=== PATIENT | male | born 1960 | race Caucasian/White ===

== ENCOUNTER → 2024-03-07 13:05 | Outpatient (REF) | payer OTHER, SELFPAY | LOC: RAD 13:05 | PROVIDERS: ATTENDING PHYSICIAN Family Medicine | DX: R05.1 Acute cough (principal) | CPT/HCPCS: 71046 ==

== ENCOUNTER 2024-04-28 16:45 | Inpatient (IN) | payer OTHER, SELFPAY ==
[2024-04-28] VITALS (7 sets, daily range): BP systolic 142–165; BP diastolic 80–105; BMI 24.6
--- NOTE | 2024-04-28 10:43 | ED.GENMED ---
History of Present Illness
General
Chief Complaint: Abdominal Pain
Source: patient
Exam Limitations: none
Time Seen by Provider: 04/28/24 10:31
History of Present Illness
History of Present Illness:
Patient started yesterday with progressive abdominal pain. 1 episode of vomiting although no nausea now. Bowel movement yesterday was normal. No radiation of the back no chest pain or shortness of breath. Pain is moderate in nature. Mostly
upper abdomen.
Past History
Past History
ED Past Medical History: Arrthythmia (AF), Cancer (nonhodgkins ), CVA, HTN, Hypercholesterolemia and Other (cataracts)
ED Past Surgical History: Other (Spleenectomy, Stomach repair, hernia repair, PFO closure)
Social History
Tobacco: Former smoker
Alcohol: Daily
Drug: None
Personal:
Living: with family
Review of Systems
Review of Systems
All Other Systems: Not applicable
Constitutional: Denies fever or chills
Respiratory: Reports no symptoms
Cardiac: Reports no symptoms
Phy Exam
Physical Exam
Physical Exam:
GENERAL: Alert and oriented in no apparent distress
EYE: Orbits normal.
NECK: Supple
CARDIAC: Regular rate and rhythm without any obvious murmurs.
LUNGS: Clear breath sounds,normal
ABDOMEN: Soft, bowel sounds present. Geovanni vertical old incision. Moderate tenderness right upper quadrant. Mild epigastric tenderness. No significant lower abdominal tenderness rebound or guarding
NEUROLOGICAL: Alert and oriented , grossly non-focal
SKIN: Warm and dry, no rash or lesion, no discoloration, skin intact.
MUSCULOSKELETAL: No edema,no deformity.Good color
PSYCH: Normal and appropriate interaction.
Course
Orders/Labs/Results
Orders:
Orders
04/28/24 Lunch
NPO
Allow oral meds: Yes
Allow clear liquids: No
04/28/24 10:43
Electrocardiogram (*1) Stat
Reason for Study: Abdominal Pain
CT Abd/pel W Iv And Oral Contr Urgent
Comment:
Reason For Exam: Upper abdominal pain
EKG- Treatment ONCE
IV Insert/Care/Rem.- Treatment PRN
0.9% Sodium Chloride 500 ml [Nss] 500 ml IV BOLUS
Iohexol [Omnipaque] See Protocol PO NOW STA
US Abdomen Complete/Upper Urgent
Reason For Exam: Right upper quadrant pain
04/28/24 11:00
Complete Blood Count/With Diff Urgent
PTT Urgent
Prothrombin Time Urgent
04/28/24 11:30
Lipase Urgent
04/28/24 12:01
Comprehensive Metabolic Panel Urgent
Lipase Urgent
Ketorolac [Toradol] 15 mg IV NOW STA
04/28/24 14:46
Piperacillin/Tazo 3.375 Gram [Zosyn] 3.375 gram in 50 ml IV NOW
04/28/24 15:59
Admit/Transfer Patient As Directed
Co-Sign Provider:
Level of Care: Inpatient admission
Assign to:: Medical/Surgical
Physician / Group: Jane Herrera
Diagnosis: Acute cholecystitis
Reason for Hospitalization: Acute cholecystitis
Expected length of stay greater than two midnights?: Yes
ELOS- Estimated Length of Stay in days: 3
I certify the patient meets the requirements for IP care: Yes
PRN Pain Medication Management As Directed
May give lesser potent ordered pain med per pt: Yes
preference::
Protocol:: Medication orders for pain may be administered in a
manner that supports deferring to patient preference
when the pt is:
- Requesting an ordered lesser potent pain medication.
Least to most potent pain medications are defined
as: acetaminophen < NSAID < tramadol < opioids
(morphine, oxycodone, hydromorphone).
- Requesting a lesser dose of the same medication IF
ORDERED.
- Requesting a less intrusive route of administration
if both routes are prescribed by the provider (PO <
IV).
04/28/24 16:01
Code Status As Directed
Resuscitation Status: Full Code
04/28/24 18:27
Acetaminophen [Tylenol] 650 mg PO Q4HPRN PRN
Bisacodyl [Dulcolax] 10 mg RECTAL Q64CEDF PRN
Docusate W/Senna [Senokot-S] 1 tablet PO BIDPRN PRN
HYDROmorphone [Dilaudid] 0.5 mg IV Q4HPRN PRN
Ondansetron Injectable [Zofran] 4 mg IV Q6HPRN PRN
Polyethylene Glycol Powder [Miralax] 17 grams PO DAILYPRN PRN
Tetrahydrozoline 0.05% [Visine Eye Drops] 1 drop BOTH EYES DAILYPRN PRN
04/28/24 18:27
Consult Surgery [SURGICAL CONSULT] Routine
Consulting Provider: Igor Venegas
Was physician already notified: Yes
Activity As Directed
Activity Level: Ambulate
Pneumatic Compression Sleeves As Directed
Type: Knee high
Vital Signs As Directed
Frequency: Per unit guidelines
DX Deep Vein Thrombosis Video Routine
04/28/24 22:00
Piperacillin/Tazo 3.375 Gram [Zosyn] 3.375 gram in 50 ml IV Q6H
04/29/24 06:00
Basic Metabolic Panel IN AM
Complete Blood Count/No Diff IN AM
04/29/24 08:00
Losartan [Cozaar] 50 mg PO DAILY
ponatinib [Iclusig] 15 mg PO DAILY
Abnormal Lab Results
04/28/24 04/28/24
11:00 12:01
WBC 15.3 H 10^3/uL
(4.8-10.8)
RBC 4.64 L 10^6/uL
(4.70-6.10)
MCV 95.7 H fL
(80.0-94.0)
MCH 33.4 H pg
(27.0-31.0)
RDW 15.1 H %
(11.5-14.5)
Plt Count 438 H 10^3/uL
(130-400)
Abs Immat Gran (auto) 0.1 H 10^3/uL
(0-0.05)
Absolute Neuts (auto) 11.2 H 10^3/uL
(1.4-6.5)
Absolute Monos (auto) 1.9 H 10^3/uL
(0.1-0.6)
Lymphocytes % 11.4 L %
(20.5-51.1)
Monocytes % 12.6 H %
(1.7-9.3)
Creatinine 0.5 L mg/dL
(0.7-1.3)
04/28/24 11:00
04/28/24 12:01
Vital Signs
Initial and Last Documented VS:
Initial Vital Signs
Temp Pulse Resp BP Pulse Ox
97.8 F 87 16 161/105 97
04/28/24 10:11 04/28/24 10:11 04/28/24 10:11 04/28/24 10:11 04/28/24 10:11
Last Documented Vital Signs
Temp Pulse Resp BP Pulse Ox
98.4 F 85 18 150/80 95
04/28/24 23:07 04/28/24 23:07 04/28/24 23:07 04/28/24 23:07 04/28/24 23:07
MDM/Problems Addressed
Differential Diagnosis Includes:
Differential for progressive abdominal pain over the last 24 to 36 hours. Including gallbladder, bowel obstruction. Atypical for appendix or diverticulitis given location. Workup in progress
*Radiology
Radiology exam reviewed: radiology read reviewed (Acute cholecystitis. Mildly increased aneurysms iliac and aorta)
*Pulse Oximetry
Patient hypoxic: no
*Critical Care Note
Total Time (30-74mins, 75-104mins- exclusive of procedures): Not Applicable
Data Reviewed
Review of Other/Old Records Reveals: Labs, Records, Radiology Studies and Testing
ED Attending Note
-
Portions of this chart may have been created with voice recognition software.� Occasional wrong word or��sound alike� substitutions may have occurred due to the inherent limitations of voice recognition software.
Discharge Plan
Departure
Patient Disposition: Admit
Date of Disposition: 04/28/24
Time of Disposition: 14:52
Presentation/result/management discussed w/ accepting MD/DO: General surgery
Discharge Problem:
Acute cholecystitis
Interventions
Interventions:
*Risk Screen - Suicide Last Done: 04/28/24 10:25
*General Assessment Last Done: 04/28/24 10:38
*Neglect/Abuse Screening Last Done: 04/28/24 10:25
ED- Fall Risk Assessment Last Done: 04/28/24 19:46
*ED COVID-19 Vaccine History Last Done: 04/28/24 10:40
*Nursing Disposition Last Done: 04/28/24 19:46
UZ-Vqxets-Filoyeawaz Assessment Last Done: 04/28/24 10:36
[2024-04-28 11:08] LABS: % Basophils 0.7 % (0-2); % Eosinophils 1.9 % (0-6); % Immature Granulocytes 0.5 % (0-0.5); % Lymphocytes 11.4 % (20.5-51.1); % Monocytes 12.6 % (1.7-9.3); % Neutrophils 72.9 % (42.2-75.2); Absolute Basophils 0.1 10^3/uL (0-0.2); Absolute Eosinophils 0.3 10^3/uL (0-0.7); Absolute Immature Granulocytes 0.1 10^3/uL (0-0.05); Absolute Lymphocytes 1.8 10^3/uL (1.2-3.4); Absolute Monocytes 1.9 10^3/uL (0.1-0.6); Absolute Neutrophils 11.2 10^3/uL (1.4-6.5); Hematocrit 44.4 % (39.0-52.0); Hemoglobin 15.5 g/dL (13.0-18.0); Mean Corp Hgb Conc. 34.9 g/dL (33.0-37.0); Mean Corpuscular Hgb 33.4 pg (27.0-31.0); Mean Corpuscular Volume 95.7 fL (80.0-94.0); Mean Platelet Volume 9.4 fL (7.4-10.4); Nucleated Red Blood Cells % 0 % (-); Platelet Count 438 10^3/uL (130-400); Red Blood Cell Count 4.64 10^6/uL (4.70-6.10); Red Cell Dist. Width 15.1 % (11.5-14.5); White Blood Cell Count 15.3 10^3/uL (4.8-10.8)
[2024-04-28] MEDS: NSS 500 IV (11:10)
[2024-04-28] MEDS: OMNIPAQUE 50 ML PO (11:10)
[2024-04-28 11:20] LABS: INR 0.99; PT 13.1 Sec (11.4-14.6)
[2024-04-28] MEDS: TORADOL 15 MG IV (12:06)
[2024-04-28 12:07] LABS: Lipase 45 U/L (23-300)
[2024-04-28 12:21] LABS: ALT (SGPT) 45 U/L (0-50); AST (SGOT) 34 U/L (17-59); Albumin 4.3 g/dl (3.5-5.0); Alkaline Phosphatase 80 U/L (38-126); Blood Urea Nitrogen 9 mg/dl (9-20); Calcium 8.9 mg/dl (8.4-10.2); Carbon Dioxide 23 mmol/L (22-30); Chloride 102 mmol/L (98-107); Glucose 92 mg/dl (70-99); Potassium 4.7 mmol/L (3.5-5.1); Sodium 140 mmol/L (135-145); Total Bilirubin 0.8 mg/dl (0.2-1.3); Total Protein 6.6 g/dl (6.3-8.2); eGFR > 60.00
[2024-04-28 12:22] LABS: Lipase 43 U/L (23-300)
--- NOTE | 2024-04-28 15:06 | HPS.HSE ---
Family Physician
-
Family Physician: Mega Escudero
Chief Complaint
-
Abdminal pain
History of Present Illness
Patient is a 63-year-old male with past medical history significant for HTN, HLD, a-fib, ALL and nonhodkins lymphoma presented to [place] [facility] ED following RUQ abdominal pain for the past day. Patient reports he started with abdominal pinto yesterday
around lunch and did resolve on its own. He was then woken from his sleep in the middle of the night with significant abdominal pain, he took Metamucil thinking he was suffering from constipation, he had an episode of emesis after drinking it. This
morning he made an apt to go see his primary care who referred him to ED for evaluation for possible gallbladder. Patient denies any fevers, chills, chest pain, shortness of breath, cough, nausea, constipation, diarrhea or urinary symptoms.
Medical History
Past Medical History
Past Medical History: Reports Other
Additional Past Medical History:
HTN
HLD
A-fib
Non-Hodgkin lymphoma
ALL
Past Surgical History: Reports Other
Additional Past Surgical History:
splenectomy
right TKA
Bone marrow transplant
Social History
Tobacco: Former Smoker (qit in 1994)
Alcohol: Daily (2-3 glasses a wine a day)
Drug: None
Personal:
Living: With Family
Employment: Employed
Family History
Family History: Not pertinent
Allergies / Home Medications
Allergies reflects when Allergies were last updated in [employer].
Home Medications with original date entered in [employer]
Allergy/Medication List:
Allergies
Allergy/AdvReac Type Severity Reaction Status Date / Time
No Known Allergies Allergy Verified 04/28/24 10:28
Home Medications
losartan 50 mg tablet 50 mg PO DAILY Blood pressure 10/26/20
acyclovir 400 mg tablet 400 mg PO BID 09/21/22
ibuprofen 200 mg tablet 600 mg PO Q6HPRN PRN mild pain 04/28/24
ponatinib 15 mg tablet (Iclusig) 15 mg PO DAILY 04/28/24
rivaroxaban 20 mg tablet (Xarelto) 20 mg PO DAILY 04/28/24
tetrahydrozoline 0.05 % eye drops (Visine) 1 drp BOTH EYES DAILYPRN PRN dry eyes 04/28/24
Review of Systems
-
History Source: Patient
Constitutional: Reports No Symptoms
EENT: Reports No Symptoms
Respiratory: Reports No Symptoms
Cardiac: Reports No Symptoms
Abdomen/GI: Reports Abdominal Pain (RUQ pain) and Vomiting
: Reports No Symptoms
Musculoskeletal: Reports No Symptoms
Skin: Reports No Symptoms
Neurological: Reports No Symptoms
Endocrine: Reports No Symptoms
Hematologic/Lymphatic: Reports No Symptoms
Psych: Reports No Symptoms
Physical Exam
Vital Signs
Vital Signs
Temp Pulse Resp BP Pulse Ox
97.8 F 87 16 159/101 98
04/28/24 10:11 04/28/24 10:11 04/28/24 10:11 04/28/24 12:09 04/28/24 12:15
Physical Exam
General: Well Developed, Well Nourished, No Apparent Distress, Comfortable and Conversant
HEENT: NormoCephalic, Moist mucous membranes and Atraumatic
Respiratory: Clear and Non Labored Respirations; No Wheezes, Rales, Rhonchi or Crackles
Cardiac: S1/S2 and Regular Rhythm; No Murmur, Rub or Gallop
GI: Soft, Non Tender, Non Distended and Normal Bowel Sounds; No Organomegaly
Rectal: Deferred by Provider
Genito-urinary: Deferred by me
Musculoskeletal: No Clubbing, No Cyanosis and No Edema
Skin: Warm, Dry and IV/Catheter Site; No Rash
Neuro: Awake, Alert, AO x 3 and Nonfocal/grossly intact
Hematologic/Lymphatic: No Lymphadenopathy
Psych: Calm and Intact Judgment/Insight
Laboratory Results
-
04/28/24 11:00
04/28/24 12:01
Laboratory Results
PT 13.1 Sec (11.4-14.6) 04/28/24 11:00
INR 0.99 04/28/24 11:00
APTT 35.0 Sec (23.4-35.0) 04/28/24 11:00
Total Bilirubin 0.8 mg/dl (0.2-1.3) 04/28/24 12:01
AST 34 U/L (17-59) 04/28/24 12:01
ALT 45 U/L (0-50) 04/28/24 12:01
Alkaline Phosphatase 80 U/L (38-126) 04/28/24 12:01
Lipase 43 U/L (23-300) 04/28/24 12:01
Data Reviewed
-
CT Scan: Report Reviewed by me (Abd: Cholelithiasis. Positive sonographic Torres's sign. This would be suspicious for acute cholecystitis in the proper clinical setting. No bile duct dilatation. Fatty infiltration of the liver. Pancreas obscured
by bowel gas)
Medical Tests (Nuc Med, Echo, EKG etc): Report Reviewed by me (EKG: NORMAL SINUS RHYTHM)
Lab Data: Labs Reviewed by me (WBC 15.3, Neut 72.9)
Impression/Plan
-
IMPRESSION/PLAN:
#Acute cholecystitis/Cholelithiasis
- Positive sonographic Torres's sign
- CT Abd:Cholelithiasis. Slightly indistinct gallbladder margin and mild pericholecystic soft tissue attenuation, suspicious for acute cholecystitis in the proper clinical setting. No bile duct dilatation.
- Admit to M/S
- Consult surgery
- Hold Xarelto
- Zosyn
#HTN
- continue losartan
#A-fib
- Hold Xarelto
#ALL
- in remission s/p bone marrow transplant 01/2023
- continue ponatinib
Full Code
DVT Px: SCDs
--- NOTE | 2024-04-28 15:25 | CON.GS ---
Addendum entered and electronically signed by Lupillo Sebastian MD 04/29/24 10:49:
I saw and examined the patient.
The Shake Cutter's note was reviewed and I agree with the note.
Comment: Remains ttp to RUQ. Labs and imaging c/w ACC. LFTs WNL. OCTOR for lap candice. IV abx.
Original Note:
Consultation
-
Date/Time Consultation Requested: 04/28/24 1500
Requesting Provider: Beau
Medical History
-
Chief Complaint: abdominal pain
History of Present Illness:
Mr. Corbett is a 63 yo male with a h/o non-hodgkin's lymphoma treated with chemo, xrt to eye & laparoscopic splenectomy in 2004 with intraop injury to stomach and subsequent exploratory laparotomy for repair at [facility]. He subsequently developed a
hernia at the incision site and underwent a VHR with mesh in 2006 as OSH with revision in January of [address] Sebastian. He has additional medical history of PAF s/p ablation on Xarelto (LD 10 in am), CVA without residual deficit s/p PFO closure
in 2008, and ALL treated with bone marrow transplant in 2022 on ponatinib. He presents today with right upper abdominal pain which began yesterday an hour or so after eating a rather large lunch. His pain did resolve on its own but returned
overnight and has persisted ever since. He took a dose of Metamucil as he does struggle with chronic constipation and had not had a BM yesterday which he subsequently vomited. He denies active nausea and vomiting but pain persists with significant
tenderness to the RUQ with guarding on exam. He denies fevers or chills.
Past Medical History
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
Past Surgical History: Cardiac (PFO closure 2008, Ablation), Hernia Repair (VHR with mesh 2006 and 2021), Orthopedic (right TKR, spinal procedure l5-s1) and Other (Lap splenectomy with injury to stomach and subsequent open procedure for repair in
2004)
Social History
Tobacco: Former Smoker
Alcohol: Daily
Personal:
Living: With Family
Employment: Employed ([employer])
Family History
Family History: Other (stroke in brother at age 47)
Allergies / Home Medications
Allergy/AdvReac Type Severity Reaction Status Date / Time
No Known Allergies Allergy Verified 04/28/24 10:28
�Medication �Instructions �Recorded �Confirmed �Type
losartan 50 mg tablet 50 mg PO DAILY Blood pressure 10/26/20 04/28/24 History
acyclovir 400 mg tablet 400 mg PO BID 09/21/22 04/28/24 History
ibuprofen 200 mg tablet 600 mg PO Q6HPRN PRN mild pain 04/28/24 04/28/24 History
ponatinib 15 mg tablet (Iclusig) 15 mg PO DAILY 04/28/24 04/28/24 History
rivaroxaban 20 mg tablet (Xarelto) 20 mg PO DAILY 04/28/24 04/28/24 History
tetrahydrozoline 0.05 % eye drops 1 drp BOTH EYES DAILYPRN PRN dry 04/28/24 04/28/24 History
(Visine) eyes
Review of Systems
-
History Source: Patient and Family
All other systems: Negative unless noted
A 10 point review of systems was completed, and was negative except as per HPI.
Physical Exam
Vital Signs
Temp Pulse Resp BP Pulse Ox
97.8 F 87 16 159/101 98
04/28/24 10:11 04/28/24 10:11 04/28/24 10:11 04/28/24 12:09 04/28/24 12:15
Lab Results
04/28/24 11:00
04/28/24 12:01
WBC 15.3 10^3/uL (4.8-10.8) H 04/28/24 11:00
Hgb 15.5 g/dL (13.0-18.0) 04/28/24 11:00
Hct 44.4 % (39.0-52.0) 04/28/24 11:00
Plt Count 438 10^3/uL (130-400) H 04/28/24 11:00
Abs Immat Gran (auto) 0.1 10^3/uL (0-0.05) H 04/28/24 11:00
Neutrophils % 72.9 % (42.2-75.2) 04/28/24 11:00
Physical Exam
General: Well Developed and No Apparent Distress
HEENT: Moist Mucous Membranes and Other (right eye blind)
Respiratory: Non Labored Respirations
GI: Soft, Non Distended and Tender (to RUQ with light palpation, +guarding present)
Skin: Warm and Dry
Neuro: Awake, Alert and AO x 3
Psych: Calm
Data Reviewed
-
CT Scan: Image Personally Visualized and interpreted, Report Reviewed by me, Discussed with Physician, Discussed with Patient and Discussed with Family
Ultrasound: Image Personally Visualized and interpreted, Report Reviewed by me, Discussed with Physician, Discussed with Patient and Discussed with Family
Labs: Labs Reviewed by me, Discussed with Physician, Discussed with Patient and Discussed with Family
Old Records: Reviewed
Assessment / Plan
-
63 yo male with h/o non-hodgkin's lymphoma with ocular involvement treated with chemo, xrt to eye & laparoscopic splenectomy in 2004 with intraop injury to stomach and subsequent exploratory laparotomy for repair at [facility]. He subsequently developed a
hernia at the incision site and underwent a VHR with mesh in 2006 as OSH with revision in January of [address] Sebastian. He has additional medical history of PAF s/p ablation on Xarelto (LD 10 in am), CVA without residual deficit s/p PFO closure
in 2008, and ALL treated with bone marrow transplant in 2022.
He presents today with RUQ pain which began yesterday afternoon after a large meal, initially intermittently but now constant. RUQ markedly tender with guarding to light palpation. US with cholelithiasis and +chavira's sign with follow up CT
demonstrating findings consistent with acute calculous cholecystitis in addition to some constipation. He has leukocytosis with WBC of 15.3. Afebrile with stable vital signs.
--Continue NPO
--Antiemetics/analgesics prn
--Continue IV Zosyn
--Hold Xarelto (LD 04/27)
--Anticipate OR for cholecystectomy tomorrow after Xarelto has washed out. Will review imaging/findings with attending surgeon and make final determination.
[2024-04-28] MEDS: ZOSYN 50 IV ×2 (15:39→21:49)
--- NOTE | 2024-04-28 15:44 | W.PN.UPDATE ---
Update Note
Progress Note Update
This is an addendum to the H&P written by Lynne Bautista on 04/28/2024. Patient seen and examined independently with ACCESS COORDINATOR.
63-year-old male past medical history of non-Hodgkin's lymphoma status post splenectomy, chemotherapy and radiation, ALL status post bone marrow transplant in remission, paroxysmal atrial fibrillation on Xarelto, CVA, hypertension, hyperlipidemia,
here for abdominal pain and 1 episode of vomiting.
CT abdomen pelvis shows findings suspicious for acute cholecystitis. Hold Xarelto last taken yesterday morning. NPO. IV fluids. Zosyn. Zofran, Dilaudid as needed. General surgery consulted.
--- NOTE | 2024-04-28 20:00 | PTCARENOTE ---
Pt transfered from ED. Pt ambulated into room without assistance. Pt AAOx3, oriented to room, call millan within reach. Will continue with current plan.
[2024-04-28] MEDS: DILAUDID 0.5 MG IV (20:34)
[2024-04-28] MEDS: MELATONIN 5 MG PO (21:49)
[2024-04-29] VITALS (9 sets, daily range): BP systolic 104–132; BP diastolic 79–90
[2024-04-29] MEDS: DILAUDID 0.5 MG IV ×4 (01:28→12:49)
[2024-04-29] MEDS: ZOSYN 50 IV ×3 (04:00→22:05)
[2024-04-29] MEDS: COZAAR 50 MG PO (08:04)
[2024-04-29 08:16] LABS: Hematocrit 45.6 % (39.0-52.0); Hemoglobin 15.9 g/dL (13.0-18.0); Mean Corp Hgb Conc. 34.9 g/dL (33.0-37.0); Mean Corpuscular Hgb 34.6 pg (27.0-31.0); Mean Corpuscular Volume 99.1 fL (80.0-94.0); Mean Platelet Volume 10.3 fL (7.4-10.4); Platelet Count 393 10^3/uL (130-400); Red Cell Dist. Width 15.1 % (11.5-14.5); White Blood Cell Count 18.8 10^3/uL (4.8-10.8)
[2024-04-29 08:37] LABS: Blood Urea Nitrogen 10 mg/dl (9-20); Calcium 9.2 mg/dl (8.4-10.2); Carbon Dioxide 23 mmol/L (22-30); Chloride 97 mmol/L (98-107); Estimated Creatinine Clearance > 125 ml/min; Glucose 76 mg/dl (70-99); Potassium 4.8 mmol/L (3.5-5.1); Sodium 137 mmol/L (135-145); eGFR > 60.00
--- NOTE | 2024-04-29 09:45 | CM ---
Pt seen bedside. Pt lives w/ spouse and adult son in a [facility]- 3 steps to enter
Prev. independent, denies DME use for ambulating and daily functioning
Denies SNF hx
Denies VN/PT hx
Denies financial insecurities
Address, point of contact and insurance verified
PCP: Dr. Mega Escudero
Pharmacy: [facility]
OR today for cholecystectomy
Plan: Will cont. to follow for poss d/c needs
--- NOTE | 2024-04-29 09:57 | W.PN.HOSP.TC ---
Addendum entered and electronically signed by Cameron Valerio MD 04/29/24 11:06:
concern for development of gall stone pancreatitis - increase IVF to 200ml.h, give bolus 1L now
Original Note:
Today's Communication/Plan
-
See PN
Assessment / Plan
Assessment / Plan
63yo M with Non-hodgkins lymphoma, Afib on Xarelto, HTN came with acute RUQ pain for 2 days and found calculous cholecystitis, pending OR
A/P:
#Acute calculous cholecystitis
Gen Sx
Bcx
Zosyn
IVF
NPO
#Essential HTN
#non-hodgkins lymphoma
#Paroxysmal Afib
Hold Xarelto, restart when deemed appropriate by GenSx
Hold Iclusig 2/2 acute infection
cont rest of meds
DVT ppx on Xarelto, when appropriate
Full code
I have spent at least 58min reviewing chart, test results, communication with consultants and direct patient care
Anticipated Discharge: > 48 hours
Subjective/Interval History
-
Date of Service: April 29, 2024
Objective Data
-
Labs:
Laboratory Results
04/29/24
06:10
WBC 18.8 H
Hgb 15.9
Hct 45.6
Plt Count 393
Sodium 137
Potassium 4.8
Chloride 97 L
Carbon Dioxide 23
BUN 10
Creatinine 0.6 L
Glucose 76
Calcium 9.2
Vital Signs:
Vital Signs
Temp Pulse Resp BP Pulse Ox
98.4 F 66 14 104/89 98
04/29/24 07:05 04/29/24 07:05 04/29/24 07:05 04/29/24 07:05 04/29/24 07:05
Review of Systems
-
History Source: Patient
All other systems: Reviewed and negative
Abdomen/GI: Reports Abdominal Pain
Physical Exam
-
General: Appears in Distress and Pain
HEENT: Moist Mucous Membranes
Respiratory: Clear to Auscultation
Cardiac: Regular Rhythm
GI: Tender and Distended
Musculoskeletal: No Clubbing, No Cyanosis and No Edema
Skin: Warm
Neuro: Awake, Alert, Oriented and AO x 3
Psych: Calm
[2024-04-29] MEDS: LR 1000 IV ×3 (10:52→23:28)
[2024-04-29 10:56] LABS: ALT (SGPT) 81 U/L (0-50); AST (SGOT) 81 U/L (17-59); Albumin 4.3 g/dl (3.5-5.0); Alkaline Phosphatase 124 U/L (38-126); Direct Bilirubin 0.6 mg/dl (0.0-0.4); Lipase 488 U/L (23-300); Total Bilirubin 1.7 mg/dl (0.2-1.3); Total Protein 6.5 g/dl (6.3-8.2)
[2024-04-29] MEDS: ZOSYN IV (15:55)
--- NOTE | 2024-04-29 18:03 | W.IMMPOSTOP ---
Surgical Immed Post Op Note
-
Primary Surgeon: Romulo
Assisting: Kevon Sanchez
Pre-op Diagnosis: Acute calculous cholecystitis
Post-op Diagnosis: Acute gangrenous calculous cholecystitis
Procedure Performed: Laparoscopic converted to open cholecystectomy
Anesthesia Type: GETA
Specimen / Cultures: Gallbladder
Estimated Blood Loss: 25cc
Complications: None immediate
Operative Findings: Frozen abdomen; multiple unsuccessful attempts to insufflate with veress unsuccessful; umbilical cut down for initial trocar placement under direct vision, still very limited insufflation; second trocar placed in RLQ in a
relatively adhesion free pocket and survey of the abdomen revealed extensive adhesions and small bowel plastered to mesh and abdominal wall everywhere; conversion to open with midline incision and limited lysis of adhesions; 2 layers of PTFE mesh
and a layer of polypropylene mesh noted; small bowel serosal injury with lysis (expected) repaired with 3-0 silk lembert sutures x3; gallbladder tensely distended with patchy wall necrosis, decompressed with suction, top down approach using bovie
cautery; cystic artery not definitively identified; cystic duct identified and controlled with 2-0 PDS endoloop and 3-0 silk tie; miidline closed with 2-0 prolene suture; 19fr allie drain to subhepatic space brought out through RLQ port site incision
Plan for NPO/IVF with sips and chips, he is at risk for ileus
PHARMACY OPERATIONS MANAGER + ofirmev/toradol for pain control
lovenox ppx dose and SCDs for DVT ppx
hold xarelto 48 hrs minimum
updated
[2024-04-29] MEDS: TORADOL 15 MG IV (20:05)
[2024-04-29] MEDS: MELATONIN 5 MG PO (22:09)
[2024-04-29] MEDS: DILAUDID 1 MG IV (22:09)
[2024-04-29] MEDS: OFIRMEV 100 IV (22:50)
[2024-04-30] VITALS (11 sets, daily range): BP systolic 30–142; BP diastolic 75–90
[2024-04-30] MEDS: TORADOL 15 MG IV ×4 (00:28→20:49)
[2024-04-30] MEDS: LR IV ×2 (01:00→03:06)
[2024-04-30] MEDS: DILAUDID 1 MG IV ×4 (03:11→16:48)
[2024-04-30] MEDS: OFIRMEV 100 IV ×3 (03:11→16:53)
[2024-04-30] MEDS: ZOSYN 50 IV ×4 (03:41→22:19)
[2024-04-30 06:32] LABS: % Basophils 0.3 % (0-2); % Immature Granulocytes 0.7 % (0-0.5); % Lymphocytes 6.5 % (20.5-51.1); % Monocytes 9.7 % (1.7-9.3); % Neutrophils 82.8 % (42.2-75.2); Absolute Basophils 0.1 10^3/uL (0-0.2); Absolute Immature Granulocytes 0.1 10^3/uL (0-0.05); Absolute Lymphocytes 1.2 10^3/uL (1.2-3.4); Absolute Monocytes 1.8 10^3/uL (0.1-0.6); Absolute Neutrophils 14.9 10^3/uL (1.4-6.5); Hematocrit 42.2 % (39.0-52.0); Hemoglobin 14.5 g/dL (13.0-18.0); Mean Corp Hgb Conc. 34.4 g/dL (33.0-37.0); Mean Corpuscular Hgb 33.2 pg (27.0-31.0); Mean Corpuscular Volume 96.6 fL (80.0-94.0); Mean Platelet Volume 9.4 fL (7.4-10.4); Nucleated Red Blood Cells % 0 % (-); Platelet Count 366 10^3/uL (130-400); Red Blood Cell Count 4.37 10^6/uL (4.70-6.10); Red Cell Dist. Width 15.2 % (11.5-14.5)
[2024-04-30 07:59] LABS: ALT (SGPT) 181 U/L (0-50); AST (SGOT) 127 U/L (17-59); Albumin 3.4 g/dl (3.5-5.0); Alkaline Phosphatase 112 U/L (38-126); Blood Urea Nitrogen 16 mg/dl (9-20); Calcium 8.1 mg/dl (8.4-10.2); Carbon Dioxide 27 mmol/L (22-30); Chloride 100 mmol/L (98-107); Estimated Creatinine Clearance 110 ml/min; Glucose 146 mg/dl (70-99); Potassium 4.4 mmol/L (3.5-5.1); Sodium 136 mmol/L (135-145); Total Bilirubin 1.5 mg/dl (0.2-1.3); Total Protein 5.6 g/dl (6.3-8.2); eGFR > 60.00
[2024-04-30] MEDS: COZAAR 50 MG PO (08:59)
[2024-04-30 09:15] LABS: Lipase 61 U/L (23-300)
[2024-04-30] MEDS: OMNIPAQUE 50 ML PO (12:00)
[2024-04-30] MEDS: LR 1000 IV ×2 (12:24→20:49)
--- NOTE | 2024-04-30 13:57 | W.PN.GS2 ---
Today's Communication / Plan
-
stat CT A/P
GI consult
remain NPO
Assessment / Plan
-
POD#1 Laparoscopic converted to open cholecystectomy
-Given bilious output in drain, will order stat CT A/P with po and IV contrast
-GI consult given bilious output
-MARY contents sent for bilirubin (send out)
-Remain NPO
-Holding Xarelto
-Continue Zosyn IV
Subjective Data
-
Date of Service: April 30, 2024
Patient states his pain is controlled. He denies nausea or vomiting. He has remained afebrile. He has no complaints.
Objective Data
-
Intake and Output
04/29/24 04/30/24 05/01/24
06:59 06:59 05:59
Intake Total 480 / 480
Output Total 630 / 630
Balance -150 / -150
Intake:
Oral fluids 480 / 480
Output:
Drain Output (Total) 30
Raymond-Portillo Placed in IR 30 /
Urine, Voided 600 / 600
Other:
Number of approximated MODERATE 2
amounts of urine
Number of approximated LARGE 2
amounts of urine
Vital Signs
Temp Pulse Resp BP Pulse Ox
97.7 F 72 16 121/75 93
04/30/24 11:44 04/30/24 11:44 04/30/24 11:44 04/30/24 11:44 04/30/24 11:44
Lab Results
04/30/24 06:12
04/30/24 07:21
Calcium 8.1 mg/dl (8.4-10.2) L 04/30/24 07:21
Total Bilirubin 1.5 mg/dl (0.2-1.3) H 04/30/24 07:21
Direct Bilirubin 0.6 mg/dl (0.0-0.4) H 04/29/24 06:10
AST 127 U/L (17-59) H 04/30/24 07:21
ALT 181 U/L (0-50) H 04/30/24 07:21
Alkaline Phosphatase 112 U/L (38-126) 04/30/24 07:21
Total Protein 5.6 g/dl (6.3-8.2) L 04/30/24 07:21
Albumin 3.4 g/dl (3.5-5.0) L 04/30/24 07:21
Physical Exam
-
AAOX3
Incisions c/d/i
Abdomen soft, NT, ND
MARY: bilious
--- NOTE | 2024-04-30 14:35 | W.PN.HOSP.TC ---
Today's Communication/Plan
-
cont Abx
Assessment / Plan
Assessment / Plan
63yo M with Non-hodgkins lymphoma, Afib on Xarelto, HTN came with acute RUQ pain for 2 days and found calculous cholecystitis, pending OR
A/P:
#Acute gangrenous calculous cholecystitis
#postOP ileus
Gen Sx: s/p open cholecystectomy on 04/29/24
Bcx
Zosyn
IVF
#Essential HTN
#non-hodgkins lymphoma
#Paroxysmal Afib
Hold Xarelto, restart when deemed appropriate by GenSx
Hold Iclusig 2/2 acute infection
cont rest of meds
DVT ppx on Xarelto, when appropriate
Full code
I have spent at least 38min reviewing chart, test results, communication with consultants and direct patient care
Anticipated Discharge: > 48 hours
Subjective/Interval History
-
Date of Service: April 30, 2024
Objective Data
-
Labs:
Laboratory Results
04/30/24 04/30/24
06:12 07:21
WBC 18.0 H
Hgb 14.5
Hct 42.2
Plt Count 366
Sodium Cancelled 136
Potassium Cancelled 4.4
Chloride Cancelled 100
Carbon Dioxide Cancelled 27
BUN Cancelled 16
Creatinine Cancelled 0.8
Glucose Cancelled 146 H
Calcium Cancelled 8.1 L
Total Bilirubin Cancelled 1.5 H
AST Cancelled 127 H
ALT Cancelled 181 H
Alkaline Phosphatase Cancelled 112
Vital Signs:
Vital Signs
Temp Pulse Resp BP Pulse Ox
97.7 F 72 16 121/75 93
04/30/24 11:44 04/30/24 11:44 04/30/24 11:44 04/30/24 11:44 04/30/24 11:44
I&O
04/29/24 04/30/24 05/01/24
06:59 06:59 05:59
Intake Total 480 / 480
Output Total 630 / 630
Balance -150 / -150
Review of Systems
-
History Source: Patient
All other systems: Reviewed and negative
Physical Exam
-
General: No Apparent Distress
HEENT: Normocephalic
Respiratory: Clear to Auscultation
Cardiac: Regular Rhythm
GI: Soft, Nontender, Nondistended and Other (MARY drain)
Musculoskeletal: No Clubbing, No Cyanosis and No Edema
Neuro: Awake, Alert, Oriented and AO x 3
Psych: Calm
--- NOTE | 2024-04-30 18:36 | OR.RPT ---
Operative Report
Operative Report
Primary Surgeon: Romulo
Assisting: Kevon Sanchez
Pre-op Diagnosis: Acute calculous cholecystitis
Post-op Diagnosis: Acute gangrenous calculous cholecystitis
Procedure Performed: Laparoscopic converted to open cholecystectomy
Anesthesia Type: GETA
Specimen / Cultures: Gallbladder
Estimated Blood Loss: 25cc
Complications: None immediate
Operative Findings: Frozen abdomen; multiple unsuccessful attempts to insufflate with veress unsuccessful; umbilical cut down for initial trocar placement under direct vision, still very limited insufflation; second trocar placed in RLQ in a
relatively adhesion free pocket and survey of the abdomen revealed extensive adhesions and small bowel plastered to mesh and abdominal wall everywhere; conversion to open with midline incision and limited lysis of adhesions; 2 layers of PTFE mesh
and a layer of polypropylene mesh noted; small bowel serosal injury with lysis (expected) repaired with 3-0 silk lembert sutures x3; gallbladder tensely distended with patchy wall necrosis, decompressed with suction, top down approach using bovie
cautery; cystic artery not definitively identified; cystic duct identified and controlled with 2-0 PDS endoloop and 3-0 silk tie; miidline closed with 2-0 prolene suture; 19fr allie drain to subhepatic space brought out through RLQ port site incision
Date of Surgery: 04/29/24
Description of procedure: The patient was placed on the operating table in the supine position. General anesthesia was induced. A time-out was completed verifying correct patient, procedure, site, positioning, and special equipment prior to
beginning this procedure. An orogastric tube was placed. The abdomen was prepped and draped in the usual sterile fashion. A stab incision was made in left upper quadrant and the Veress needle was inserted. Proper position was confirmed by aspiration
and saline meniscus test. The abdomen was insufflated with carbon dioxide however the abdomen did not insufflate well. Several other attempts were made to insufflate with veress but ultimately this was abandoned. A supra-umbilical cut down was
performed. Mesh was encountered and divided and the abdomen entered. The bowel was inspected and no injuries were identified. A trocar was placed gently into the incision under direct vision and the abdomen was again insufflated. Insufflation again
was limited. A laparoscope was inserted and an area at the right lower quadrant was identified that was free of adhesions and bowel and a second trocar was placed here under laparoscopic vision. The camera was moved to the new trocar site and the
abdomen was inspected. Extensive adhesions throughout the abdomen were noted. The laparoscopic approach was abandoned at this time.
A midline incision was made and carried down to the linea alba with cautery. The abdomen was carefully entered and small bowel adhesions at the midline to the abdominal wall were carefully taken down with blunt dissection and cold frank. Once the
bowel was mobilized off the abdominal wall the gallbladder was identified. It was tensely distended with patchy wall necrosis. An incision was made in the gallbladder wall and the contents were decompressed with suction. The gallbladder was gently
grasped and taken down from its liver attachments in a down down fashion using electrocautery. There was wall edema of the gallbladder that aided in the dissection. The cystic duct was not definitively identified. Once the gallbladder was totally
free, the only remaining attachment was the cystic duct. This was controlled with a 2-0 PDS endoloop and a 2-0 silk tie. The cystic duct was divided and the gallbladder removed and passed off the table as specimen. The small bowel was inspected
carefully and a serosal injury was identified and repaired with 3-0 silk lembert sutures. A 19fr allie drain was placed into the subhepatic space and brought out through the right lower quadrant incision and secured with a 2-0 nylon suture.
The abdomen was irrigated with copious sterile saline until effluent ran clear. The fascia was closed with 0 prolene suture and the skin was closed with sherita. Aquacel dressing and drain sponge applied.
The patient tolerated the procedure well and was taken to the postanesthesia care unit in stable condition.
--- NOTE | 2024-04-30 20:25 | W.IMMPOSTOP ---
Surgical Immed Post Op Note
-
Primary Surgeon: Romulo
Pre-op Diagnosis: Perforated viscus
Post-op Diagnosis: Small bowel enterotomy
Procedure Performed: Exploratory laparotomy, repair of small bowel enterotomy
Anesthesia Type: GETA
Specimen / Cultures: None
Estimated Blood Loss: 10cc
Complications: None immediate
Operative Findings: Small bowel enterotomy about 2mm diameter identified anteriorly near the midline. Repaired in 2 layers with 3-0 vicryl suture. Additional limited lysis of adhesions at central abdomen and in right lower quadrant. Subhepatic
space inspected. Transverse colon inspected. No other injuries identified. 19fr allie drain to anterior abdomen near enterotomy repair. Nasogastric tube placed.
--- NOTE | 2024-04-30 21:20 | PTCARENOTE ---
patient arrived to [facility] from PACU in bed. AAOx3 but slightly drowsy. Family at bedside, updated to plan of care along with patient. Midline drsg with small amount of drainage. NGT in place to R nare to wall suction at low intermit. IVF infusing
per order. 2LNC in use, VSS. Oriented to room and call millan use. Assessment on going.
[2024-04-30] MEDS: MELATONIN PO (22:26)
[2024-05-01 00:15] VITALS: BP 128/72
[2024-05-01] MEDS: TORADOL 15 MG IV ×4 (00:48→20:52)
[2024-05-01] MEDS: DILAUDID 1 MG IV ×6 (01:27→22:23)
[2024-05-01 03:02] VITALS: BP 135/90
[2024-05-01] MEDS: ZOSYN 50 IV ×4 (03:57→22:22)
[2024-05-01 06:33] LABS: % Basophils 0.1 % (0-2); % Immature Granulocytes 0.3 % (0-0.5); % Lymphocytes 8.4 % (20.5-51.1); % Neutrophils 82.2 % (42.2-75.2); Absolute Lymphocytes 1.2 10^3/uL (1.2-3.4); Absolute Monocytes 1.3 10^3/uL (0.1-0.6); Absolute Neutrophils 11.6 10^3/uL (1.4-6.5); Hematocrit 39.1 % (39.0-52.0); Hemoglobin 13.9 g/dL (13.0-18.0); Mean Corp Hgb Conc. 35.5 g/dL (33.0-37.0); Mean Corpuscular Hgb 34.8 pg (27.0-31.0); Mean Platelet Volume 9.8 fL (7.4-10.4); Nucleated Red Blood Cells % 0.2 % (-); Platelet Count 367 10^3/uL (130-400); Red Blood Cell Count 3.99 10^6/uL (4.70-6.10); Red Cell Dist. Width 14.8 % (11.5-14.5); White Blood Cell Count 14.1 10^3/uL (4.8-10.8)
[2024-05-01] MEDS: LR 1000 IV ×2 (06:36→17:45)
[2024-05-01 07:03] LABS: ALT (SGPT) 124 U/L (0-50); AST (SGOT) 56 U/L (17-59); Albumin 3.3 g/dl (3.5-5.0); Alkaline Phosphatase 108 U/L (38-126); Blood Urea Nitrogen 19 mg/dl (9-20); Calcium 8.1 mg/dl (8.4-10.2); Carbon Dioxide 30 mmol/L (22-30); Chloride 97 mmol/L (98-107); Estimated Creatinine Clearance > 125 ml/min; Glucose 124 mg/dl (70-99); Potassium 4.5 mmol/L (3.5-5.1); Sodium 136 mmol/L (135-145); Total Bilirubin 1.1 mg/dl (0.2-1.3); Total Protein 5.6 g/dl (6.3-8.2); eGFR > 60.00
[2024-05-01 07:30] VITALS: BP 134/85
[2024-05-01] MEDS: COZAAR PO (09:31)
[2024-05-01] MEDS: NSS (PRESERVATIVE FREE) 10 ML IV ×2 (09:47→20:50)
[2024-05-01] MEDS: FLUSH (NSS) 2 FLUSH IV ×2 (09:47→16:13)
[2024-05-01] MEDS: PROTONIX IV 40 MG IV ×2 (09:47→20:50)
--- NOTE | 2024-05-01 10:32 | W.PN.HOSP.TC ---
Addendum entered and electronically signed by Cameron Valerio MD 05/01/24 10:41:
Correction:
#Coffee-ground NG output
Original Note:
Today's Communication/Plan
-
watch Hgb
PPI
mgmt as per GenSx
Assessment / Plan
Assessment / Plan
63yo M with Non-hodgkins lymphoma, CML, Afib on Xarelto, HTN came with acute RUQ pain for 2 days and found calculous cholecystitis, had open cholecystectomy with subsequently found enterotomy on CT with second laparotomy same day for repair
A/P:
#Acute gangrenous calculous cholecystitis with postOP complication of enterotomy
#postOP ileus
Gen Sx: s/p open cholecystectomy on 04/29/24, later same day Exploratory laparotomy, repair of small bowel enterotomy
Bcx NTD
Zosyn
IVF
#Melanotic output via NG tube
PPI BID
follow Hgb
Most likely postOP
If will continue - might need GI
#Essential HTN
#non-hodgkins lymphoma
#CML
#Paroxysmal Afib
Hold Xarelto, restart when deemed appropriate by GenSx
Hold Iclusig 2/2 acute infection
cont rest of meds
#Transaminitis
2/2 recent Sx
improving
follow LFT
#PostOP ileus
await for return of bowel function
DVT ppx on Xarelto, when appropriate
Full code
I have spent at least 38min reviewing chart, test results, communication with consultants and direct patient care
Anticipated Discharge: > 48 hours
Subjective/Interval History
-
Date of Service: May 01, 2024
Objective Data
-
Labs:
Laboratory Results
05/01/24
06:07
WBC 14.1 H
Hgb 13.9
Hct 39.1
Plt Count 367
Sodium 136
Potassium 4.5
Chloride 97 L
Carbon Dioxide 30
BUN 19
Creatinine 0.7
Glucose 124 H
Calcium 8.1 L
Total Bilirubin 1.1
AST 56
ALT 124 H
Alkaline Phosphatase 108
Vital Signs:
Vital Signs
Temp Pulse Resp BP Pulse Ox
97.8 F 72 15 134/85 94
05/01/24 07:30 05/01/24 07:30 05/01/24 07:30 05/01/24 07:30 05/01/24 07:30
I&O
04/30/24 05/01/24 05/02/24
07:59 06:59 06:59
Intake Total
Output Total
Balance
Review of Systems
-
History Source: Patient
All other systems: Reviewed and negative
Physical Exam
-
General: No Apparent Distress
HEENT: Normocephalic and Other (NG with dark fluid)
Respiratory: Clear to Auscultation
Cardiac: Regular Rhythm
GI: Soft, Nontender and Nondistended
Musculoskeletal: No Clubbing, No Cyanosis and No Edema
Neuro: Awake, Alert, Oriented and AO x 3
Psych: Calm
[2024-05-01 10:47] VITALS: BMI 24.6
[2024-05-01 10:57] VITALS: BP 125/82
--- NOTE | 2024-05-01 11:21 | W.PN.GS2 ---
Today's Communication / Plan
-
continue NGT
NPO
lovenox
OOB
continue antibiotics
Assessment / Plan
-
POD#2 Laparoscopic converted to open cholecystectomy, POD#1 Exploratory laparotomy, repair of small bowel enterotomy
NGT: 905ml (bilious), MARY drain: 285ml (bloody serous)
-Continue NGT
-Protonix IV while NGT in place
-MARY contents sent for bilirubin on 04/30 - pending (send out)
-Remain NPO
-Holding Xarelto
-Continue Zosyn IV
-OOB as tolerated
-Restart lovenox for DVT prophylaxis. TEDS/SCDs in place.
Subjective Data
-
Date of Service: May 01, 2024
Patient states he feels 'okay'. His pain is controlled. The NGT is in place. He denies nausea or vomiting. He has no bowel function yet.
Objective Data
-
Intake and Output
04/30/24 05/01/24 05/02/24
07:59 06:59 06:59
Intake Total
Output Total
Balance
Intake:
Oral fluids
IV fluids (Total)
Normosol
IV piggybacks
Amount instilled into GI Tube (
Total)
[place] Sump
Output:
Drain Output (Total)
Raymond-Portillo Placed in IR
Right Lower Abdomen Raymond-
Portillo
Gastrointestinal tube output (
Total)
[place] Sump
Urine, Voided
Other:
Number of approximated LARGE
amounts of urine
Vital Signs
Temp Pulse Resp BP Pulse Ox
98.3 F 71 15 125/82 94
05/01/24 10:57 05/01/24 10:57 05/01/24 10:57 05/01/24 10:57 05/01/24 10:57
Lab Results
05/01/24 06:07
Calcium 8.1 mg/dl (8.4-10.2) L 05/01/24 06:07
Total Bilirubin 1.1 mg/dl (0.2-1.3) 05/01/24 06:07
Direct Bilirubin 0.6 mg/dl (0.0-0.4) H 04/29/24 06:10
AST 56 U/L (17-59) 05/01/24 06:07
ALT 124 U/L (0-50) H 05/01/24 06:07
Alkaline Phosphatase 108 U/L (38-126) 05/01/24 06:07
Total Protein 5.6 g/dl (6.3-8.2) L 05/01/24 06:07
Albumin 3.3 g/dl (3.5-5.0) L 05/01/24 06:07
Physical Exam
-
AAOX3
Incisions c/d/i
Abdomen soft, NT, ND, midline dressing in place from OR - old blood underneath
MARY: bloody serous
[2024-05-01 14:54] VITALS: BP 138/81
[2024-05-01] MEDS: LOVENOX 40 MG SC (17:47)
[2024-05-01 17:56] LABS: Hematocrit 37.3 % (39.0-52.0); Hemoglobin 13.3 g/dL (13.0-18.0)
[2024-05-01] MEDS: LR IV (22:15)
[2024-05-01] MEDS: MELATONIN PO (22:21)
[2024-05-01] MEDS: BENADRYL 25 MG IV (22:23)
[2024-05-01 22:42] VITALS: BP 145/92
[2024-05-02] MEDS: TORADOL 15 MG IV ×4 (01:25→18:25)
[2024-05-02] MEDS: DILAUDID 1 MG IV ×2 (03:29→08:00)
[2024-05-02] MEDS: ZOSYN 50 IV ×4 (03:30→21:31)
[2024-05-02] MEDS: LR 1000 IV ×2 (05:12→17:23)
[2024-05-02 06:45] VITALS: BP 143/86
--- NOTE | 2024-05-02 07:53 | W.PN.GS2 ---
Today's Communication / Plan
-
NGT clamp trial
IV abx
Assessment / Plan
-
POD#3 Laparoscopic converted to open cholecystectomy, POD#2 Exploratory laparotomy, repair of small bowel enterotomy
AFVSS, passing flatus, pain controlled
Labs today pending (WBC trending down yesterday)
-NGT clamp trial
-Multi-modal pain meds
-Protonix IV while NGT in place
-NPO with sips and chips
-Holding Xarelto - tentatively for restart tomorrow 05/03
-Continue Zosyn IV
-OOB as tolerated
-Cont lovenox for DVT prophylaxis. TEDS/SCDs in place.
Subjective Data
-
Date of Service: May 02, 2024
No complaints, pain controlled, OOBTC, passing flatus, hungry
Objective Data
-
Intake and Output
05/01/24 05/02/24 05/03/24
06:59 06:59 06:59
Intake Total 1200 / 1200
Output Total 1020 / 1020
Balance 180 / 180
Intake:
IV fluids (Total) 1100 / 1100
Normosol
IV piggybacks 100 / 100
Amount instilled into GI Tube ( 0 / 0
Total)
[place] Sump 0 / 0
Output:
Drain Output (Total) 70 / 70
Raymond-Portillo Placed in IR
Right Lower Abdomen Raymond- 70 / 70
Portillo
Gastrointestinal tube output ( 600 / 600
Total)
[place] Sump 600 / 600
Urine, Voided 350 / 350
Other:
Number of approximated MODERATE 2
amounts of urine
Vital Signs
Temp Pulse Resp BP Pulse Ox
97.8 F 59 22 143/86 95
05/02/24 06:45 05/02/24 06:45 05/02/24 06:45 05/02/24 06:45 05/02/24 06:45
Calcium 8.1 mg/dl (8.4-10.2) L 05/01/24 06:07
Total Bilirubin 1.1 mg/dl (0.2-1.3) 05/01/24 06:07
Direct Bilirubin 0.6 mg/dl (0.0-0.4) H 04/29/24 06:10
AST 56 U/L (17-59) 05/01/24 06:07
ALT 124 U/L (0-50) H 05/01/24 06:07
Alkaline Phosphatase 108 U/L (38-126) 05/01/24 06:07
Total Protein 5.6 g/dl (6.3-8.2) L 05/01/24 06:07
Albumin 3.3 g/dl (3.5-5.0) L 05/01/24 06:07
Physical Exam
-
Gen: NAD
bd: soft, mild ttp, mild distention, aquacel OK, drain ss
--- NOTE | 2024-05-02 07:58 | W.PN.HOSP.TC ---
Today's Communication/Plan
-
Continue antibiotics
NG tube clamp trial
NPO with sips and chips
DVT prophylaxis with Lovenox and SCDs
Assessment / Plan
Assessment / Plan
Physical Exam
General: No Apparent Distress
HEENT: Normocephalic and Other (NG clamped)
Respiratory: Clear to Auscultation Bilaterally
Cardiac: S1 and S2. Regular Rhythm
GI: Soft, Nontender and Nondistended
Musculoskeletal: No Cyanosis and No Edema
Neuro: Awake, Alert, Oriented and AO x 3
Psych: Calm
Assessment/Plan
63yo M with Non-hodgkins lymphoma, CML, Afib on Xarelto, HTN came with acute RUQ pain for 2 days and found calculous cholecystitis, had open cholecystectomy with subsequently found enterotomy on CT with second laparotomy same day for repair
#Acute gangrenous calculous cholecystitis with postOP complication of enterotomy needing repair
#Post-operative ileus
Gen Sx: s/p open cholecystectomy on 04/29/24, later same day Exploratory laparotomy, repair of small bowel enterotomy
NGT clamp trial today
NPO with sips and chips
Bcx NTD
Zosyn
IVF
#Melanotic output via NG tube
PPI IV BID -- discussed on May 02, 2024 with on-call aws solution architect who recommended PPI BID inpatient follow by daily PPI outpatient
follow Hgb
Most likely postOP
Spoke with on-call aw[employer] solution architect on 05/02/24: this is from [place] in small bowel which needed surgery, watch ng tube, if domo blood (e.g. maroon stools) or Hgb keeps drifting downwards, then call GI
#Essential HTN
#non-hodgkins lymphoma
#CML
#Paroxysmal Afib
Hold Xarelto, restart when deemed appropriate by GenSx -- tentatively for 05/03/24
Hold Iclusig 2/2 acute infection
cont rest of meds
#Transaminitis
2/2 recent Sx
improving
follow LFT
#PostOP ileus
await for return of bowel function
DVT PPx: Lovenox and SCDs.
Full code
I have spent at least 55 min reviewing chart, test results, communication with consultants and direct patient care
Anticipated Discharge: > 48 hours
Subjective/Interval History
-
Date of Service: May 02, 2024
Patient was seen and examined. He reported overall feeling better.
Objective Data
-
Labs:
Laboratory Results
05/02/24
06:00
WBC Pending
Hgb Pending
Hct Pending
Plt Count Pending
Sodium Pending
Potassium Pending
Chloride Pending
Carbon Dioxide Pending
BUN Pending
Creatinine Pending
Glucose Pending
Calcium Pending
Total Bilirubin Pending
AST Pending
ALT Pending
Alkaline Phosphatase Pending
Vital Signs:
Vital Signs
Temp Pulse Resp BP Pulse Ox
97.8 F 59 22 143/86 95
05/02/24 06:45 05/02/24 06:45 05/02/24 06:45 05/02/24 06:45 05/02/24 06:45
I&O
05/01/24 05/02/24 05/03/24
06:59 06:59 06:59
Intake Total 1200 / 1200
Output Total 1020 / 1020
Balance 180 / 180
[2024-05-02] MEDS: TYLENOL 1000 MG PO ×3 (07:59→20:15)
[2024-05-02] MEDS: COZAAR 50 MG PO (08:00)
[2024-05-02] MEDS: PROTONIX IV 40 MG IV ×2 (08:01→20:14)
[2024-05-02] MEDS: NSS (PRESERVATIVE FREE) 10 ML IV ×2 (08:01→20:14)
[2024-05-02] MEDS: FLUSH (NSS) 3 FLUSH IV (08:02)
--- NOTE | 2024-05-02 08:56 | OR.RPT ---
Operative Report
Operative Report
Primary Surgeon: Romulo
Pre-op Diagnosis: Perforated viscus
Post-op Diagnosis: Small bowel enterotomy
Procedure Performed: Exploratory laparotomy, repair of small bowel enterotomy
Anesthesia Type: GETA
Specimen / Cultures: None
Estimated Blood Loss: 10cc
Complications: None immediate
Operative Findings: Small bowel enterotomy about 2mm diameter identified anteriorly near the midline. Repaired in 2 layers with 3-0 vicryl suture. Additional limited lysis of adhesions at central abdomen and in right lower quadrant. Subhepatic
space inspected. Transverse colon inspected. No other injuries identified. 19fr allie drain to anterior abdomen near enterotomy repair. Nasogastric tube placed.
Date of Surgery: 04/30/24
Indications: This 63M underwent laparoscopic converted to open cholecystectomy for acute gangrenous calculous cholecystitis and on post-op day 1 developed bilious output in his drain. Cross ectional imaging revealed extravasation of enteric
contrast. Urgent exploratory laparotomy was planned.
Description of procedure: The patient was placed on the operating table in the supine position. General anesthesia was induced. A time-out was completed verifying correct patient, procedure, site, positioning, and special equipment prior to
beginning this procedure. A nasogastric tube was placed. The abdomen was prepped and draped in the usual sterile fashion. The previous midline sherita were removed and the previous fascial suture cut allowing entry into the abdomen. Bilious fluid
was irrigated. The small bowel was carefully inspected. Limited lysis of adhesions was performed with blunt dissection and cold frank until a 2mm enterotomy was discovered. This was repaired with 2-0 vicryl suture in 2 layers. The transverse colon
was inspected as well as the right lower quadrant and subhepatic space and no other enterotomies or leaks were identified. The abdomen was irrigated with copious sterile saline and the drain was repositioned into the anterior abdomen. Seprafilm was
placed over the bowel and the fascia was closed with 0 prolene suture. The subcutaneous tissue was irrigated with sterile saline and the skin was closed with sherita.
The patient tolerated the procedure well and was taken to the postanesthesia care unit in stable condition.
[2024-05-02 09:38] LABS: % Basophils 0.2 % (0-2); % Eosinophils 1.3 % (0-6); % Immature Granulocytes 0.4 % (0-0.5); % Lymphocytes 28.4 % (20.5-51.1); % Monocytes 10.2 % (1.7-9.3); % Neutrophils 59.5 % (42.2-75.2); Absolute Eosinophils 0.2 10^3/uL (0-0.7); Absolute Immature Granulocytes 0.1 10^3/uL (0-0.05); Absolute Lymphocytes 3.8 10^3/uL (1.2-3.4); Absolute Monocytes 1.4 10^3/uL (0.1-0.6); Hematocrit 36.8 % (39.0-52.0); Hemoglobin 12.6 g/dL (13.0-18.0); Mean Corp Hgb Conc. 34.2 g/dL (33.0-37.0); Mean Corpuscular Hgb 34.2 pg (27.0-31.0); Nucleated Red Blood Cells % 0.6 % (-); Platelet Count 372 10^3/uL (130-400); Red Blood Cell Count 3.68 10^6/uL (4.70-6.10); Red Cell Dist. Width 15.5 % (11.5-14.5); White Blood Cell Count 13.5 10^3/uL (4.8-10.8)
[2024-05-02 10:08] LABS: ALT (SGPT) 71 U/L (0-50); AST (SGOT) 31 U/L (17-59); Albumin 2.9 g/dl (3.5-5.0); Alkaline Phosphatase 90 U/L (38-126); Blood Urea Nitrogen 22 mg/dl (9-20); Carbon Dioxide 30 mmol/L (22-30); Chloride 100 mmol/L (98-107); Estimated Creatinine Clearance 110 ml/min; Glucose 70 mg/dl (70-99); Potassium 3.9 mmol/L (3.5-5.1); Sodium 139 mmol/L (135-145); eGFR > 60.00
[2024-05-02] MEDS: ROXICODONE 5 MG PO (12:42)
[2024-05-02 15:29] VITALS: BP 124/78
--- NOTE | 2024-05-02 15:34 | CM ---
Chart reviewed. Met with pt
NPO with ice chips. NGT clamped today
Ambulating in [place]
CM available for discharge needs
Plan - anticipate home no needs
[2024-05-02] MEDS: LOVENOX 40 MG SC (17:25)
[2024-05-02] MEDS: ROXICODONE 10 MG PO (17:30)
[2024-05-02] MEDS: MELATONIN PO (21:31)
[2024-05-02] MEDS: BENADRYL 25 MG IV (22:03)
[2024-05-02 23:01] VITALS: BP 133/75
[2024-05-03] MEDS: TORADOL 15 MG IV ×4 (00:29→19:48)
[2024-05-03] MEDS: ROXICODONE 10 MG PO ×4 (00:30→19:57)
[2024-05-03] MEDS: TYLENOL 1000 MG PO ×4 (02:45→19:48)
[2024-05-03 02:49] VITALS: BP 117/75
[2024-05-03] MEDS: ZOSYN 50 IV ×4 (04:30→21:55)
[2024-05-03] MEDS: ROXICODONE 5 MG PO (06:29)
[2024-05-03 07:00] VITALS: BP 150/70
[2024-05-03 08:42] LABS: % Basophils 0.6 % (0-2); % Eosinophils 2.6 % (0-6); % Lymphocytes 19.4 % (20.5-51.1); % Monocytes 11.7 % (1.7-9.3); % Neutrophils 64.7 % (42.2-75.2); Absolute Basophils 0.1 10^3/uL (0-0.2); Absolute Eosinophils 0.3 10^3/uL (0-0.7); Absolute Immature Granulocytes 0.1 10^3/uL (0-0.05); Absolute Lymphocytes 2.4 10^3/uL (1.2-3.4); Absolute Monocytes 1.5 10^3/uL (0.1-0.6); Hemoglobin 12.7 g/dL (13.0-18.0); Mean Corp Hgb Conc. 34.3 g/dL (33.0-37.0); Mean Corpuscular Hgb 34.3 pg (27.0-31.0); Nucleated Red Blood Cells % 0.5 % (-); Platelet Count 420 10^3/uL (130-400); Red Cell Dist. Width 15.5 % (11.5-14.5); White Blood Cell Count 12.4 10^3/uL (4.8-10.8)
[2024-05-03 09:01] LABS: ALT (SGPT) 67 U/L (0-50); AST (SGOT) 42 U/L (17-59); Alkaline Phosphatase 129 U/L (38-126); Blood Urea Nitrogen 17 mg/dl (9-20); Calcium 8.1 mg/dl (8.4-10.2); Carbon Dioxide 25 mmol/L (22-30); Chloride 102 mmol/L (98-107); Estimated Creatinine Clearance > 125 ml/min; Glucose 61 mg/dl (70-99); Magnesium 2.5 mg/dl (1.6-2.3); Potassium 4.3 mmol/L (3.5-5.1); Sodium 141 mmol/L (135-145); Total Bilirubin 1.3 mg/dl (0.2-1.3); Total Protein 5.3 g/dl (6.3-8.2); eGFR > 60.00
[2024-05-03] MEDS: COZAAR 50 MG PO (10:06)
[2024-05-03] MEDS: PROTONIX IV 40 MG IV ×2 (10:06→21:52)
[2024-05-03] MEDS: NSS (PRESERVATIVE FREE) 10 ML IV ×2 (10:06→21:52)
--- NOTE | 2024-05-03 13:10 | W.PN.GS2 ---
Addendum entered and electronically signed by Lupillo Sebastian MD 05/03/24 15:41:
Correction: lovenox DVT ppx DC'ed as he is restarting his home xarelto
Original Note:
Today's Communication / Plan
-
LRD
IV abx
xarelto
Assessment / Plan
-
POD#4 Laparoscopic converted to open cholecystectomy, POD#3 Exploratory laparotomy, repair of small bowel enterotomy
AFVSS, passing flatus, pain controlled, passed NGT clamp trial, jorge CLD
WBC improving
-Adv to LRD
-Multi-modal pain meds
-Restart xarelto
-Continue Zosyn IV
-OOB as tolerated
-Cont lovenox for DVT prophylaxis. TEDS/SCDs in place.
Subjective Data
-
Date of Service: May 03, 2024
AFVSS, ambulating, voiding, passing flatus, jorge cld, pain controlled with PO meds
Objective Data
-
Intake and Output
05/02/24 05/03/24 05/04/24
06:59 06:59 06:59
Intake Total 1200 / 1200 1340 / 1340
Output Total 1020 / 1020
Balance 180 / 180 1314 / 1314
Intake:
Oral fluids 1240 / 1240
IV fluids (Total) 1100 / 1100
IV piggybacks 100 / 100 100 / 100
Amount instilled into GI Tube ( 0 / 0
Total)
[place] Sump 0 / 0
Output:
Drain Output (Total)
Right Lower Abdomen Raymond-
Portillo
Gastrointestinal tube output ( 600 / 600
Total)
[place] Sump 600 / 600
Urine, Voided 350 / 350
Other:
Number of approximated MODERATE 2
amounts of urine
Vital Signs
Temp Pulse Resp BP Pulse Ox
97.8 F 61 18 150/70 97
05/03/24 07:00 05/03/24 07:00 05/03/24 07:00 05/03/24 07:00 05/03/24 07:00
Lab Results
05/03/24 07:41
05/03/24 07:41
Calcium 8.1 mg/dl (8.4-10.2) L 05/03/24 07:41
Magnesium 2.5 mg/dl (1.6-2.3) H 05/03/24 07:41
Total Bilirubin 1.3 mg/dl (0.2-1.3) 05/03/24 07:41
Direct Bilirubin 0.6 mg/dl (0.0-0.4) H 04/29/24 06:10
AST 42 U/L (17-59) 05/03/24 07:41
ALT 67 U/L (0-50) H 05/03/24 07:41
Alkaline Phosphatase 129 U/L (38-126) H 05/03/24 07:41
Total Protein 5.3 g/dl (6.3-8.2) L 05/03/24 07:41
Albumin 3.0 g/dl (3.5-5.0) L 05/03/24 07:41
Physical Exam
-
Gen: NAd
Abd: soft, approp ttp, ttp about incision, scant ss drainage, drain with minimal serous output
--- NOTE | 2024-05-03 14:40 | PN.CDI ---
CDI
- -
CDI:
Physician Documentation Request
Admit Date: 04/28/24 16:45
Dear Doctor Susi,
Clinical Indicators:
Patient admitted with acute gangrenous calculous cholecystitis;s/p open cholecystectomy & repair of small bowel enterotomy.
05/02 PN, 'Melanotic output via NG tube'
IVF: LR @ 100 ml/hr
Hgb/Hct trend:
04/28/24 05/01/24 05/02/24
11:00 06:07 09:01
Hgb 15.5 13.9 12.6 L
Hct 44.4 39.1 36.8 L
Based on the above, could you clarify in the progress notes, the appropriate diagnosis, if significant, that supports the above abnormalities and additional evaluation, monitoring and/or treatment rendered:
Acute blood loss anemia
Anemia, multifactorial due to acute blood loss and hemodilution
Abnormal lab value, clinically insignificant
Other, please specify
Use of terms such as suspected, likely, concern for, or probable (associated with a specific diagnosis that is being evaluated, monitored, or treated as if it exists) are acceptable and can be coded in the inpatient setting, when documented at the
time of discharge.
Thank you,
Leticia Willson RN BSN
CDI Specialist
available via tiger text
Please use your independent medical judgment in providing your response.
[2024-05-03 15:00] VITALS: BP 127/78
--- NOTE | 2024-05-03 15:09 | W.PN.HOSP.TC ---
Today's Communication/Plan
-
Restart Xarelto
Diet Upgraded
Continue antibiotics
Assessment / Plan
Assessment / Plan
Physical Exam
General: No Apparent Distress
HEENT: Normocephalic. NO MORE NG TUBE.
Respiratory: Clear to Auscultation Bilaterally
Cardiac: S1 and S2. Regular Rhythm
GI: Soft, Nontender and Nondistended
Musculoskeletal: No Cyanosis and No Edema
Neuro: Awake, Alert, Oriented and AO x 3
Psych: Calm
Assessment/Plan
63yo M with Non-hodgkins lymphoma, CML, Afib on Xarelto, HTN came with acute RUQ pain for 2 days and found calculous cholecystitis, had open cholecystectomy with subsequently found enterotomy on CT with second laparotomy same day for repair
#Acute gangrenous calculous cholecystitis with postOP complication of enterotomy needing repair
#Post-operative ileus
Gen Sx: s/p open cholecystectomy on 04/29/24, later same day Exploratory laparotomy, repair of small bowel enterotomy
NGT discontinued in the past 24 hours
Diet upgraded to Low Residue Diet
Bcx NTD
Zosyn
IVF
#Melanotic output via NG tube
#Anemia, multifactorial due to acute blood loss and hemodilution
-Hgb stable
PPI IV BID -- discussed on May 02, 2024 with on-call fiber optic assembler who recommended PPI BID inpatient follow by daily PPI outpatient
follow Hgb
Most likely postOP
Spoke with on-call fiber optic assembler on 05/02/24: this is from [place] in small bowel which needed surgery, watch ng tube, if domo blood (e.g. maroon stools) or Hgb keeps drifting downwards, then call GI
#Essential HTN
#non-hodgkins lymphoma
#CML
#Paroxysmal Afib
Okay to restart Xarelto today
Hold Iclusig 2/2 acute infection
cont rest of meds
#Transaminitis
2/2 recent Sx
improving
follow LFT
#PostOP ileus
await for return of bowel function
DVT PPx: SCDs. Romanrelto.
Full code
Anticipated Discharge: 24 - 48 hours
Subjective/Interval History
-
Date of Service: May 03, 2024
Patient was seen and examined. He denied any complaints, tolerating PO intake. He reported passing flatus.
Objective Data
-
Labs:
Laboratory Results
05/03/24
07:41
WBC 12.4 H
Hgb 12.7 L
Hct 37.0 L
Plt Count 420 H
Sodium 141
Potassium 4.3
Chloride 102
Carbon Dioxide 25
BUN 17
Creatinine 0.7
Glucose 61 L
Calcium 8.1 L
Total Bilirubin 1.3
AST 42
ALT 67 H
Alkaline Phosphatase 129 H
Vital Signs:
Vital Signs
Temp Pulse Resp BP Pulse Ox
97.8 F 61 18 150/70 97
05/03/24 07:00 05/03/24 07:00 05/03/24 07:00 05/03/24 07:00 05/03/24 07:00
I&O
05/02/24 05/03/24 05/04/24
06:59 06:59 06:59
Intake Total 1200 / 1200 1340 / 1340
Output Total 1020 / 1020
Balance 180 / 180 1314 / 1314
[2024-05-03 16:44] LABS: Glucose - Point of Care 69 mg/dl (70-99)
[2024-05-03] MEDS: XARELTO 20 MG PO (16:47)
[2024-05-03 17:14] LABS: Glucose - Point of Care 78 mg/dl (70-99)
[2024-05-03] MEDS: MELATONIN PO (21:55)
[2024-05-03] MEDS: BENADRYL 25 MG IV (22:30)
[2024-05-03 22:37] VITALS: BP 139/81
[2024-05-03 23:04] LABS: Glucose - Point of Care 86 mg/dl (70-99)
[2024-05-04] MEDS: TORADOL 15 MG IV ×3 (01:20→13:10)
[2024-05-04] MEDS: ROXICODONE 10 MG PO ×3 (01:24→14:47)
[2024-05-04] MEDS: TYLENOL 1000 MG PO ×2 (02:33→13:10)
[2024-05-04] MEDS: ZOSYN 50 IV ×3 (04:07→15:59)
[2024-05-04 07:02] VITALS: BP 134/89
[2024-05-04 07:16] LABS: Hematocrit 35.3 % (39.0-52.0); Hemoglobin 12.1 g/dL (13.0-18.0); Mean Corp Hgb Conc. 34.3 g/dL (33.0-37.0); Mean Corpuscular Hgb 33.2 pg (27.0-31.0); Mean Platelet Volume 9.9 fL (7.4-10.4); Platelet Count 437 10^3/uL (130-400); Red Blood Cell Count 3.64 10^6/uL (4.70-6.10); Red Cell Dist. Width 15.4 % (11.5-14.5); White Blood Cell Count 12.9 10^3/uL (4.8-10.8)
[2024-05-04 07:34] LABS: ALT (SGPT) 81 U/L (0-50); AST (SGOT) 57 U/L (17-59); Albumin 2.8 g/dl (3.5-5.0); Alkaline Phosphatase 168 U/L (38-126); Blood Urea Nitrogen 10 mg/dl (9-20); Calcium 7.9 mg/dl (8.4-10.2); Carbon Dioxide 25 mmol/L (22-30); Chloride 101 mmol/L (98-107); Direct Bilirubin 0.5 mg/dl (0.0-0.4); Estimated Creatinine Clearance > 125 ml/min; Glucose 67 mg/dl (70-99); Magnesium 2.3 mg/dl (1.6-2.3); Phosphorus 3.3 mg/dl (2.5-4.5); Potassium 4.1 mmol/L (3.5-5.1); Sodium 138 mmol/L (135-145); Total Protein 4.9 g/dl (6.3-8.2); eGFR > 60.00
[2024-05-04] MEDS: NSS (PRESERVATIVE FREE) 10 ML IV (08:17)
[2024-05-04] MEDS: PROTONIX IV 40 MG IV (08:17)
[2024-05-04] MEDS: FLUSH (NSS) 2 FLUSH IV ×4 (08:17→16:00)
[2024-05-04] MEDS: COZAAR 50 MG PO (08:20)
[2024-05-04] MEDS: TYLENOL PO (09:03)
--- NOTE | 2024-05-04 10:03 | CM ---
Patient seen at bedside.
Cont IV abx, diet upgraded
PLAN: home, no needs anticipated.
--- NOTE | 2024-05-04 10:56 | W.PN.GS2 ---
Addendum entered and electronically signed by Lupillo Sebastian MD 05/11/24 12:11:
CDI query: regional peritonitis is a reasonable diagnosis
Original Note:
Today's Communication / Plan
-
DC home per pt request with PO abx, plan for outpt f/u in 2 days for labwork
Assessment / Plan
-
POD#5 Laparoscopic converted to open cholecystectomy, POD#4 Exploratory laparotomy, repair of small bowel enterotomy
AFVSS, passing flatus, pain controlled, jorge LRD
WBC trended up very slightly, lts also trended up
I advised him I would like him to stay an additional night for more IV abx and to see his labs improve, he is adamant he needs to go today.
Wound opened at bedside in small areas above and below umbilicus, releasing small amount of clear ss fluid. The erythema improved. Wounds were packed with gazue and covered with abd pads. Wound care instructions provided.
-Cont LRD
-Multi-modal pain meds
-Cont xarelto
-Continue Zosyn IV until 4PM dose
-OOB as tolerated
Subjective Data
-
Date of Service: May 04, 2024
AFVSS, no complaints, ambulating, pain controlled with PO meds, jorge LRD
Objective Data
-
Intake and Output
05/03/24 05/04/24 05/05/24
06:59 06:59 06:59
Intake Total 1340 / 1340 240 / 240 50 / 50
Output Total
Balance 1314 / 1314 240 / 240 50 / 50
Intake:
Oral fluids 1240 / 1240 240 / 240
IV piggybacks 100 / 100 50 / 50
Output:
Drain Output (Total)
Right Lower Abdomen Raymond-
Portillo
Other:
Number of approximated MODERATE 3
amounts of urine
Vital Signs
Temp Pulse Resp BP Pulse Ox
98.4 F 70 16 134/89 98
05/04/24 07:02 05/04/24 08:20 05/04/24 07:02 05/04/24 08:20 05/04/24 08:20
Lab Results
05/04/24 05:09
05/04/24 05:09
Calcium 7.9 mg/dl (8.4-10.2) L 05/04/24 05:09
Phosphorus 3.3 mg/dl (2.5-4.5) 05/04/24 05:09
Magnesium 2.3 mg/dl (1.6-2.3) 05/04/24 05:09
Total Bilirubin 1.0 mg/dl (0.2-1.3) 05/04/24 05:09
Direct Bilirubin 0.5 mg/dl (0.0-0.4) H 05/04/24 05:09
AST 57 U/L (17-59) 05/04/24 05:09
ALT 81 U/L (0-50) H 05/04/24 05:09
Alkaline Phosphatase 168 U/L (38-126) H 05/04/24 05:09
Total Protein 4.9 g/dl (6.3-8.2) L 05/04/24 05:09
Albumin 2.8 g/dl (3.5-5.0) L 05/04/24 05:09
Physical Exam
-
Gen: NAD
Abd: soft, approp ttp, incision with mild warmth and erythema, clear ss drianage through the sherita
[2024-05-04] MEDS: MIRALAX 17 GRAMS PO (11:12)
--- NOTE | 2024-05-04 14:44 | W.PN.HOSP.TC ---
Today's Communication/Plan
-
Discharge today
Assessment / Plan
Assessment / Plan
Physical Exam
General: No Apparent Distress
HEENT: Normocephalic. NO NG TUBE.
Respiratory: Clear to Auscultation Bilaterally
Cardiac: S1 and S2. Regular Rhythm
GI: Soft, Nontender and Nondistended
Musculoskeletal: No Cyanosis and No Edema
Neuro: Awake, Alert, Oriented and AO x 3
Psych: Calm
Assessment/Plan
63yo M with Non-hodgkins lymphoma, CML, Afib on Xarelto, HTN came with acute RUQ pain for 2 days and found calculous cholecystitis, had open cholecystectomy with subsequently found enterotomy on CT with second laparotomy same day for repair
#Acute gangrenous calculous cholecystitis with postOP complication of enterotomy needing repair
#Post-operative ileus
Gen Sx: s/p open cholecystectomy on 04/29/24, later same day Exploratory laparotomy, repair of small bowel enterotomy
Status post NG tube
Continue Low Residue Diet
He is tolerating diet
Bcx NTD
Zosyn while inpatient
I discussed case with general surgery, and they recommended Augmentin 875 mg BID for another 10 days
Recheck CBC with differential, CMP, Magnesium in 2 days
#Melanotic output via NG tube
#Anemia, multifactorial due to acute blood loss and hemodilution
-Hgb stable
-Daily PPI outpatient as per [place] Text discussion with gastroenterology -- call GI office for follow-up and for more refills if needed
-Recheck CBC outpatient
Most likely postOP
#Essential HTN
#non-hodgkins lymphoma
#CML
#Paroxysmal Afib
Continue Xarelto
Call surgeon and the doctor that prescribes you Iclusig and see when appropriate to restart
cont rest of meds
#Transaminitis
2/2 recent Sx
improving
follow LFT
#PostOP ileus - IMPROVING
DVT PPx: SCDs. Teresita.
Full code
More than 30 minutes spent in discharge including
Final examination of the patient
Summarizing hospital stay
Instructions for continuing care to all relevant caregivers
Preparation of discharge records, prescriptions, and referral forms
Total time spent (in minutes): 35
Anticipated Discharge: Today
Subjective/Interval History
-
Date of Service: May 04, 2024
Patient was seen and examined. He reported feeling good, denied any symptoms or complaints, and he stated he really wants to go home today.
Objective Data
-
Labs:
Laboratory Results
05/04/24
05:09
WBC 12.9 H
Hgb 12.1 L
Hct 35.3 L
Plt Count 437 H
Sodium 138
Potassium 4.1
Chloride 101
Carbon Dioxide 25
BUN 10
Creatinine 0.6 L
Glucose 67 L
Calcium 7.9 L
Total Bilirubin 1.0
AST 57
ALT 81 H
Alkaline Phosphatase 168 H
Vital Signs:
Vital Signs
Temp Pulse Resp BP Pulse Ox
98.4 F 70 16 134/89 98
05/04/24 07:02 05/04/24 08:20 05/04/24 07:02 05/04/24 08:20 05/04/24 08:20
I&O
05/03/24 05/04/24 05/05/24
06:59 06:59 06:59
Intake Total 1340 / 1340 240 / 240 50 / 50
Output Total 26 / 26
Balance 1314 / 1314 240 / 240 50 / 50
[2024-05-04 14:56] VITALS: BP 149/90
--- NOTE | 2024-05-04 16:26 | W.DCSUMMARY ---
Discharge Summary
Discharge Data
Date of Admission: 04/28/24
Date of Discharge: 05/04/24
Total time spent discharging patient (in min): 35
-
Pending Results: No
Hospital Course
63-year-old male with past medical history of non-Hodgkin's lymphoma status post splenectomy, chemotherapy and radiation, ALL status post bone marrow transplant in remission, paroxysmal atrial fibrillation on Xarelto, CVA, hypertension,
hyperlipidemia, presented for abdominal pain and [address] abdomen pelvis showed findings suspicious for acute cholecystitis. Patient's Xarelto was held, he was made N.P.O., and started on intravenous fluids, Zosyn, Zofran and
Dilaudid as needed. General surgery was consulted. On April 29, 2024, patient had a laparoscopic converted to open cholecystectomy and found to have acute gangrenous calculous cholecystitis. Patient's MARY drain was suspicious for bilious-appearing
output: there was a concern for missed enterotomy versus bile duct leak, and a CT with oral and IV contrast was ordered. On April 30, 2024, patient had exploratory laparotomy, repair of small bowel enterotomy for enterotomy/perforated viscus that
was found. Patient was thought to have melanotic output through his nasogastric tube and so was continued on a proton pump inhibitor, this finding in the nasogastric tube was discussed with on-call drop forge hand. Patient was continued on Zosyn
intravenous antibiotics. Patient strongly requested to go home, and therefore after discussion with the surgery team, patient was discharged on oral antibiotics.
Patient would need closed monitoring and evaluation by vascular surgery of his pelvic and abdominal arterial aneurysms -- I [place] Texted vascular surgery regarding the aneurysms found on imaging.
Discharge Plan
-
Patient Disposition: Home (Routine Discharge)
Discharge Diagnosis/Procedures: #Cholecystectomy, exploratory laparotomy, small bowel repair
#Acute gangrenous calculous cholecystitis with post-operative complication of enterotomy needing repair
#Post-operative ileus
#Melanotic output via NG tube
#Anemia, multifactorial due to acute blood loss and hemodilution
#Essential Hypertension
#Non-hodgkins lymphoma
#CML
#Paroxysmal Atrial Fibrillation
#Transaminitis
#Post-operative ileus - IMPROVING
Condition: Fair
Diet: Low Residue
Activity: No strenuous activity
Additional Activity: Do not lift over 15lbs for the next 2-3 weeks
Driving Restrictions: No driving for 24 hours
Bathing Restrictions: OK to Shower
Blood Work: Plan for follow up bloodwork Thursday05/06/24. Recheck CBC with differential, CMP, Magnesium in 2 days.
Wound Care: Change the gauze packing once daily. You can purchase sterile woven gauze at any drugstore. Remove the gauze before showering, shower as normal, then replace gauze packing and cover with another piece of gauze.
Activity Restrictions/Additional Instructions:
By May 05, 2024, call your outpatient physician who prescribes your Ponatinib (Iclusig) and ask them when exactly you should resume taking this medication, given that you are being treated for infection with antibiotics.
Call outpatient gastroenterology office (number included in the discharge paperwork) to provide you with additional refills of Pantoprazole if needed.
Ask pharmacist to provide you with free Narcan to treat opioid overdose.
Call your surgeon if you have nausea with vomiting, worsening abdominal pain or a fever >100.5
Instructions: Low blood sugar in people without diabetes
Referrals:
Mega Escudero DO [Family Provider] -
Lupillo Sebastian MD [Active] - in two days (I will call you Thursday and send you for labwork to ensure you continue to improve. If your labs go the wrong direction you may need to return to the hospital.)
John Barkley MD [Active] - in one to two days (Abdominal and Pelvic Aneurysms on hospital imaging)
Juan Diego Johns DO [Active] - in less than 1 week (Hospital Follow-Up)
Additional Discharge Medication Instructions: Take miralax daily until BM occurs. Try to use 1000mg tylenol for pain (max 4x daily), when this is not enough use oxycodone. Oxycodone can cause constipation.
Augmentin is a new medication.
Prescriptions:
New
oxycodone 5 mg tablet
5 - 10 mg PO Q4HPRN PRN (Reason: moderate to severe pain) Qty: 30 0RF
Continued
losartan 50 MG tablet
50 mg PO DAILY
acyclovir 400 mg Tablet
400 mg PO BID
tetrahydrozoline [Visine] 0.05 % Drops
1 drp BOTH EYES DAILYPRN PRN (Reason: dry eyes)
Xarelto 20 mg Tablet
20 mg PO DAILY
Held
Iclusig 15 mg Tablet
15 mg PO DAILY
Hold Instructions: Resume on 05/09/24. Discuss (by 05/05/24) with your outpatient physicians regarding when you can resume this medication.
Discontinued
ibuprofen 200 mg Tablet
600 mg PO Q6HPRN PRN (Reason: mild pain)
No Action
polyethylene glycol 3350 [HealthyLax] 17 gram powder in packet
17 g PO DAILY
acetaminophen [Tylenol Extra Strength] 500 mg tablet
1,000 mg PO Q8H
pantoprazole 40 mg tablet,delayed release (DR/EC)
40 mg PO DAILY
amoxicillin-pot clavulanate 875-125 mg tablet
1 tab PO BID
Discharge Orders:
Discharge Patient (As Directed); Ordered 05/04/24
Ordered By: Billy Goldman
Discharge Date and Time
Discharge Date/Time: 05/04/24 17:10
Print Language: ALGERIAN
--- NOTE | 2024-05-05 09:52 | PN.CDI ---
CDI
- -
CDI:
Physician Documentation Request
Admit Date: 04/28/24 16:45
Dear Doctor Romulo,
Clinical Indicators:
Patient admitted with acute gangrenous calculous cholecystitis.
04/29 Surgical consult, 'RUQ markedly tender with guarding to light palpation.'
WBC on admission: 18.0
04/28 - 05/04 Zosyn 3.375 gm IV; discharged on Augmentin
05/02: The diagnosis of regional peritonitis was included in the signed pathology report.
Please indicate in your progress notes if you are in agreement that the above diagnosis is valid for this patient:
Regional peritonitis is a valid diagnosis
Regional peritonitis is not a valid diagnosis for this patient
Other, please specify
Use of terms such as suspected, likely, concern for, or probable are acceptable for a diagnosis that is being evaluated, monitored or treated as if it exists and can be coded in the inpatient setting, when documented at the time of discharge.
Thank you,
Leticia Willson RN BSN
CDI Specialist
available via tiger text
Please use your independent medical judgment in providing your response.
== END 2024-05-04 17:10 | disposition home or self-care (01) | DRG 414 ==
LOC: 2 SOUTH 16:45
PROVIDERS: Internal Medicine; Nurse Practitioner Family; Physician Assistant; ADMITTING PHYSICIAN Hospitalist; ATTENDING PHYSICIAN Hospitalist; EMERGENCY PHYSICIAN Emergency Medicine; FAMILY PHYSICIAN Family Medicine; OTHER PHYSICIAN Surgery
PROC: 0D9670Z Drainage of Stomach with Drainage Device, Via Natural or Artificial Opening (ICD-10-PCS; 2024-04-29)
PROC: 0DN80ZZ Release Small Intestine, Open Approach (ICD-10-PCS; 2024-04-29)
PROC: 0FJ44ZZ Inspection of Gallbladder, Percutaneous Endoscopic Approach (ICD-10-PCS; 2024-04-29)
PROC: 0DQ80ZZ Repair Small Intestine, Open Approach (ICD-10-PCS; 2024-04-29)
PROC: 0FT40ZZ Resection of Gallbladder, Open Approach (ICD-10-PCS; 2024-04-29)
PROC: 3E0M05Z Introduction of Adhesion Barrier into Peritoneal Cavity, Open Approach (ICD-10-PCS; 2024-04-30)
DX: K80.00 Calculus of gallbladder with acute cholecystitis without obstruction (principal); K65.9 Peritonitis, unspecified; C85.90 Non-Hodgkin lymphoma, unspecified, unspecified site; K56.7 Ileus, unspecified; Z94.81 Bone marrow transplant status; K91.89 Other postprocedural complications and disorders of digestive system; S36.438A Laceration of other part of small intestine, initial encounter; K91.72 Accidental puncture and laceration of a digestive system organ or structure during other procedure; D62 Acute posthemorrhagic anemia; C92.10 Chronic myeloid leukemia, BCR/ABL-positive, not having achieved remission; K66.0 Peritoneal adhesions (postprocedural) (postinfection); K82.A1 Gangrene of gallbladder in cholecystitis; E78.00 Pure hypercholesterolemia, unspecified; H26.9 Unspecified cataract; F32.A Depression, unspecified; R74.01 Elevation of levels of liver transaminase levels; I10 Essential (primary) hypertension; Y65.8 Other specified misadventures during surgical and medical care; Y92.234 Operating room of hospital as the place of occurrence of the external cause; I48.0 Paroxysmal atrial fibrillation; Z96.651 Presence of right artificial knee joint; Z86.73 Personal history of transient ischemic attack (TIA), and cerebral infarction without residual deficits; Z79.01 Long term (current) use of anticoagulants; Z92.21 Personal history of antineoplastic chemotherapy; Z92.3 Personal history of irradiation; Z87.891 Personal history of nicotine dependence; Z87.74 Personal history of (corrected) congenital malformations of heart and circulatory system; Z90.81 Acquired absence of spleen; Z82.3 Family history of stroke
CPT/HCPCS: 88304; 74177; 76700; 80053; 82248; 82962; 83690; 83735; 84100; 85014; 85018; 85025; 85027; 85610; 85730; 87040; 93005; 96361; 96365; 96375; 99285; Q9967

== ENCOUNTER 2024-05-09 20:42 | Inpatient (IN) | payer OTHER, SELFPAY ==
[2024-05-09 17:38] VITALS: BP 149/100
[2024-05-09 18:01] LABS: Hematocrit 37.9 % (39.0-52.0); Mean Corp Hgb Conc. 34.3 g/dL (33.0-37.0); Mean Corpuscular Hgb 33.7 pg (27.0-31.0); Mean Corpuscular Volume 98.2 fL (80.0-94.0); Red Blood Cell Count 3.86 10^6/uL (4.70-6.10); Red Cell Dist. Width 15.3 % (11.5-14.5); White Blood Cell Count 17.8 10^3/uL (4.8-10.8)
[2024-05-09 18:06] LABS: Lactic Acid 1.2 mmol/L (0.7-2.0)
[2024-05-09 18:13] LABS: ALT (SGPT) 37 U/L (0-50); AST (SGOT) 29 U/L (17-59); Albumin 3.5 g/dl (3.5-5.0); Alkaline Phosphatase 197 U/L (38-126); Blood Urea Nitrogen 6 mg/dl (9-20); Calcium 8.8 mg/dl (8.4-10.2); Carbon Dioxide 29 mmol/L (22-30); Chloride 98 mmol/L (98-107); Glucose 143 mg/dl (70-99); Sodium 136 mmol/L (135-145); Total Bilirubin 0.7 mg/dl (0.2-1.3); Total Protein 6.1 g/dl (6.3-8.2); eGFR > 60.00
[2024-05-09 18:32] LABS: % Basophils 0.7 % (0-2); % Eosinophils 2.1 % (0-6); % Immature Granulocytes 0.8 % (0-0.5); % Lymphocytes 13.6 % (20.5-51.1); % Monocytes 9.3 % (1.7-9.3); % Neutrophils 73.5 % (42.2-75.2); Absolute Basophils 0.1 10^3/uL (0-0.2); Absolute Eosinophils 0.4 10^3/uL (0-0.7); Absolute Immature Granulocytes 0.1 10^3/uL (0-0.05); Absolute Lymphocytes 2.4 10^3/uL (1.2-3.4); Absolute Monocytes 1.7 10^3/uL (0.1-0.6); Absolute Neutrophils 13.1 10^3/uL (1.4-6.5); Nucleated Red Blood Cells % 0.2 % (-)
[2024-05-09 18:37] VITALS: BMI 24.8
[2024-05-09 18:46] LABS: Mean Platelet Volume 9.3 fL (7.4-10.4)
--- NOTE | 2024-05-09 18:46 | ED.GENMED ---
History of Present Illness
General
Chief Complaint: Post Operative Problem(s)
Time Seen by Provider: 05/09/24 18:46
History of Present Illness
History of Present Illness:
TIME OF INITIAL ENCOUNTER: 6:55 PM
HPI: The patient went to the OR for gangrenous calculus cholecystitis with Dr. Sebastian 04/30/2024 and went back to the OR for perforated viscus/small bowel enterotomy repair (2 mm). He had increasing pain and outpatient CT was concerning and was sent
here for further evaluation including admission to the hospital and IR drain placement tomorrow.
EXAM:
GENERAL: Well appearing but appears uncomfortable
HEENT: Moist oral mucosa
CARDIOVASCULAR: No murmurs, normal heart rate, regular rhythm, No chest wall tenderness
PULMONARY: No respiratory distress, breath sounds are clear and equal
ABDOMEN: Moderate diffuse abdominal tenderness, questionable peritoneal signs, there is a large midline surgical wound with moderate amount of purulence at the midpoint
NEUROLOGIC: Good strength all extremities, no coordination deficits
PSYCHIATRIC: Appropriate mental status, normal insight and judgement
EXTREMITIES: Nontender, no edema, moves all extremities equally
SKIN: See above
NUMBER AND COMPLEXITY OF PROBLEMS ADDRESSED AT THE ENCOUNTER
� Chronic conditions affecting care: A-fib, high blood pressure, had PFO closure, non-Hodgkin's lymphoma, anxiety
� Acute Exacerbation and/or Progression of Chronic Illness: This is an acute problem
� Differential Diagnosis includes: Intra-abdominal abscess, postsurgical complication, sepsis, bacteremia, wound infection
AMOUNT AND/OR COMPLEXITY OF DATA TO BE REVIEWED AND ANALYZED
� I performed an independent evaluation of and my interpretation is:
EKG:
CT: I reviewed the CT from earlier today which showed large intraperitoneal abscess
X-rays:
Laboratory Studies: White count 17.8, chemistries unremarkable
Other:
� Review of other/old records: I reviewed the recent records
� Clinical information was obtained by an independent historian: None needed
� Prescriptions/Medications Considered but not given:
� Further testing considered but not performed:
RISK OF COMPLICATIONS AND/OR MORBIDITY OR MORTALITY OF PATIENT MANAGEMENT
� Social determinants of health affecting care: Lives at home
� Discussion with other providers: I discussed case with Dr. Sebastian who accepts to his service and we will give Zosyn and plan IR tomorrow
� Escalation of care including admission/observation vs risk of discharge considered: I gave patient Dilaudid as he has marked abnormality on CT imaging and he appears uncomfortable.
ANY OTHER UPDATES:
I also notified the house nurse practitioner for admission
Past History
Past History
ED Past Medical History: Arrthythmia (AF), Cancer (nonhodgkins ), CVA, HTN, Hypercholesterolemia and Other (cataracts)
ED Past Surgical History: Other (Spleenectomy, Stomach repair, hernia repair, PFO closure)
Social History
Tobacco: Former smoker
Alcohol: Daily
Drug: None
Personal:
Living: with family
Phy Exam
Physical Exam
Physical Exam:
See HPI
Course
Orders/Labs/Results
Orders:
Orders
05/09/24 17:46
Complete Blood Count/With Diff Urgent
Comprehensive Metabolic Panel Urgent
Lactate Level [Lactic Acid] Urgent
05/09/24 19:15
Wound Culture [Wound/Abscess/Other Culture] Urgent
NNEKA Source: Abdomen
Specimen Description:
Date Specimen was Collected: 05/09/24
Time Specimen was Collected: 19:26
Comment: abdominal wall midline
05/09/24 19:19
HYDROmorphone [Dilaudid] 1 mg IV NOW STA
Ondansetron Injectable [Zofran] 4 mg IV NOW STA
05/09/24 19:21
Piperacillin/Tazo 3.375 Gram [Zosyn] 3.375 gram in 50 ml IV NOW
05/09/24 20:04
Admit/Transfer Patient As Directed
Co-Sign Provider:
Level of Care: Inpatient admission
Assign to:: Telemetry
Physician / Group: Lupillo Sebastian
Diagnosis: intraperitoneal abscess
Reason for Telemetry: Other
Other Reason for Telemetry: Hx of Cardiac ablation
Date to Stop Telemetry: 05/11/24
Time to Stop Telemetry: 11:00
Reason for Hospitalization: OR
IV abx
Expected length of stay greater than two midnights?: Yes
ELOS- Estimated Length of Stay in days: 2
I certify the patient meets the requirements for IP care: Yes
PRN Pain Medication Management As Directed
May give lesser potent ordered pain med per pt: Yes
preference::
Protocol:: Medication orders for pain may be administered in a
manner that supports deferring to patient preference
when the pt is:
- Requesting an ordered lesser potent pain medication.
Least to most potent pain medications are defined
as: acetaminophen < NSAID < tramadol < opioids
(morphine, oxycodone, hydromorphone).
- Requesting a lesser dose of the same medication IF
ORDERED.
- Requesting a less intrusive route of administration
if both routes are prescribed by the provider (PO <
IV).
05/09/24 20:06
Code Status As Directed
Resuscitation Status: Full Code
05/09/24 21:05
Ondansetron Injectable [Zofran] 4 mg IV Q6HPRN PRN
05/09/24 21:05
Activity As Directed
Activity Level: Out of Bed-Early Mobility
Anti-embolism (JUAN CARLOS) Hose As Directed
Type: Thigh high
Intake/ Output As Directed
Frequency: Per unit guidelines
Pneumatic Compression Sleeves As Directed
Type: Thigh high
Vital Signs As Directed
Frequency: Per unit guidelines
DX Deep Vein Thrombosis Video Routine
05/09/24 22:29
HYDROmorphone [Dilaudid] 1 mg IV Q3HPRN PRN
05/10/24 01:30
Ondansetron Injectable [Zofran] 4 mg IV Q6HPRN PRN
05/10/24 02:00
Piperacillin/Tazo 3.375 Gram [Zosyn] 3.375 gram in 50 ml IV Q6H
05/10/24 06:00
EKG [Electrocardiogram (*1)] IN AM
Reason for Study: Other
Other Reason for Exam: hx of ablation
Clear Liquid
At Your Request: Limited Participation
Basic Metabolic Panel IN AM
Complete Blood Count/No Diff IN AM
05/11/24 11:00
DC Protocol for Telemetry ONCE
Abnormal Lab Results
05/09/24
17:46
WBC 17.8 H 10^3/uL
(4.8-10.8)
RBC 3.86 L 10^6/uL
(4.70-6.10)
Hct 37.9 L %
(39.0-52.0)
MCV 98.2 H fL
(80.0-94.0)
MCH 33.7 H pg
(27.0-31.0)
RDW 15.3 H %
(11.5-14.5)
Plt Count 681 H D 10^3/uL
(130-400)
Abs Immat Gran (auto) 0.1 H 10^3/uL
(0-0.05)
Absolute Neuts (auto) 13.1 H 10^3/uL
(1.4-6.5)
Absolute Monos (auto) 1.7 H 10^3/uL
(0.1-0.6)
Immature Gran % 0.8 H %
(0-0.5)
Lymphocytes % 13.6 L %
(20.5-51.1)
BUN 6 L mg/dl
(9-20)
Creatinine 0.6 L mg/dL
(0.7-1.3)
Glucose 143 H mg/dl
(70-99)
Alkaline Phosphatase 197 H U/L
(38-126)
Total Protein 6.1 L g/dl
(6.3-8.2)
05/09/24 17:46
05/09/24 17:46
Vital Signs
Initial and Last Documented VS:
Initial Vital Signs
Temp Pulse Resp BP Pulse Ox
99.2 F 81 18 149/100 97
05/09/24 17:38 05/09/24 17:38 05/09/24 17:38 05/09/24 17:38 05/09/24 17:38
Last Documented Vital Signs
Temp Pulse Resp BP Pulse Ox
98.2 F 76 18 141/92 98
05/09/24 21:05 05/09/24 21:05 05/09/24 21:05 05/09/24 21:05 05/09/24 21:05
*Critical Care Note
Total Time (30-74mins, 75-104mins- exclusive of procedures): Not Applicable
ED Attending Note
-
Portions of this chart may have been created with voice recognition software.� Occasional wrong word or��sound alike� substitutions may have occurred due to the inherent limitations of voice recognition software.
Discharge Plan
Departure
Patient Disposition: Admit
Date of Disposition: 05/09/24
Time of Disposition: 19:22
Presentation/result/management discussed w/ accepting MD/DO: dr sebastian
Discharge Problem:
Intra-abdominal abscess
Interventions
Interventions:
*Risk Screen - Suicide Last Done: 05/09/24 17:41
*General Assessment Last Done: 05/09/24 17:41
*Neglect/Abuse Screening Last Done: 05/09/24 17:41
ED- Fall Risk Assessment Last Done: 05/09/24 19:00
*ED COVID-19 Vaccine History Last Done: 05/09/24 17:41
*Nursing Disposition Last Done: 05/09/24 21:04
ED-Skin Assessment Last Done: 05/09/24 18:46
Discharge Date and Time
Discharge Date/Time: 05/09/24 21:04
[2024-05-09 18:47] LABS: Platelet Count 681 10^3/uL (130-400)
[2024-05-09] MEDS: DILAUDID 1 MG IV ×2 (19:29→22:30)
[2024-05-09] MEDS: ZOFRAN 4 MG IV (19:30)
[2024-05-09] MEDS: ZOSYN 50 IV (19:30)
[2024-05-09 19:31] VITALS: BP 147/81
--- NOTE | 2024-05-09 20:20 | HPS.HSE ---
Addendum entered and electronically signed by Lupillo Sebastian MD 05/10/24 07:23:
I saw and examined the patient.
The Account Adjuster's note was reviewed and I agree with the note.
Comment: Pt is POD10 s/p lap to open candice for gangrenous cholecystitis c/b sb enterotomy with RTOR and ex-lap, repair enterotomy. His outpatient WBC was rising and I asked for pictures of his wound, it appeared there was pus and I advised him to
come in. On exam the wound has serous drainage, no odor, no purulence, the open areas are healing well. He has mild-mod ttp mostly at the midline incision. Outpt CT showed anj intra-abd collection. Plan for IV abx, IR drain today. OK for reg diet
post procedure.
Original Note:
Family Physician
-
Family Physician: Mega Escudero
Chief Complaint
-
'abdomen pain'
History of Present Illness
63 y/o patient with PMH of Afib, cardiac ablation, PFO closure, Non-Hodgkin Lymphoma, BMT, on Remission, HTN, Anxiety, send to ER by Surgical team after noting abscess at the surgical site. s/p open cholecystectomy on 04/29/24, later same day
Exploratory laparotomy, repair of small bowel [id number] at [facility]. States he was discharged Thursday and started having abdomen pain near the surgical site, worsened over the weekend. Reports he called the surgical team today and
had outpatient CT scan. He also send the pictures of the surgical site to the and they advised him to proceed to ER for drainage placement. Patient denies any chills, fever, nausea, vomiting. Denies chest pain, Shortness of breath, + Flatus, LBM
05/08, voiding without difficulty.
Medical History
Past Medical History
Past Medical History: Reports Arrhythmia, Cancer and HTN
Additional Past Medical History:
Non-Hodgkin Lymphoma, BMT
Past Surgical History: Reports Cardiac, Cholecystectomy and Tonsilectomy
Additional Past Surgical History:
splenectomy, PFO, Cardiac ablation
Social History
Tobacco: Non-smoker
Alcohol: Daily
Drug: None
Living: With Family
Family History
Family History: Not pertinent
Allergies / Home Medications
Allergies reflects when Allergies were last updated in [facility].
Home Medications with original date entered in [facility]
Allergy/Medication List:
Allergies
Allergy/AdvReac Type Severity Reaction Status Date / Time
No Known Allergies Allergy Verified 05/09/24 17:40
Home Medications
losartan 50 mg tablet 50 mg PO DAILY Blood pressure 10/26/20
acyclovir 400 mg tablet 400 mg PO BID Infection 09/21/22
ponatinib 15 mg tablet (Iclusig) 15 mg PO DAILY Cancer 04/28/24
rivaroxaban 20 mg tablet (Xarelto) 20 mg PO DAILY Blood Clot Prevention/Tx 04/28/24
tetrahydrozoline 0.05 % eye drops (Visine) 1 drp BOTH EYES DAILYPRN PRN dry eyes 04/28/24
acetaminophen 500 mg tablet (Tylenol Extra Strength) 1,000 mg (2 x 500 mg) PO Q8H #10 tabs 05/04/24
amoxicillin 875 mg-potassium clavulanate 125 mg tablet 1 tab PO BID #20 tabs 05/04/24
oxycodone 5 mg tablet 5 - 10 mg (1 - 2 x 5 mg) PO Q4HPRN PRN moderate to severe pain #30 tabs 05/04/24
pantoprazole 40 mg tablet,delayed release 40 mg PO DAILY #7 tabs 05/04/24
polyethylene glycol 3350 17 gram oral powder packet (HealthyLax) 17 g PO DAILY #14 ea 05/04/24
Review of Systems
-
History Source: Patient
A 12 point ROS was completed and negative except as noted: Yes
Constitutional: Reports No Symptoms
EENT: Reports No Symptoms
Respiratory: Reports No Symptoms
Cardiac: Reports No Symptoms
Abdomen/GI: Reports Abdominal Pain
: Reports No Symptoms
Musculoskeletal: Reports No Symptoms
Skin: Reports Other (surgical site )
Neurological: Reports No Symptoms
Endocrine: Reports No Symptoms
Hematologic/Lymphatic: Reports No Symptoms
Psych: Reports No Symptoms
Physical Exam
Vital Signs
Vital Signs
Temp Pulse Resp BP Pulse Ox
97.9 F 76 16 147/81 96
05/09/24 19:31 05/09/24 19:31 05/09/24 19:31 05/09/24 19:31 05/09/24 19:31
Physical Exam
General: Well Developed and Appears in Distress (mild )
HEENT: NormoCephalic, Moist mucous membranes and Atraumatic
Respiratory: Clear and Non Labored Respirations
Cardiac: S1/S2 and Regular Rhythm
Breast: Deferred by me
GI: Soft, Non Distended, Normal Bowel Sounds, Tender (mild to moderate abdomen tenderness) and Other ( vertical surgical site at abdomen); No Organomegaly
Rectal: Deferred by Provider
Genito-urinary: Deferred by me
Musculoskeletal: No Clubbing, No Cyanosis and No Edema
Skin: Warm, Rash and Other (vertical surgical site abdomen with stables, open wound at mid point with purulent drainage, )
Neuro: Awake, AO x 3 and Nonfocal/grossly intact
Hematologic/Lymphatic: No Lymphadenopathy
Psych: Calm and Intact Judgment/Insight
Laboratory Results
-
05/09/24 17:46
05/09/24 17:46
Laboratory Results
Lactic Acid 1.2 mmol/L (0.7-2.0) 05/09/24 17:46
Total Bilirubin 0.7 mg/dl (0.2-1.3) 05/09/24 17:46
AST 29 U/L (17-59) 05/09/24 17:46
ALT 37 U/L (0-50) 05/09/24 17:46
Alkaline Phosphatase 197 U/L (38-126) H 05/09/24 17:46
Data Reviewed
-
CT Scan: Report Reviewed by me
Lab Data: Labs Reviewed by me
Impression/Plan
-
63 y/o patient with Abdomen pain s/p Laparoscopic converted to open cholecystectomy 04/30, Exploratory laparotomy, repair of small bowel enterotomy 04/29
# Abdomen pain likely due to Intra-abdominal abscess, postsurgical complication, wound infection
-CT abd/pelvis: 11.0 x 10.2 x 1.9 cm INTRAPERITONEAL ABSCESS in the anterior midabdomen located posterior to the surgical mesh of a a previous midline anterior abdominal wall hernia repair and anterior to the transverse colon.
-WBC 17.8
-Lactic acid 1.2
-Continue IV Zosyn
-Continue IV Dilaudid
-Continue IV Zofran
-Clear Liquid Diet
-IR in AM
-labs in AM
-Admit to Dr. Sebastian
-Telemetry
# Essential HTN
-Monitor BP
-Losartan 50mg PO Daily-took at home
-can restart post IR
# Hx of Afib
-hx Cardiac Ablation
-Xarelto 20mg PO Daily-will hold
-EKG AM
-Telemetry Monitoring
#Hx of Non Hodgkin Lymphoma
Hx BMT
-Iclusig 15mg -Meds on hold
Full code
DVT Prophylaxis SCD's
[2024-05-09 21:04] VITALS: BMI 24.3
[2024-05-09 21:05] VITALS: BP 141/92
[2024-05-09 21:28] VITALS: BMI 24.3
--- NOTE | 2024-05-09 21:30 | PTCARENOTE ---
Pt arrived via ED stretcher at 2100. Pt able to ambulate to bed. VSS. tele applied per order. AAOX3. pain 01/05. (see aug). midline incision with sherita and small amount of old drainage on dressing. head to toe assessment complete. bed in lowest
position and locked. care ongoing.
[2024-05-09 23:14] VITALS: BP 134/89
[2024-05-10] VITALS (15 sets, daily range): BP systolic 74–142; BP diastolic 74–95
--- NOTE | 2024-05-10 01:33 | PTCARENOTE ---
0035 On tele monitor Pt had sustained HR in 170s for a minute. HR then went back down into 80s. Pt awake and states he could feel his heart racing. Pt states this has happened before. House FURNITURE ASSEMBLY SUPERVISOR notified. vital signs obtained. FURNITURE ASSEMBLY SUPERVISOR ordered magnesium lab
in AM. will continue to monitor.
[2024-05-10] MEDS: ZOSYN 50 IV ×4 (02:05→20:20)
[2024-05-10] MEDS: DILAUDID 1 MG IV ×6 (02:12→20:19)
[2024-05-10 05:38] LABS: Hematocrit 38.1 % (39.0-52.0); Hemoglobin 12.7 g/dL (13.0-18.0); Mean Corp Hgb Conc. 33.3 g/dL (33.0-37.0); Mean Corpuscular Hgb 33.6 pg (27.0-31.0); Mean Corpuscular Volume 100.8 fL (80.0-94.0); Mean Platelet Volume 9.6 fL (7.4-10.4); Platelet Count 684 10^3/uL (130-400); Red Blood Cell Count 3.78 10^6/uL (4.70-6.10); Red Cell Dist. Width 15.4 % (11.5-14.5); White Blood Cell Count 17.4 10^3/uL (4.8-10.8)
[2024-05-10 05:57] LABS: Blood Urea Nitrogen 6 mg/dl (9-20); Carbon Dioxide 30 mmol/L (22-30); Chloride 98 mmol/L (98-107); Estimated Creatinine Clearance > 125 ml/min; Glucose 92 mg/dl (70-99); Magnesium 2.4 mg/dl (1.6-2.3); Potassium 5.5 mmol/L (3.5-5.1); Sodium 135 mmol/L (135-145); eGFR > 60.00
--- NOTE | 2024-05-10 10:12 | CM ---
Reviewed the chart notes and spoke with the patient at the bedside. The patient was recently hospitalized here (04/28-05/04) and discharged to home with no needs. The patient resides with her spouse and son in a two story home with three steps to
enter. The patient reports no DME/VN/SNF. The patient confirmed his pharmacy of choice is the [facility] [address] [facility]. Patient anticipates going to IR for drain placement today. CM continues to be available to patient/family and is monitoring
medical plan for needs at discharge.
Plan: Discharge plans will depend on the patient's progress.
--- NOTE | 2024-05-10 14:05 | WOUNDNOTE ---
WOC RN NOTE: Reviewed chart and met with patient. Patient currently waiting to go to IR today. Midline wound with 2 open areas of purulent drainage. Wound was cleaned with saline and alginate gently packed in open, draining areas. Will order Vashe
to clean wound at next dressing change. Sacrum and heels intact. Will follow as needed.
[2024-05-10] MEDS: FLUSH (NSS) 2 FLUSH IV ×2 (14:19→16:54)
--- NOTE | 2024-05-10 15:55 | W.PN.UPDATE ---
Update Note
Progress Note Update
CT guided drainage catheter placed, yielding 8 cc of purulent fluid. Sent for C+S.
[2024-05-10] MEDS: ROXICODONE 15 MG PO (23:22)
[2024-05-11] MEDS: ZOSYN 50 IV ×4 (02:15→21:03)
[2024-05-11 03:08] VITALS: BP 114/77
[2024-05-11] MEDS: ROXICODONE 15 MG PO ×5 (03:28→21:43)
[2024-05-11 06:08] LABS: Hematocrit 38.5 % (39.0-52.0); Hemoglobin 12.8 g/dL (13.0-18.0); Mean Corp Hgb Conc. 33.2 g/dL (33.0-37.0); Mean Corpuscular Hgb 33.8 pg (27.0-31.0); Mean Corpuscular Volume 101.6 fL (80.0-94.0); Mean Platelet Volume 9.7 fL (7.4-10.4); Platelet Count 742 10^3/uL (130-400); Red Blood Cell Count 3.79 10^6/uL (4.70-6.10); Red Cell Dist. Width 15.6 % (11.5-14.5); White Blood Cell Count 13.1 10^3/uL (4.8-10.8)
[2024-05-11 07:05] VITALS: BP 126/83
--- NOTE | 2024-05-11 10:23 | W.PN.GS2 ---
Today's Communication / Plan
-
Iv abx
Cards consult
Assessment / Plan
-
63M PPD1 s/p IR drain to post-op anterior intra-abdominal fluid collection
AFVSS, no complaints
WBC improving
Micro pending (NGTD, GS with no orgs), wound surface cx with gaurang noted, likely represents skin alexys
Brief run of tachycardia to the 180s on tele this am after wound care
Plan:
Consult Cards for new self limited tachycardia
Restart xarelto tonight
Cont reg diet
Cont abx
Trend CBC
F/U Micro
Consider ID consult if cultures unrevealing
Subjective Data
-
Date of Service: May 11, 2024
AFVSS, improved, pain controlled, jorge diet, ambulating
Objective Data
-
Intake and Output
05/10/24 05/11/24 05/12/24
06:59 06:59 06:59
Intake Total 530 / 530 810 / 810
Output Total
Balance 530 / 530 800 / 800
Intake:
Oral fluids 480 / 480 600 / 600
IV piggybacks 50 / 50 200 / 200
Amount instilled into Drain (
Total)
Right Middle Abdomen Raymond-
Portillo A Placed in IR
Output:
Drain Output (Total)
Right Middle Abdomen Raymond-
Portillo A Placed in IR
Other:
Number of approximated MODERATE 1 2
amounts of urine
Vital Signs
Temp Pulse Resp BP Pulse Ox
98.1 F 75 16 126/83 97
05/11/24 07:05 05/11/24 07:05 05/11/24 07:05 05/11/24 07:05 05/11/24 08:00
Lab Results
05/11/24 04:52
05/10/24 04:57
Calcium 9.0 mg/dl (8.4-10.2) 05/10/24 04:57
Magnesium 2.4 mg/dl (1.6-2.3) H 05/10/24 04:57
Total Bilirubin 0.7 mg/dl (0.2-1.3) 05/09/24 17:46
AST 29 U/L (17-59) 05/09/24 17:46
ALT 37 U/L (0-50) 05/09/24 17:46
Alkaline Phosphatase 197 U/L (38-126) H 05/09/24 17:46
Total Protein 6.1 g/dl (6.3-8.2) L 05/09/24 17:46
Albumin 3.5 g/dl (3.5-5.0) 05/09/24 17:46
Physical Exam
-
Gen: NAd
Abd: midline wound with scant purulence vs fibrinous exudate, several more sherita removed from central incision, there was no release of fluid or purulence and the subcutaneous tissue is healing well; drain with serous fluid
--- NOTE | 2024-05-11 11:01 | CM ---
Reviewed the chart notes and spoke with the patient at the bedside. MARY drain placed yesterday. CM continues to be available to patient/family and is monitoring medical plan for needs at discharge.
Plan: Discharge to home with no needs unless MARY drain remains at discharge. Then VN would be needed.
[2024-05-11 11:45] VITALS: BP 126/85
--- NOTE | 2024-05-11 13:20 | CON.CAR ---
Addendum entered and electronically signed by Yong Hernandez MD 05/11/24 17:32:
I saw and examined the patient.
The Manager Of Data's note was reviewed and I agree with the note.
Comment: Briefly, 63-year-old man past medical history of paroxysmal atrial fibrillation on Xarelto, CVA and PFO status postclosure who initially presented for evaluation of possible intra-abdominal abscess.
Cardiology was consulted for episode of SVT on telemetry.
Patient tells me he was aware of the episode and was mildly symptomatic with this
Telemetry reviewed, short burst of narrow complex tachycardia, suspect this may be atrial tachycardia
This is not surprising given his history of atrial fibrillation
Would resume oral anticoagulation when safe from a surgical standpoint
Continue to monitor on telemetry overnight
Would consider AV cathleen red but okay to hold off for now
We discussed further workup with outpatient monitor and echocardiogram but agreed to defer this to the outpatient setting
Original Note:
Consultation
Consultation Request
Date/Time Consultation Requested: 05/11/24
Date/Time Consultation Performed: 05/11/24
Requesting Provider: Dr. Sebastian
Performing Provider: Dr. Hernandez
Reason for Consultation: SVT
Medical History
-
History of Present Illness:
Patient came to [facility] Thursday night for possible intra-abdominal abscess and cardiology is now consulted for rapid Atach seen on tele today. Patient has a complex PMH. Patient has a h/o NHL managed with chemo, radiation and splenectomy. He had a
complication at time fo splenectomy and required re-op and then developed hernia. Patient later had a CVA and was found to have Afib and a PFO. [facility] and later had PVI for pAfib in 2019. He remains on Xarelto 20 mg
daily. At his last office visit in 11/2022 he had an overall low symptomatic burden of Afib and elected to stay off of AV cathleen blockers. Patient has an Apple watch that he uses to monitor rhythm as well. Most recently the patient came to [facility]
04/28/24 and was found to have acute gangrenous cholecystitis and lap candice had ot be converted to open procedure. Patient had a re-op later that day for small bowel enterotomy. He was d/c'd to home 05/04/24 and then returned to [facility] for fluid
collection 05/09/24. During dressing change today patient was noted to have rapid Atach that was symptomatic with palpitations. Patient denies chest pain or SOB.
PMH:
s/p laparoscopic converted to open cholecystectomy for acute gangrenous calculous cholecystitis 04/30/24
s/p ex lap and repair of small bowel enterotomy 04/30/24
h/o NHL with chemotherapy, radiation and splenectomy 2003
h/o intra-op stomach injury during splenectomy with subsequent repair at [facility] and then hernia repair surgery at
Paroxysmal Afib
s/p PVI 05/18/19
Chronic Xarelto OAC
Paroxysmal Atach
h/o CVA 2008
s/p [facility]
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
Past Medical History
Past Medical History: Other (in HPI)
Past Surgical History: Cardiac ([facility]), Cholecystectomy (open procedure 04/30/24) and Other (splenectomy 2004, lymph node biopsy 2003, BM transplant 01/2023, repair of small bowel enterotomy 04/30/24)
Social History
Tobacco: Former Smoker
Alcohol: Daily
Drug: None
Personal:
Living: With Family
Family History
Family History: Cancer and Diabetes
Allergies / Home Medications
Allergy/AdvReac Type Severity Reaction Status Date / Time
No Known Allergies Allergy Verified 05/09/24 17:40
�Medication �Instructions �Recorded �Confirmed �Type
losartan 50 mg tablet 50 mg PO DAILY Blood pressure 10/26/20 05/09/24 History
acyclovir 400 mg tablet 400 mg PO BID Infection 09/21/22 05/09/24 History
ponatinib 15 mg tablet (Iclusig) 15 mg PO DAILY Cancer 04/28/24 05/09/24 History
rivaroxaban 20 mg tablet (Xarelto) 20 mg PO DAILY Blood Clot 04/28/24 05/09/24 History
Prevention/Tx
tetrahydrozoline 0.05 % eye drops 1 drp BOTH EYES DAILYPRN PRN dry 04/28/24 05/09/24 History
(Visine) eyes
oxycodone 5 mg tablet 5 - 10 mg (1 - 2 x 5 mg) PO Q4HPRN 05/04/24 05/09/24 Rx
PRN moderate to severe pain #30
tabs
acetaminophen 500 mg tablet 1,000 mg PO Q8H Pain 05/10/24 05/09/24 History
(Tylenol Extra Strength)
amoxicillin 875 mg-potassium 1 tab PO BID Infection 05/10/24 05/09/24 History
clavulanate 125 mg tablet
pantoprazole 40 mg tablet,delayed 40 mg PO DAILY Gastrointestinal 05/10/24 05/09/24 History
release Issue
polyethylene glycol 3350 17 gram 17 g PO DAILY Constipation 05/10/24 05/09/24 History
oral powder packet (HealthyLax)
Review of Systems
-
History Source: Patient and Family ( sitting bedside)
All other systems: Negative unless noted
Physical Exam
Vital Signs
Temp Pulse Resp BP Pulse Ox
98.3 F 104 16 126/85 99
05/11/24 11:45 05/11/24 11:45 05/11/24 11:45 05/11/24 11:45 05/11/24 11:45
GEN: NAD. AAOx3
HEENT: EOMI, MMM
LUNGS: CTA B/L, no wheezes or rales
CV: Reg, S1/S2, no murmur
ABD: soft, BS+, NT, ND
EXT: No clubbing, cyanosis, lesions or edema B/L
NEURO: Gross non-focal
SKIN: Warm, dry and pink. No rash
Lab Results
05/11/24 04:52
05/10/24 04:57
Impression / Plan
-
PCP: Dr. Escudero
Cardiology: Dr. Gallardo
Impression:
Admitted with intra-abdominal fluid collection 05/09/24
Paroxysmal Atach 05/11/24
s/p laparoscopic converted to open cholecystectomy for acute gangrenous calculous cholecystitis 04/30/24
s/p ex lap and repair of small bowel enterotomy 04/30/24
h/o NHL with chemotherapy, radiation and splenectomy 2003
h/o intra-op stomach injury during splenectomy with subsequent repair at [facility] and then hernia repair surgery at
Paroxysmal Afib
s/p PVI 05/18/19
Chronic Xarelto OAC
Paroxysmal Atach
h/o CVA 2008
s/p [facility]
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
Echo 09/25/2022: EF 55 to 60%, mild concentric LVH, mild to moderate MR, mildly dilated aortic root at 4.3 cm, PFO closure intact with no evidence of shunting
Plan:
-Patient came to [facility] Thursday night for possible intra-abdominal abscess and cardiology is now consulted for rapid Atach seen on tele today. Patient has a complex PMH. Patient has a h/o NHL managed with chemo, radiation and splenectomy. He had a
complication at time fo splenectomy and required re-op and then developed hernia. Patient later had a CVA and was found to have Afib and a PFO. Patient [facility] and later had PVI for pAfib in 2018. He remains on Xarelto 20 mg
daily. At his last office visit in 11/2022 he had an overall low symptomatic burden of Afib and elected to stay off of AV cathleen blockers. Patient has an Apple watch that he uses to monitor rhythm as well. Most recently the patient came to [facility]
04/28/24 and was found to have acute gangrenous cholecystitis and lap candice had ot be converted to open procedure. Patient had a re-op later that day for small bowel enterotomy. He was d/c'd to home 05/04/24 and then returned to [facility] for fluid
collection 05/09/24. During dressing change today patient was noted to have rapid Atach that was symptomatic with palpitations. Patient denies chest pain or SOB.
-ECG and tele reviewed by me. Currently in SR, but at 0957 brief, self-limited run of Atach at 145 bpm.
-Talked with patient and at bedside. Explained atrial arrhythmias and management. Overall burden of symptomatic atrial arrhythmias remains low. Will cotninue to defer addition of AV cathleen blockers.
-Patient is agreeable to wearing a 7 day CAM monitor as an outpatient coming up, but is not in a dwyer while he recovers from his surgeries.
-Recommended echo to follow up on MR and PFO closure, will defer to outpatient setting once better healed from surgery, this is patient's preference.
-Xarelto 20 mg daily (CrCl greater than 125) scheduled to resume this evening.
[2024-05-11 15:29] VITALS: BP 123/81
[2024-05-11] MEDS: XARELTO 20 MG PO (17:23)
[2024-05-11 19:35] VITALS: BP 118/81
[2024-05-11 23:55] VITALS: BP 118/79
[2024-05-12] MEDS: ROXICODONE 15 MG PO ×5 (02:06→20:10)
[2024-05-12] MEDS: ZOSYN 50 IV ×3 (02:06→14:16)
[2024-05-12 03:21] VITALS: BP 119/73
[2024-05-12 06:29] LABS: Hematocrit 38.2 % (39.0-52.0); Hemoglobin 12.6 g/dL (13.0-18.0); Mean Corpuscular Hgb 33.4 pg (27.0-31.0); Mean Corpuscular Volume 101.3 fL (80.0-94.0); Mean Platelet Volume 9.3 fL (7.4-10.4); Platelet Count 757 10^3/uL (130-400); Red Blood Cell Count 3.77 10^6/uL (4.70-6.10); Red Cell Dist. Width 15.3 % (11.5-14.5); White Blood Cell Count 10.9 10^3/uL (4.8-10.8)
--- NOTE | 2024-05-12 07:17 | W.PN.CARDCBS ---
Addendum entered and electronically signed by Amador Menezes MD 05/12/24 10:57:
I saw and examined the patient.
The Route Aide's note was reviewed and I agree with the note.
Comment:
GEN: No distress, awake, Ox3
HEENT: supple, anicteric, mmm
LUNGS: CTA, no wheezes/rales
CV: Reg, S1/S2, no murmur
ABD: soft, BS+, wound dressing intact
EXT: No edema
NEURO: Gross non-focal
SKIN: No rash
Plan:
No further episodes of SVT/atrial tachycardia.
Back on Xarelto.
I discussed with him adding low-dose beta-red but he prefers to hold off for now.
Continue antibiotics and postoperative care.
Original Note:
Today's Communication / Plan
-
Continue to follow on telemetry.
Xarelto resumed in PM 05/11
OP follow up arranged
As OP, consider 7 day CAM, follow up echo
Impression / Plan
-
PCP: Dr. Escudero
Cardiology: Dr. Gallardo
Impression:
Admitted with intra-abdominal fluid collection 05/09/24
s/p laparoscopic converted to open cholecystectomy for acute gangrenous calculous cholecystitis 04/30/24
s/p ex lap and repair of small bowel enterotomy 04/30/24
Paroxysmal Atach 05/11/24
h/o NHL with chemotherapy, radiation and splenectomy 2003
h/o intra-op stomach injury during splenectomy with subsequent repair at [facility] and then hernia repair surgery at
Paroxysmal Afib
s/p PVI 05/18/19
Chronic Xarelto OAC
h/o CVA 2008
s/p PFO closure at [facility] 2008
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
Echo 09/25/2022: EF 55 to 60%, mild concentric LVH, mild to moderate MR, mildly dilated aortic root at 4.3 cm, PFO closure intact with no evidence of shunting
Plan:
-Presented for evaluation due to possible intra-abdominal abscess. s/p IR drain placement 05/11/24.
-Brief, self-limited run of atach noted on tele in AM 05/11. Patient does have h/o atrial fibrillation and atrial tachycardia, however burden has been quite low as OP.
-Reviewed telemetry from overnight and no further episodes of atach noted. Feeling well this AM with no complaints other than some mid abdominal discomfort.
-Will hold off on addition of any AV cathleen blockers for now. Eventually will plan on 7 day CAM monitor as OP to follow burden of arrhythmia as well as HR trends.
-Xarelto resumed in PM 05/11. Hgb stable at 12.6
-As OP, would also arrange follow up echo to reassess MR and PFO closure.
-Continue post-op management per surgical team
-Follow up arranged.
HPI: Patient came to [facility] Thursday night for possible intra-abdominal abscess and cardiology is now consulted for rapid Atach seen on tele today. Patient has a complex PMH. Patient has a h/o NHL managed with chemo, radiation and splenectomy. He had a
complication at time fo splenectomy and required re-op and then developed hernia. Patient later had a CVA and was found to have Afib and a PFO. Patient had PFO closure at [facility] in 2008 and later had PVI for pAfib in 2019. He remains on Xarelto 20 mg
daily. At his last office visit in 11/2022 he had an overall low symptomatic burden of Afib and elected to stay off of AV cathleen blockers. Patient has an Apple watch that he uses to monitor rhythm as well. Most recently the patient came to [facility]
04/28/24 and was found to have acute gangrenous cholecystitis and lap candice had ot be converted to open procedure. Patient had a re-op later that day for small bowel enterotomy. He was d/c'd to home 05/04/24 and then returned to [facility] for fluid
collection 05/09/24. During dressing change today patient was noted to have rapid Atach that was symptomatic with palpitations. Patient denies chest pain or SOB.
Progress Note - Screw Supervisor
Subjective
Date of Service: May 12, 2024
No current complaints. Denies chest pain, palpitations.
Objective
Labs:
05/12/24 05:09
05/10/24 04:57
Labs
Hgb 12.6 g/dL (13.0-18.0) L 05/12/24 05:09
Hct 38.2 % (39.0-52.0) L 05/12/24 05:09
Plt Count 757 10^3/uL (130-400) H 05/12/24 05:09
Sodium 135 mmol/L (135-145) 05/10/24 04:57
Potassium 5.5 mmol/L (3.5-5.1) H 05/10/24 04:57
BUN 6 mg/dl (9-20) L 05/10/24 04:57
Creatinine 0.7 mg/dL (0.7-1.3) 05/10/24 04:57
Glucose 92 mg/dl (70-99) 05/10/24 04:57
Vital Signs and I&O:
Vital Signs
Temp Pulse Resp BP Pulse Ox
99.0 F 74 20 119/73 97
05/12/24 03:21 05/12/24 03:21 05/12/24 03:21 05/12/24 03:21 05/12/24 03:21
Vital Signs
Temp Pulse Resp BP Pulse Ox
99.0 F 74 20 119/73 97
05/12/24 03:21 05/12/24 03:21 05/12/24 03:21 05/12/24 03:21 05/12/24 03:21
Intake & Output
05/10/24 05/11/24 05/12/24 05/13/24
06:59 06:59 06:59 06:59
Intake Total 530 / 530 810 / 810 2320 / 2320
Output Total
Balance 530 / 530 800 / 800 2315 / 2315
Physical Exam
Physical Exam
GEN: No distress, awake, alert, oriented x3
HEENT: supple, anicteric, mmm
LUNGS: CTA b/l, no wheezes/rales
CV: Reg, S1/S2, 1/6 syst murmur
EXT: No clubbing, cyanosis, or edema
NEURO: Gross non-focal
SKIN: Warm, dry, no rash
[2024-05-12 08:42] VITALS: BP 117/86
[2024-05-12] MEDS: FLUSH (NSS) 2 FLUSH IV (08:56)
--- NOTE | 2024-05-12 10:14 | W.PN.GS2 ---
Today's Communication / Plan
-
`
Assessment / Plan
-
63M admitted status post laparoscopic converted to open cholecystectomy and subsequent laparotomy repair of small bowel enterotomy with intra-abdominal fluid collection and surgical site infection
Remote past surgical history including laparotomy, splenectomy, incisional hernia repairs with mesh which remains in place (reviewing operative report PTFE and polypropylene)
s/p IR drain to post-op anterior intra-abdominal fluid collection -05/10/2024
AFVSS
WBC improved to 10.9, persistent thrombocytosis with platelet count 757 (history of splenectomy)
Cultures: NGTD, GS with no orgs),
wound surface cx with coni
Plan: Consult infectious disease regarding antibiotic selection particularly in light of Coni and abdominal wall mesh history
Local wound care
Cards assistance with care appreciated
Subjective Data
-
Date of Service: May 12, 2024
Patient seen and examined.
Presenting abdominal pain much improved, mild residual abdominal incisional discomfort
No nausea, tolerating diet
Objective Data
-
Intake and Output
05/11/24 05/12/24 05/13/24
06:59 06:59 06:59
Intake Total 810 / 810 2320 / 2320 50 / 50
Output Total
Balance 800 / 800 2315 / 2315 50 / 50
Intake:
Oral fluids 600 / 600 2100 / 2100
IV piggybacks 200 / 200 200 / 200 50 / 50
Amount instilled into Drain (
Total)
Right Middle Abdomen Raymond-
Portillo A Placed in IR
Output:
Drain Output (Total)
Right Middle Abdomen Raymond-
Portillo A Placed in IR
Other:
Number of approximated MODERATE 2 2
amounts of urine
Vital Signs
Temp Pulse Resp BP Pulse Ox
98.4 F 88 15 117/86 99
05/12/24 08:42 05/12/24 08:42 05/12/24 08:42 05/12/24 08:42 05/12/24 08:42
Lab Results
05/12/24 05:09
05/10/24 04:57
Calcium 9.0 mg/dl (8.4-10.2) 05/10/24 04:57
Magnesium 2.4 mg/dl (1.6-2.3) H 05/10/24 04:57
Total Bilirubin 0.7 mg/dl (0.2-1.3) 05/09/24 17:46
AST 29 U/L (17-59) 05/09/24 17:46
ALT 37 U/L (0-50) 05/09/24 17:46
Alkaline Phosphatase 197 U/L (38-126) H 05/09/24 17:46
Total Protein 6.1 g/dl (6.3-8.2) L 05/09/24 17:46
Albumin 3.5 g/dl (3.5-5.0) 05/09/24 17:46
Physical Exam
-
NAD AAOx3
IR drain with scant purulent fluid to bulb suction
Midline laparotomy incision: Additional sherita removed some purulent material expressed. Wound cleaned and lightly packed with moistened gauze.
[2024-05-12 11:28] VITALS: BP 121/84
[2024-05-12] MEDS: DIFLUCAN 200 MG PO (13:22)
--- NOTE | 2024-05-12 15:03 | CON.ID ---
Consultation
-
Date/Time Consultation Requested: 05/12/24 1012
Date/Time Consultation Performed: 05/12/24 1230
Requesting Provider: Dr. Igor Venegas
Performing Provider: Dr. Nini Saleh
Reason for Consultation: Intra-abd abscess
Chief Complaint / Past History
Chief Complaint
Worsening abd pain
History of Present Illness
63 year old male with hx of NHL, s/p splenectomy, ALL s/p stem cell transplant 2022, pAF, who was recently hospitalized 04/28 to 05/04 with acute gangrenous cholecystitis s/p lap converted to open candice 04/29/24 complicated by bile leak s/p ex-lap
repair of small bowel enterotomy 04/30/24. He was discharged to home on Augmentin. He returned to the hospital 05/09/24 with worsening abd pain and discharge from incision wound sent for cx + C. albicans. CT a/p 11cm intra-abd abscess posterior to
previous surgical mesh. 1.9 cm abscess in GB fossa. He was started on Zosyn. 05/10/24 underwent perc drain placement, cx + C. albicans.
Past History
Additional Past Medical History:
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
ALL s/p stem cells transplant (2022)
CVA
Depression
Hx Non-Hodgkin lymphoma s/p chemo, XRT (2004)
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
Incision hernia repair with mesh 2006, revision 2021
PFO closure 2008
R TKR
Cholecystectomy
Allergy History:
No Known Allergies Allergy (Verified 05/09/24 17:40)
Medications Reviewed: Yes
Current Antibiotics:
Zosyn #4
Social History
Tobacco: Former Smoker
Alcohol: Daily
Drug: None
Personal:
Living: With Family
Employment: Employed ([employer])
Family History
Family History: Not Pertinent
Review of Systems
Review of Systems
General: Negative Fever or Chills
HEENT: Negative Sinus Problems or Headache
Cardiovascular: Negative Chest Pain or Dyspnea
Respiratory: Negative Dyspnea, Cough or Sputum Production
Gasteroenterology: Negative Nausea, Vomiting or Diarrhea
Genital / Urological: Negative Dysuria or Flank Pain
Endocrine: Weakness
Vital Signs
Temp Pulse Resp BP Pulse Ox
98.5 F 84 20 121/84 96
05/12/24 11:28 05/12/24 11:28 05/12/24 11:28 05/12/24 11:28 05/12/24 11:28
Physical Exam
Physical Exam
Constitutional: No Acute Distress
Eyes: No Conjunctival Hemorrhage and Sclera Anicteric
Cardiovascular: Regular Rate and S1/S2
Pulmonary: Clear
Gastrointestinal: Soft, Tender (right abdomen. ), Normal Bowel Sounds and Other (R MARY drain -purulent output)
Genito-Urinary: Negative CVA Tenderness
Extremities: Negative Edema
Neurological: AO x 3
Lab / Diagnostic Study Results
05/12/24 05:09
05/10/24 04:57
Abs Immat Gran (auto) 0.1 10^3/uL (0-0.05) H 05/09/24 17:46
Absolute Neuts (auto) 13.1 10^3/uL (1.4-6.5) H 05/09/24 17:46
Absolute Lymphs (auto) 2.4 10^3/uL (1.2-3.4) 05/09/24 17:46
Absolute Monos (auto) 1.7 10^3/uL (0.1-0.6) H 05/09/24 17:46
Absolute Basos (auto) 0.1 10^3/uL (0-0.2) 05/09/24 17:46
Immature Gran % 0.8 % (0-0.5) H 11/11/24 17:46
Neutrophils % 73.5 % (42.2-75.2) 05/09/24 17:46
Lymphocytes % 13.6 % (20.5-51.1) L 05/09/24 17:46
Monocytes % 9.3 % (1.7-9.3) 05/09/24 17:46
Eosinophils % 2.1 % (0-6) 05/09/24 17:46
Basophils % 0.7 % (0-2) 05/09/24 17:46
Lactic Acid 1.2 mmol/L (0.7-2.0) 05/09/24 17:46
Microbiology Results
Micro:
05/10/24 15:45 Wound Culture - Final
Abscess Coni albicans
Gram Stain - Final
05/10/24 10:08 Wound Culture - Final
Abdomen Coni albicans
Gram Stain - Final
05/10/24 02:20 MRSA Screen - Final
Nose No Methicillin Resistant Staphylococcus aureus isolated.
05/09/24 CT a/p: 11.0 x 10.2 x 1.9 cm INTRAPERITONEAL ABSCESS in the anterior midabdomen located posterior to the surgical mesh of a a previous midline anterior abdominal wall hernia repair and anterior to the transverse colon.
2. 1.9 cm ABSCESS in the GALLBLADDER FOSSA and adjacent 3.5 cm gallstone in the cystic duct remnant.
Assessment / Plan
# Post-op intra-abdominal abscess posterior to hernia mesh
# Suspect abd hernia mesh infection
# Recent open candice (04/29) followed by small bowel enterotomy repair (04/30), dc'd home on Augmentin (05/05)
# Leukocytosis trending down
# Hx splenectomy (2004)
- 05/10 s/p perc drain. Cx + C. albicans
- Start fluconazole 400mg po qd. Will likely need eventual chronic suppression with low dose fluconazole for unremoval mesh.
- Can replace Zosyn with Augmentin 875mg po bid.
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
ALL s/p stem cells transplant (2022)
CVA
Depression
Hx Non-Hodgkin lymphoma s/p chemo, XRT (2004)
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
Incision hernia repair with mesh 2006, revision 2021
PFO closure 2008
R TKR
Cholecystectomy
Care Review
Plan reviewed with: Physician (Drs. Sebastian and Theo)
[2024-05-12 16:15] VITALS: BP 124/84
--- NOTE | 2024-05-12 16:27 | CM ---
He was offered VN he declined need.He said if dc tomorrow with drain he will be able to manage. MD will need to write a script for flushes and nursing provide some for dc if home with drain. Blanc removed due to void.He said Callum will drive
him home at dc.
Pt had home infusion in past.
ID saw pt.
PLAN Home Declined VN
[2024-05-12] MEDS: XARELTO 20 MG PO (17:17)
[2024-05-12 19:37] VITALS: BP 129/85
[2024-05-12] MEDS: AUGMENTIN 875 MG/125 MG 1 TABLET PO (20:06)
[2024-05-12 23:10] VITALS: BP 135/91
[2024-05-13] MEDS: ROXICODONE 15 MG PO ×3 (00:10→13:43)
[2024-05-13 03:10] VITALS: BP 126/90
--- NOTE | 2024-05-13 07:24 | W.PN.CARDCBS ---
Addendum entered and electronically signed by Amador Menezes MD 05/13/24 12:40:
I saw and examined the patient.
The Equity Trader's note was reviewed and I agree with the note.
Comment:
GEN: No distress, awake, Ox3
HEENT: supple, anicteric, mmm
LUNGS: CTA, no wheezes/rales
CV: Reg, S1/S2, 1/6 syst LSB, no gallop
ABD: soft, BS+, + dressing intact
EXT: No edema
NEURO: Gross non-focal
SKIN: No rash
Plan:
Had 2 brief episodes of atrial tachycardia
Pt declines Beta-red.
Cont Xarelto. Hg 12.6.
Will arrange follow up.
Original Note:
Today's Communication / Plan
-
Continue to follow on telemetry.
Continue Xarelto
Follow up arranged
Impression / Plan
-
PCP: Dr. Escudero
Cardiology: Dr. Gallardo
Impression:
Admitted with intra-abdominal fluid collection 05/09/24
s/p laparoscopic converted to open cholecystectomy for acute gangrenous calculous cholecystitis 04/30/24
s/p ex lap and repair of small bowel enterotomy 04/30/24
Paroxysmal Atach 05/11/24
h/o NHL with chemotherapy, radiation and splenectomy 2003
h/o intra-op stomach injury during splenectomy with subsequent repair at [facility] and then hernia repair surgery at
Paroxysmal Afib
s/p PVI 05/18/19
Chronic Xarelto OAC
h/o CVA 2008
s/p PFO closure at [facility] 2008
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
Echo 09/25/2022: EF 55 to 60%, mild concentric LVH, mild to moderate MR, mildly dilated aortic root at 4.3 cm, PFO closure intact with no evidence of shunting
Plan:
-Presented for evaluation due to possible intra-abdominal abscess. s/p IR drain placement 05/11/24. Wound cultures + for gaurang. ID following.
-Brief, self-limited runs of atach noted on tele this admisison. Patient does have h/o atrial fibrillation and atrial tachycardia, however burden has been quite low as OP.
-Remains asymptomatic w/ episodes and denies palpitations, chest pressure, dizziness, or SOB.
-Discussed starting low dose beta red w/ patient, however he declines at this time. Will plan on 7 day CAM monitor when seen in follow up to continue monitoring arrhythmia burden.
-Xarelto resumed in PM 05/11. Hgb stable at 12.6
-As OP, would also arrange follow up echo to reassess MR and PFO closure.
-Continue post-op management per surgical team
-Cardiac follow up arranged.
HPI: Patient came to [facility] Thursday night for possible intra-abdominal abscess and cardiology is now consulted for rapid Atach seen on tele today. Patient has a complex PMH. Patient has a h/o NHL managed with chemo, radiation and splenectomy. He had a
complication at time fo splenectomy and required re-op and then developed hernia. Patient later had a CVA and was found to have Afib and a PFO. Patient had PFO closure at [facility] in 2008 and later had PVI for pAfib in 2019. He remains on Xarelto 20 mg
daily. At his last office visit in 11/2022 he had an overall low symptomatic burden of Afib and elected to stay off of AV cathleen blockers. Patient has an [employer] watch that he uses to monitor rhythm as well. Most recently the patient came to [facility]
04/28/24 and was found to have acute gangrenous cholecystitis and lap candice had ot be converted to open procedure. Patient had a re-op later that day for small bowel enterotomy. He was d/c'd to home 05/04/24 and then returned to [facility] for fluid
collection 05/09/24. During dressing change today patient was noted to have rapid Atach that was symptomatic with palpitations. Patient denies chest pain or SOB.
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
Subjective
Date of Service: May 13, 2024
No complaints this AM.
Objective
Labs:
05/12/24 05:09
05/10/24 04:57
Labs
Hgb 12.6 g/dL (13.0-18.0) L 05/12/24 05:09
Hct 38.2 % (39.0-52.0) L 05/12/24 05:09
Plt Count 757 10^3/uL (130-400) H 05/12/24 05:09
Sodium 135 mmol/L (135-145) 05/10/24 04:57
Potassium 5.5 mmol/L (3.5-5.1) H 05/10/24 04:57
BUN 6 mg/dl (9-20) L 05/10/24 04:57
Creatinine 0.7 mg/dL (0.7-1.3) 05/10/24 04:57
Glucose 92 mg/dl (70-99) 05/10/24 04:57
Vital Signs and I&O:
Vital Signs
Temp Pulse Resp BP Pulse Ox
98.4 F 92 18 126/90 94
05/13/24 03:10 05/13/24 03:10 05/13/24 03:10 05/13/24 03:10 05/13/24 03:10
Vital Signs
Temp Pulse Resp BP Pulse Ox
98.4 F 92 18 126/90 94
05/13/24 03:10 05/13/24 03:10 05/13/24 03:10 05/13/24 03:10 05/13/24 03:10
Intake & Output
05/11/24 05/12/24 05/13/24 05/14/24
06:59 06:59 06:59 06:59
Intake Total 810 / 810 2320 / 2320 1520 / 1520
Output Total
Balance 800 / 800 2315 / 2315 1510 / 1510
Physical Exam
Physical Exam
GEN: No distress, awake, alert, oriented x3
HEENT: supple, anicteric, mmm
LUNGS: CTA b/l, no wheezes/rales
CV: Reg, S1/S2, 1/6 syst murmur
EXT: No clubbing, cyanosis, or edema
NEURO: Gross non-focal
SKIN: Warm, dry, no rash
[2024-05-13 07:50] VITALS: BP 129/96
[2024-05-13] MEDS: PROTONIX 40 MG PO (08:18)
[2024-05-13] MEDS: AUGMENTIN 875 MG/125 MG 1 TABLET PO (08:18)
[2024-05-13] MEDS: DIFLUCAN 400 MG PO (08:19)
[2024-05-13] MEDS: COZAAR 50 MG PO (08:19)
--- NOTE | 2024-05-13 09:02 | W.PN.GS2 ---
Today's Communication / Plan
-
DC home
Assessment / Plan
-
63M admitted status post laparoscopic converted to open cholecystectomy and subsequent laparotomy repair of small bowel enterotomy with intra-abdominal fluid collection and surgical site infection
Remote past surgical history including laparotomy, splenectomy, incisional hernia repairs with mesh which remains in place (reviewing operative report PTFE and polypropylene)
s/p IR drain to post-op anterior intra-abdominal fluid collection -05/10/2024
AFVSS
WBC improved to 10.9, persistent thrombocytosis with platelet count 757 (history of splenectomy)
Cultures: gaurang
Plan:
Appreciate ID recs
Pt has done well on PO antimicrobials woithout new fever or pain
Plan for DC home with PO augmentin and fluconazole (14 day course)
Subjective Data
-
Date of Service: May 13, 2024
AFVSS, pain controlled, jorge PO, no complaints
Objective Data
-
Intake and Output
05/12/24 05/13/24 05/14/24
06:59 06:59 06:59
Intake Total 2320 / 2320 1520 / 1520
Output Total
Balance 2315 / 2315 1510 / 1510
Intake:
Oral fluids 2100 / 2100 1420 / 1420
IV fluids (Total) 0 / 0
IV piggybacks 200 / 200 100 / 100
Amount instilled into Drain (
Total)
Right Middle Abdomen Raymond-
Portillo A Placed in IR
Output:
Drain Output (Total)
Right Middle Abdomen Raymond-
Portillo A Placed in IR
Other:
Number of approximated MODERATE 2 6
amounts of urine
Vital Signs
Temp Pulse Resp BP Pulse Ox
98.2 F 93 16 129/96 98
05/13/24 07:50 05/13/24 08:19 05/13/24 07:50 05/13/24 08:19 05/13/24 07:50
Lab Results
05/12/24 05:09
05/10/24 04:57
Calcium 9.0 mg/dl (8.4-10.2) 05/10/24 04:57
Magnesium 2.4 mg/dl (1.6-2.3) H 05/10/24 04:57
Total Bilirubin 0.7 mg/dl (0.2-1.3) 05/09/24 17:46
AST 29 U/L (17-59) 05/09/24 17:46
ALT 37 U/L (0-50) 05/09/24 17:46
Alkaline Phosphatase 197 U/L (38-126) H 05/09/24 17:46
Total Protein 6.1 g/dl (6.3-8.2) L 05/09/24 17:46
Albumin 3.5 g/dl (3.5-5.0) 05/09/24 17:46
Physical Exam
-
Gen: NAD
Abd: soft, approp ttp, incision with 2 open areas with seropurulent drainage without erythema or fluctuance, drain with purulent fluid (scant)
--- NOTE | 2024-05-13 09:06 | W.DS.TRANS ---
Addendum entered and electronically signed by BRITTNEE Yates 05/13/24 11:46:
Dictated #[id number]
Original Note:
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
-
Discharge Instructions:
Sleep Apnea Risk Intermediate
Instructions:
Stand-Alone Forms:
Changes to Home Medications: No
Discharge Medications:
DC Medications w/original date entered in [employer]
losartan 50 mg tablet 50 mg PO DAILY Blood pressure 10/26/20
acyclovir 400 mg tablet 400 mg PO BID Infection 09/21/22
ponatinib 15 mg tablet (Iclusig) 15 mg PO DAILY Cancer 04/28/24
rivaroxaban 20 mg tablet (Xarelto) 20 mg PO DAILY Blood Clot Prevention/Tx 04/28/24
tetrahydrozoline 0.05 % eye drops (Visine) 1 drp BOTH EYES DAILYPRN PRN dry eyes 04/28/24
oxycodone 5 mg tablet 5 - 10 mg (1 - 2 x 5 mg) PO Q4HPRN PRN moderate to severe pain #30 tabs 05/04/24
acetaminophen 500 mg tablet (Tylenol Extra Strength) 1,000 mg PO Q8H Pain 05/10/24
amoxicillin 875 mg-potassium clavulanate 125 mg tablet 1 tab PO BID Infection 05/10/24
pantoprazole 40 mg tablet,delayed release 40 mg PO DAILY Gastrointestinal Issue 05/10/24
polyethylene glycol 3350 17 gram oral powder packet (HealthyLax) 17 g PO DAILY Constipation 05/10/24
Home Medication Changes
Pending Results: No
--- NOTE | 2024-05-13 10:53 | W.PN.ID1 ---
Date of Service
Date of Service: May 13, 2024
Today's Communication
- Recommend fluconazole 400mg po qd x 6 weeks till 06/23/24, then 100mg daily for chronic suppression of unremoval potential infected mesh.
- Can continue Augmentin 875mg po bid x 2 more weeks then stop.
- Follow-uo with me in 2 weeks.
Assessment / Plan
# Post-op intra-abdominal abscess posterior to hernia mesh
# Suspect abd hernia mesh infection
# Recent open candice (04/29) followed by small bowel enterotomy repair (04/30), dc'd home on Augmentin (05/05)
# Leukocytosis trending down
# Hx splenectomy (2004)
- 05/10 s/p perc drain. Cx + C. albicans
- Recommend fluconazole 400mg po qd x 6 weeks till 06/23/24, then 100mg daily for chronic suppression of unremoval potential infected mesh.
- Can continue Augmentin 875mg po bid x 2 more weeks then stop.
- Follow-uo with me in 2 weeks.
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
ALL s/p stem cells transplant (2022)
CVA
Depression
Hx Non-Hodgkin lymphoma s/p chemo, XRT (2004)
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
Incision hernia repair with mesh 2006, revision 2021
PFO closure 2008
R TKR
Cholecystectomy
Chief Complaint
-: Other (intra-abd abscess)
Subjective / Review of Systems
No complaints.
Vital Signs / Physical Exam
Vital Signs
Vital Signs
Temp Pulse Resp BP Pulse Ox
98.2 F 93 16 129/96 98
05/13/24 07:50 05/13/24 08:19 05/13/24 07:50 05/13/24 08:19 05/13/24 07:50
Physical Exam
Constitutional: No Acute Distress and Comfortable
Cardiovascular: Regular Rate and S1/S2
Gastrointestinal: Soft, Tender (Right abd. ) and Other (MARY drain- small amt purulent fluid)
Neurological: AO x 3
Objective Data
Lab Data
Lab Results
05/12/24 05:09
05/10/24 04:57
Estimated Creat Clear > 125 ml/min 05/10/24 04:57
Lactic Acid 1.2 mmol/L (0.7-2.0) 05/09/24 17:46
Total Bilirubin 0.7 mg/dl (0.2-1.3) 05/09/24 17:46
AST 29 U/L (17-59) 05/09/24 17:46
ALT 37 U/L (0-50) 05/09/24 17:46
Alkaline Phosphatase 197 U/L (38-126) H 05/09/24 17:46
Most recent labs reviewed.
Micro Results:
05/10/24 15:45 Wound Culture - Final
Abscess Coni albicans
Gram Stain - Final
05/10/24 10:08 Wound Culture - Final
Abdomen Coni albicans
Gram Stain - Final
05/10/24 02:20 MRSA Screen - Final
Nose No Methicillin Resistant Staphylococcus aureus isolated.
05/09/24 CT a/p: 11.0 x 10.2 x 1.9 cm INTRAPERITONEAL ABSCESS in the anterior midabdomen located posterior to the surgical mesh of a a previous midline anterior abdominal wall hernia repair and anterior to the transverse colon.
2. 1.9 cm ABSCESS in the GALLBLADDER FOSSA and adjacent 3.5 cm gallstone in the cystic duct remnant.
[2024-05-13 11:55] VITALS: BP 115/81
== END 2024-05-13 14:41 | disposition home or self-care (01) | DRG 862 ==
LOC: 2 SOUTH 20:42
PROVIDERS: Emergency Medicine; Nurse Practitioner Gerontology; ADMITTING PHYSICIAN Surgery; CONSULT PHYSICIAN Internal Medicine Cardiovascular Disease; EMERGENCY PHYSICIAN Emergency Medicine; FAMILY PHYSICIAN Family Medicine; OTHER PHYSICIAN Internal Medicine Infectious Disease
PROC: 0D9W30Z Drainage of Peritoneum with Drainage Device, Percutaneous Approach (ICD-10-PCS; 2024-05-10)
DX: T81.43XA Infection following a procedure, organ and space surgical site, initial encounter (principal); K65.1 Peritoneal abscess; I47.19 Other supraventricular tachycardia; C85.90 Non-Hodgkin lymphoma, unspecified, unspecified site; I48.0 Paroxysmal atrial fibrillation; Z79.01 Long term (current) use of anticoagulants; Z87.74 Personal history of (corrected) congenital malformations of heart and circulatory system; F41.9 Anxiety disorder, unspecified; Z87.891 Personal history of nicotine dependence; Y83.8 Other surgical procedures as the cause of abnormal reaction of the patient, or of later complication, without mention of misadventure at the time of the procedure
CPT/HCPCS: 49406; 74177; 80048; 80053; 83605; 83735; 85025; 85027; 87070; 87205; 93005; 96365; 96375; 99152; 99153; 99285; Q9967

== ENCOUNTER 2024-05-18 22:57 | Inpatient (IN) | payer OTHER, SELFPAY ==
[2024-05-18] VITALS (9 sets, daily range): BP systolic 98–125; BP diastolic 75–87; BMI 22.8
[2024-05-18 17:55] LABS: Hematocrit 43.8 % (39.0-52.0); Hemoglobin 14.4 g/dL (13.0-18.0); Mean Corp Hgb Conc. 32.9 g/dL (33.0-37.0); Mean Corpuscular Hgb 32.4 pg (27.0-31.0); Mean Corpuscular Volume 98.4 fL (80.0-94.0); Mean Platelet Volume 9.1 fL (7.4-10.4); Platelet Count 620 10^3/uL (130-400); Red Blood Cell Count 4.45 10^6/uL (4.70-6.10); Red Cell Dist. Width 15.1 % (11.5-14.5); White Blood Cell Count 4.3 10^3/uL (4.8-10.8)
[2024-05-18 17:59] LABS: COVID-19 Antigen Negative (Negative)
--- NOTE | 2024-05-18 18:01 | ED.GENMED ---
History of Present Illness
<Leidy Huitron PA-C - Last Filed: 05/19/24 00:49>
General
Chief Complaint: Fever
Source: patient
Exam Limitations: none
Time Seen by Provider: 05/18/24 17:42
Nursing documentation reviewed up to this point in time: agreed with
History of Present Illness
History of Present Illness:
63-year-old male with a past medical history of leukemia, lymphoma s/p splenectomy, presents to the emergency department today with concerns of fever x2 days. Patient also notes a cough and generalized upper respiratory symptoms. He denies chest
pain or shortness of breath though. Of note, he had a cholecystectomy due to gangrenous cholecystitis in early April. He subsequently developed bowel perforation and abscess. He has a drain in place. The drain was placed on May 13. He
his surgical site showed signs of infection and wound culture was done which was positive for gaurang, patient currently taking fluconazole.
Past History
<Leidy Huitron PA-C - Last Filed: 05/19/24 00:49>
Past History
ED Past Medical History: Arrthythmia (AF), Cancer (nonhodgkins ), CVA, HTN, Hypercholesterolemia and Other (cataracts)
ED Past Surgical History: Other (Spleenectomy, Stomach repair, hernia repair, PFO closure)
Social History
Tobacco: Former smoker
Alcohol: Daily
Drug: None
Personal:
Living: with family
Review of Systems
<Leidy Huitron PA-C - Last Filed: 05/19/24 00:49>
Review of Systems
All Other Systems: ROS reviewed and negative except as documented in HPI and ROS
Phy Exam
<PEEWEE Villagran Last Filed: 05/19/24 00:49>
Physical Exam
Physical Exam:
General: Patient is well appearing and in no acute distress; non-toxic
Skin: Mild diaphoresis noted otherwise warm no rashes or lesions
Head: Normocephalic, atraumatic
Eyes: Sclera non-icteric. EOMs intact. PERRLA.
Cardiac: Regular rate and rhythm, no murmurs
Peripheral Vascular: No lower extremity swelling or edema
Pulm: Normal respiratory effort, no wheezes, rales, or rhonchi
Abdomen: Open wound noted around surgical site with mild purulent drainage. Abdomen diffusely tender to palpation.
Neuro: CN II-XII intact, no focal neurologic deficits.
Psychiatric: Appropriate mood and affect.
Sepsis
<Leidy Huitron PA-C - Last Filed: 05/19/24 00:49>
Sepsis Screening
Sepsis Assessment: Sepsis
Sepsis Screen
Sepsis Screen: Sepsis
Date: 05/19/24
Time: 00:49
Course
<Leidy Huitron PA-C - Last Filed: 05/19/24 00:49>
Orders/Labs/Results
Orders:
Orders
05/18/24 Breakfast
Clear Liquid
At Your Request: Limited Participation
05/18/24 17:37
CMP [Comprehensive Metabolic Panel] Urgent
COVID-19 Antigen Urgent
Source: Nasal Swab
Complete Blood Count/With Diff Urgent
Blood Culture Urgent
NNEKA Source: Blood/Venous
Specimen Description:
INF RAPID [Influenza A+B Rapid Molecular] Urgent
NNEKA Source: Nasal Swab
Specimen Description:
05/18/24 17:56
HYDROmorphone [Dilaudid] 0.5 mg IV NOW STA
05/18/24 17:59
CR Chest - 2 Views Urgent
Comment:
Reason For Exam: cough, fever
05/18/24 18:02
Lactic Acid Urgent
Blood Culture Urgent
NNEKA Source: Blood/Venous
Specimen Description:
05/18/24 18:55
CT Abd/pelvis W Iv Cont Urgent
Comment:
Reason For Exam: persistent midline abdominal pain, fever
05/18/24 20:10
INFECTIOUS DISEASE CONSULT Routine
Consulting Provider: Darnell Hollins
Was physician already notified: Yes
Piperacillin/Tazo 3.375 Gram [Zosyn] 3.375 gram in 50 ml IV NOW
05/18/24 20:59
Wound Culture [Wound/Abscess/Other Culture] Urgent
NNEKA Source: Abdomen
Specimen Description:
Date Specimen was Collected: 05/18/24
Time Specimen was Collected: 20:58
05/18/24 22:00
Flush (0.9% Sodium Chloride) [Flush (Nss)] See Dose Instructions IV PER PROTOCOL
05/18/24 22:06
Admit/Transfer Patient As Directed
Co-Sign Provider:
Level of Care: Inpatient admission
Assign to:: Telemetry
Physician / Group: Preet
Diagnosis: Fever / Abdominal Abscess
Reason for Telemetry: Arrhythmia
Date to Stop Telemetry: 05/21/24
Time to Stop Telemetry: 11:00
Reason for Hospitalization: Fever / Abdominal Abscess
Expected length of stay greater than two midnights?: Yes
ELOS- Estimated Length of Stay in days: 4
I certify the patient meets the requirements for IP care: Yes
05/18/24 22:07
PRN Pain Medication Management As Directed
May give lesser potent ordered pain med per pt: Yes
preference::
Protocol:: Medication orders for pain may be administered in a
manner that supports deferring to patient preference
when the pt is:
- Requesting an ordered lesser potent pain medication.
Least to most potent pain medications are defined
as: acetaminophen < NSAID < tramadol < opioids
(morphine, oxycodone, hydromorphone).
- Requesting a lesser dose of the same medication IF
ORDERED.
- Requesting a less intrusive route of administration
if both routes are prescribed by the provider (PO <
IV).
05/18/24 22:08
Code Status As Directed
Resuscitation Status: Full Code
05/18/24 22:53
Urinalysis Reflex To Culture Urgent
Date Specimen was Collected: 05/18/24
Time Specimen was Collected: 21:00
05/18/24 23:16
Acetaminophen [Tylenol] 650 mg PO Q4HPRN PRN
Oxycodone [Roxicodone] 10 mg PO Q4HPRN PRN
Polyethylene Glycol Powder [Miralax] 17 grams PO DAILY PRN
05/18/24 23:16
Consult Notification Routine
Specialty to Notify: Surgical
SURGICAL CONSULT Routine
Consulting Provider: Igor Venegas
Was physician already notified: No
Reason for consult: Intra abdominal abscess
Activity As Directed
Activity Level: Ambulate
With Assistance
Bladder Scan As Directed
Follow Bladder Retention/Intermittent Cath Algorithm?: Yes
PRN if no void in __ hours: 6
Frequency: Per Retention Algorithm
If Bladder Scan Result >: 400
then:: Straight cath
Drains As Directed
Type: Raymond Portillo
Location: Midline abdomen
To suction: Yes: Bulb
EKG with chest pain [ECG as needed] As Directed
ECG as needed for:: Chest Pain
I/O [Intake/ Output] As Directed
Frequency: Per unit guidelines
Pneumatic Compression Sleeves As Directed
Type: Knee high
Straight Cath As Directed
Frequency: Per Retention Algorithm
Additional Instructions: straight cath as needed per acute urinary retention algorithm for 24 hrs
Additional Instructions: for bladder scan greater than 400 mL
Vital Signs As Directed
Frequency: Per unit guidelines
Weight As Directed
Frequency: Daily
Oxygen Therapy [O2 Therapy] [RESP] Routine
Titrate/Wean O2 to maintain O2 sat greater than (%): 94
DX Deep Vein Thrombosis Video Routine
05/19/24 02:00
Piperacillin/Tazo 3.375 Gram [Zosyn] 3.375 gram in 50 ml IV Q6H
05/19/24 06:00
Basic Metabolic Panel IN AM
Complete Blood Count/No Diff IN AM
05/19/24 08:00
Acyclovir [Zovirax] 400 mg PO BID
Fluconazole [Diflucan] 400 mg PO DAILY
Pantoprazole [Protonix IV] 40 mg IV DAILY
05/19/24 18:00
Enoxaparin Sodium [Lovenox] 40 mg SC QPM
05/21/24 11:00
DC Protocol for Telemetry ONCE
Abnormal Lab Results
05/18/24
17:37
WBC 4.3 L 10^3/uL
(4.8-10.8)
RBC 4.45 L 10^6/uL
(4.70-6.10)
MCV 98.4 H fL
(80.0-94.0)
MCH 32.4 H pg
(27.0-31.0)
MCHC 32.9 L g/dL
(33.0-37.0)
RDW 15.1 H %
(11.5-14.5)
Plt Count 620 H 10^3/uL
(130-400)
Absolute Monos (auto) 0.7 H 10^3/uL
(0.1-0.6)
Monocytes % 15.9 H %
(1.7-9.3)
Glucose 117 H mg/dl
(70-99)
Alkaline Phosphatase 173 H U/L
(38-126)
05/18/24 17:37
05/18/24 17:37
Vital Signs
Initial and Last Documented VS:
Initial Vital Signs
Temp Pulse Resp BP Pulse Ox
100.6 F H 105 18 123/77 97
05/18/24 17:16 05/18/24 17:16 05/18/24 17:16 05/18/24 17:16 05/18/24 17:16
Last Documented Vital Signs
Temp Pulse Resp BP Pulse Ox
99.0 F 83 16 125/83 97
05/18/24 23:29 05/18/24 23:29 05/18/24 23:29 05/18/24 23:29 05/18/24 23:29
<Ac Mancia MD - Last Filed: 05/18/24 19:58>
Orders/Labs/Results
Orders:
Orders
05/18/24 Breakfast
Clear Liquid
At Your Request: Limited Participation
05/18/24 17:37
CMP [Comprehensive Metabolic Panel] Urgent
COVID-19 Antigen Urgent
Source: Nasal Swab
Complete Blood Count/With Diff Urgent
Blood Culture Urgent
NNEKA Source: Blood/Venous
Specimen Description:
INF RAPID [Influenza A+B Rapid Molecular] Urgent
NNEKA Source: Nasal Swab
Specimen Description:
05/18/24 17:56
HYDROmorphone [Dilaudid] 0.5 mg IV NOW STA
05/18/24 17:59
CR Chest - 2 Views Urgent
Comment:
Reason For Exam: cough, fever
05/18/24 18:02
Lactic Acid Urgent
Blood Culture Urgent
NNEKA Source: Blood/Venous
Specimen Description:
05/18/24 18:55
CT Abd/pelvis W Iv Cont Urgent
Comment:
Reason For Exam: persistent midline abdominal pain, fever
05/18/24 20:10
INFECTIOUS DISEASE CONSULT Routine
Consulting Provider: Darnell Hollins
Was physician already notified: Yes
Piperacillin/Tazo 3.375 Gram [Zosyn] 3.375 gram in 50 ml IV NOW
05/18/24 20:59
Wound Culture [Wound/Abscess/Other Culture] Urgent
NNEKA Source: Abdomen
Specimen Description:
Date Specimen was Collected: 05/18/24
Time Specimen was Collected: 20:58
05/18/24 22:00
Flush (0.9% Sodium Chloride) [Flush (Nss)] See Dose Instructions IV PER PROTOCOL
05/18/24 22:06
Admit/Transfer Patient As Directed
Co-Sign Provider:
Level of Care: Inpatient admission
Assign to:: Telemetry
Physician / Group: Preet
Diagnosis: Fever / Abdominal Abscess
Reason for Telemetry: Arrhythmia
Date to Stop Telemetry: 05/21/24
Time to Stop Telemetry: 11:00
Reason for Hospitalization: Fever / Abdominal Abscess
Expected length of stay greater than two midnights?: Yes
ELOS- Estimated Length of Stay in days: 4
I certify the patient meets the requirements for IP care: Yes
05/18/24 22:07
PRN Pain Medication Management As Directed
May give lesser potent ordered pain med per pt: Yes
preference::
Protocol:: Medication orders for pain may be administered in a
manner that supports deferring to patient preference
when the pt is:
- Requesting an ordered lesser potent pain medication.
Least to most potent pain medications are defined
as: acetaminophen < NSAID < tramadol < opioids
(morphine, oxycodone, hydromorphone).
- Requesting a lesser dose of the same medication IF
ORDERED.
- Requesting a less intrusive route of administration
if both routes are prescribed by the provider (PO <
IV).
05/18/24 22:08
Code Status As Directed
Resuscitation Status: Full Code
05/18/24 22:53
Urinalysis Reflex To Culture Urgent
Date Specimen was Collected: 05/18/24
Time Specimen was Collected: 21:00
05/18/24 23:16
Acetaminophen [Tylenol] 650 mg PO Q4HPRN PRN
Oxycodone [Roxicodone] 10 mg PO Q4HPRN PRN
Polyethylene Glycol Powder [Miralax] 17 grams PO DAILY PRN
05/18/24 23:16
Consult Notification Routine
Specialty to Notify: Surgical
SURGICAL CONSULT Routine
Consulting Provider: Igor Venegas
Was physician already notified: No
Reason for consult: Intra abdominal abscess
Activity As Directed
Activity Level: Ambulate
With Assistance
Bladder Scan As Directed
Follow Bladder Retention/Intermittent Cath Algorithm?: Yes
PRN if no void in __ hours: 6
Frequency: Per Retention Algorithm
If Bladder Scan Result >: 400
then:: Straight cath
Drains As Directed
Type: Raymond Portillo
Location: Midline abdomen
To suction: Yes: Bulb
EKG with chest pain [ECG as needed] As Directed
ECG as needed for:: Chest Pain
I/O [Intake/ Output] As Directed
Frequency: Per unit guidelines
Pneumatic Compression Sleeves As Directed
Type: Knee high
Straight Cath As Directed
Frequency: Per Retention Algorithm
Additional Instructions: straight cath as needed per acute urinary retention algorithm for 24 hrs
Additional Instructions: for bladder scan greater than 400 mL
Vital Signs As Directed
Frequency: Per unit guidelines
Weight As Directed
Frequency: Daily
Oxygen Therapy [O2 Therapy] [RESP] Routine
Titrate/Wean O2 to maintain O2 sat greater than (%): 94
DX Deep Vein Thrombosis Video Routine
05/19/24 02:00
Piperacillin/Tazo 3.375 Gram [Zosyn] 3.375 gram in 50 ml IV Q6H
05/19/24 06:00
Basic Metabolic Panel IN AM
Complete Blood Count/No Diff IN AM
05/19/24 08:00
Acyclovir [Zovirax] 400 mg PO BID
Fluconazole [Diflucan] 400 mg PO DAILY
Pantoprazole [Protonix IV] 40 mg IV DAILY
05/19/24 18:00
Enoxaparin Sodium [Lovenox] 40 mg SC QPM
05/21/24 11:00
DC Protocol for Telemetry ONCE
Abnormal Lab Results
05/18/24
17:37
WBC 4.3 L 10^3/uL
(4.8-10.8)
RBC 4.45 L 10^6/uL
(4.70-6.10)
MCV 98.4 H fL
(80.0-94.0)
MCH 32.4 H pg
(27.0-31.0)
MCHC 32.9 L g/dL
(33.0-37.0)
RDW 15.1 H %
(11.5-14.5)
Plt Count 620 H 10^3/uL
(130-400)
Absolute Monos (auto) 0.7 H 10^3/uL
(0.1-0.6)
Monocytes % 15.9 H %
(1.7-9.3)
Glucose 117 H mg/dl
(70-99)
Alkaline Phosphatase 173 H U/L
(38-126)
05/18/24 17:37
05/18/24 17:37
Vital Signs
Initial and Last Documented VS:
Initial Vital Signs
Temp Pulse Resp BP Pulse Ox
100.6 F H 105 18 123/77 97
05/18/24 17:16 05/18/24 17:16 05/18/24 17:16 05/18/24 17:16 05/18/24 17:16
Last Documented Vital Signs
Temp Pulse Resp BP Pulse Ox
99.0 F 83 16 125/83 97
05/18/24 23:29 05/18/24 23:29 05/18/24 23:29 05/18/24 23:29 05/18/24 23:29
<Leidy Huitron PA-C - Last Filed: 05/19/24 00:49>
MDM/Problems Addressed
Differential Diagnosis Includes:
ddx include pneumonia, intraabdominal abscess, COVID-19, bacteremia, cellulitis
MDM/Problems Addressed:
63-year-old male with a past medical history of leukemia, lymphoma s/p splenectomy, presents to the emergency department today with concerns of fever x2 days. Patient also notes a cough and generalized upper respiratory symptoms.
CXR negative for pneumonia. CT of abdomen shows abscess under surgical incision site. Will admit for IV abx.
<Leidy Huitron PA-C - Last Filed: 05/19/24 00:49>
*Critical Care Note
Total Time (30-74mins, 75-104mins- exclusive of procedures): Not Applicable
ED Attending Note
<Leidy Huitron PA-C - Last Filed: 05/19/24 00:49>
-
Portions of this chart may have been created with voice recognition software.� Occasional wrong word or��sound alike� substitutions may have occurred due to the inherent limitations of voice recognition software.
<Ac Mancia MD - Last Filed: 05/18/24 19:58>
ED Attending Note
Patient seen and examined by attending physician: Yes
ED Attending Note:
I have seen and evaluated the patient with a [id number] encounter. I have spoken to the advance practicer provider and involved in the medical history, the physical exam, medical decision making.
Evaluation and management service: agree unless noted differently below.
Results interpretation: agree unless noted differently below.
Focused HPI: 63-year-old male with history as documented and recent history of gangrenous cholecystitis status post open cholecystectomy complicated by postoperative abscess requiring drain placement by interventional radiology. He presents today
for fever. He left the hospital 05/13/2024. He has been doing generally well but over the past 48 hours has started to have fever and was advised to come to the emergency room. Drain is still in place from intra-abdominal abscess he says he had
had continued output. He has not noticed any drainage from operative incision. Denies abdominal pain or vomiting. He has had some URI symptoms.
Physical exam: Awake alert not in distress. Febrile and tachycardic but normotensive. Abdomen soft, minimal tenderness. Incision appears generally clean�there are some sherita in place there is an area at the midpoint of the incision which is
slightly dehisced and there is significant amount of granulation tissue in the region but no domo purulence or drainage. He has an abdominal drain in place with purulent fluid in basin.
Medical Decision Makin-year-old male presents for evaluation of fever in the setting of recent complicated abdominal surgery as above. Vitals and exam as above. Check labs including a CBC and a CMP, lactate, blood cultures. Check urinalysis,
chest x-ray, CT abdomen. Swab for COVID and flu. Provide fluids and antipyretics. Reassess after the above.
Discharge Plan
Departure
Patient Disposition: Admit
Date of Disposition: 05/18/24
Time of Disposition: 20:41
Admit to doctor: Preet
Presentation/result/management discussed w/ accepting MD/DO: Hospitalist
Discharge Problem:
Fever, Abdominal abscess
Interventions
Interventions:
*Risk Screen - Suicide Last Done: 05/18/24 20:55
*General Assessment Last Done: 05/18/24 20:55
*Neglect/Abuse Screening Last Done: 05/18/24 20:55
ED- Fall Risk Assessment Last Done: 05/18/24 20:55
*ED COVID-19 Vaccine History Last Done: 05/18/24 17:16
*Nursing Disposition Last Done: 05/18/24 23:12
ED- Neurological Assessment Last Done: 05/18/24 20:55
ED-Skin Assessment Last Done: 05/18/24 20:55
Discharge Date and Time
Discharge Date/Time: 05/18/24 23:14
[2024-05-18 18:06] LABS: ALT (SGPT) 29 U/L (0-50); AST (SGOT) 39 U/L (17-59); Albumin 4.1 g/dl (3.5-5.0); Alkaline Phosphatase 173 U/L (38-126); Blood Urea Nitrogen 10 mg/dl (9-20); Calcium 8.7 mg/dl (8.4-10.2); Carbon Dioxide 24 mmol/L (22-30); Chloride 98 mmol/L (98-107); Glucose 117 mg/dl (70-99); Potassium 4.8 mmol/L (3.5-5.1); Sodium 135 mmol/L (135-145); Total Bilirubin 0.4 mg/dl (0.2-1.3); Total Protein 7.1 g/dl (6.3-8.2); eGFR > 60.00
[2024-05-18] MEDS: DILAUDID 0.5 MG IV (18:06)
[2024-05-18 18:20] LABS: Lactic Acid 0.9 mmol/L (0.7-2.0)
[2024-05-18 18:37] LABS: % Basophils 0.9 % (0-2); % Eosinophils 2.5 % (0-6); % Immature Granulocytes 0.2 % (0-0.5); % Lymphocytes 33.9 % (20.5-51.1); % Monocytes 15.9 % (1.7-9.3); % Neutrophils 46.6 % (42.2-75.2); Absolute Eosinophils 0.1 10^3/uL (0-0.7); Absolute Lymphocytes 1.5 10^3/uL (1.2-3.4); Absolute Monocytes 0.7 10^3/uL (0.1-0.6); Nucleated Red Blood Cells % 0.5 % (-)
[2024-05-18] MEDS: ZOSYN 50 IV (20:51)
--- NOTE | 2024-05-18 22:14 | HPS.HSE ---
Family Physician
-
Family Physician: Mega Escudero
Chief Complaint
-
Fever
History of Present Illness
Patient is a 63y M with PMH significant for A-Fib, HTN, history of NHL (in remission) and recent acute cholecystitis with complicated course who presents to ED complaining of some discomfort at his abdominal drain site and persistent fevers over
the past two days.
Patient initially presented to ED on 04/28 complaining of RUQ pain and was found to have evidence of acute cholecystitis.
He was taken to the OR on 04/29 for lap candice which was converted to open due to marked abdominal adhesions / matting. Patient had abdominal discomfort following surgery and was found to have evidence of perforation on CT scan. He returned to the
OR 04/30 for ex lap and repair of small bowel enterotomy.
Patient was then noted to have purulent discharge from his midline abdominal incision along with rising leukocytosis.
He returned to the hospital and was found to have intra-abdominal collection / abscess. IR placed a drainage catheter on 05/10.
Cultures from that collection were positive for Coni sp. Patient was seen in consultation by ID and started on Augmentin 875mg BID x 2 weeks and Fluconazole 400mg daily x 6 weeks. He was discharged to home on 05/13.
Patient states that he developed new discomfort at the drainage catheter site about 2-3 days ago. This was accompanied by fevers / chills with temperature reaching a peak today of 102.6 at home.
Patient states he has had a cough for the past 2 days - COVID is negative.
He denies any N/V. He denies any change in drain output or any new drainage / discharge from his midline incision.
Medical History
Past Medical History
Past Medical History: Reports Other
Additional Past Medical History:
Hypertension
Paroxysmal Atrial Fibrillation
Non-Hodgkin Lymphoma - (In Remission)
ALL s/p Stem Cell Transplant
CVA
Past Surgical History: Reports Other
Additional Past Surgical History:
04/29 - Lap Candice converted to open
04/30 - Ex Lap with Small Bowel Enterotomy Repair
05/10 - IR Drain Placement mid-abdomen
Splenectomy
Right TKA
Stem Cell Transplant
PVI Ablation
Incisional Hernia Repair with mesh (2006)
Hernia Revision (2021)
PFO Closure
Social History
Tobacco: Former Smoker (Quit in 1994.)
Alcohol: Daily (2-3 glasses a wine a day)
Drug: None
Personal:
Living: With Family
Employment: Employed
Family History
Family History: Not pertinent
Allergies / Home Medications
Allergies reflects when Allergies were last updated in [employer].
Home Medications with original date entered in [employer]
Allergy/Medication List:
Allergies
Allergy/AdvReac Type Severity Reaction Status Date / Time
No Known Allergies Allergy Verified 05/18/24 17:23
Home Medications
losartan 50 mg tablet 50 mg PO DAILY Blood pressure 10/26/20
acyclovir 400 mg tablet 400 mg PO BID Infection 09/21/22
ponatinib 15 mg tablet (Iclusig) 15 mg PO DAILY Cancer 04/28/24
rivaroxaban 20 mg tablet (Xarelto) 20 mg PO DAILY Blood Clot Prevention/Tx 04/28/24
tetrahydrozoline 0.05 % eye drops (Visine) 1 drp BOTH EYES DAILYPRN PRN dry eyes 04/28/24
acetaminophen 500 mg tablet (Tylenol Extra Strength) 1,000 mg PO Q8H Pain 05/10/24
pantoprazole 40 mg tablet,delayed release 40 mg PO DAILY Gastrointestinal Issue 05/10/24
polyethylene glycol 3350 17 gram oral powder packet (HealthyLax) 17 g PO DAILY Constipation 05/10/24
amoxicillin 875 mg-potassium clavulanate 125 mg tablet 1 tab PO Q12 antibiotic #28 tabs 05/13/24
fluconazole 200 mg tablet 400 mg (2 x 200 mg) PO DAILY 42 days #84 tabs 05/13/24
oxycodone 5 mg tablet 5 - 10 mg (1 - 2 x 5 mg) PO Q4HPRN PRN moderate to severe pain #40 tabs 05/13/24
sodium chloride 0.9 % (flush) (Normal Saline Flush 0.9 % injection syringe) 10 ml intra-catheter DAILY 30 days #300 mL 05/13/24
Review of Systems
-
History Source: Patient
A 12 point ROS was completed and negative except as noted: Yes
Constitutional: Reports Fever, Fatigue and Chills
EENT: Denies Sore Throat
Respiratory: Reports Cough; Denies Trouble Breathing
Cardiac: Denies Chest Pain or Palpitations
Abdomen/GI: Reports Abdominal Pain and Pain (some loose stools but no persistent diarrhea or constipation.); Denies Nausea, Vomiting, Bloody Stools or Black Stools
: Denies Dysuria, Frequency or Flank Pain
Musculoskeletal: Denies Joint Pain or Edema
Neurological: Denies Dizzy or Headache
Psych: Denies Depression or Anxiety
Physical Exam
Vital Signs
Vital Signs
Temp Pulse Resp BP Pulse Ox
100.6 F H 76 17 115/84 94
05/18/24 17:16 05/18/24 20:51 05/18/24 20:51 05/18/24 20:51 05/18/24 20:51
Physical Exam
General: Other (63y M in no acute distress.)
HEENT: Moist mucous membranes and PERRLA
Respiratory: Clear; No Wheezes, Rales or Rhonchi
Cardiac: S1/S2 and Regular Rhythm; No Murmur
GI: Soft, Non Distended, Normal Bowel Sounds and Other (Midline incision with dressing in place. No strikethrough appreciated. [place] in place. Midline drain catheter in place with brown drainage. Pos tenderness R abdomen with voluntary
guarding.)
Musculoskeletal: No Clubbing, No Cyanosis and No Edema
Neuro: AO x 3
Laboratory Results
-
05/18/24 17:37
05/18/24 17:37
Laboratory Results
Lactic Acid 0.9 mmol/L (0.7-2.0) 05/18/24 18:02
Total Bilirubin 0.4 mg/dl (0.2-1.3) 05/18/24 17:37
AST 39 U/L (17-59) 05/18/24 17:37
ALT 29 U/L (0-50) 05/18/24 17:37
Alkaline Phosphatase 173 U/L (38-126) H 05/18/24 17:37
Impression/Plan
-
A/P: Patient is a 63y M with PMH significant for NHL / ALL, PA-Fib and recent complicated acute cholecystitis who presents to ED complaining of mild abdominal pain and recurrent fevers over the past 2-3 days.
Intra-Abdominal Abscess
Persistent / Recurrent Fever
s/p Complicated Cholecystectomy and Small Bowel Enterotomy Repair
- Admit for further evaluation and treatment.
- Continue fluconazole (recent culture positive for Coni sp).
- Change to IV Zosyn for now.
- ID evaluation / Surgery evaluation for additional recommendations.
- Monitor drain output, local incision, etc.
- Follow fever curve.
Benign Hypertension
- BP on the lower side - will hold losartan for now.
Paroxysmal Atrial Fibrillation
- Stable. Hold Xarelto acutely in the event that patient requires intervention.
- Monitor on telemetry.
NHL In Remission
- Stable. Continue to hold Iclusig given acute infection.
- Follow cell counts.
DVT Prophylaxis: Lovenox
Code Status: Full
[2024-05-18] MEDS: FLUSH (NSS) 1 FLUSH IV (22:54)
[2024-05-18 23:01] LABS: Urine Albumin Trace (Neg - Trace); Urine Bilirubin Negative (Negative); Urine Character Clear (Clear); Urine Color Yellow; Urine Glucose Negative (Negative); Urine Ketone Negative (Negative); Urine Leukocyte Negative (Negative); Urine Nitrite Negative (Negative); Urine Occult Blood Negative (Negative); Urine Specific Gravity 1.005 (<1.030); Urine Urobilinogen Negative (Neg - 1+); Urine pH 6.5 (5.0-9.0)
[2024-05-18] MEDS: ROXICODONE 10 MG PO (23:48)
[2024-05-19] VITALS (7 sets, daily range): BP systolic 113–127; BP diastolic 76–86; BMI 22.7
[2024-05-19] MEDS: ZOSYN 50 IV ×4 (01:01→19:33)
[2024-05-19] MEDS: TYLENOL 650 MG PO (03:09)
[2024-05-19] MEDS: ROXICODONE 10 MG PO ×5 (03:48→23:34)
[2024-05-19 06:32] LABS: Hematocrit 40.3 % (39.0-52.0); Hemoglobin 13.7 g/dL (13.0-18.0); Mean Corpuscular Hgb 33.7 pg (27.0-31.0); Mean Corpuscular Volume 99.3 fL (80.0-94.0); Mean Platelet Volume 9.3 fL (7.4-10.4); Platelet Count 548 10^3/uL (130-400); Red Blood Cell Count 4.06 10^6/uL (4.70-6.10); Red Cell Dist. Width 15.1 % (11.5-14.5); White Blood Cell Count 4.4 10^3/uL (4.8-10.8)
[2024-05-19 06:58] LABS: Blood Urea Nitrogen 9 mg/dl (9-20); Calcium 8.3 mg/dl (8.4-10.2); Carbon Dioxide 26 mmol/L (22-30); Chloride 99 mmol/L (98-107); Estimated Creatinine Clearance 107 ml/min; Glucose 90 mg/dl (70-99); Potassium 4.7 mmol/L (3.5-5.1); Sodium 137 mmol/L (135-145); eGFR > 60.00
--- NOTE | 2024-05-19 07:16 | W.PN.UPDATE ---
Update Note
Progress Note Update
63-year-old male was recently admitted here from 04/28/2024 with acute cholecystitis. Patient was taken to the OR on 04/29/2024 for laparoscopic cholecystectomy which was converted to open due to marked abdominal adhesions and matting. He was found
to have abdominal discomfort following surgery and was found to have perforation and a CT. Patient return to the OR on 04/30/24 for exploratory laparotomy and repair of small bowel enterotomy. He was discharged on 05/04/24 on antibiotics ,but had
elevated white count as outpatient and purulent discharge from the midline incision wound which prompted readmission to the hospital on 05/09/2024. CT showed intra-abdominal fluid collection. He was seen by interventional radiology and surgery.
Percutaneous drain was placed by IR. Cultures grew Coni albicans. Infectious disease evaluated the patient and was treated with fluconazole. He was also advised to remain on Augmentin for 2 weeks at discharge which was on 05/13/2024. Patient
was on Xarelto for atrial fibrillation which was briefly held and was restarted prior to discharge. Patient now returns with fever 102.6, abdominal discomfort at the drain site.
CT abdomen and pelvis with IV contrast 05/18/2024-abscess of the anterior mid abdomen deep to the midline incision and hernia mesh with a percutaneous drainage catheter in place decrease in size compared to the CT abdomen and pelvis from 05/09/2024.
Small abscess in the gallbladder Fossa also decreased in size
Cardiovascular system S1-S2 appreciated
Chest gait escalation
Abdomen midline wound with granulation
Bowel sounds present
Drain with purulent drainage
# Intra-abdominal abscess
S/P laparoscopic converted to open cholecystectomy for acute gangrenous calculous cholecystitis 04/30/24
S/P Exp lap and repair of small bowel enterotomy 04/30/24
Status post complicated cholecystectomy with small bowel enterotomy repair and subsequent drain placement for abscess
Possible infected hernia mesh-May need to come out
Continue fluconazole, Zosyn started
Infectious disease and surgical consultations requested
# Hypertension-hold losartan as blood pressure is on the low side
# Paroxysmal atrial fibrillation-history of PVI 2018-hold Xarelto in case he requires surgical interventions
# Thrombocytosis
# NHL . Status post chemotherapy and radiation 2004
# ALL with stem cell transplant in 2022 On Iclusig ( Held due to infection)
# History of CVA 2008
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
# Incisional hernia repair with mesh in 2004 (?) with revision in 2021
# PFO closure in 2008 at [facility]
# Ptosis Right eye
# Chronic pain-narcotic dependent for management
# Small paraesophageal hernia-continue PPI
# Hepatic steatosis per CT-outpatient GI follow-up
# Distal abdominal aortic aneurysm 2.7 cm, right iliac artery aneurysm 2.7 cm, mild aneurysmal dilatation of the common femoral arteries 1.5 cm on the right and 2 cm on the left-vascular surgery follow-up as outpatient. Pt made aware.
# Ex Smoker
# DVT prophylaxis-Lovenox
# Full code
[2024-05-19] MEDS: SENOKOT 8.6 MG PO ×2 (08:21→19:34)
[2024-05-19] MEDS: ZOVIRAX 400 MG PO ×2 (08:23→19:33)
[2024-05-19] MEDS: PROTONIX IV 40 MG IV (08:23)
[2024-05-19] MEDS: DIFLUCAN 400 MG PO (08:23)
[2024-05-19] MEDS: NSS (PRESERVATIVE FREE) 10 ML IV (08:24)
--- NOTE | 2024-05-19 09:58 | CON.ID ---
Addendum entered and electronically signed by Nini Saleh MD 05/19/24 16:37:
I personally performed a history and physical exam of the patient and discussed management with the resident. I reviewed the resident's note and agree with the documented findings and plan of care HPI/CC.
Exam:
+ diffuse abd tenderness
right MARY drain with cream colored purulent fluid
Midline abd: Upper incision with 2.5 cm deep wound, minimal drainage.
# Fever
# Worsening abd pain
# Suspect abd hernia mesh infection as source of above.
Recent open holli (04/29) followed by small bowel enterotomy repair (04/30), dc'd home on Augmentin (05/05)
Complicated by midline incision drainage (+ C. albicans) and intra-abdominal abscess posterior to hernia mesh s/p perc drain Cx + C. albicans (05/10)
05/13 dc'd home on Augmentin x 2 weeks and fluconazole 400mg qd x 6 weeks then suppressive 100mg qd
05/18 Returned with fever, chills, worsening abd pain.
CT: decreased size of abscess posterior to mesh, no new fluid collections
# Hx splenectomy (2004)
# ALL s/p Stem cell transplant (2022) in remission
Plan:
- Appreciate surgery. To OR tomorrow for I+D, cultures.
Unable to remove infected abd mesh at this time due to recent abd surgery; possible removal in about 2 months.
- ED swabbed incision wound cx: pending
- Continue Fluconazole 400mg po qd. Follow QTc.
- Continue Zosyn for now.
- Follow temps.
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
ALL s/p stem cells transplant (2022), in remission
CVA
Depression
Hx Non-Hodgkin lymphoma s/p chemo, XRT (2004)
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
Incision hernia repair with mesh 2006, revision 2021
PFO closure 2008
04/29/24 - Lap Holli converted to open 04/30 - Ex Lap with Small Bowel Enterotomy Repair 04/30
R TKR
Case discussed with Drs. Venegas and Sammie
Original Note:
Consultation
-
Date/Time Consultation Requested: 05/18/2024
Date/Time Consultation Performed: 05/19/2024
Requesting Provider: Dr. Gavino Shen
Performing Provider: Dr. Saleh
Reason for Consultation: Fever
Chief Complaint / Past History
Chief Complaint
Fever, abdominal tenderness
History of Present Illness
This is a 63-year-old male with past medical history of non-Hodgkin lymphoma s/p chemo, XRT, s/p splenectomy, AML s/p stem cell transplant 2022, PAF who presents to ER complaining of discomfort at his abdominal drain site and persistent fevers
ongoing for the past 2 days. Patient was recently hospitalized at for acute cholecystitis. He had a recent open cholecystectomy 04/29 followed by small bowel enterotomy repair 05/10. He was then noted to have purulent discharge from his midline
abdominal incision along with leukocytosis. Patient had a postop intra-abdominal abscess posterior to the new mesh and suspected abdominal area mesh infection. IR placed a drainage catheter on 05/10, with culture collected returning positive for
Coni Albicans. Patient was initiated on Fluconazole 400mg PO through 06/23/2024, and then 100mg daily for chronic suppression of unremoval potential infected mesh. Additionally, he was continued on Augmentin for 2 weeks. Today, patient reports
developing discomfort at the drainage cathether site ongoing for 3 days. He reports fever, chills and a new non productive dry cough. He denies urinary symptoms, nausea, vomiting, diarrhea. On presentation to ER, patient was febrile with Temp
100.6. BP 123/77, RR 18. Laboratory showed WBC 4.4, Lactic Acid 0.9. CT abdomen and pelvis showed Abscess of the anterior mid abdomen deep to the midline incision and hernia mesh with a percutaneous drainage catheter in place, decreased in size
compared to the CT abdomen/pelvis from 05/09/2024.
Past History
Past Medical History: Other (pAfib s/p ablation ALL s/p stem cells transplant (2022) CVA Depression Hx Non-Hodgkin lymphoma s/p chemo, XRT (2004) Lap splenectomy (2004) with injury to stomach s/p ex-lap repair Incision hernia repair with mesh 2006,
revision 2021 PFO closure 2008 R TKR Cholecystectomy)
Past Surgical History: Other (04/29 - Lap Holli converted to open 04/30 - Ex Lap with Small Bowel Enterotomy Repair 05/10 - IR Drain Placement mid-abdomen, )
Allergy History:
No Known Allergies Allergy (Verified 05/18/24 17:23)
Current Antibiotics:
Acyclovir
Fluconazole
Zosyn
Social History
Tobacco: Former Smoker
Alcohol: Daily
Drug: None
Personal:
Living: With Family
Employment: Employed
Family History
Family History: Not Pertinent
Review of Systems
Review of Systems
General: Fever and Chills
HEENT: Negative Sinus Problems
Cardiovascular: Negative Chest Pain or Dyspnea
Respiratory: Cough (Dry nonproductive)
Gasteroenterology: Negative Nausea or Vomiting
Genital / Urological: Negative Dysuria or Flank Pain
Vital Signs
Temp Pulse Resp BP Pulse Ox
98.0 F 76 16 114/77 94
05/19/24 07:00 05/19/24 07:00 05/19/24 07:00 05/19/24 07:00 05/19/24 07:00
Physical Exam
Physical Exam
Constitutional: No Acute Distress
Eyes: No Conjunctival Hemorrhage
Cardiovascular: Regular Rate and S1/S2
Pulmonary: Clear
Gastrointestinal: Soft, Tender (Right-sided abdomen) and Other (Midline incision with sherita and dressing in place. R MARY drain -purulent output, )
Extremities: Negative Edema
Neurological: AO x 3
Lab / Diagnostic Study Results
05/19/24 05:56
05/19/24 05:56
Abs Immat Gran (auto) 0.0 10^3/uL (0-0.05) 05/18/24 17:37
Absolute Neuts (auto) 2.0 10^3/uL (1.4-6.5) 05/18/24 17:37
Absolute Lymphs (auto) 1.5 10^3/uL (1.2-3.4) 05/18/24 17:37
Absolute Monos (auto) 0.7 10^3/uL (0.1-0.6) H 05/18/24 17:37
Absolute Basos (auto) 0.0 10^3/uL (0-0.2) 05/18/24 17:37
Immature Gran % 0.2 % (0-0.5) 05/18/24 17:37
Neutrophils % 46.6 % (42.2-75.2) 05/18/24 17:37
Lymphocytes % 33.9 % (20.5-51.1) 05/18/24 17:37
Monocytes % 15.9 % (1.7-9.3) H 05/18/24 17:37
Eosinophils % 2.5 % (0-6) 05/18/24 17:37
Basophils % 0.9 % (0-2) 05/18/24 17:37
Lactic Acid 0.9 mmol/L (0.7-2.0) 05/18/24 18:02
Microbiology Results
Micro:
05/18/24 23:34 MRSA Screen - Pending
Nose
05/18/24 20:59 Wound Culture - Pending
Abdomen Gram Stain - Pending
05/18/24 18:02 Blood Culture - Pending
Blood/Venous
05/18/24 17:37 Influenza Types A & B ([place]) - Final
Nasal Swab Negative for Influenza A & B, NAAT
Negative results must be combined with clinical observations
and patient history.
Nucleic Acid Amplification test (NAAT)performed on the
[employer] NOW platform.
05/18/24 17:37 Blood Culture - Pending
Blood/Venous
05/18/2024-CT abdomen/pelvis: Abscess of the anterior mid abdomen deep to the midline incision and hernia mesh with a percutaneous drainage catheter in place, decreased in size compared to the CT abdomen/pelvis from 05/09/2024. Small abscess in the
gallbladder fossa, also decreased in size.
Assessment / Plan
# Suspect abd hernia mesh infection
# Recent open holli (04/29) followed by small bowel enterotomy repair (04/30), IR Drain Placement mid-abdomen 05/10. dc'd home on Augmentin and fluconazole 400 mg (05/13)
# Returned to the hospital with fevers and chills.
# Hx splenectomy (2004)
-Blood culture, wound culture currently pending
-Can continue fluconazole and Zosyn
-Monitor WBC, temps
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
ALL s/p stem cells transplant (2022)
CVA
Depression
Hx Non-Hodgkin lymphoma s/p chemo, XRT (2004)
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
Incision hernia repair with mesh 2006, revision 2021
PFO closure 2008
R TKR
Cholecystectomy
Ex Lap with Small Bowel Enterotomy Repair 04/30
IR Drain Placement mid-abdomen 05/10
[2024-05-19] MEDS: TESSALON PERLES 200 MG PO ×2 (10:19→23:32)
--- NOTE | 2024-05-19 12:03 | W.PN.UPDATE ---
Update Note
Progress Note Update
Discussed with infectious disease and surgeon.
Patient may need longer course of antibiotics and the mesh will need to come out in a few weeks.
--- NOTE | 2024-05-19 12:59 | CON.GS ---
Medical History
-
Chief Complaint: Abdominal pain and fevers
History of Present Illness:
Patient is a 63-year-old male recently known to our surgical service status post laparoscopic converted to open cholecystectomy on 04/29/2024. He returned to the operating room on 04/30/2024 for subsequent laparotomy and repair of small bowel
enterotomy. Patient was subsequently discharged on 05/04/2024. Readmitted 05/09/2024 secondary to abdominal pain and fever and he was found to have a intra-abdominal fluid collection underlying the region of his midline laparotomy as well as a
superficial surgical site infection and cellulitis. He underwent bedside removal of skin sherita as well as subsequent IR guided drainage of his intra-abdominal fluid collection. Ultimately only one of his cultures grew out Coni but no
bacteria. Patient was discharged home with his IR drain in place on 05/13/2024 on an anticipated 6-week course of fluconazole and 2 weeks of Augmentin.
Patient felt as though he was initially doing well at home. Over the last 2 days he developed worsening abdominal pain localizing to the right side of the abdomen closer to his drain site. Then fevers and chills with some anorexia prompting
emergency department presentation yesterday evening and subsequent admission overnight.
The acuteness of his pain has subsided a bit but he still has some lingering tenderness and discomfort. No nausea. Hungry and would like to eat. His bowels have been a bit erratic on the antibiotics but he is moving them.
No abdominal bloating or distention. Continues to care for his open incisional wound with local wound care without any acute changes or changes in the character/quantity of drainage.
Past Medical History
Past Medical History: Other (Hypertension, PE A-fib, non-Hodgkin's lymphoma in remission, ALL status post stem cell transplant, CVA)
Past Surgical History: Other (Splenectomy, previous incisional hernia repairs with mesh (multiple - most recent in 2021), PVI ablation, PFO closure, stem cell transplant, right total knee, open cholecystectomy, ex lap and repair of small bowel
enterotomy)
Social History
Tobacco: Former Smoker
Alcohol: Daily
Personal:
Living: With Family
Family History
Family History: Reviewed & Not Pertinent
Allergies / Home Medications
Allergy/AdvReac Type Severity Reaction Status Date / Time
No Known Allergies Allergy Verified 05/18/24 17:23
�Medication �Instructions �Recorded �Confirmed �Type
losartan 50 mg tablet 50 mg PO DAILY Blood pressure 10/26/20 05/18/24 History
acyclovir 400 mg tablet 400 mg PO BID Infection 09/21/22 05/18/24 History
ponatinib 15 mg tablet (Iclusig) 15 mg PO DAILY Cancer 04/28/24 05/18/24 History
rivaroxaban 20 mg tablet (Xarelto) 20 mg PO DAILY Blood Clot 04/28/24 05/18/24 History
Prevention/Tx
tetrahydrozoline 0.05 % eye drops 1 drp BOTH EYES DAILYPRN PRN dry 04/28/24 05/18/24 History
(Visine) eyes
acetaminophen 500 mg tablet 1,000 mg PO Q8H Pain 05/10/24 05/18/24 History
(Tylenol Extra Strength)
pantoprazole 40 mg tablet,delayed 40 mg PO DAILY Gastrointestinal 05/10/24 05/18/24 History
release Issue
polyethylene glycol 3350 17 gram 17 g PO DAILY Constipation 05/10/24 05/18/24 History
oral powder packet (HealthyLax)
amoxicillin 875 mg-potassium 1 tab PO Q12 antibiotic #28 tabs 05/13/24 05/18/24 Rx
clavulanate 125 mg tablet
fluconazole 200 mg tablet 400 mg (2 x 200 mg) PO DAILY 42 05/13/24 05/18/24 Rx
days #84 tabs
oxycodone 5 mg tablet 5 - 10 mg (1 - 2 x 5 mg) PO Q4HPRN 05/13/24 05/18/24 Rx
PRN moderate to severe pain #40
tabs
sodium chloride 0.9 % (flush) 10 ml intra-catheter DAILY 30 days 05/13/24 05/18/24 Rx
(Normal Saline Flush 0.9 % #300 mL
injection syringe)
Review of Systems
-
History Source: Patient
All other systems: Negative unless noted
A 10 point review of systems was completed, and was negative except as per HPI.
Physical Exam
Vital Signs
Temp Pulse Resp BP Pulse Ox
98.8 F 76 16 127/86 96
05/19/24 11:30 05/19/24 11:30 05/19/24 11:30 05/19/24 11:30 05/19/24 11:30
05/18/24 05/19/24 05/20/24
06:59 06:59 06:59
Actual Weight 78.109 kg
Body Mass Index (BMI) 22.7
Lab Results
05/19/24 05:56
05/19/24 05:56
WBC 4.4 10^3/uL (4.8-10.8) L 05/19/24 05:56
Hgb 13.7 g/dL (13.0-18.0) 05/19/24 05:56
Hct 40.3 % (39.0-52.0) 05/19/24 05:56
Plt Count 548 10^3/uL (130-400) H 05/19/24 05:56
Abs Immat Gran (auto) 0.0 10^3/uL (0-0.05) 05/18/24 17:37
Neutrophils % 46.6 % (42.2-75.2) 05/18/24 17:37
Physical Exam
General: Well Developed, Well Nourished, No Apparent Distress and Comfortable
HEENT: Normocephalic, Anicteric and Moist Mucous Membranes
Respiratory: Non Labored Respirations
Cardiac: Regular Rhythm
GI: Soft, Non Distended, Tender (Tenderness palpation midline and right-sided. Mild guarding on deep palpation but no rigidity.) and Other (Midline laparotomy incision partially open with visible/palpable polypropylene mesh; some surrounding
exudate/fibrin but no necrotic tissue. No purulence expressed. Incision also partially closed with skin sherita. Right sided percutaneous drain to bulb suction with mucoid like fluid. Nonenteric)
Skin: Warm
Neuro: AO x 3
Psych: Calm
Data Reviewed
-
CT Scan: Image Personally Visualized and interpreted, Report Reviewed by me, Discussed with Physician and Discussed with Patient
Labs: Labs Reviewed by me, Discussed with Physician and Discussed with Patient
Assessment / Plan
-
Assessment: 63-year-old male with recent h/o laparoscopic converted to open cholecystectomy 04/29/2024 and subsequent laparotomy repair of small bowel enterotomy 04/30/2024. Known intra-abdominal fluid collection/abscess status post IR drainage
05/10/2024 as well as partially open midline laparotomy incision with atmospheric mesh exposure. Prior cultures have only revealed Coni species to date. Readmitted with fever, abdominal pain.
Reviewing CT abdomen/pelvis imaging 05/18/2024 there appears to be overall improvement in subfascial/intra-abdominal fluid collection with IR drain in adequate positioning but residual inflammatory changes of the abdominal wall in the vicinity of
his laparotomy and mesh. There is still a thin rim of fluid in the subfascial area and also some more superficial subcutaneous fluid in the periumbilical region with 1 or 2 small air bubbles. IR drain output remains a bit purulent/mucoid in nature
but not enteric appearing.
Appear to have adequate source control of previous intra-abdominal fluid collections which are improving.
There is mesh exposure on examination and component of mesh colonization/bacterial infection may also be contributing to readmission with possible residual subcutaneous surgical site infection.
Plan: Continue with current IR drain which does not appear to need repositioning or manipulation.
Discussed with the patient proceeding with further local wound exploration with washout but done in the OR under sedation for comfort and adequacy as well as obtaining repeat cultures.
Infectious disease following, reviewed surgical plan and discussed with hospitalist.
Antibiotics per ID recommendations
Okay for regular diet today and n.p.o. after midnight, patient has been added onto the OR schedule for tomorrow.
Continue to hold therapeutic anticoagulation pending operative debridement/washout.
--- NOTE | 2024-05-19 13:45 | CM ---
Patient seen at bedside.
Dx: fever; abdominal abcess
Patient lives with in a 2 story home, 3 steps to enter, flight to second floor
PLOF: Independent, ambulates without device
Denies DME
Denies food/housing/utilities/transportation insecurities
PLAN: home, follow for needs
[2024-05-19] MEDS: LOVENOX 40 MG SC (17:29)
[2024-05-19] MEDS: ANESTHETIC LOZENGE 1 LOZENGE PO (23:30)
[2024-05-20] VITALS (12 sets, daily range): BP systolic 106–135; BP diastolic 73–95; BMI 22.7
[2024-05-20] MEDS: ZOSYN 50 IV ×3 (01:35→20:06)
[2024-05-20] MEDS: ROXICODONE 10 MG PO ×4 (05:22→21:48)
[2024-05-20 05:38] LABS: Hematocrit 41.3 % (39.0-52.0); Hemoglobin 13.7 g/dL (13.0-18.0); Mean Corp Hgb Conc. 33.2 g/dL (33.0-37.0); Mean Corpuscular Hgb 33.2 pg (27.0-31.0); Mean Platelet Volume 9.3 fL (7.4-10.4); Platelet Count 530 10^3/uL (130-400); Red Blood Cell Count 4.13 10^6/uL (4.70-6.10); White Blood Cell Count 5.3 10^3/uL (4.8-10.8)
[2024-05-20 06:02] LABS: Blood Urea Nitrogen 10 mg/dl (9-20); Calcium 8.4 mg/dl (8.4-10.2); Carbon Dioxide 29 mmol/L (22-30); Chloride 98 mmol/L (98-107); Estimated Creatinine Clearance 107 ml/min; Glucose 86 mg/dl (70-99); Potassium 5.2 mmol/L (3.5-5.1); Sodium 136 mmol/L (135-145); eGFR > 60.00
--- NOTE | 2024-05-20 08:50 | W.PN.HOSP.TC ---
Today's Communication/Plan
-
OR today
Assessment / Plan
Assessment / Plan
63-year-old male was recently admitted here from 04/28/2024 with acute cholecystitis. Patient was taken to the OR on 04/29/2024 for laparoscopic cholecystectomy which was converted to open due to marked abdominal adhesions and matting. He was found
to have abdominal discomfort following surgery and was found to have perforation and a CT. Patient return to the OR on 04/30/24 for exploratory laparotomy and repair of small bowel enterotomy. He was discharged on 05/04/24 on antibiotics ,but had
elevated white count as outpatient and purulent discharge from the midline incision wound which prompted readmission to the hospital on 05/09/2024. CT showed intra-abdominal fluid collection. He was seen by interventional radiology and surgery.
Percutaneous drain was placed by IR. Cultures grew Coni albicans. Infectious disease evaluated the patient and was treated with fluconazole. He was also advised to remain on Augmentin for 2 weeks at discharge which was on 05/13/2024. Patient
was on Xarelto for atrial fibrillation which was briefly held and was restarted prior to discharge. Patient now returns with fever 102.6, abdominal discomfort at the drain site.
CT abdomen and pelvis with IV contrast 05/18/2024-abscess of the anterior mid abdomen deep to the midline incision and hernia mesh with a percutaneous drainage catheter in place decrease in size compared to the CT abdomen and pelvis from 05/09/2024.
Small abscess in the gallbladder Fossa also decreased in size
Cardiovascular system S1-S2 appreciated
Chest gait escalation
Abdomen midline wound with granulation
Bowel sounds present
Drain with purulent drainage
# Intra-abdominal abscess
S/P laparoscopic converted to open cholecystectomy for acute gangrenous calculous cholecystitis 04/30/24
S/P Exp lap and repair of small bowel enterotomy 04/30/24
Status post complicated cholecystectomy with small bowel enterotomy repair and subsequent drain placement for abscess
Possible infected hernia mesh-May need to come out eventually
Continue fluconazole, Zosyn started
Local wound exploration with washout in the OR under sedation 05/20/24.
Infectious disease and surgical consultations requested
# Hypertension-hold losartan as blood pressure is on the low side
# Paroxysmal atrial fibrillation-history of PVI 2018-Restart Xarelto when Ok with surgeon
# Thrombocytosis
# NHL . Status post chemotherapy and radiation 2004
# ALL with stem cell transplant in 2022 On Iclusig ( Held due to infection). Restart when white count up.
# History of CVA 2008
# History of splenectomy in 2004 with injury to stomach and exploratory laparotomy and repair at [facility]
# Incisional hernia repair with mesh in 2004 (?) with revision in 2021
# PFO closure in 2008 at [facility]
# Ptosis Right eye
# Chronic pain-narcotic dependent for management
# Small paraesophageal hernia-continue PPI
# Hepatic steatosis per CT-outpatient GI follow-up
# Distal abdominal aortic aneurysm 2.7 cm, right iliac artery aneurysm 2.7 cm, mild aneurysmal dilatation of the common femoral arteries 1.5 cm on the right and 2 cm on the left-vascular surgery follow-up as outpatient. Pt made aware.
# Ex Smoker
# DVT prophylaxis-Lovenox
# Full code
D/W RN AT BED SIDE
Anticipated Discharge: 24 - 48 hours
Subjective/Interval History
-
Date of Service: May 20, 2024
Objective Data
-
Labs:
Laboratory Results
05/20/24
05:13
WBC 5.3
Hgb 13.7
Hct 41.3
Plt Count 530 H
Sodium 136
Potassium 5.2 H
Chloride 98
Carbon Dioxide 29
BUN 10
Creatinine 0.8
Glucose 86
Calcium 8.4
Vital Signs:
Vital Signs
Temp Pulse Resp BP Pulse Ox
97.9 F 71 16 111/80 99
05/20/24 07:00 05/20/24 07:00 05/20/24 07:00 05/20/24 07:00 05/20/24 07:00
I&O
05/19/24 05/20/24 05/21/24
06:59 06:59 06:59
Intake Total 530 / 530 1190 / 1190
Output Total
Balance 520 / 520 1180 / 1180
--- NOTE | 2024-05-20 09:40 | W.PN.ID1 ---
Addendum entered and electronically signed by Darnell Hollins DO 05/20/24 15:27:
I saw and evaluated the patient. I reviewed the resident�s note and agree with findings and plan as documented in the resident�s note.
Patient s/p OR and I&D of midline wound.
Continue current antibiotics. Follow pending cultures.
Rpt EKG in AM
Original Note:
Date of Service
Date of Service: May 20, 2024
Today's Communication
.
Assessment / Plan
#Worsening Abdominal Pain
#Suspect abd hernia mesh infection as source of above.
Recent open holli (04/29) followed by small bowel enterotomy repair (04/30), dc'd home on Augmentin (05/05)
Complicated by midline incision drainage (+ C. albicans) and intra-abdominal abscess posterior to hernia mesh s/p perc drain Cx + C. albicans (05/10)
05/13 dc'd home on Augmentin x 2 weeks and fluconazole 400mg qd x 6 weeks then suppressive 100mg qd
05/18 Returned with fever, chills, worsening abd pain.
CT: decreased size of abscess posterior to mesh, no new fluid collections
# Hx splenectomy (2004)
# ALL s/p Stem cell transplant (2022) in remission
Plan:
- s/p OR today for Irrigation and debridement midline wound. Wound cultures x2 obtained.
-possible removal of infected abd mesh in about 2 months.
- ED superficial swabbed incision wound cx: prelim positive for yeast
- Continue Fluconazole 400mg po qd. Follow QTc.
- Continue Zosyn for now.
- Follow temps.
#Conditions [employer]
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
ALL s/p stem cells transplant (2022), in remission
CVA
Depression
Hx Non-Hodgkin lymphoma s/p chemo, XRT (2004)
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
Incision hernia repair with mesh 2006, revision 2021
PFO closure 2008
04/29/24 - Lap Holli converted to open 04/30 - Ex Lap with Small Bowel Enterotomy Repair 04/30
R TKR
Chief Complaint
-: Fever and Other
Subjective / Review of Systems
Review of Systems: No Fever and No Chills
Vital Signs / Physical Exam
Vital Signs
Vital Signs
Temp Pulse Resp BP Pulse Ox
97.9 F 71 16 111/80 99
05/20/24 07:00 05/20/24 07:00 05/20/24 07:00 05/20/24 07:00 05/20/24 07:00
Physical Exam
Constitutional: Acutely Ill
Cardiovascular: S1/S2
Gastrointestinal: Soft, Tender, Non Distended and Other (Midline incision with sherita and dressing in place. drain with purulent output,)
Neurological: AO x 3
Objective Data
Lab Data
Lab Results
05/20/24 05:13
05/20/24 05:13
Estimated Creat Clear 107 ml/min 05/20/24 05:13
Lactic Acid 0.9 mmol/L (0.7-2.0) 05/18/24 18:02
Total Bilirubin 0.4 mg/dl (0.2-1.3) 05/18/24 17:37
AST 39 U/L (17-59) 05/18/24 17:37
ALT 29 U/L (0-50) 05/18/24 17:37
Alkaline Phosphatase 173 U/L (38-126) H 05/18/24 17:37
Most recent labs reviewed.
Micro Results:
05/18/24 23:34 MRSA Screen - Final
Nose No Methicillin Resistant Staphylococcus aureus isolated.
05/18/24 18:02 Blood Culture - Preliminary
Blood/Venous No Growth in 24 hours- Final report to follow
05/18/24 17:37 Blood Culture - Preliminary
Blood/Venous No Growth in 24 hours- Final report to follow
05/18/24 20:59 Wound Culture - Pending
Abdomen Gram Stain - Preliminary
05/18/24 17:37 Influenza Types A & B ([place]) - Final
Nasal Swab Negative for Influenza A & B, NAAT
Negative results must be combined with clinical observations
and patient history.
Nucleic Acid Amplification test (NAAT)performed on the
[employer] platform.
05/18/2024-CT abdomen/pelvis: Abscess of the anterior mid abdomen deep to the midline incision and hernia mesh with a percutaneous drainage catheter in place, decreased in size compared to the CT abdomen/pelvis from 05/09/2024. Small abscess in the
gallbladder fossa, also decreased in size.
--- NOTE | 2024-05-20 09:48 | W.IMMPOSTOP ---
Surgical Immed Post Op Note
-
Primary Surgeon: Romulo
Pre-op Diagnosis: Wound infection
Post-op Diagnosis: Same
Procedure Performed: Irrigation and debridement midline wound
Anesthesia Type: MAC
Specimen / Cultures: Culture x2
Estimated Blood Loss: 2cc
Complications: None immediate
Operative Findings: Well healed skin bridge at the umbilicus, midline wound tunnels underneath connecting inferior and superior areas. Visible prolene suture and some ratty edge of PTFE mesh, fascial closure intact; irrigated with 2L saline and
dressed wet to dry
updated
Plan for daily dressing changes and IV abx through the weekend, re-eval Thursday with a view toward possible vac application. Await culture data and ID recs.
--- NOTE | 2024-05-20 09:52 | OR.RPT ---
Addendum entered and electronically signed by Lupillo Sebastian MD 05/24/24 09:46:
CDI query: non-excisional debridement down to fascial level, wound 18cm x 2cm x 2cm, with release of scant yellow seropurulent fluid
Original Note:
Operative Report
Operative Report
Primary Surgeon: Romulo
Pre-op Diagnosis: Wound infection
Post-op Diagnosis: Same
Procedure Performed: Irrigation and debridement midline wound
Anesthesia Type: MAC
Specimen / Cultures: Culture x2
Estimated Blood Loss: 2cc
Complications: None immediate
Operative Findings: Well healed skin bridge at the umbilicus, midline wound tunnels underneath connecting inferior and superior areas. Visible prolene suture and some ratty edge of PTFE mesh, fascial closure intact; irrigated with 2L saline and
dressed wet to dry
DATE OF SURGERY: 05/20/24
PROCEDURE: After informed consent was obtained, the patient was brought to the operating suite. He was placed in the supine position and was given IV sedation by the Anesthesia team. The abdomen was prepped and draped in the usual sterile fashion.
Avril were removed from the midline incision and the skin was bluntly debrided digitally. The base of the wound revealed intact closure and some healthy granulation tissue, scant seropurulent fluid was noted. Cultures were obtained. The wound was
irrigated with 2L sterile saline and dressed with wet to dry kerlix, covered with abd pad and tape. The existing drain was not disturbed. The patient tolerated the procedure well and was transferred to recovery room in stable condition.
[2024-05-20] MEDS: ZOSYN IV (10:02)
[2024-05-20] MEDS: ZOVIRAX 400 MG PO ×2 (10:29→20:05)
[2024-05-20] MEDS: SENOKOT 8.6 MG PO ×2 (10:29→20:05)
[2024-05-20] MEDS: DIFLUCAN 400 MG PO (10:29)
[2024-05-20] MEDS: NSS (PRESERVATIVE FREE) 10 ML IV (10:35)
[2024-05-20] MEDS: PROTONIX IV 40 MG IV (10:35)
--- NOTE | 2024-05-20 12:20 | CM ---
Patient seen at bedside
OR today-I&D midline wound
CM to continue to follow for needs
PLAN: Home, possible VN needs
[2024-05-20] MEDS: LOVENOX 40 MG SC (17:10)
[2024-05-20] MEDS: TESSALON PERLES 200 MG PO (21:48)
[2024-05-21] MEDS: ZOSYN 50 IV ×4 (02:06→19:35)
[2024-05-21] MEDS: ROXICODONE 10 MG PO ×3 (03:19→19:39)
[2024-05-21 03:59] VITALS: BP 130/80
[2024-05-21 06:00] VITALS: BMI 22.5
[2024-05-21 06:49] LABS: Hematocrit 39.9 % (39.0-52.0); Hemoglobin 13.4 g/dL (13.0-18.0); Mean Corp Hgb Conc. 33.6 g/dL (33.0-37.0); Mean Corpuscular Hgb 32.5 pg (27.0-31.0); Mean Corpuscular Volume 96.8 fL (80.0-94.0); Mean Platelet Volume 9.1 fL (7.4-10.4); Platelet Count 527 10^3/uL (130-400); Red Blood Cell Count 4.12 10^6/uL (4.70-6.10); Red Cell Dist. Width 14.8 % (11.5-14.5); White Blood Cell Count 3.7 10^3/uL (4.8-10.8)
[2024-05-21 07:00] VITALS: BP 139/94
[2024-05-21 07:14] LABS: Blood Urea Nitrogen 12 mg/dl (9-20); Calcium 8.6 mg/dl (8.4-10.2); Carbon Dioxide 28 mmol/L (22-30); Chloride 101 mmol/L (98-107); Estimated Creatinine Clearance > 125 ml/min; Glucose 130 mg/dl (70-99); Potassium 5.4 mmol/L (3.5-5.1); Sodium 139 mmol/L (135-145); eGFR > 60.00
[2024-05-21] MEDS: PROTONIX IV 40 MG IV (08:44)
[2024-05-21] MEDS: SENOKOT 8.6 MG PO (08:45)
[2024-05-21] MEDS: NSS (PRESERVATIVE FREE) 10 ML IV (08:45)
[2024-05-21] MEDS: DIFLUCAN 400 MG PO (08:45)
[2024-05-21] MEDS: ZOVIRAX 400 MG PO ×2 (08:45→19:35)
--- NOTE | 2024-05-21 09:53 | W.PN.GS2 ---
Today's Communication / Plan
-
Local wound care
ABX
Assessment / Plan
-
63M admitted status post laparoscopic converted to open cholecystectomy and subsequent laparotomy repair of small bowel enterotomy with intra-abdominal fluid collection and surgical site infection
Remote past surgical history including laparotomy, splenectomy, incisional hernia repairs with mesh which remains in place (reviewing operative report PTFE and polypropylene)
s/p IR drain to post-op anterior intra-abdominal fluid collection -05/10/2024, Cultures: gaurang
POD #1 washout of incision with debridement
AFVSS
WBC now 3.9, persistent thrombocytosis, now trending down (history of splenectomy)
OR cx pending
Plan:
Appreciate ID recs
Continue regular diet
Local wound care with possible vac application Thursday
Subjective Data
-
Date of Service: May 21, 2024
Patient seen and examined at bedside with Dr. Gomes. Sergio n/v. Tolerating diet. Pain to incision site is much improved since procedure.
Objective Data
-
Intake and Output
05/20/24 05/21/24 05/22/24
06:59 06:59 06:59
Intake Total 1190 / 1190 1000 / 1000
Output Total
Balance 1180 / 1180 990 / 990
Intake:
Oral fluids 1080 / 1080 900 / 900
IV piggybacks 110 / 110 100 / 100
Output:
Drain Output (Total)
Right Lower Abdomen Raymond-
Portillo
Other:
Number of approximated MODERATE 2 3
amounts of urine
Number of approximated LARGE 1
amounts of urine
Vital Signs
Temp Pulse Resp BP Pulse Ox
97.4 F 65 16 130/80 95
05/21/24 03:59 05/21/24 03:59 05/21/24 03:59 05/21/24 03:59 05/21/24 03:59
Lab Results
05/21/24 06:34
05/21/24 06:34
Calcium 8.6 mg/dl (8.4-10.2) 05/21/24 06:34
Total Bilirubin 0.4 mg/dl (0.2-1.3) 05/18/24 17:37
AST 39 U/L (17-59) 05/18/24 17:37
ALT 29 U/L (0-50) 05/18/24 17:37
Alkaline Phosphatase 173 U/L (38-126) H 05/18/24 17:37
Total Protein 7.1 g/dl (6.3-8.2) 05/18/24 17:37
Albumin 4.1 g/dl (3.5-5.0) 05/18/24 17:37
Physical Exam
-
Gen: NAD
Abd: soft, approp ttp, drain with purulent discharge. Dressing clean and intact.
--- NOTE | 2024-05-21 10:57 | W.PN.ID1 ---
Date of Service
Date of Service: May 21, 2024
Today's Communication
Continue antibiotics.
Assessment / Plan
#Worsening Abdominal Pain
#Suspect abd hernia mesh infection as source of above.
Recent open holli (04/29) followed by small bowel enterotomy repair (04/30), dc'd home on Augmentin (05/05)
Complicated by midline incision drainage (+ C. albicans) and intra-abdominal abscess posterior to hernia mesh s/p perc drain Cx + C. albicans (05/10)
05/13 dc'd home on Augmentin x 2 weeks and fluconazole 400mg qd x 6 weeks then suppressive 100mg qd
05/18 Returned with fever, chills, worsening abd pain.
CT: decreased size of abscess posterior to mesh, no new fluid collections
# Hx splenectomy (2004)
# ALL s/p Stem cell transplant (2022) in remission
Plan:
- s/p OR 05/20 for Irrigation and debridement midline wound. Wound cultures x2 obtained.
- possible removal of infected abd mesh in about 2 months.
- ED superficial swabbed incision wound cx: prelim positive for yeast
- Continue Fluconazole 400mg po qd. Following QTc.
- Continue Zosyn for now.
- Follow temps.
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
ALL s/p stem cells transplant (2022), in remission
CVA
Depression
Hx Non-Hodgkin lymphoma s/p chemo, XRT (2004)
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
Incision hernia repair with mesh 2006, revision 2021
PFO closure 2008
04/29/24 - Lap Holli converted to open 04/30 - Ex Lap with Small Bowel Enterotomy Repair 04/30
R TKR
Chief Complaint
-: Fever and Other (Abdominal abscess)
Subjective / Review of Systems
Patient seen and examined. Reports no significant complaints at present.
Vital Signs / Physical Exam
Vital Signs
Vital Signs
Temp Pulse Resp BP Pulse Ox
97.4 F 65 16 130/80 95
05/21/24 03:59 05/21/24 03:59 05/21/24 03:59 05/21/24 03:59 05/21/24 03:59
Physical Exam
Constitutional: Acutely Ill
Cardiovascular: Regular Rate and S1/S2; Negative S3/S4
Pulmonary: Clear; Negative Wheezes or Rales
Gastrointestinal: Soft, Tender, Non Distended and Other (Midline dressing in place. MARY drain with purulent output)
Extremities: Negative Edema or Cyanosis
Neurological: AO x 3
Objective Data
Lab Data
Lab Results
05/21/24 06:34
05/21/24 06:34
Estimated Creat Clear > 125 ml/min 05/21/24 06:34
Lactic Acid 0.9 mmol/L (0.7-2.0) 05/18/24 18:02
Total Bilirubin 0.4 mg/dl (0.2-1.3) 05/18/24 17:37
AST 39 U/L (17-59) 05/18/24 17:37
ALT 29 U/L (0-50) 05/18/24 17:37
Alkaline Phosphatase 173 U/L (38-126) H 05/18/24 17:37
Most recent labs reviewed.
Micro Results:
05/18/24 20:59 Wound Culture (superficial swab) - Final
Abdomen Coni albicans
Gram Stain - Final
05/18/24 18:02 Blood Culture - Preliminary
Blood/Venous No Growth in 48 hours- Final report to follow
05/18/24 17:37 Blood Culture - Preliminary
Blood/Venous No Growth in 48 hours- Final report to follow
05/20/24 09:30 Wound Culture (deep culture) - Pending
Abdomen Gram Stain - Preliminary
05/20/24 09:30 Anaerobic Culture - Pending
Abdomen
05/18/24 23:34 MRSA Screen - Final
Nose No Methicillin Resistant Staphylococcus aureus isolated.
05/18/24 17:37 Influenza Types A & B ([place]) - Final
Nasal Swab Negative for Influenza A & B, NAAT
Negative results must be combined with clinical observations
and patient history.
Nucleic Acid Amplification test (NAAT)performed on the
[employer] platform.
Imaging:
05/18/2024-CT abdomen/pelvis: Abscess of the anterior mid abdomen deep to the midline incision and hernia mesh with a percutaneous drainage catheter in place, decreased in size compared to the CT abdomen/pelvis from 05/09/2024. Small abscess in the
gallbladder fossa, also decreased in size.
[2024-05-21 11:27] VITALS: BP 113/74
--- NOTE | 2024-05-21 14:38 | W.PN.HOSP.TC ---
Today's Communication/Plan
-
Continue with Zosyn and fluconazole
Continue to follow cultures, CBC, temperature curve
Possible wound VAC on Thursday
Her MARY drain output
Assessment / Plan
Assessment / Plan
#Intra-abdominal abscess
-Suspected to be due to infected hernia repair mesh; started on broad-spectrum antibiotics and antifungal
-S/P laparoscopic converted to open cholecystectomy for acute gangrenous calculous cholecystitis 04/30/24
-S/P Exp lap and repair of small bowel enterotomy 04/30/24
-Status post complicated cholecystectomy with small bowel enterotomy repair and subsequent drain placement for abscess
-10 mL of drain output recorded, no purulence detected; Cultures showing C. albicans
-Continue fluconazole, Zosyn; Trend CBC and temp
-S/P Local wound exploration with washout in the OR under sedation 05/20/24
-Surgery planning for wound VAC placement on Thursday
-May need removal of surgical hernia mesh
#Hypertension
-No history of hypertensive systemic disease
-hold losartan as blood pressure is on the low side
#Paroxysmal atrial fibrillation
-S/P PVI 2018; Non-valvular
-Home medications include Xarelto; no rate or rhythm controlling agents
-Restart Xarelto when Ok with surgeon
#Thrombocytosis
-reactice 07/31 infection
-Trend CBC
#H/O NHL
-Status post chemotherapy and radiation in 2004
#ALL S/P stem cell transplant (2022)
-Home medications include Iclusig (Held due to infection).
-Restart when WBC improved and infection clearing
#History of CVA (2008)
-Likely cardioembolic vs paraxysmal emboli with PFO history
-No obvious deficits though may have Ptosis of right eye as symptom
#Small paraesophageal hernia
-Home meds include PPI
# Hepatic steatosis per CT
-outpatient GI follow-up
#Distal abdominal aortic aneurysm 2.7 cm,
#Right iliac artery aneurysm 2.7 cm
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
-vascular surgery follow-up as outpatient
#History of splenectomy in 2004 with injury to stomach and exploratory laparotomy and repair at [facility]
#Incisional hernia repair with mesh in 2004 (?) with revision in 2021
#PFO closure in 2008 at [facility]
#Chronic pain-narcotic dependent for management
#Ex Smoker
DVT prophylaxis: Lovenox
Diet: Regular
CODE STATUS: Full code
Anticipated Discharge: > 48 hours
Subjective/Interval History
-
Date of Service: May 21, 2024
Seen and examined at the bedside. No acute events reported overnight. AFVSS this morning
MARY drain with serosanguineous output, 10 mL output recorded
Patient denies any acute complaints including chest pain, shortness of breath, fevers or chills, nausea or vomiting, urinary issues, bleeding or bruising, paresthesias or weakness
Objective Data
-
Labs:
Laboratory Results
05/21/24
06:34
WBC 3.7 L
Hgb 13.4
Hct 39.9
Plt Count 527 H
Sodium 139
Potassium 5.4 H
Chloride 101
Carbon Dioxide 28
BUN 12
Creatinine 0.6 L
Glucose 130 H
Calcium 8.6
Vital Signs:
Vital Signs
Temp Pulse Resp BP Pulse Ox
97.3 F 62 16 113/74 95
05/21/24 11:27 05/21/24 11:27 05/21/24 11:27 05/21/24 11:27 05/21/24 11:27
I&O
05/20/24 05/21/24 05/22/24
06:59 06:59 06:59
Intake Total 1190 / 1190 1000 / 1000
Output Total
Balance 1180 / 1180 990 / 990
Review of Systems
-
History Source: Patient
All other systems: Reviewed and negative
Physical Exam
-
General: Well Developed, Well Nourished, No Apparent Distress and Comfortable
HEENT: Normocephalic, Atraumatic and Moist Mucous Membranes
Respiratory: Clear to Auscultation and Non Labored Respirations; Negative Wheezes, Rales or Rhonchi
Cardiac: Regular Rhythm and S1/S2; Negative Murmur, Rub or Gallop
GI: Soft, Nontender, Nondistended, Normal Bowel Sounds and Other (MARY drain-serosanguineous)
Musculoskeletal: No Clubbing, No Cyanosis and No Edema
Skin: Warm and Dry; Negative Rash
Neuro: AO x 3 and Nonfocal/Grossly Intact
Psych: Calm
Data Reviewed
-
Labs: Labs Reviewed by me and Discussed with Patient
[2024-05-21 15:00] VITALS: BP 109/71
[2024-05-21 15:39] LABS: Blood Urea Nitrogen 12 mg/dl (9-20); Calcium 8.6 mg/dl (8.4-10.2); Carbon Dioxide 26 mmol/L (22-30); Chloride 101 mmol/L (98-107); Estimated Creatinine Clearance 121 ml/min; Glucose 145 mg/dl (70-99); Potassium 4.8 mmol/L (3.5-5.1); Sodium 139 mmol/L (135-145); eGFR > 60.00
[2024-05-21] MEDS: LOVENOX 40 MG SC (17:00)
[2024-05-21] MEDS: MIRALAX 17 GRAMS PO (17:01)
[2024-05-21 19:28] VITALS: BP 120/80
[2024-05-21] MEDS: SENOKOT PO ×2 (19:35→19:47)
[2024-05-21 23:06] VITALS: BP 119/81
[2024-05-22] MEDS: ZOSYN 50 IV ×4 (02:06→20:28)
[2024-05-22] MEDS: ROXICODONE 10 MG PO ×3 (02:52→20:28)
[2024-05-22 03:12] VITALS: BP 131/85
[2024-05-22 05:08] LABS: % Basophils 0.4 % (0-2); % Eosinophils 0.7 % (0-6); % Immature Granulocytes 0.1 % (0-0.5); % Lymphocytes 45.3 % (20.5-51.1); % Neutrophils 42.5 % (42.2-75.2); Absolute Eosinophils 0.1 10^3/uL (0-0.7); Absolute Lymphocytes 3.1 10^3/uL (1.2-3.4); Absolute Monocytes 0.7 10^3/uL (0.1-0.6); Absolute Neutrophils 2.9 10^3/uL (1.4-6.5); Hematocrit 38.7 % (39.0-52.0); Hemoglobin 12.6 g/dL (13.0-18.0); Mean Corp Hgb Conc. 32.6 g/dL (33.0-37.0); Mean Corpuscular Hgb 32.8 pg (27.0-31.0); Mean Corpuscular Volume 100.8 fL (80.0-94.0); Mean Platelet Volume 9.4 fL (7.4-10.4); Nucleated Red Blood Cells % 0.3 % (-); Platelet Count 545 10^3/uL (130-400); Red Blood Cell Count 3.84 10^6/uL (4.70-6.10); White Blood Cell Count 6.7 10^3/uL (4.8-10.8)
[2024-05-22 05:29] LABS: Blood Urea Nitrogen 10 mg/dl (9-20); Calcium 8.5 mg/dl (8.4-10.2); Carbon Dioxide 30 mmol/L (22-30); Chloride 103 mmol/L (98-107); Estimated Creatinine Clearance 121 ml/min; Glucose 95 mg/dl (70-99); Potassium 4.8 mmol/L (3.5-5.1); Sodium 140 mmol/L (135-145); eGFR > 60.00
[2024-05-22 06:00] VITALS: BMI 22.5
[2024-05-22 07:05] VITALS: BP 125/83
[2024-05-22] MEDS: PROTONIX IV 40 MG IV (08:22)
[2024-05-22] MEDS: NSS (PRESERVATIVE FREE) 10 ML IV (08:22)
[2024-05-22] MEDS: SENOKOT 8.6 MG PO ×2 (08:22→20:28)
[2024-05-22] MEDS: ZOVIRAX 400 MG PO ×2 (08:22→20:28)
[2024-05-22] MEDS: DIFLUCAN 400 MG PO (08:22)
[2024-05-22 11:22] VITALS: BP 139/84
--- NOTE | 2024-05-22 11:31 | W.PN.GS2 ---
Today's Communication / Plan
-
dressing changes
abx
possible wound vac in AM
Assessment / Plan
-
63M admitted status post laparoscopic converted to open cholecystectomy and subsequent laparotomy repair of small bowel enterotomy with intra-abdominal fluid collection and surgical site infection
Remote past surgical history including laparotomy, splenectomy, incisional hernia repairs with mesh which remains in place (reviewing operative report PTFE and polypropylene)
s/p IR drain to post-op anterior intra-abdominal fluid collection -05/10/2024, Cultures: gaurang
POD #2 washout of incision with debridement
AFVSS
WBC 6.7 (3.9), persistent thrombocytosis, now trending down (history of splenectomy)
OR cx pending
Plan:
-Appreciate ID recs
-Continue regular diet
-Local wound care with daily dressings, possible vac application Thursday
Subjective Data
-
Date of Service: May 22, 2024
Patient states he has no complaints. He overall feels well.
Objective Data
-
Intake and Output
05/21/24 05/22/24 05/23/24
06:59 06:59 06:59
Intake Total 1000 / 1000 1740 / 1740
Output Total
Balance 990 / 990 1730 / 1730 -5 / -5
Intake:
Oral fluids 900 / 900 1740 / 1740
IV piggybacks 100 / 100
Output:
Drain Output (Total)
Right Lower Abdomen Raymond-
Portillo
Other:
Number of approximated MODERATE 3 1
amounts of urine
How many times incontinent 1
SMALL amount urine
How many times incontinent 1
SATURATED amount urine
Vital Signs
Temp Pulse Resp BP Pulse Ox
97.4 F 54 18 139/84 97
05/22/24 11:22 05/22/24 11:22 05/22/24 11:22 05/22/24 11:22 05/22/24 11:22
Lab Results
05/22/24 04:47
05/22/24 04:47
Calcium 8.5 mg/dl (8.4-10.2) 05/22/24 04:47
Total Bilirubin 0.4 mg/dl (0.2-1.3) 05/18/24 17:37
AST 39 U/L (17-59) 05/18/24 17:37
ALT 29 U/L (0-50) 05/18/24 17:37
Alkaline Phosphatase 173 U/L (38-126) H 05/18/24 17:37
Total Protein 7.1 g/dl (6.3-8.2) 05/18/24 17:37
Albumin 4.1 g/dl (3.5-5.0) 05/18/24 17:37
Physical Exam
-
Gen: NAD
Abd: soft, non-tender, drain with purulent discharge. Dressing clean and intact.
--- NOTE | 2024-05-22 13:00 | W.PN.HOSP.TC ---
Today's Communication/Plan
-
Continue Zosyn and fluconazole
Hold xarelto and TKI
Follow cultures, WBC, Temp
Wound vac tomorrow per surgery
Assessment / Plan
Assessment / Plan
#Intra-abdominal abscess
-Suspected to be due to infected hernia repair mesh; started on broad-spectrum antibiotics and antifungal
-S/P laparoscopic converted to open cholecystectomy for acute gangrenous calculous cholecystitis 04/30/24
-S/P Exp lap and repair of small bowel enterotomy 04/30/24, complicated cholecystectomy with small bowel enterotomy repair and subsequent drain placement for abscess
-10 mL of drain output recorded, no purulence detected; Cultures showing C. albicans
-S/P Local wound exploration with washout in the OR under sedation 05/20/24
-Surgery planning for wound VAC placement on Thursday
-Dressing changes per surgery
-Continue fluconazole and Zosyn for now
-Hold TKI and Xarelto
#Hypertension
-No history of hypertensive systemic disease
-hold losartan as blood pressure is on the low side
#Paroxysmal atrial fibrillation
-S/P PVI 2018; Non-valvular
-Home medications include Xarelto; no rate or rhythm controlling agents
-Restart Xarelto when Ok with surgeon
#Thrombocytosis
-reactice 2/2 infection
-Trend CBC
#H/O NHL
-Status post chemotherapy and radiation in 2004
#ALL S/P stem cell transplant (2022)
-Home medications include Iclusig (Held due to infection).
-Restart when WBC improved and infection clearing
#History of CVA (2008)
-Likely cardioembolic vs paraxysmal emboli with PFO history
-No obvious deficits though may have Ptosis of right eye as symptom
#Small paraesophageal hernia
-Home meds include PPI
# Hepatic steatosis per CT
-outpatient GI follow-up
#Distal abdominal aortic aneurysm 2.7 cm,
#Right iliac artery aneurysm 2.7 cm
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
-vascular surgery follow-up as outpatient
#History of splenectomy in 2004 with injury to stomach and exploratory laparotomy and repair at [facility]
#Incisional hernia repair with mesh in 2004 (?) with revision in 2021
#PFO closure in 2008 at [facility]
#Chronic pain-narcotic dependent for management
#Ex Smoker
DVT prophylaxis: Lovenox
Diet: Regular
CODE STATUS: Full code
Anticipated Discharge: > 48 hours
Subjective/Interval History
-
Date of Service: May 22, 2024
Seen and examined at the bedside. No acute events report overnight. AFVSS this morning.
Wound dressings were being changed upon my evaluation. No purulence or erythema noted
Denies any acute complaints including chest pain, dyspnea, fevers or chills, worsening abdomen pain, urinary issues, bleeding or bruising, paresthesias or
Objective Data
-
Labs:
Laboratory Results
05/22/24
04:47
WBC 6.7
Hgb 12.6 L
Hct 38.7 L
Plt Count 545 H
Sodium 140
Potassium 4.8
Chloride 103
Carbon Dioxide 30
BUN 10
Creatinine 0.7
Glucose 95
Calcium 8.5
Vital Signs:
Vital Signs
Temp Pulse Resp BP Pulse Ox
97.4 F 54 18 139/84 97
05/22/24 11:22 05/22/24 11:22 05/22/24 11:22 05/22/24 11:22 05/22/24 11:22
I&O
05/21/24 05/22/24 05/23/24
06:59 06:59 06:59
Intake Total 1000 / 1000 1740 / 1740
Output Total
Balance 990 / 990 1729 / 1729 -
Review of Systems
-
History Source: Patient
All other systems: Reviewed and negative
Physical Exam
-
General: Well Nourished, No Apparent Distress and Comfortable
HEENT: Normocephalic, Atraumatic, Moist Mucous Membranes and Anicteric
Respiratory: Clear to Auscultation and Non Labored Respirations
Cardiac: Regular Rhythm and S1/S2; Negative Murmur, Rub or Gallop
GI: Soft, Nontender, Nondistended and Normal Bowel Sounds
Musculoskeletal: No Clubbing, No Cyanosis and No Edema
Skin: Warm, Dry and Other (Midline surgical scar with packing, no purulence or erythema); Negative Rash
Neuro: AO x 3 and Nonfocal/Grossly Intact
Psych: Calm
Data Reviewed
-
Labs: Labs Reviewed by me and Discussed with Patient
--- NOTE | 2024-05-22 13:10 | W.PN.ID1 ---
Date of Service
Date of Service: May 22, 2024
Today's Communication
Continue antibiotics
Assessment / Plan
#Worsening Abdominal Pain
#Suspect abd hernia mesh infection as source of above.
Recent open holli (04/29) followed by small bowel enterotomy repair (04/30), dc'd home on Augmentin (05/05)
Complicated by midline incision drainage (+ C. albicans) and intra-abdominal abscess posterior to hernia mesh s/p perc drain Cx + C. albicans (05/10)
05/13 dc'd home on Augmentin x 2 weeks and fluconazole 400mg qd x 6 weeks then suppressive 100mg qd
05/18 Returned with fever, chills, worsening abd pain.
CT: decreased size of abscess posterior to mesh, no new fluid collections
# Hx splenectomy (2004)
# ALL s/p Stem cell transplant (2022) in remission
Plan:
- s/p OR 05/20 for Irrigation and debridement midline wound. Wound cultures x2 obtained.
- possible removal of infected abd mesh in about 2 months.
- ED superficial swabbed incision wound cx: prelim positive for yeast
- Continue Fluconazole 400mg po qd. Following QTc.
- Continue Zosyn for now.
- Follow temps.
#Conditions S[facility] SIF[facility]
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
ALL s/p stem cells transplant (2022), in remission
CVA
Depression
Hx Non-Hodgkin lymphoma s/p chemo, XRT (2004)
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
Incision hernia repair with mesh 2006, revision 2021
PFO closure 2008
04/29/24 - Lap Holli converted to open 04/30 - Ex Lap with Small Bowel Enterotomy Repair 04/30
R TKR
Chief Complaint
-: Fever and Other (Abdominal abscess)
Subjective / Review of Systems
Review of Systems: No Fever and No Chills
Vital Signs / Physical Exam
Vital Signs
Vital Signs
Temp Pulse Resp BP Pulse Ox
97.4 F 54 18 139/84 97
05/22/24 11:22 05/22/24 11:22 05/22/24 11:22 05/22/24 11:22 05/22/24 11:22
Physical Exam
Constitutional: No Acute Distress, Comfortable and Non-toxic
Eyes: Sclera Anicteric
Cardiovascular: Regular Rate and S1/S2; Negative S3/S4
Pulmonary: Clear
Gastrointestinal: Soft, Tender, Non Distended and Other (Midline dressing in place. MARY drain with minimal purulent output)
Extremities: Negative Edema or Cyanosis
Neurological: AO x 3
Objective Data
Lab Data
Lab Results
05/22/24 04:47
05/22/24 04:47
Estimated Creat Clear 121 ml/min 05/22/24 04:47
Lactic Acid 0.9 mmol/L (0.7-2.0) 05/18/24 18:02
Total Bilirubin 0.4 mg/dl (0.2-1.3) 05/18/24 17:37
AST 39 U/L (17-59) 05/18/24 17:37
ALT 29 U/L (0-50) 05/18/24 17:37
Alkaline Phosphatase 173 U/L (38-126) H 05/18/24 17:37
Most recent labs reviewed.
Micro Results:
05/20/24 09:30 Anaerobic Culture - Preliminary
Abdomen Culture pending. Anaerobic cultures are examined after 3
days incubation. Additional information to follow.
05/20/24 09:30 Wound Culture - Preliminary
Abdomen Coni albicans
Gram Stain - Preliminary
05/18/24 18:02 Blood Culture - Preliminary
Blood/Venous No Growth in 72 hours- Final report to follow
05/18/24 17:37 Blood Culture - Preliminary
Blood/Venous No Growth in 72 hours- Final report to follow
05/18/24 20:59 Wound Culture - Final
Abdomen Coni albicans
Gram Stain - Final
05/18/24 23:34 MRSA Screen - Final
Nose No Methicillin Resistant Staphylococcus aureus isolated.
05/18/24 17:37 Influenza Types A & B ([place]) - Final
Nasal Swab Negative for Influenza A & B, NAAT
Negative results must be combined with clinical observations
and patient history.
Nucleic Acid Amplification test (NAAT)performed on the
[employer] platform.
Imaging:
05/18/2024-CT abdomen/pelvis: Abscess of the anterior mid abdomen deep to the midline incision and hernia mesh with a percutaneous drainage catheter in place, decreased in size compared to the CT abdomen/pelvis from 05/09/2024. Small abscess in the
gallbladder fossa, also decreased in size.
[2024-05-22 15:05] VITALS: BP 127/83
[2024-05-22] MEDS: LOVENOX SC (17:18)
[2024-05-22 19:34] VITALS: BP 124/82
[2024-05-22] MEDS: TESSALON PERLES 200 MG PO (20:29)
[2024-05-22 23:10] VITALS: BP 141/90
[2024-05-23] VITALS (7 sets, daily range): BP systolic 113–147; BP diastolic 76–97; BMI 22.8
[2024-05-23] MEDS: ZOSYN 50 IV ×4 (01:51→20:10)
[2024-05-23] MEDS: ROXICODONE 10 MG PO ×4 (01:56→20:44)
[2024-05-23 06:34] LABS: % Basophils 0.6 % (0-2); % Eosinophils 3.1 % (0-6); % Immature Granulocytes 0.4 % (0-0.5); % Lymphocytes 32.2 % (20.5-51.1); % Monocytes 12.4 % (1.7-9.3); % Neutrophils 51.3 % (42.2-75.2); Absolute Basophils 0.1 10^3/uL (0-0.2); Absolute Eosinophils 0.3 10^3/uL (0-0.7); Absolute Monocytes 1.2 10^3/uL (0.1-0.6); Absolute Neutrophils 4.8 10^3/uL (1.4-6.5); Hematocrit 41.3 % (39.0-52.0); Hemoglobin 13.2 g/dL (13.0-18.0); Mean Corpuscular Hgb 32.7 pg (27.0-31.0); Mean Corpuscular Volume 102.2 fL (80.0-94.0); Mean Platelet Volume 9.5 fL (7.4-10.4); Nucleated Red Blood Cells % 0.4 % (-); Platelet Count 576 10^3/uL (130-400); Red Blood Cell Count 4.04 10^6/uL (4.70-6.10); Red Cell Dist. Width 15.2 % (11.5-14.5); White Blood Cell Count 9.4 10^3/uL (4.8-10.8)
[2024-05-23 06:58] LABS: Blood Urea Nitrogen 9 mg/dl (9-20); Calcium 8.5 mg/dl (8.4-10.2); Carbon Dioxide 30 mmol/L (22-30); Chloride 103 mmol/L (98-107); Estimated Creatinine Clearance 123 ml/min; Glucose 81 mg/dl (70-99); Potassium 5.4 mmol/L (3.5-5.1); Sodium 140 mmol/L (135-145); eGFR > 60.00
[2024-05-23] MEDS: ZOVIRAX 400 MG PO ×2 (07:50→20:10)
[2024-05-23] MEDS: PROTONIX IV 40 MG IV (07:51)
[2024-05-23] MEDS: SENOKOT 8.6 MG PO ×2 (07:51→20:10)
[2024-05-23] MEDS: DIFLUCAN 400 MG PO (07:51)
[2024-05-23] MEDS: NSS (PRESERVATIVE FREE) 10 ML IV (07:52)
--- NOTE | 2024-05-23 09:10 | W.PN.GS2 ---
Today's Communication / Plan
-
Vac applied
Dispo planning vis a vis antibitics recs
Assessment / Plan
-
63M admitted status post laparoscopic converted to open cholecystectomy and subsequent laparotomy repair of small bowel enterotomy with intra-abdominal fluid collection and surgical site infection
Remote past surgical history including laparotomy, splenectomy, incisional hernia repairs with mesh which remains in place (reviewing operative report PTFE and polypropylene)
s/p IR drain to post-op anterior intra-abdominal fluid collection -05/10/2024, Cultures: gaurang
POD #3 washout of incision with debridement
AFVSS
Leukopenia resolved, WBC WNL, persistent thrombocytosis, (history of splenectomy)
OR cx pending - gaurang
Plan:
-Appreciate ID recs
-Continue regular diet
-Vac applied at bedside uneventfully - next change Thursday
-Will be ready for DC with e wound care when we have final recs for antibiotics, ID assistance is appreciated
Subjective Data
-
Date of Service: May 23, 2024
AFVSS, pain controlled, ambulating, voiding, jorge PO
Objective Data
-
Intake and Output
05/22/24 05/23/24 05/24/24
06:59 06:59 06:59
Intake Total 1740 / 1740 940 / 940
Output Total
Balance 1730 / 1730 930 / 930
Intake:
Oral fluids 1740 / 1740 840 / 840
IV piggybacks 100 / 100
Output:
Drain Output (Total)
Right Lower Abdomen Raymond-
Portillo
Other:
Number of approximated MODERATE 1 2
amounts of urine
Number of approximated LARGE 1
amounts of urine
How many times incontinent 1
SMALL amount urine
How many times incontinent 1
SATURATED amount urine
Vital Signs
Temp Pulse Resp BP Pulse Ox
97.9 F 57 15 141/90 97
05/23/24 07:05 05/23/24 07:05 05/23/24 07:05 05/23/24 07:05 05/23/24 07:05
Lab Results
05/23/24 05:21
05/23/24 05:21
Calcium 8.5 mg/dl (8.4-10.2) 05/23/24 05:21
Total Bilirubin 0.4 mg/dl (0.2-1.3) 05/18/24 17:37
AST 39 U/L (17-59) 05/18/24 17:37
ALT 29 U/L (0-50) 05/18/24 17:37
Alkaline Phosphatase 173 U/L (38-126) H 05/18/24 17:37
Total Protein 7.1 g/dl (6.3-8.2) 05/18/24 17:37
Albumin 4.1 g/dl (3.5-5.0) 05/18/24 17:37
Physical Exam
-
Gen: NAD
Abd: midline wound with healthy granulation tissue, no puruence, no odor
[2024-05-23] MEDS: DILAUDID 0.5 MG IV (09:37)
--- NOTE | 2024-05-23 10:56 | W.PN.ID1 ---
Addendum entered and electronically signed by Nini Saleh MD 05/23/24 14:47:
I saw and evaluated the patient. I reviewed the resident�s note and agree with findings and plan as documented in the resident�s note.
#Abd hernia mesh infection as source of above.
Recent open holli (04/29) followed by small bowel enterotomy repair (04/30), dc'd home on Augmentin (05/05)
Complicated by midline incision drainage (+ C. albicans) and intra-abdominal abscess posterior to hernia mesh s/p perc drain Cx + C. albicans (05/10)
05/13 dc'd home on Augmentin x 2 weeks and fluconazole 400mg qd x 6 weeks then suppressive 100mg qd
05/18 Returned with fever, chills, worsening abd pain.
CT: decreased size of abscess posterior to mesh, no new fluid collections
# Hx splenectomy (2004)
# ALL s/p Stem cell transplant (2022) in remission
Plan:
- s/p OR 05/20 for Irrigation and debridement midline wound with wound vac application.
Wound cultures + C. albicans and few coag-neg staph, no anaerobes
- possible removal of infected abd mesh in about 2 months.
- Continue Fluconazole 400mg po qd past mesh removal.
-Continue Zosyn for now
- Asked micro to work up the coag-neg staph. - pending susceptibility of coag neg staph, po vs IV home abx.
#Conditions [employer]
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
ALL s/p stem cells transplant (2022), in remission
CVA
Depression
Hx Non-Hodgkin lymphoma s/p chemo, XRT (2004)
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
Incision hernia repair with mesh 2006, revision 2021
PFO closure 2008
04/29/24 - Lap Holli converted to open 04/30 - Ex Lap with Small Bowel Enterotomy Repair 04/30
R TKR
Original Note:
Date of Service
Date of Service: May 23, 2024
Today's Communication
Continue abx
Assessment / Plan
#Worsening Abdominal Pain
#Suspect abd hernia mesh infection as source of above.
Recent open holli (04/29) followed by small bowel enterotomy repair (04/30), dc'd home on Augmentin (05/05)
Complicated by midline incision drainage (+ C. albicans) and intra-abdominal abscess posterior to hernia mesh s/p perc drain Cx + C. albicans (05/10)
05/13 dc'd home on Augmentin x 2 weeks and fluconazole 400mg qd x 6 weeks then suppressive 100mg qd
05/18 Returned with fever, chills, worsening abd pain.
CT: decreased size of abscess posterior to mesh, no new fluid collections
# Hx splenectomy (2004)
# ALL s/p Stem cell transplant (2022) in remission
Plan:
- s/p OR 05/20 for Irrigation and debridement midline wound. Wound cultures x2 obtained.
- Wound culture positive for C. albicans, and Few coag neg staphylococcus. Will await sensitivity for Abx guidance.
- possible removal of infected abd mesh in about 2 months.
- ED superficial swabbed incision wound cx: positive for yeast
- Continue Fluconazole 400mg po qd. Following QTc.
- Continue Zosyn for now.
- Follow temps.
#Conditions [employer]
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
ALL s/p stem cells transplant (2022), in remission
CVA
Depression
Hx Non-Hodgkin lymphoma s/p chemo, XRT (2004)
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
Incision hernia repair with mesh 2006, revision 2021
PFO closure 2008
04/29/24 - Lap Holli converted to open 04/30 - Ex Lap with Small Bowel Enterotomy Repair 04/30
R TKR
Chief Complaint
-: Fever and Other (Abdominal abscess)
Vital Signs / Physical Exam
Vital Signs
Vital Signs
Temp Pulse Resp BP Pulse Ox
97.9 F 57 15 141/90 97
05/23/24 07:05 05/23/24 07:05 05/23/24 07:05 05/23/24 07:05 05/23/24 09:46
Physical Exam
Constitutional: No Acute Distress
Cardiovascular: Regular Rate and S1/S2
Pulmonary: Clear
Gastrointestinal: Soft, Tender (mildly tender) and Other (wound vac in place. )
Extremities: Negative Edema
Skin: Warm
Neurological: AO x 3
Psychological: Calm
Objective Data
Lab Data
Lab Results
05/23/24 05:21
05/23/24 05:21
Estimated Creat Clear 123 ml/min 05/23/24 05:21
Lactic Acid 0.9 mmol/L (0.7-2.0) 05/18/24 18:02
Total Bilirubin 0.4 mg/dl (0.2-1.3) 05/18/24 17:37
AST 39 U/L (17-59) 05/18/24 17:37
ALT 29 U/L (0-50) 05/18/24 17:37
Alkaline Phosphatase 173 U/L (38-126) H 05/18/24 17:37
Most recent labs reviewed.
Micro Results:
05/20/24 09:30 Wound Culture - Preliminary
Abdomen Coni albicans
Gram Stain - Preliminary
05/18/24 18:02 Blood Culture - Preliminary
Blood/Venous No Growth in 4 days- Final report to follow
05/18/24 17:37 Blood Culture - Preliminary
Blood/Venous No Growth in 4 days- Final report to follow
05/20/24 09:30 Anaerobic Culture - Preliminary
Abdomen Culture pending. Anaerobic cultures are examined after 3
days incubation. Additional information to follow.
05/18/24 20:59 Wound Culture - Final
Abdomen Coni albicans
Gram Stain - Final
05/18/24 23:34 MRSA Screen - Final
Nose No Methicillin Resistant Staphylococcus aureus isolated.
05/18/24 17:37 Influenza Types A & B ([place]) - Final
Nasal Swab Negative for Influenza A & B, NAAT
Negative results must be combined with clinical observations
and patient history.
Nucleic Acid Amplification test (NAAT)performed on the
[employer] platform.
Imaging:
05/18/2024-CT abdomen/pelvis: Abscess of the anterior mid abdomen deep to the midline incision and hernia mesh with a percutaneous drainage catheter in place, decreased in size compared to the CT abdomen/pelvis from 05/09/2024. Small abscess in the
gallbladder fossa, also decreased in size.
--- NOTE | 2024-05-23 11:01 | CM ---
Vac in place on abdomen
Spoke with patient regarding options of home health-[facility]
Spoke with Lian at [facility] & will fax info if potential IV antibiotics is needed. Await ID
PLAN: home, VN, ?IV antibiotic
--- NOTE | 2024-05-23 11:16 | W.PN.HOSP.TC ---
Addendum entered and electronically signed by Lilly Cochran MD 05/23/24 11:29:
Restart Xarelto. Okay with surgeon. Lovenox discontinued
Addendum entered and electronically signed by Lilly Cochran MD 05/23/24 11:25:
Patient has hypokalemia therefore we will give Lokelma 1 dose
Will not restart losartan.
Use 5 mg of Norvasc instead for hypertension.
Original Note:
Today's Communication/Plan
-
Vac placed
Restart Xarelto when OK with surgeon
Await ID input on AB
Assessment / Plan
Assessment / Plan
CVS: S1-S2 normal
Chest: CTA B/L
Abdomen:wound vac in place, drain with discharge
Extremities: No edema
#Intra-abdominal abscess
-Suspected to be due to infected hernia repair mesh; started on broad-spectrum antibiotics and antifungal
-S/P laparoscopic converted to open cholecystectomy for acute gangrenous calculous cholecystitis 04/30/24
-S/P Exp lap and repair of small bowel enterotomy 04/30/24, complicated cholecystectomy with small bowel enterotomy repair and subsequent drain placement for abscess
-10 mL of drain output recorded, no purulence detected; Cultures showing C. albicans
-S/P Local wound exploration with washout in the OR under sedation 05/20/24
-Mesh may need to come out eventually
-Wound VAC placed Thursday
-Dressing changes per surgery
-Continue fluconazole and Zosyn for now
#Hypertension-Restart losartan
#Paroxysmal atrial fibrillation
-Not on rate controlling meds as OP
-S/P PVI 2018; Non-valvular
-Restart Xarelto when Ok with surgeon
#Thrombocytosis
-reactive 2/2 infection
-Trend CBC
#H/O NHL
-Status post chemotherapy and radiation in 2004
#ALL S/P stem cell transplant (2022)
-Home medications include Iclusig (Held due to infection).
-Restart when WBC improved and infection clearing
#History of CVA (2008)
-No obvious deficits though may have Ptosis of right eye as symptom
#Small paraesophageal hernia-Continue PPI
# Hepatic steatosis per CT-outpatient GI follow-up
#Distal abdominal aortic aneurysm 2.7 cm,
#Right iliac artery aneurysm 2.7 cm
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
-vascular surgery follow-up as outpatient-Pt aware
#History of splenectomy in 2004 with injury to stomach and exploratory laparotomy and repair at [facility]
#Incisional hernia repair with mesh in 2004 (?) with revision in 2021
#PFO closure in 2008 at [facility]
#Chronic pain-narcotic dependent for management
#Ex Smoker
#DVT prophylaxis: Lovenox. Restart Xarelto if OK with surgeon
#CODE STATUS: Full code
D/W Surgeon
Anticipated Discharge: Within 24 hours
Subjective/Interval History
-
Date of Service: May 23, 2024
Objective Data
-
Labs:
Laboratory Results
05/23/24
05:21
WBC 9.4
Hgb 13.2
Hct 41.3
Plt Count 576 H
Sodium 140
Potassium 5.4 H
Chloride 103
Carbon Dioxide 30
BUN 9
Creatinine 0.7
Glucose 81
Calcium 8.5
Vital Signs:
Vital Signs
Temp Pulse Resp BP Pulse Ox
97.9 F 57 15 141/90 97
05/23/24 07:05 05/23/24 07:05 05/23/24 07:05 05/23/24 07:05 05/23/24 09:46
I&O
05/22/24 05/23/24 05/24/24
06:59 06:59 06:59
Intake Total 1740 / 1740 940 / 940
Output Total
Balance 1730 / 1730 930 / 930
--- NOTE | 2024-05-23 11:30 | WOUNDNOTE ---
WOC RN note: Dr. Sebastian confirmed abdominal wound vac order is use black foam, vac pump setting 125mmhg continuous, change q 48-[address] Sebastian stated he plans to change the next vac dressing change on Thu.
--- NOTE | 2024-05-23 11:46 | VNURNOTE ---
Home Health Liaison met with patient at bedside to discuss [facility] nurse/therapy, visits, schedule and homebound status. Patient is agreeable and understands that visits at home will be 2-3 x per week to assess and teach medical and provide wound vac
management.
[facility] brochure provided with contact information. Patient is aware that [facility] will contact them for start of care in 1-2 days after discharge from .
[facility] referral completed in [facility].
--- NOTE | 2024-05-23 12:13 | WOUNDNOTE ---
WOC RN Note: Faxed [facility] vac paperwork to Amelie Camacho from /[employer].
[2024-05-23] MEDS: NORVASC 5 MG PO (12:56)
[2024-05-23] MEDS: LOKELMA 10 GRAM PO (12:56)
[2024-05-23] MEDS: XARELTO 20 MG PO (12:57)
--- NOTE | 2024-05-23 15:26 | PN.CDI ---
CDI
- -
CDI:
Physician Documentation Request
Admit Date: 05/18/24 22:57
Dear Doctor Romulo,
Patient admitted for wound infection
05/20 Operative Report: 'Avril were removed from the midline incision and the skin was bluntly debrided digitally. The base of the wound revealed intact closure and some healthy granulation tissue, scant seropurulent fluid was noted.'
Could you provide, in the progress notes further clarification regarding the debridement.
Please specify the type of debridement performed:
1. Excisional Debridement - defined as removal by excision of devitalized tissue, necrosis or slough
2. Non-excisional debridement - defined as removal of devitalized tissue, necrosis or slough by such methods as irrigation, brushing, scrubbing or washing.
If the debridement was excisional, please also include:
1. Type of instrument used (#11 blade, #15 blade etc.)
2. What was excised (necrotic tissue, gangrenous tissue, slough etc.)
For excisional or non-excisional, please also include:
1. Depth of debridement (skin, subcutaneous tissue, fascia, muscle, bone etc)
2. Size and appearance of the wound (L, W, D, color of wound, drainage)
Use of terms such as suspected, likely, concern for, or probable (associated with a specific diagnosis that is being evaluated, monitored, or treated as if it exists) are acceptable and can be coded in the inpatient setting, when documented at the
time of discharge.
Thank you,
Delmis Lang RN, BSN
CDI Specialist
Available via [facility] text
Please use your independent medical judgment in providing your response.
[2024-05-24] MEDS: ZOSYN 50 IV ×4 (01:02→20:25)
[2024-05-24] MEDS: ROXICODONE 10 MG PO ×4 (01:05→20:24)
[2024-05-24 03:02] VITALS: BP 129/96
[2024-05-24 05:31] VITALS: BMI 22.7
--- NOTE | 2024-05-24 06:00 | W.PN.HOSP.TC ---
Today's Communication/Plan
-
cont abx as per ID
Assessment / Plan
Assessment / Plan
Physical Exam
CVS: S1-S2 normal
Chest: CTA B/L
Abdomen:wound vac in place, drain with discharge
Extremities: No edema
Neuro: AO3
#Intra-abdominal abscess
-Suspected to be due to infected hernia repair mesh; started on broad-spectrum antibiotics and antifungal
-S/P laparoscopic converted to open cholecystectomy for acute gangrenous calculous cholecystitis 04/30/24
-S/P Exp lap and repair of small bowel enterotomy 04/30/24, complicated cholecystectomy with small bowel enterotomy repair and subsequent drain placement for abscess
-10 mL of drain output recorded, no purulence detected; Cultures showing C. albicans
-S/P Local wound exploration with washout in the OR under sedation 05/20/24
-Mesh may need to come out eventually
-Wound VAC placed Thursday
-Dressing changes per surgery
-Continue fluconazole and Zosyn for now
#Hypertension-Restart losartan
#Paroxysmal atrial fibrillation
-Not on rate controlling meds as OP
-S/P PVI 2018; Non-valvular
-Restart Xarelto when Ok with surgeon
#Thrombocytosis
-reactive 2/2 infection
-Trend CBC
#H/O NHL
-Status post chemotherapy and radiation in 2004
#ALL S/P stem cell transplant (2022)
-Home medications include Iclusig (Held due to infection).
-Restart when WBC improved and infection clearing
#History of CVA (2008)
-No obvious deficits though may have Ptosis of right eye as symptom
#Small paraesophageal hernia-Continue PPI
# Hepatic steatosis per CT-outpatient GI follow-up
#Distal abdominal aortic aneurysm 2.7 cm,
#Right iliac artery aneurysm 2.7 cm
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
-vascular surgery follow-up as outpatient-Pt aware
#History of splenectomy in 2004 with injury to stomach and exploratory laparotomy and repair at [facility]
#Incisional hernia repair with mesh in 2004 (?) with revision in 2021
#PFO closure in 2008 at [facility]
#Chronic pain-narcotic dependent for management
#Ex Smoker
#DVT prophylaxis: Lovenox. Restart Xarelto if OK with surgeon
#CODE STATUS: Full code
D/W Surgeon
discussed with patient and patient's daughter Angel.
I spent a total of 40 minutes with the patient or on the floor. More than 50% of this time involved counseling and coordination of care.
Anticipated Discharge: Within 24 hours
Subjective/Interval History
-
Date of Service: May 24, 2024
No acute distress sitting up comfortably in chair. Tolerating diet. Pain well control. Overall reports feeling well. Daughter Angel present during evaluation.
Objective Data
-
Vital Signs:
Vital Signs
Temp Pulse Resp BP Pulse Ox
98.4 F 82 18 129/96 94
05/24/24 03:02 05/24/24 03:02 05/24/24 03:02 05/24/24 03:02 05/24/24 03:02
I&O
05/22/24 05/23/24 05/24/24
06:59 06:59 06:59
Intake Total 1740 / 1740 940 / 940 1330 / 1330
Output Total
Balance 1730 / 1730 930 / 930 1330 / 1330
[2024-05-24 07:05] VITALS: BP 131/83
[2024-05-24] MEDS: PROTONIX 40 MG PO (07:28)
[2024-05-24] MEDS: NORVASC 5 MG PO (07:28)
[2024-05-24] MEDS: SENOKOT 8.6 MG PO ×2 (07:29→20:26)
[2024-05-24] MEDS: XARELTO 20 MG PO (07:29)
[2024-05-24] MEDS: ZOVIRAX 400 MG PO ×2 (07:29→20:25)
[2024-05-24] MEDS: DIFLUCAN 400 MG PO (07:29)
--- NOTE | 2024-05-24 07:41 | WOUNDNOTE ---
WANDY RN NOTE: [facility] vac approved.
[2024-05-24 11:00] VITALS: BP 135/93
--- NOTE | 2024-05-24 11:15 | W.PN.GS2 ---
Today's Communication / Plan
-
IV abx per ID
Wound vac
Reg diet
xarelto
Assessment / Plan
-
63M admitted status post laparoscopic converted to open cholecystectomy and subsequent laparotomy repair of small bowel enterotomy with intra-abdominal fluid collection and surgical site infection
Remote past surgical history including laparotomy, splenectomy, incisional hernia repairs with mesh which remains in place (reviewing operative report PTFE and polypropylene)
s/p IR drain to post-op anterior intra-abdominal fluid collection -05/10/2024, Cultures: gaurang
POD #4 washout of incision with debridement
AFVSS
Leukopenia resolved, WBC WNL, persistent thrombocytosis, (history of splenectomy)
OR cx pending - gaurang
Plan:
-Appreciate ID recs
-Continue regular diet
-Vac applied at bedside uneventfully - next change tomorrow, Thursday
-Will be ready for DC with home wound care when we have final recs for antibiotics, ID assistance is appreciated
-Potential for DC home tomorrow
Subjective Data
-
Date of Service: May 24, 2024
AFVSS, ambulating, voiding, jorge PO, pain controlled
Objective Data
-
Intake and Output
05/23/24 05/24/24 05/25/24
06:59 06:59 06:59
Intake Total 940 / 940 1330 / 1330
Output Total
Balance 930 / 930 1330 / 1330
Intake:
Oral fluids 840 / 840 1180 / 1180
IV piggybacks 100 / 100 150 / 150
Output:
Drain Output (Total)
Right Lower Abdomen Raymond-
Portillo
Other:
Number of approximated MODERATE 2 2
amounts of urine
Number of approximated LARGE 1
amounts of urine
Vital Signs
Temp Pulse Resp BP Pulse Ox
98.2 F 61 16 131/83 96
05/24/24 07:05 05/24/24 07:28 05/24/24 07:05 05/24/24 07:28 05/24/24 09:25
Lab Results
05/23/24 05:21
05/23/24 05:21
Calcium 8.5 mg/dl (8.4-10.2) 05/23/24 05:21
Total Bilirubin 0.4 mg/dl (0.2-1.3) 05/18/24 17:37
AST 39 U/L (17-59) 05/18/24 17:37
ALT 29 U/L (0-50) 05/18/24 17:37
Alkaline Phosphatase 173 U/L (38-126) H 05/18/24 17:37
Total Protein 7.1 g/dl (6.3-8.2) 05/18/24 17:37
Albumin 4.1 g/dl (3.5-5.0) 05/18/24 17:37
Physical Exam
-
Gen: NAD
Abd: soft, aprop ttp, vac in place with good seal and function, drain purulent
--- NOTE | 2024-05-24 11:39 | W.PN.ID1 ---
Date of Service
Date of Service: May 24, 2024
Today's Communication
Will finalize home po antibiotics tomorrow.
Assessment / Plan
#Abd hernia mesh infection
Recent open holli (04/29) followed by small bowel enterotomy repair (04/30), dc'd home on Augmentin (05/05)
Complicated by midline incision drainage (+ C. albicans) and intra-abdominal abscess posterior to hernia mesh s/p perc drain Cx + C. albicans (05/10)
05/13 dc'd home on Augmentin x 2 weeks and fluconazole 400mg qd x 6 weeks then suppressive 100mg qd
05/18 Returned with fever, chills, worsening abd pain.
CT: decreased size of abscess posterior to mesh, no new fluid collections
# Hx splenectomy (2004)
# ALL s/p Stem cell transplant (2022) in remission
Plan:
- s/p OR 05/20 for Irrigation and debridement midline wound with wound vac application.
Wound cultures + C. albicans and few coag-neg staph, no anaerobes
- possible removal of infected abd mesh in about 2 months.
- Continue Fluconazole 400mg po qd past mesh removal.
- Awaiting Coag-neg staph susceptibility result. IF resistant to the usual abx's, will plan on short course po linezolid.
- Continue Zosyn for for now. Will finalize home po abx's tomorrow.
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
ALL s/p stem cells transplant (2022), in remission
CVA
Depression
Hx Non-Hodgkin lymphoma s/p chemo, XRT (2004)
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
Incision hernia repair with mesh 2006, revision 2021
PFO closure 2008
04/29/24 - Lap Holli converted to open 04/30 - Ex Lap with Small Bowel Enterotomy Repair 04/30
R TKR
Addendum Dictated by: Nini Saleh MD
Addendum Dictated Date & Time: 05/23/24476
Chief Complaint
-: Fever and Other (Abdominal abscess)
Subjective / Review of Systems
Feeling better today.
Vital Signs / Physical Exam
Vital Signs
Vital Signs
Temp Pulse Resp BP Pulse Ox
97.8 F 81 17 135/93 97
05/24/24 11:00 05/24/24 11:00 05/24/24 11:00 05/24/24 11:00 05/24/24 11:00
Physical Exam
Constitutional: No Acute Distress and Comfortable
Eyes: No Conjunctival Hemorrhage
Cardiovascular: Regular Rate and S1/S2
Pulmonary: Clear
Gastrointestinal: Soft, Non Tender, Non Distended and Other (MARY drain with cream-colored pus. Abd with wound vac.)
Extremities: Negative Edema
Neurological: AO x 3
Objective Data
Lab Data
Lab Results
05/23/24 05:21
05/23/24 05:21
Estimated Creat Clear 123 ml/min 05/23/24 05:21
Lactic Acid 0.9 mmol/L (0.7-2.0) 05/18/24 18:02
Total Bilirubin 0.4 mg/dl (0.2-1.3) 05/18/24 17:37
AST 39 U/L (17-59) 05/18/24 17:37
ALT 29 U/L (0-50) 05/18/24 17:37
Alkaline Phosphatase 173 U/L (38-126) H 05/18/24 17:37
Most recent labs reviewed.
Micro Results:
05/20/24 09:30 Anaerobic Culture - Final
Abdomen NO ANAEROBES ISOLATED
05/20/24 09:30 Wound Culture - Preliminary
Abdomen Coni albicans
Coagulase neg. staphylococcus
Gram Stain - Preliminary
05/18/24 18:02 Blood Culture - Final
Blood/Venous No Growth - Final Report
05/18/24 17:37 Blood Culture - Final
Blood/Venous No Growth - Final Report
05/18/24 20:59 Wound Culture - Final
Abdomen Coni albicans
Gram Stain - Final
05/18/24 23:34 MRSA Screen - Final
Nose No Methicillin Resistant Staphylococcus aureus isolated.
05/18/24 17:37 Influenza Types A & B ([place]) - Final
Nasal Swab Negative for Influenza A & B, NAAT
Negative results must be combined with clinical observations
and patient history.
Nucleic Acid Amplification test (NAAT)performed on the
[employer] platform.
Imaging:
05/18/2024-CT abdomen/pelvis: Abscess of the anterior mid abdomen deep to the midline incision and hernia mesh with a percutaneous drainage catheter in place, decreased in size compared to the CT abdomen/pelvis from 05/09/2024. Small abscess in the
gallbladder fossa, also decreased in size.
Care Review
Plan reviewed with: Physician (Dr. Sebastian.)
--- NOTE | 2024-05-24 11:52 | CM ---
Patient seen at bedside.
Spoke with Dr. Saleh regarding antibiotics
Stated will transition po antibiotic at d/c
[facility] will accept patient - wound vac
notified Renee liaison tentative d/c tomorrow
tt JAIDA Vasquez, left message on ext [phone]
PLAN: home, [facility]
to transport
[2024-05-24 15:05] VITALS: BP 127/89
[2024-05-24 18:54] VITALS: BP 113/82
[2024-05-24 23:46] VITALS: BP 127/83
[2024-05-25] MEDS: ZOSYN 50 IV ×2 (02:33→08:49)
[2024-05-25] MEDS: ROXICODONE 10 MG PO ×3 (02:45→15:35)
[2024-05-25 03:05] VITALS: BP 133/91
--- NOTE | 2024-05-25 04:41 | DOWNTIME ---
There was a [employer] Client Social Services Manager Downtime on 05/25/2024 from 0100 to 05/25/2024 at 0350. Downtime documentation of patient's care, including medication administrations, has been reconciled in the electronic record per guidelines. Refer to the
patient's paper chart under the miscellaneous tab to see printed paper medication records and downtime forms.
[2024-05-25 06:00] VITALS: BMI 22.6
[2024-05-25 07:07] VITALS: BP 127/86
--- NOTE | 2024-05-25 07:09 | W.PN.HOSP.TC ---
Addendum entered and electronically signed by Carter Rodríguez MD 05/26/24 06:11:
mild hyperkalemia resolved
Original Note:
Today's Communication/Plan
-
discharge
Assessment / Plan
Assessment / Plan
Physical Exam
HEENT:normocephalic atraumatic PERRLA
CVS: S1-S2 normal
Chest: CTA B/L
Abdomen:wound vac in place
Extremities: No edema
Neuro: AO3
63M hx Gangrenous Cholecystitis Cholecystectomy ALL here for evaluation treatment abd abscess
#Intra-abdominal abscess
-Suspected to be due to infected hernia repair mesh; started on broad-spectrum antibiotics and antifungal
-S/P laparoscopic converted to open cholecystectomy for acute gangrenous calculous cholecystitis 04/30/24
-S/P Exp lap and repair of small bowel enterotomy 04/30/24, complicated cholecystectomy with small bowel enterotomy repair and subsequent drain placement for abscess
-10 mL of drain output recorded, no purulence detected; Cultures showing C. albicans
-S/P Local wound exploration with washout in the OR under sedation 05/20/24
-Mesh may need to come out eventually
-Wound VAC placed
-Dressing changes per surgery
ID eval appreciated
-cont Fluconazole 400 mg PO QD x6 wks, then 200 mg po QD suppressive therapy if mesh is not removed
-Levofloxacin 500 mg PO QD x6 weeks
-Metronidazole 500 mg BID x2 weeks
-outpt follow up with ID in 3-4 wks
#Hx Hypertension
BP well controlled at this time off home losartan
#Paroxysmal atrial fibrillation
-Not on rate controlling meds as OP
-S/P PVI 2018; Non-valvular
-Xarelto resumed, tolerating, cont
#Thrombocytosis
-likely reactive 2/2 infection
-monitor
#H/O NHL
-Status post chemotherapy and radiation in 2004
#ALL S/P stem cell transplant (2022)
-Home medications include Iclusig (Held due to infection).
-Restart when WBC improved and infection clearing
#History of CVA (2008)
#Small paraesophageal hernia-Continue PPI
# Hepatic steatosis per CT-outpatient GI follow-up
#Distal abdominal aortic aneurysm 2.7 cm,
#Right iliac artery aneurysm 2.7 cm
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
-vascular surgery follow-up as outpatient-Pt aware
#History of splenectomy in 2004 with injury to stomach and exploratory laparotomy and repair at [facility]
#Incisional hernia repair with mesh in 2004 (?) with revision in 2021
#PFO closure in 2008 at [facility]
#Chronic pain-narcotic dependent for management
#Ex Smoker
#DVT prophylaxis: Xarelto
#CODE STATUS: Full code
Medically stable for discharge home with home services and outpatient follow up recommendations.
Total Time Preparing Discharge ___50____ minutes including examination of the patient, summary of the hospital stay, instructions for continuing care to all relevant caregivers; and preparation of discharge records, prescriptions, and referral
forms if necessary.
Anticipated Discharge: Today
Subjective/Interval History
-
Date of Service: May 25, 2024
Seen and examined at bedside in no acute distress resting comfortably in bed. Denies significant pain and/or any new acute issues. Tolerating diet. Overall reports feeling well. Eager to go home.
Objective Data
-
Labs:
Laboratory Results
05/24/24 05/25/24
14:55 06:14
Sodium Cancelled Pending
Potassium Cancelled Pending
Chloride Cancelled Pending
Carbon Dioxide Cancelled Pending
BUN Cancelled Pending
Creatinine Cancelled Pending
Glucose Cancelled Pending
Calcium Cancelled Pending
Vital Signs:
Vital Signs
Temp Pulse Resp BP Pulse Ox
97.7 F 87 16 133/91 94
05/25/24 03:05 05/25/24 03:05 05/25/24 03:05 05/25/24 03:05 05/25/24 03:05
I&O
05/24/24 05/25/24 05/26/24
06:59 06:59 06:59
Intake Total 1330 / 1330 1200 / 1200
Output Total
Balance 1330 / 1330 1190 / 1190
[2024-05-25] MEDS: DIFLUCAN 400 MG PO (08:48)
[2024-05-25] MEDS: SENOKOT 8.6 MG PO (08:48)
[2024-05-25] MEDS: ZOVIRAX 400 MG PO (08:48)
[2024-05-25] MEDS: XARELTO 20 MG PO (08:49)
[2024-05-25] MEDS: NORVASC 5 MG PO (08:49)
[2024-05-25] MEDS: PROTONIX 40 MG PO (08:49)
--- NOTE | 2024-05-25 10:42 | WOUNDNOTE ---
[facility] RN note: Assisted Dr. Sebastian with patient's mid abdominal wound vac dressing change. Patient signed Proof of purchase ready home vac delivery form. Vac dressing connected to his Ready home vac. Wound pink with yellow tissue. Skin on sacrum and
heels intact. Patient reports a fair appetite. Patient tolerated vac dressing change fairly well. He received pain med prior to wound care. Instructed patient use of home vac, how to turn on/off wound vac, how to disconnect and reconnect vac tubing,
how to change canister, how to patch an air leak. Instructed patient to call or [employer] support 19/01 for vac pump problems. Patient aware the vac suction cannot be off more than 2 hours.
[2024-05-25 10:50] VITALS: BMI 22.6
[2024-05-25 11:05] VITALS: BP 128/83
[2024-05-25 11:07] LABS: Blood Urea Nitrogen 9 mg/dl (9-20); Calcium 8.8 mg/dl (8.4-10.2); Carbon Dioxide 29 mmol/L (22-30); Chloride 99 mmol/L (98-107); Estimated Creatinine Clearance 122 ml/min; Glucose 69 mg/dl (70-99); Potassium 5.1 mmol/L (3.5-5.1); Sodium 137 mmol/L (135-145); eGFR > 60.00
--- NOTE | 2024-05-25 11:46 | CM ---
Patient seen at bedside.
WOCN applied home vac
Referral in [facility] for [facility]
PLAN: home with [facility]
to transport
--- NOTE | 2024-05-25 12:44 | W.PN.GS2 ---
Today's Communication / Plan
-
DC
Assessment / Plan
-
63M admitted status post laparoscopic converted to open cholecystectomy and subsequent laparotomy repair of small bowel enterotomy with intra-abdominal fluid collection and surgical site infection
Remote past surgical history including laparotomy, splenectomy, incisional hernia repairs with mesh which remains in place (reviewing operative report PTFE and polypropylene)
s/p IR drain to post-op anterior intra-abdominal fluid collection -05/10/2024, Cultures: gaurang
POD #5 washout of incision with debridement
AFVSS
Leukopenia resolved, WBC WNL, persistent thrombocytosis, (history of splenectomy)
OR cx pending - gaurang and levaquin sensitive staph
Plan:
-Appreciate ID recs
-Plan for DC home with PO levaqquin and fluconazole
-Continue regular diet
-Vac changed at bedside uneventfully today - next change at home with VN this Thursday
-F/U with me in 2 weeks in office
Subjective Data
-
Date of Service: May 25, 2024
Improving. No complaints today. Pain controlled.
Objective Data
-
Intake and Output
05/24/24 05/25/24 05/26/24
06:59 06:59 06:59
Intake Total 1330 / 1330 1200 / 1200
Output Total
Balance 1330 / 1330 1190 / 1190
Intake:
Oral fluids 1180 / 1180 880 / 880
IV fluids (Total) 120 / 120
IV piggybacks 150 / 150 200 / 200
Output:
Drain Output (Total)
Right Lower Abdomen Raymond-
Portillo
Other:
Number of approximated MODERATE 2 3
amounts of urine
Vital Signs
Temp Pulse Resp BP Pulse Ox
97.9 F 70 18 128/83 94
05/25/24 11:05 05/25/24 11:05 05/25/24 11:05 05/25/24 11:05 05/25/24 11:05
Lab Results
05/23/24 05:21
05/25/24 06:14
Calcium 8.8 mg/dl (8.4-10.2) 05/25/24 06:14
Total Bilirubin 0.4 mg/dl (0.2-1.3) 05/18/24 17:37
AST 39 U/L (17-59) 05/18/24 17:37
ALT 29 U/L (0-50) 05/18/24 17:37
Alkaline Phosphatase 173 U/L (38-126) H 05/18/24 17:37
Total Protein 7.1 g/dl (6.3-8.2) 05/18/24 17:37
Albumin 4.1 g/dl (3.5-5.0) 05/18/24 17:37
Physical Exam
-
Gen: NAD
Abd: soft, approp ttp, vac in place to midline, drain with pus
--- NOTE | 2024-05-25 13:26 | W.PN.ID1 ---
Addendum entered and electronically signed by Nini Saleh MD 05/25/24 13:55:
I saw and evaluated the patient. I reviewed the resident�s note and agree with findings and plan as documented in the resident�s note.
#Abd hernia mesh infection
Recent open holli (04/29) followed by small bowel enterotomy repair (04/30), dc'd home on Augmentin (05/05)
Complicated by midline incision drainage (+ C. albicans) and intra-abdominal abscess posterior to hernia mesh s/p perc drain Cx + C. albicans (05/10)
05/13 dc'd home on Augmentin x 2 weeks and fluconazole 400mg qd x 6 weeks then suppressive 100mg qd
05/18 Returned with fever, chills, worsening abd pain.
CT: decreased size of abscess posterior to mesh, no new fluid collections
# Hx splenectomy (2004)
# ALL s/p Stem cell transplant (2022) in remission
Plan:
- s/p OR 05/20 for Irrigation and debridement midline wound with wound vac application.
Wound cultures + C. albicans and few coag-neg staph (sensitive to clinda and levofloxacin), no anaerobes
- possible removal of infected abd mesh in about 2 months.
-DC Zosyn
- Continue Fluconazole 400mg po qd x 6 weeks, then fluconazole 200mg po qd suppressive therapy if mesh is not removed.
-Levofloxacin 500mg po qd x 6 weeks. Will not continue for suppressive tx if mesh is not removed due to toxicities.
Discussed potential tendinitis/rupture, prolonged QTc, and C. diff.
- Metronidazole 500mg po bid x2 weeks.
-Follow up with me in 3-4 weeks.
Case discussed with Drs. Rodríguez and Romulo.
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
ALL s/p stem cells transplant (2022), in remission
CVA
Depression
Hx Non-Hodgkin lymphoma s/p chemo, XRT (2004)
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
Incision hernia repair with mesh 2006, revision 2021
PFO closure 2008
04/29/24 - Lap Holli converted to open 04/30 - Ex Lap with Small Bowel Enterotomy Repair 04/30
R TKR
Original Note:
Date of Service
Date of Service: May 25, 2024
Today's Communication
d/c home on Fluconazole 400mg QD x 6 weeks , Levaquin 500mg QD x 6 weeks, and Metronidazole 500mg BID x 2 weeks
Assessment / Plan
#Abd hernia mesh infection
Recent open holli (04/29) followed by small bowel enterotomy repair (04/30), dc'd home on Augmentin (05/05)
Complicated by midline incision drainage (+ C. albicans) and intra-abdominal abscess posterior to hernia mesh s/p perc drain Cx + C. albicans (05/10)
05/13 dc'd home on Augmentin x 2 weeks and fluconazole 400mg qd x 6 weeks then suppressive 100mg qd
05/18 Returned with fever, chills, worsening abd pain.
CT: decreased size of abscess posterior to mesh, no new fluid collections
# Hx splenectomy (2004)
# ALL s/p Stem cell transplant (2022) in remission
Plan:
- s/p OR 05/20 for Irrigation and debridement midline wound with wound vac application.
Wound cultures + C. albicans and few coag-neg staph, no anaerobes
- possible removal of infected abd mesh in about 2 months.
- Continue Fluconazole 400mg po qd past mesh removal.
- s/p OR Abdominal cultures return positive for Coni and Stap Epidermidis.
- will transition from Zosyn to Oral on discharge
-Will discharge home on Fluconazole 400mg QD x 6 weeks and Levaquin 500mg QD x 6 weeks, and Metronidazole 500mg BID x 2 weeks
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
ALL s/p stem cells transplant (2022), in remission
CVA
Depression
Hx Non-Hodgkin lymphoma s/p chemo, XRT (2004)
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
Incision hernia repair with mesh 2006, revision 2021
PFO closure 2008
04/29/24 - Lap Holli converted to open 04/30 - Ex Lap with Small Bowel Enterotomy Repair 04/30
R TKR
Addendum Dictated by: Nini Saleh MD
Addendum Dictated Date & Time: 05/23/24
Chief Complaint
-: Fever and Other (Abdominal abscess)
Subjective / Review of Systems
Review of Systems: No Fever and No Chills
Vital Signs / Physical Exam
Vital Signs
Vital Signs
Temp Pulse Resp BP Pulse Ox
97.9 F 70 18 128/83 94
05/25/24 11:05 05/25/24 11:05 05/25/24 11:05 05/25/24 11:05 05/25/24 11:05
Physical Exam
Constitutional: No Acute Distress and Comfortable
Eyes: No Conjunctival Hemorrhage
Cardiovascular: Regular Rate and S1/S2
Pulmonary: Clear
Gastrointestinal: Soft, Non Tender, Non Distended and Other (MARY drain with light colored pus)
Extremities: Negative Edema
Neurological: AO x 3
Objective Data
Lab Data
Lab Results
05/23/24 05:21
05/25/24 06:14
Estimated Creat Clear 122 ml/min 05/25/24 06:14
Lactic Acid 0.9 mmol/L (0.7-2.0) 05/18/24 18:02
Total Bilirubin 0.4 mg/dl (0.2-1.3) 05/18/24 17:37
AST 39 U/L (17-59) 05/18/24 17:37
ALT 29 U/L (0-50) 05/18/24 17:37
Alkaline Phosphatase 173 U/L (38-126) H 05/18/24 17:37
Most recent labs reviewed.
Micro Results:
05/20/24 09:30 Wound Culture - Final
Abdomen Staphylococcus epidermidis
Coni albicans
Gram Stain - Final
05/20/24 09:30 Anaerobic Culture - Final
Abdomen NO ANAEROBES ISOLATED
05/18/24 18:02 Blood Culture - Final
Blood/Venous No Growth - Final Report
05/18/24 17:37 Blood Culture - Final
Blood/Venous No Growth - Final Report
05/18/24 20:59 Wound Culture - Final
Abdomen Coni albicans
Gram Stain - Final
05/18/24 23:34 MRSA Screen - Final
Nose No Methicillin Resistant Staphylococcus aureus isolated.
05/18/24 17:37 Influenza Types A & B ([place]) - Final
Nasal Swab Negative for Influenza A & B, NAAT
Negative results must be combined with clinical observations
and patient history.
Nucleic Acid Amplification test (NAAT)performed on the
[employer] platform.
Imaging:
05/18/2024-CT abdomen/pelvis: Abscess of the anterior mid abdomen deep to the midline incision and hernia mesh with a percutaneous drainage catheter in place, decreased in size compared to the CT abdomen/pelvis from 05/09/2024. Small abscess in the
gallbladder fossa, also decreased in size.
--- NOTE | 2024-05-25 13:36 | PN.CDI ---
CDI
- -
CDI:
Physician Documentation Request
Admit Date: 05/18/24 22:57
Dear Doctor Mracos,
Patient admitted for intraabdominal abscess.
05/23 Hospitalist PN: 'Patient has hypokalemia therefore we will give Lokelma 1 dose'
Laboratory Tests
05/21/24 05/23/24 05/25/24
06:34 05:21 06:14
Potassium 5.4 H 5.4 H 5.1
Based on the above, could you clarify in the progress notes, the appropriate diagnosis, if significant, that supports the above abnormalities and additional evaluation, monitoring and/or treatment rendered:
Hyperkalemia
Abnormal lab value insignificant
Other
Use of terms such as suspected, likely, concern for, or probable (associated with a specific diagnosis that is being evaluated, monitored, or treated as if it exists) are acceptable and can be coded in the inpatient setting, when documented at the
time of discharge.
Thank you,
Delmis Lang RN, BSN
CDI Specialist
Available via [employer] text
Please use your independent medical judgment in providing your response.
[2024-05-25] MEDS: LEVAQUIN 500 MG PO (14:24)
[2024-05-25 15:30] VITALS: BP 124/85
--- NOTE | 2024-05-25 15:55 | W.DCSUMMARY ---
Discharge Summary
Discharge Data
Date of Admission: 05/18/24
Date of Discharge: 05/25/24
-
Pending Results: No
Discharge Plan
-
Patient Disposition: Home with Home Care
Discharge Diagnosis/Procedures: Intra-abdominal abscess Suspect due to infected hernia repair mesh
status post laparoscopic converted to open cholecystectomy for acute gangrenous calculous cholecystitis 04/30/24
status post Exploratory laparotomy and repair of small bowel enterotomy 04/30/24
complicated cholecystectomy with small bowel enterotomy repair and subsequent drain placement for abscess
Hypertension
Paroxysmal atrial fibrillation
Thrombocytosis likely reactive 2/2 infection
ALL S/P stem cell transplant (2022)
History of Stroke (2008)
Small paraesophageal hernia
Hepatic steatosis
Distal abdominal aortic aneurysm 2.7 cm
Right iliac artery aneurysm 2.7 cm
Mild aneurysmal dilatation of the common femoral arteries 1.5 cm on the right and 2 cm on the left
History of splenectomy in 2004 with injury to stomach and exploratory laparotomy and repair at [facility]
Incisional hernia repair with mesh in 2004 and revision in 2021
PFO closure in 2008 at [facility]
Chronic pain-narcotic dependent
Ex Smoker
Condition: Fair
Diet: Regular
Activity: As tolerated
Driving Restrictions: As prior to admission
Bathing Restrictions: None
Blood Work: Repeat CBC and BMP with primary care provider in 1 week of discharge.
Other Services: VN
Activity Restrictions/Additional Instructions:
Wound Care Instructions
Mid abdominal wound-Wound Vac therapy, use black foam, vac pump setting 125mmhg continuous, change q 48-72 hours. Call or [employer] support for vac pump concerns [phone].
Follow up with Dr. Sebastian.
Follow up with Dr Blanc. You have small aneurysms of the aorta, iliac artery and femoral artery.
Also follow-up with a GI doctor to evaluate and workup fatty liver seen on CT, this is lower priority right now.
For intra-abdomen abscess infection the following treatment has been prescribed/recommended:
- Continue Fluconazole 400mg po daily x 6 weeks, then fluconazole 200mg po daily suppressive therapy if mesh is not removed (follow up with primary or Infectious disease if refill is necessary).
-Levofloxacin 500mg po Daily x 6 weeks
-Metronidazole 500mg po Twice a day x2 weeks.
-Follow up with Infectious disease in 3-4 weeks of discharge.
Losartan has been discontinued in favor of Amlodipine, for blood pressure control, due to hyperkalemia since resolved.
Home Inclusig remains on hold at this time due to infection as above. Please follow up with your preparation operator/oncologist to determine when safe to resume, if necessary to resume, and/or if an alternative medication is required instead.
Please take medications as prescribed/recommended and follow up with primary care provider and/or other health care provider involved in your care for refills and/or further adjustment to your medication regimen as necessary.
Referrals:
Phil Blanc III, MD [Active] -
Mega Escudero, [Family Provider] - in less than 1 week
Lupillo Sebastian MD [Active] - in two weeks (Please bring vac dressing supplies with you, we will change the vac at the office. You can return to work when you feel ready, but yuou must avoid straining/heavy lifting (nothing over 10-20lb))
Love Sosa MD [Active] - in one month
Nini Saleh MD [Active] - in three to four weeks
Prescriptions:
New
oxycodone 5 mg tablet
5 - 10 mg PO Q4HPRN PRN (Reason: moderate to severe pain) Qty: 40 0RF
metronidazole 500 mg Tablet
500 mg PO BID 14 Days Qty: 28 0RF
amlodipine 5 mg Tablet
5 mg PO DAILY 30 Days Qty: 30 0RF
levofloxacin 500 mg Tablet
500 mg PO DAILY 42 Days Qty: 42 0RF
fluconazole 200 mg Tablet
400 mg PO DAILY 42 Days Qty: 84 0RF
Continued
acyclovir 400 mg Tablet
400 mg PO BID
tetrahydrozoline [Visine] 0.05 % Drops
1 drp BOTH EYES DAILYPRN PRN (Reason: dry eyes)
Xarelto 20 mg Tablet
20 mg PO DAILY
polyethylene glycol 3350 [HealthyLax] 17 gram powder in packet
17 g PO DAILY
acetaminophen [Tylenol Extra Strength] 500 mg tablet
1,000 mg PO Q8H
pantoprazole 40 mg tablet,delayed release (DR/EC)
40 mg PO DAILY
sodium chloride 0.9 % (flush) [Normal Saline Flush] Syringe
10 ml intra-catheter DAILY 30 Days Qty: 300 0RF
Rx Instructions:
Flush drain toward the body daily with 10ml of sterile saline
Held
Iclusig 15 mg Tablet
15 mg PO DAILY
Hold Instructions: Follow up with your Timekeeping Supervisor/Oncologist to determine when safe to resume, if necessary to resume, and/or if an alternative medication is required instead.
Discontinued
losartan 50 MG tablet
50 mg PO DAILY
amoxicillin-pot clavulanate 875-125 mg tablet
1 tab PO Q12 Qty: 28 0RF
oxycodone 5 mg tablet
5 - 10 mg PO Q4HPRN PRN (Reason: moderate to severe pain) Qty: 40 0RF
fluconazole 200 mg Tablet
400 mg PO DAILY 42 Days Qty: 84 0RF
Discharge Orders:
Discharge Patient (As Directed); Ordered 05/25/24
Ordered By: Carter Rodríguez
Discharge Date and Time
Print Language: [place]
--- NOTE | 2024-05-25 16:41 | WOUNDNOTE ---
WO RN Note: Notified [employer] via [employer] of stop bill date of hospital vac ulta pump as of 05/25/24 and seed cone picker (work order # [id number]). Faxed patient signed proof of deliver form for Ready [facility]entiary vac equipment (serial #[id number]) to
Amelie Camacho from [employer].
== END 2024-05-25 16:35 | disposition home health service (06) | DRG 856 ==
LOC: 2 NORTH 22:57
PROVIDERS: Hospitalist; Internal Medicine; Physician Assistant; Surgery; ADMITTING PHYSICIAN Hospitalist; ATTENDING PHYSICIAN Internal Medicine; CONSULT PHYSICIAN Surgery; EMERGENCY PHYSICIAN Emergency Medicine; FAMILY PHYSICIAN Family Medicine; OTHER PHYSICIAN Internal Medicine Infectious Disease
PROC: 3E10X8Z Irrigation of Skin and Mucous Membranes using Irrigating Substance (ICD-10-PCS; 2024-05-20)
PROC: 2W13X6Z Compression of Abdominal Wall using Pressure Dressing (ICD-10-PCS; 2024-05-20)
PROC: 0JD80ZZ Extraction of Abdomen Subcutaneous Tissue and Fascia, Open Approach (ICD-10-PCS; 2024-05-20)
DX: T81.43XA Infection following a procedure, organ and space surgical site, initial encounter (principal); K65.1 Peritoneal abscess; T85.79XA Infection and inflammatory reaction due to other internal prosthetic devices, implants and grafts, initial encounter; C85.9A Non-Hodgkin lymphoma, unspecified, in remission; B37.89 Other sites of candidiasis; Z94.84 Stem cells transplant status; F11.20 Opioid dependence, uncomplicated; I48.0 Paroxysmal atrial fibrillation; E78.00 Pure hypercholesterolemia, unspecified; H26.9 Unspecified cataract; G89.29 Other chronic pain; K44.9 Diaphragmatic hernia without obstruction or gangrene; K76.0 Fatty (change of) liver, not elsewhere classified; F32.A Depression, unspecified; D75.839 Thrombocytosis, unspecified; I71.40 Abdominal aortic aneurysm, without rupture, unspecified; E87.6 Hypokalemia; I72.3 Aneurysm of iliac artery; E87.5 Hyperkalemia; B95.7 Other staphylococcus as the cause of diseases classified elsewhere; Y83.8 Other surgical procedures as the cause of abnormal reaction of the patient, or of later complication, without mention of misadventure at the time of the procedure; Y92.9 Unspecified place or not applicable; I10 Essential (primary) hypertension; Z87.891 Personal history of nicotine dependence; Z87.74 Personal history of (corrected) congenital malformations of heart and circulatory system; Z86.73 Personal history of transient ischemic attack (TIA), and cerebral infarction without residual deficits; Z85.6 Personal history of leukemia; Z90.81 Acquired absence of spleen; Z90.49 Acquired absence of other specified parts of digestive tract; Z79.01 Long term (current) use of anticoagulants; Z92.21 Personal history of antineoplastic chemotherapy; Z92.3 Personal history of irradiation; Z11.52 Encounter for screening for COVID-19
CPT/HCPCS: 71046; 74177; 80048; 80053; 81003; 83605; 85025; 85027; 87040; 87070; 87075; 87147; 87186; 87205; 87502; 87811; 93005; 96365; 96375; 99285; Q9967

== ENCOUNTER 2024-07-07 22:46 | Inpatient (IN) | payer OTHER, SELFPAY ==
[2024-07-07 16:50] VITALS: BP 152/96
[2024-07-07 21:20] VITALS: BMI 23.5
--- NOTE | 2024-07-07 21:31 | ED.GENMED ---
History of Present Illness
General
Chief Complaint: Skin Problem
Source: patient
Exam Limitations: none
Time Seen by Provider: 07/07/24 20:53
History of Present Illness
History of Present Illness:
This is a 63 year old male that comes in for admission. States that he is going to have surgery tomorrow by Dr. Sebastian. States that they are unable to take his Gallbladder out laparoscopic. States that he has had 2 surgery so far and there is mesh
in the abd. States that his wound is not healing. States that he has abd pain. States that Dr. Sebastian told him to come to the ER for admission and he will take him to the OR tomorrow. Denies any fever, chills, chest pain, SOB, nausea, vomiting,
diarrhea, headache, dizziness.
Past History
Past History
ED Past Medical History: Arrthythmia (AF), Cancer (nonhodgkins lymphoma), CVA, HTN, Hypercholesterolemia and Other (Neuropathy, Bowel obstruction, Ptosis right eye)
ED Past Surgical History: Cardiac (Ablation), Orthopedic (Right knee replacement) and Other (Splenectomy, Stomach repair, hernia repair, PFO closure, Cataracts, Bone marrow transplant)
Social History
Tobacco: Former smoker
Alcohol: Daily (1-2 glasses of wine)
Drug: None
Personal:
Living: with family
Review of Systems
Review of Systems
All Other Systems: ROS reviewed and negative except as documented in HPI and ROS
Constitutional: Reports no symptoms; Denies fever or chills
EENT: Reports no symptoms
Respiratory: Reports no symptoms; Denies cough or trouble breathing
Cardiac: Reports no symptoms; Denies chest pain
ABD/GI: Reports abdominal pain; Denies nausea, vomiting or diarrhea
: Reports no symptoms; Denies dysuria, frequency or urgency
Musculoskeletal: Reports no symptoms
Skin: Reports no symptoms
Neurological: Reports no symptoms; Denies dizzy or headache
Psychiatric: Reports no symptoms
Phy Exam
General Physical Exam
General Presentation: no apparent distress
General age: appears stated age
General Skin: warm and dry
General Habitus: normal
General Mental: alert
General Hydration: dry mucous membranes
ENT Exam
ENT Exam: TM's normal, pharynx normal and neck supple
Cardiovascular Exam
Cardiovascular Exam: regular rate/rhythm, no edema and normal peripheral pulses
Pulmonary Exam
Pulmonary Exam: lungs clear, no respiratory distress, no rales, chest non tender, no crackles, no rhonchi, no wheezing and no cough
Gastrointestinal Exam
Gastrointestinal Exam: normal bowel sounds, soft, no organomegaly, no pulsatile mass, non distended, tender (Generalized tenderness with light papation. ) and other (Mid abd incision with wound vac noted in mid abd. Small lower incision line
dressing noted. Right lateral MARY drain noted with site clean and dry. )
Musculoskeletal Exam
Musculoskeletal Exam: full ROM and no edema
Skin Exam
Skin Exam: normal color, warm/dry, no petechia and redness (Mid abd under Tegaderm dressing)
Psychiatric Exam
Psychiatric Exam: normal mood/affect
Course
Orders/Labs/Results
Orders:
Orders
07/07/24 21:38
0.9% Sodium Chloride 1000 ml [Nss] 1,000 ml IV BOLUS
07/07/24 21:59
HYDROmorphone [Dilaudid] 0.5 mg IV NOW STA
07/07/24 22:00
Complete Blood Count/With Diff Urgent
Comprehensive Metabolic Panel Urgent
Lactic Acid Urgent
07/07/24 22:10
Admit/Transfer Patient As Directed
Co-Sign Provider:
Level of Care: Inpatient admission
Assign to:: Telemetry
Physician / Group: Preet
Diagnosis: Intra-Abdominal Infection
Reason for Telemetry: Arrhythmia
Date to Stop Telemetry: 07/10/24
Time to Stop Telemetry: 11:00
Reason for Hospitalization: Intra-Abdominal Infection
Expected length of stay greater than two midnights?: Yes
ELOS- Estimated Length of Stay in days: 5
I certify the patient meets the requirements for IP care: Yes
07/07/24 22:11
PRN Pain Medication Management As Directed
May give lesser potent ordered pain med per pt: Yes
preference::
Protocol:: Medication orders for pain may be administered in a
manner that supports deferring to patient preference
when the pt is:
- Requesting an ordered lesser potent pain medication.
Least to most potent pain medications are defined
as: acetaminophen < NSAID < tramadol < opioids
(morphine, oxycodone, hydromorphone).
- Requesting a lesser dose of the same medication IF
ORDERED.
- Requesting a less intrusive route of administration
if both routes are prescribed by the provider (PO <
IV).
07/07/24 22:13
Code Status As Directed
Resuscitation Status: Full Code
07/10/24 11:00
DC Protocol for Telemetry ONCE
Abnormal Lab Results
07/07/24
22:00
WBC 11.8 H 10^3/uL
(4.8-10.8)
RBC 4.04 L 10^6/uL
(4.70-6.10)
Hgb 12.5 L g/dL
(13.0-18.0)
Hct 37.5 L %
(39.0-52.0)
RDW 16.3 H %
(11.5-14.5)
Plt Count 521 H 10^3/uL
(130-400)
Absolute Lymphs (auto) 4.2 H 10^3/uL
(1.2-3.4)
Absolute Monos (auto) 1.8 H 10^3/uL
(0.1-0.6)
Monocytes % 15.2 H %
(1.7-9.3)
Creatinine 0.6 L mg/dL
(0.7-1.3)
Calcium 8.0 L mg/dl
(8.4-10.2)
Total Protein 5.4 L g/dl
(6.3-8.2)
Albumin 3.1 L g/dl
(3.5-5.0)
07/07/24 22:00
07/07/24 22:00
Leukocytosis, H/H slightly low. Thrombocytosis, Calcium slightly low. Total protein low. Albumin slightly low.
Vital Signs
Initial and Last Documented VS:
Initial Vital Signs
Temp Pulse Resp BP Pulse Ox
98.0 F 104 16 152/96 99
07/07/24 16:50 07/07/24 16:50 07/07/24 16:50 07/07/24 16:50 07/07/24 16:50
Last Documented Vital Signs
Temp Pulse Resp BP Pulse Ox
98.0 F 104 16 152/96 99
07/07/24 16:50 07/07/24 16:50 07/07/24 16:50 07/07/24 16:50 07/07/24 16:50
MDM/Problems Addressed
Differential Diagnosis Includes:
Surgical procedure
MDM/Problems Addressed:
This is a 63 year old male that comes in with c/o of needing admission. States that he was sent in by Dr. Sebastian and is going to have surgery tomorrow. States that his would no the abd is not healing.
Will check labs and admit. Hospitalist notified.
Chronic conditions affecting care:
NA
Acute Exacerbation and/or Progression of Chronic Illness:
NA
*Pulse Oximetry
Patient hypoxic: no
*EKG
Interpreted by ED Provider?: NA
Rate: EKG- N/A
*Industrial Pharmacist Interpretation
Rate: Industrial Pharmacist- N/A
*Critical Care Note
Total Time (30-74mins, 75-104mins- exclusive of procedures): Not Applicable
ED Attending Note
-
Portions of this chart may have been created with voice recognition software.� Occasional wrong word or��sound alike� substitutions may have occurred due to the inherent limitations of voice recognition software.
Discharge Plan
Departure
Patient Disposition: Admit
Date of Disposition: 07/07/24
Time of Disposition: 21:43
Admit to: Med/Surg
Presentation/result/management discussed w/ accepting MD/DO: Hospitalist
Patient with high blood pressure during this ER visit?: Yes
Condition: Good
Covid-19: Not Applicable
Discharge Problem:
Non-healing surgical wound
Prescriptions:
No Action
tetrahydrozoline [Visine] 0.05 % Drops
1 drp BOTH EYES DAILYPRN PRN (Reason: dry eyes)
Xarelto 20 mg Tablet
20 mg PO DAILY
polyethylene glycol 3350 [HealthyLax] 17 gram powder in packet
17 g PO DAILYPRN PRN (Reason: constipation)
acetaminophen [Tylenol Extra Strength] 500 mg tablet
1,000 mg PO Q8HPRN PRN (Reason: mild pain)
oxycodone 5 mg tablet
5 - 10 mg PO Q4HPRN PRN (Reason: moderate to severe pain) Qty: 30 0RF
acyclovir 800 mg Tablet
800 mg PO BID
fluconazole 200 mg tablet
200 mg PO DAILY
Referrals:
Mega Escudero DO [Family Provider] -
Interventions
Interventions:
*Risk Screen - Suicide Last Done: 07/07/24 21:20
*General Assessment Last Done: 07/07/24 21:20
*Neglect/Abuse Screening Last Done: 07/07/24 21:20
ED-Skin Assessment Last Done: 07/07/24 21:20
Discharge Date and Time
Print Language: KYRGYZ
[2024-07-07] MEDS: NSS 1000 IV (22:03)
[2024-07-07] MEDS: DILAUDID 0.5 MG IV (22:10)
--- NOTE | 2024-07-07 22:16 | HPS.HSE ---
Family Physician
-
Family Physician: Mega Escudero
Chief Complaint
-
Abd Pain / Wound
History of Present Illness
Patient is a 63y M with PMH significant for A-Fib, hypertension and complicated cholecystitis with post-op intra-abdominal infection(s) who presents to ED complaining of abdominal pain and wound drainage.
Patient initially presented to ED on 04/28 complaining of RUQ pain and was found to have evidence of acute cholecystitis.
He was taken to the OR on 04/29 for lap holli which was converted to open due to marked abdominal adhesions / matting. Patient had abdominal discomfort following surgery and was found to have evidence of perforation on CT scan. He returned to the
OR 04/30 for ex lap and repair of small bowel enterotomy.
Patient was then noted to have purulent discharge from his midline abdominal incision along with rising leukocytosis.
He returned to the hospital and was found to have intra-abdominal collection / abscess. IR placed a drainage catheter on 05/10.
Cultures from that collection were positive for Coni sp. Patient was seen in consultation by ID and started on Augmentin 875mg BID x 2 weeks and Fluconazole 400mg daily x 6 weeks. He was discharged to home on 05/13.
He returned to the ED on 05/[address] scan showed intra-abdominal collection / abscess. He went to the OR on 05/20 for I&D of the wound / wash-out. Post-operatively patient was placed on levofloxacin, metronidazole and fluconazole for 6 weeks
(which he has since completed). He remains on fluconazole 200mg daily for suppression with hernia repair mesh still in place. Wound vac was placed prior to discharge.
Since that time, patient has had ongoing issues with drainage from his midline incision, surrounding redness and continued pain.
He was evaluated by Surgery and is reportedly scheduled for surgery on 07/08/23 for explantation of the mesh.
Medical History
Past Medical History
Past Medical History: Reports Other
Additional Past Medical History:
Hypertension
Paroxysmal Atrial Fibrillation
Non-Hodgkin Lymphoma - (In Remission)
ALL s/p Stem Cell Transplant
CVA
Past Surgical History: Reports Other
Additional Past Surgical History:
04/29 - Lap Holli converted to open
04/30 - Ex Lap with Small Bowel Enterotomy Repair
05/10 - IR Drain Placement mid-abdomen
05/20 - I&D midline incision
Splenectomy
Right TKA
Stem Cell Transplant
PVI Ablation
Incisional Hernia Repair with mesh (2006)
Hernia Revision (2021)
PFO Closure
Social History
Tobacco: Former Smoker (Quit in 1994.)
Alcohol: Daily (2-3 glasses a wine a day)
Drug: None
Personal:
Living: With Family
Employment: Employed
Family History
Family History: Not pertinent
Allergies / Home Medications
Allergies reflects when Allergies were last updated in [facility].
Home Medications with original date entered in [facility]
Allergy/Medication List:
Allergies
Allergy/AdvReac Type Severity Reaction Status Date / Time
No Known Allergies Allergy Verified 05/18/24 17:23
Home Medications
rivaroxaban 20 mg tablet (Xarelto) 20 mg PO DAILY Blood Clot Prevention/Tx 04/28/24
tetrahydrozoline 0.05 % eye drops (Visine) 1 drp BOTH EYES DAILYPRN PRN dry eyes 04/28/24
acetaminophen 500 mg tablet (Tylenol Extra Strength) 1,000 mg PO Q8HPRN PRN mild pain 05/10/24
polyethylene glycol 3350 17 gram oral powder packet (HealthyLax) 17 g PO DAILYPRN PRN constipation 05/10/24
oxycodone 5 mg tablet 5 - 10 mg (1 - 2 x 5 mg) PO Q4HPRN PRN moderate to severe pain #30 tabs 06/13/24
acyclovir 800 mg tablet 800 mg PO BID 07/07/24
fluconazole 200 mg tablet 200 mg PO DAILY 07/07/24
Review of Systems
-
History Source: Patient
A 12 point ROS was completed and negative except as noted: Yes
Constitutional: Denies Fever or Chills
Respiratory: Denies Cough or Trouble Breathing
Cardiac: Denies Chest Pain or Palpitations
Abdomen/GI: Reports Abdominal Pain; Denies Nausea, Vomiting or Diarrhea
: Denies Dysuria, Frequency or Flank Pain
Musculoskeletal: Denies Joint Pain or Edema
Neurological: Denies Dizzy or Headache
Psych: Denies Depression or Anxiety
Physical Exam
Vital Signs
Vital Signs
Temp Pulse Resp BP Pulse Ox
98.0 F 104 16 152/96 99
07/07/24 16:50 07/07/24 16:50 07/07/24 16:50 07/07/24 16:50 07/07/24 16:50
Physical Exam
General: Other (63y M in mild distress due to pain.)
HEENT: Moist mucous membranes and PERRLA
Respiratory: Clear; No Wheezes, Rales or Rhonchi
Cardiac: S1/S2 and Regular Rhythm; No Murmur
GI: Other (Midline incision with wound vac in place. Minimal sanguinous drainage via vac tubing. Surrounding erythema across anterior abdomen / patchy / well-demarcated. RLQ drain in place to MARY suction.)
Musculoskeletal: No Clubbing, No Cyanosis and No Edema
Neuro: AO x 3
Impression/Plan
-
A/P: Patient is a 63y M with PMH significant for NHL / ALL, PA-Fib and recent complicated acute cholecystitis who presents to ED complaining of mild abdominal pain and wound drainage from prior surgery site.
Intra-Abdominal Abscess
Suspected Infected Intra-Abdominal Mesh
s/p Complicated Cholecystectomy and Small Bowel Enterotomy Repair
- Admit for further evaluation and treatment.
- Surgery evaluation with tentative plan for explantation of mesh 07/08/24.
- Continue fluconazole (recent culture positive for Coni sp).
- ID evaluation for additional antimicrobial recommendations.
- Monitor drain output, local incision, etc.
- Follow fever curve, operative culture data, etc.
Benign Hypertension
- BP on the lower side - will hold losartan for now.
Paroxysmal Atrial Fibrillation
- Stable. Hold Xarelto acutely.
- Patient states that most recent dose of Xarelto was 07/06/24 in the AM.
- Monitor on telemetry for QT prolongation while on fluconazole.
NHL In Remission
- Stable. Continue to hold Iclusig given acute infection.
- Follow cell counts.
DVT Prophylaxis: Lovenox
Code Status: Full
[2024-07-07 22:19] LABS: Hematocrit 37.5 % (39.0-52.0); Hemoglobin 12.5 g/dL (13.0-18.0); Mean Corp Hgb Conc. 33.3 g/dL (33.0-37.0); Mean Corpuscular Hgb 30.9 pg (27.0-31.0); Mean Corpuscular Volume 92.8 fL (80.0-94.0); Mean Platelet Volume 8.6 fL (7.4-10.4); Platelet Count 521 10^3/uL (130-400); Red Blood Cell Count 4.04 10^6/uL (4.70-6.10); Red Cell Dist. Width 16.3 % (11.5-14.5); White Blood Cell Count 11.8 10^3/uL (4.8-10.8)
[2024-07-07 22:23] LABS: Lactic Acid 0.9 mmol/L (0.7-2.0)
[2024-07-07 22:29] LABS: % Basophils 0.8 % (0-2); % Eosinophils 3.7 % (0-6); % Immature Granulocytes 0.2 % (0-0.5); % Lymphocytes 35.3 % (20.5-51.1); % Monocytes 15.2 % (1.7-9.3); % Neutrophils 44.8 % (42.2-75.2); ALT (SGPT) 18 U/L (0-50); AST (SGOT) 22 U/L (17-59); Absolute Basophils 0.1 10^3/uL (0-0.2); Absolute Eosinophils 0.4 10^3/uL (0-0.7); Absolute Lymphocytes 4.2 10^3/uL (1.2-3.4); Absolute Monocytes 1.8 10^3/uL (0.1-0.6); Absolute Neutrophils 5.3 10^3/uL (1.4-6.5); Albumin 3.1 g/dl (3.5-5.0); Alkaline Phosphatase 101 U/L (38-126); Blood Urea Nitrogen 11 mg/dl (9-20); Carbon Dioxide 27 mmol/L (22-30); Chloride 103 mmol/L (98-107); Estimated Creatinine Clearance > 125 ml/min; Glucose 84 mg/dl (70-99); Nucleated Red Blood Cells % 0.4 % (-); Potassium 4.1 mmol/L (3.5-5.1); Sodium 136 mmol/L (135-145); Total Bilirubin 0.4 mg/dl (0.2-1.3); Total Protein 5.4 g/dl (6.3-8.2); eGFR > 60.00
[2024-07-07 22:47] VITALS: BP 142/96
[2024-07-07 23:39] VITALS: BP 151/107
[2024-07-07 23:58] VITALS: BMI 23.5
[2024-07-08] VITALS (16 sets, daily range): BP systolic 30–141; BP diastolic 74–98; BMI 23.6
[2024-07-08] MEDS: NSS 1000 IV ×3 (00:13→21:28)
[2024-07-08] MEDS: DILAUDID 0.5 MG IV ×4 (02:44→20:52)
[2024-07-08 06:45] LABS: Hematocrit 35.2 % (39.0-52.0); Hemoglobin 11.8 g/dL (13.0-18.0); Mean Corp Hgb Conc. 33.5 g/dL (33.0-37.0); Mean Corpuscular Hgb 31.7 pg (27.0-31.0); Mean Corpuscular Volume 94.6 fL (80.0-94.0); Mean Platelet Volume 8.6 fL (7.4-10.4); Platelet Count 489 10^3/uL (130-400); Red Blood Cell Count 3.72 10^6/uL (4.70-6.10); Red Cell Dist. Width 16.7 % (11.5-14.5)
[2024-07-08] MEDS: ZOVIRAX 800 MG PO (07:53)
[2024-07-08] MEDS: PROTONIX IV 40 MG IV (07:53)
[2024-07-08] MEDS: NSS (PRESERVATIVE FREE) 10 ML IV (07:53)
[2024-07-08 08:13] LABS: Blood Urea Nitrogen 9 mg/dl (9-20); Calcium 8.7 mg/dl (8.4-10.2); Carbon Dioxide 25 mmol/L (22-30); Chloride 104 mmol/L (98-107); Estimated Creatinine Clearance > 125 ml/min; Glucose 98 mg/dl (70-99); Potassium 4.7 mmol/L (3.5-5.1); Sodium 136 mmol/L (135-145); eGFR > 60.00
[2024-07-08 08:17] LABS: INR 1.03; PT 13.8 Sec (11.4-14.6)
[2024-07-08 08:18] LABS: APTT 43.5 Sec (23.4-35.0)
[2024-07-08] MEDS: DIFLUCAN 200 MG PO (08:19)
--- NOTE | 2024-07-08 08:38 | WOUNDNOTE ---
WOC RN note: Confirmed with Elly Voss, general surgical [employer] can hold off on WOC RN consult. General surgery if planning to take patient to the OR today and general surgery service will contact this bond writer if a wound vac is continued after surgery.
--- NOTE | 2024-07-08 08:59 | VNURNOTE ---
Chart reviewed. Patient is current with [facility] nursing. Will continue to follow hospital course and DC plans.
--- NOTE | 2024-07-08 10:02 | W.PN.UPDATE ---
Update Note
Progress Note Update
Discussed with Surgeon, patient transferring into surgery service. Hospitalist service will sign off. Please re-consult as necessary.
--- NOTE | 2024-07-08 12:00 | PTCARENOTE ---
Assumed care of patient from [id number]. Patient awaiting OR later today for prior open choly/wound vac incision.
Patient is AAOx4, pleasant and cooperative. SR on Monitor. R FA IV infusing NS at 80/hour. Pain managed by IV Dilaudid PRN. On RA, CTA. Ambulatory in room with minimal assistance. Presently NPO, hypoactive bowel sounds. Midline incision erythemic
with MARY drain and Wound Vac, skin otherwise intact.
--- NOTE | 2024-07-08 13:14 | CON.GS ---
Consultation
-
Requesting Provider: Marcos
Performing Provider: Romulo
Reason for Consultation: Intractable abd pain
Medical History
-
Chief Complaint: ab pain
History of Present Illness:
63M known to the service from prior IPOM+ VIHR and subseqwuent lap converted to open cholecystectomy for ACC c/b sb enterotomy requiring RTOR and repair of enterotomy. He subsequently developed an infection of his implanted mesh. He has been
followed for the past 2 months outpatient with abx under ID guidance and using a wound vac to promote healing. Despite maximal efforts the wound has not healed, likely due to foreign body material (mesh) in the wound bed and infection. He is having
great difficulty controlling his pain. He was seen in the office yesterday in mild distress and was advised to come to the ED for further w/u.
Past Medical History
Past Medical History: Other (Hypertension Paroxysmal Atrial Fibrillation Non-Hodgkin Lymphoma - (In Remission) ALL s/p Stem Cell Transplant CVA)
Past Surgical History: Hernia Repair (VIHR x4) and Other (04/29 - Lap Holli converted to open 04/30 - Ex Lap with Small Bowel Enterotomy Repair 05/10 - IR Drain Placement mid-abdomen 05/20 - I&D midline incision)
Social History
Tobacco: Former Smoker
Alcohol: Daily
Drug: None
Personal:
Living: With Family
Employment: Employed
Family History
Family History: Reviewed & Noncontributory
Allergies / Home Medications
Allergy/AdvReac Type Severity Reaction Status Date / Time
No Known Allergies Allergy Verified 05/18/24 17:23
�Medication �Instructions �Recorded �Confirmed �Type
rivaroxaban 20 mg tablet (Xarelto) 20 mg PO DAILY Blood Clot 04/28/24 07/07/24 History
Prevention/Tx
tetrahydrozoline 0.05 % eye drops 1 drp BOTH EYES DAILYPRN PRN dry 04/28/24 07/07/24 History
(Visine) eyes
acetaminophen 500 mg tablet 1,000 mg PO Q8HPRN PRN mild pain 05/10/24 07/07/24 History
(Tylenol Extra Strength)
polyethylene glycol 3350 17 gram 17 g PO DAILYPRN PRN constipation 05/10/24 07/07/24 History
oral powder packet (HealthyLax)
oxycodone 5 mg tablet 5 - 10 mg (1 - 2 x 5 mg) PO Q4HPRN 06/13/24 07/07/24 Rx
PRN moderate to severe pain #30
tabs
acyclovir 800 mg tablet 800 mg PO BID 07/07/24 07/07/24 History
fluconazole 200 mg tablet 200 mg PO DAILY 07/07/24 07/07/24 History
Review of Systems
-
A 10 point review of systems was completed, and was negative except as per HPI.
Physical Exam
Vital Signs
Temp Pulse Resp BP Pulse Ox
97.4 F 82 16 129/86 97
07/08/24 13:10 07/08/24 13:10 07/08/24 13:10 07/08/24 13:10 07/08/24 13:10
07/07/24 07/08/24 07/09/24
06:59 06:59 06:59
Actual Weight 81.1 kg
Body Mass Index (BMI) 23.6
Lab Results
07/08/24 06:25
07/08/24 07:46
WBC 10.0 10^3/uL (4.8-10.8) 07/08/24 06:25
Hgb 11.8 g/dL (13.0-18.0) L 07/08/24 06:25
Hct 35.2 % (39.0-52.0) L 07/08/24 06:25
Plt Count 489 10^3/uL (130-400) H 07/08/24 06:25
Abs Immat Gran (auto) 0.0 10^3/uL (0-0.05) 07/07/24 22:00
Neutrophils % 44.8 % (42.2-75.2) 07/07/24 22:00
Physical Exam
General: No Apparent Distress
GI: Soft and Tender (midline wound with erythema, excoriation, wound vac in place with good seal, drain with scant seropurulent fluid)
Neuro: AO x 3
Psych: Calm
Data Reviewed
-
Labs: Labs Reviewed by me and Discussed with Patient
Assessment / Plan
-
63M with infected intra-abdominal mesh
AFVSS
No leukocytosis
wound vac in place and functioning
Plan:
OCTOR today for ex lap, washout, mesh explantation and placement of usp resorbable coated mesh
Cont IV abx
PRN IV pain meds
DVT ppx
Ambulate
Cont wound vac
--- NOTE | 2024-07-08 14:34 | PTCARENOTE ---
pt admitted to 2S room 2101 from the ED at 1250. pt ambulated from stretcher to bed without difficulty. Pt oriented to room and plan of care with verbalized understanding. NPO w/IVF infusing. telemetry placed and reading SR in 70's. at
bedside. care ongoing.
--- NOTE | 2024-07-08 14:54 | PTCARENOTE ---
pt disconnected abdominal dressing from wound vac for transfer to OR. portable wound vac remains at bedside. pt transported to OR via bed by transport volunteers.
--- NOTE | 2024-07-08 16:13 | CON.ID ---
Consultation
-
Date/Time Consultation Requested: 07/07/2024 2345
Date/Time Consultation Performed: 07/08/2024 1540
Requesting Provider: Dr. Oviedo
Performing Provider: Dr. Hollins
Reason for Consultation: Abdominal infection
Chief Complaint / Past History
History of Present Illness
Rodo Corbett is a 63-year-old man being evaluated at the request of Dr. Akers in regards to an abdominal mesh infection. History is obtained from chart review, along with patient interview, and review of records contained in the hospital EMR
system.
The patient has a significant past medical history of NHL, AML (s/p stem cell transplant 2022) and prior open cholecystectomy with mesh implantation. Per reviewed records, he initially presented to [facility] on 04/28/24 and found to have
acute cholecystitis. He went to the OR on 04/29 for a laparoscopic cholecystectomy, which was converted to open secondary to adhesions. Following surgery he had abdominal discomfort and had evidence of perforation on CAT scan. He subsequently
returned to the OR on 05/02 for exploratory lap and repair of small bowel enterotomy.
He subsequently returned to the hospital and was found to have an intra-abdominal collection and drainage catheter was placed on 05/10, with cultures positive for Coni. Abdominal wall mesh was felt to be infected and he was subsequently placed
on Augmentin x 2 weeks and fluconazole for 6 weeks. He returned to the hospital on 05/18 for washout. He was discharged on 05/25 to continue with fluconazole to complete a 6-week course followed by suppressive therapy until mesh can be removed.
He presents back to the hospital now for mesh removal. At this point in time he notes some ongoing abdominal discomfort. He denies any fevers or chills.
Past History
Additional Past Medical History:
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
ALL s/p stem cells transplant (2022)
CVA
Depression
Hx Non-Hodgkin lymphoma s/p chemo, XRT (2004)
Past Surgical History: Other
Additional Past Surgical History:
04/29/24 - Lap Holli converted to open; 04/30 - Ex Lap with Small Bowel Enterotomy Repair; 05/10 - IR Drain Placement mid-abdomen
Lap splenectomy (2004) with injury to stomach
Ex-lap repair Incision hernia repair with mesh 2006, revision 2021
PFO closure 2008
R TKR
Cholecystectomy
Allergy History:
No Known Allergies Allergy (Verified 05/18/24 17:23)
Medications Reviewed: Yes
Current Antibiotics:
Acyclovir
Fluconazole
Zosyn
Social History
Tobacco: Former Smoker
Alcohol: Daily
Drug: None
Personal:
Living: With Family
Employment: Employed
Family History
Family History: Not Pertinent
Review of Systems
Vital Signs
Temp Pulse Resp BP Pulse Ox
97.4 F 82 16 129/86 97
07/08/24 13:10 07/08/24 13:10 07/08/24 13:10 07/08/24 13:10 07/08/24 13:10
Physical Exam
Physical Exam
Constitutional: No Acute Distress, Comfortable and Non-toxic
Eyes: No Conjunctival Hemorrhage and Sclera Anicteric
Oral: No Thrush and No Ulcers
Cardiovascular: Regular Rate and S1/S2; Negative S3/S4
Pulmonary: Clear and Non Labored
Gastrointestinal: Soft, Tender (Right-sided abdomen) and Other (Vac dressing currently in place with underlying purulence)
Extremities: Negative Edema
Neurological: AO x 3
.
Lab / Diagnostic Study Results
07/08/24 06:25
07/08/24 07:46
Abs Immat Gran (auto) 0.0 10^3/uL (0-0.05) 07/07/24 22:00
Absolute Neuts (auto) 5.3 10^3/uL (1.4-6.5) 07/07/24 22:00
Absolute Lymphs (auto) 4.2 10^3/uL (1.2-3.4) H 07/07/24 22:00
Absolute Monos (auto) 1.8 10^3/uL (0.1-0.6) H 07/07/24 22:00
Absolute Basos (auto) 0.1 10^3/uL (0-0.2) 07/07/24 22:00
Immature Gran % 0.2 % (0-0.5) 07/07/24 22:00
Neutrophils % 44.8 % (42.2-75.2) 07/07/24 22:00
Lymphocytes % 35.3 % (20.5-51.1) 07/07/24 22:00
Monocytes % 15.2 % (1.7-9.3) H 07/07/24 22:00
Eosinophils % 3.7 % (0-6) 07/07/24 22:00
Basophils % 0.8 % (0-2) 07/07/24 22:00
PT 13.8 Sec (11.4-14.6) 07/08/24 07:46
INR 1.03 07/08/24 07:46
Lactic Acid 0.9 mmol/L (0.7-2.0) 07/07/24 22:00
Microbiology Results
Micro:
07/08/24 00:15 MRSA Screen - Pending
Nose
Imaging:
05/18/2024-CT abdomen/pelvis: Abscess of the anterior mid abdomen deep to the midline incision and hernia mesh with a percutaneous drainage catheter in place, decreased in size compared to the CT abdomen/pelvis from 05/09/2024. Small abscess in the
gallbladder fossa, also decreased in size.
Assessment / Plan
Infected abdominal mesh; for removal
Leukocytosis; improved
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
ALL s/p stem cells transplant (2022)
CVA
Depression
Hx Non-Hodgkin lymphoma s/p chemo, XRT (2004)
Recommendations:
Continue with Zosyn and Diflucan for the present. Increase diflucan to 400 mg qDay
Patient for surgery today.
Check intraoperative cultures to assess for any change in microbiology.
Monitor white count temperature curve.
Follow pending cultures to guide further antibiotic selection and potential de-escalation.
Further recommendations as additional data is returned.
Care Review
Plan reviewed with: Other Provider (Gen Antolin MILNER)
--- NOTE | 2024-07-08 20:34 | W.IMMPOSTOP ---
Surgical Immed Post Op Note
-
Primary Surgeon: Romulo
Assisting Surgeon: Theo
Pre-op Diagnosis: Mesh infection
Post-op Diagnosis: Mesh infection, ventral incisional hernia
Procedure Performed: Exploratory laparotomy, lysis of adhesions (120mins), small bowel resection (est 35cm), transverse colon resection (est 15cm), explantation of old mesh, bridging repair ventral hernia repair with phasix ST
Anesthesia Type: GETA + TAP block
Specimen / Cultures: Mesh, peritoneal fluid
Estimated Blood Loss: 50cc
Complications: None immediate
Operative Findings: Centrally frozen abdomen, meshoma at midline involving small bowel and transverse colon; old mesh totally excised; serosal tear (expected during this procedure) to small bowel just proximal to anastomosis repaired with 3-0
vicryl lembert sutures; no pus; 15x[address] bridging upper part of incision where fascia sacrificed for mesh excision, 10cm fascial defect bridged; skin edges freshened and stapled; 19fr allie drain to subcutaneous space; unable to palpate ng in
stomach due to dense adhesions in the area
updated by phone, all ?s answered
[2024-07-08] MEDS: TORADOL 15 MG IV (21:17)
[2024-07-08] MEDS: DILAUDID PCA 30 IV (21:18)
--- NOTE | 2024-07-08 22:23 | SUR.PHASEI ---
vitals stabilized after one burst of PAT; sleeps unless disturbed, medicated with toradol and L D RN started. Noted open blister areas under binder - patient had wound vac previously. instructed in use of L D RN - understands same. and daughter
at bedside in room - hand off with JEWELS Newby and given patient's wedding band that was removed for surgery
[2024-07-08] MEDS: ZOVIRAX PO (22:56)
[2024-07-09] VITALS (9 sets, daily range): BP systolic 116–136; BP diastolic 68–95; O2SAT 94
[2024-07-09] MEDS: ZOSYN 50 IV ×5 (00:09→23:25)
[2024-07-09] MEDS: REFRESH EYE DROPS (PF) 1 DROPS OPHTH ×2 (00:10→08:40)
[2024-07-09] MEDS: TORADOL 15 MG IV ×4 (02:05→20:35)
[2024-07-09] MEDS: OFIRMEV 100 IV ×4 (02:05→20:34)
[2024-07-09] MEDS: FLUSH (NSS) 1 FLUSH IV ×2 (05:49→16:23)
[2024-07-09 07:29] LABS: Hematocrit 40.3 % (39.0-52.0); Hemoglobin 13.3 g/dL (13.0-18.0); Mean Corpuscular Hgb 31.1 pg (27.0-31.0); Mean Corpuscular Volume 94.2 fL (80.0-94.0); Mean Platelet Volume 8.8 fL (7.4-10.4); Platelet Count 543 10^3/uL (130-400); Red Blood Cell Count 4.28 10^6/uL (4.70-6.10); Red Cell Dist. Width 16.7 % (11.5-14.5); White Blood Cell Count 19.5 10^3/uL (4.8-10.8)
[2024-07-09 07:59] LABS: Blood Urea Nitrogen 12 mg/dl (9-20); Calcium 8.8 mg/dl (8.4-10.2); Carbon Dioxide 26 mmol/L (22-30); Chloride 99 mmol/L (98-107); Estimated Creatinine Clearance > 125 ml/min; Glucose 139 mg/dl (70-99); Potassium 5.7 mmol/L (3.5-5.1); Sodium 134 mmol/L (135-145); eGFR > 60.00
[2024-07-09] MEDS: NSS (PRESERVATIVE FREE) 10 ML IV (08:44)
[2024-07-09] MEDS: PROTONIX IV 40 MG IV (08:44)
[2024-07-09] MEDS: DIFLUCAN 400 MG PO (08:46)
[2024-07-09] MEDS: ZOVIRAX 800 MG PO ×2 (08:47→20:35)
--- NOTE | 2024-07-09 11:02 | W.PN.GS2 ---
Today's Communication / Plan
-
Pain management
NGT/NPO with ice chips
Assessment / Plan
-
63M presenting with h/o IPOM+ VIHR and subseqwuent lap converted to open cholecystectomy for ACC c/b sb enterotomy requiring RTOR and repair of enterotomy. He subsequently developed an infection of his implanted mesh. He has been followed for the
past 2 months outpatient with abx under ID guidance and using a wound vac to promote healing but despite this has presented with ongoing infection and worsening pain
POD #1 Exploratory laparotomy, lysis of adhesions (120mins), small bowel resection (est 35cm), transverse colon resection (est 15cm), explantation of old mesh, bridging repair ventral hernia repair with phasix ST
VAC d/c'd in OR
AFVSS
Labs stable post operatively
Leukocytosis present, cx sent from OR
Plan:
-Appreciate ID recs
-Continue MANAGER MUSIC for pain management, Ofirmev ATC
-NPO with NGT until bowel recovery, ice chips for comfort
-Continue IVF
-PPI for GI ppx
-C/W hawley catheter through today
-Encouraged activity, wear ABD binder at all times. PT consulted
-IS while awake
-VTE ppx with lovenox and SCD's
Subjective Data
-
Date of Service: July 09, 2024
Patient seen and examined at bedside with Dr. Gomes. Denies n/v. Pain with movement but MANAGER MUSIC has been effective. Not yet passing flatus.
Objective Data
-
Intake and Output
07/08/24 07/09/24 07/10/24
06:59 06:59 06:59
Intake Total 800 / 800 472 / 472
Output Total 680 / 680
Balance 800 / 800 -208 / -208
Intake:
Oral fluids 240 / 240
IV fluids (Total) 800 / 800 202 / 202
normosol 100 / 100
nss 100 / 100
wax molder dilaudid 2 / 2
Amount instilled into GI Tube (
Total)
[place] Sump
Output:
Drain Output (Total) 150 / 150
Right Raymond-Portillo 150 / 150
Gastrointestinal tube output (
Total)
[place] Sump
Urine, Hawley 500 / 500
Other:
Number of approximated MODERATE 1
amounts of urine
Vital Signs
Temp Pulse Resp BP Pulse Ox
97.6 F 89 16 136/88 95
07/09/24 07:55 07/09/24 07:55 07/09/24 07:55 07/09/24 07:55 07/09/24 07:55
Lab Results
07/09/24 06:51
07/09/24 06:51
Calcium 8.8 mg/dl (8.4-10.2) 07/09/24 06:51
Total Bilirubin 0.4 mg/dl (0.2-1.3) 07/07/24 22:00
AST 22 U/L (17-59) 07/07/24 22:00
ALT 18 U/L (0-50) 07/07/24 22:00
Alkaline Phosphatase 101 U/L (38-126) 07/07/24 22:00
Total Protein 5.4 g/dl (6.3-8.2) L 07/07/24 22:00
Albumin 3.1 g/dl (3.5-5.0) L 07/07/24 22:00
Physical Exam
-
Gen: NAD
Abd: soft, approp ttp, ND, Incision with intact dressing/abd binder
NGT with blood tinged bilious outputs, Hawley with clear, yellow urine, MARY with SSF
Patient has a hawley catheter: Yes
[2024-07-09] MEDS: FLUSH (NSS) 2 FLUSH IV ×3 (12:19→23:27)
--- NOTE | 2024-07-09 14:04 | PTCARENOTE ---
wound culture from Abdominal wound resulted as MRSA+. contact precautions initiated per protocol. request to admissions for room change.
Betty BEAULIEU made aware. care ongoing.
--- NOTE | 2024-07-09 14:37 | CM ---
IA completed with pt at bedside.
Pt is a 63yr old male admitted with Abdominal infection.
Pt was previously admitted in Mar for cholecystectomy and in Apr for complications associated and infection.
Pt was discharged most recently in Apr with a Wound Vac and [facility] and returns with infection and need for surgical intervention.
Pt lives with his spouse and son in a 2 story home with 3 steps to enter and is indep at baseline.
Wound vac was removed and per Pt he is unsure of his VN needs for this dc plan.
PCP; [facility]
Pharm; [facility]
PLAN; DC to home; possible VN need
[2024-07-09] MEDS: D5/0.45%NACL 1000 IV (14:59)
--- NOTE | 2024-07-09 16:06 | W.PN.UPDATE ---
Update Note
Progress Note Update
Chart reviewed
Tissue cultures thus far with MRSA - expect polymicrobial
Added vancomycin
AW
[2024-07-09] MEDS: VANCOCIN 540 MG IV (16:22)
[2024-07-09 17:22] LABS: Blood Urea Nitrogen 19 mg/dl (9-20); Carbon Dioxide 27 mmol/L (22-30); Chloride 101 mmol/L (98-107); Estimated Creatinine Clearance > 125 ml/min; Glucose 146 mg/dl (70-99); Potassium 4.9 mmol/L (3.5-5.1); Sodium 132 mmol/L (135-145); eGFR > 60.00
[2024-07-09] MEDS: LOVENOX 40 MG SC (18:22)
--- NOTE | 2024-07-09 19:54 | PTCARENOTE ---
report given to 2S RN. pt and all personal belongings transferred via bed to room 6447.
--- NOTE | 2024-07-09 23:20 | PHA.VAN.IN ---
Addendum entered and electronically signed by Felicia Cook [facility] 07/11/24 09:11:
Note: Vancomycin 1250mg Q12H provided the following patient-specific PK:
ke = 0.1246 h-1
half-life = 5.6 H
Extrapolated Cmax 20.7 mcg/ml
Extrapolated Cmin 5.6 mcg/ml
Vd = 71 L (~0.86 L/kg)
Vanc Cl = 148 ml/min
AUC = 282 (mcg*h)/mL
Levels were drawn after 4th maintenance dose
Original Note:
Assessment
- Assessment
Renal Function: Appears similar to baseline
Concomitant Antimicrobials: Piperacillin/tazobactam
- Previous Dosing Experience
Previous Regimen: Vancomycin 1250mg IV Q12h
Date of Regimen: 05/2022
Provided Trough of: 6
Patient's SCR is: Similar to previous dosing experience
Patient's weight is: Similar to previous dosing experience
AUC Dosing Plan
- Dosing Variables
Dosing Weight (kg): 81.1
Dosing CrCl (ml/min): 125
Vd coefficient (L/kg): 0.7
- Empiric Dosing
Initial / Loading Dose: Vancomycin 2000mg- given 07/09 at 1622
Maintenance Regimen: Vancomycin 1500mg IV Q12h to start 07/10 at 0600
Estimated AUC (mcg*h/mL): 515
Estimated Peak (mcg*h/mL): 36.4
Estimated Trough (mcg/ml): 11.1
Estimated Half Life (H): 6.4
- Monitoring
No levels ordered at this time: Will order level prior to steady state.
Pharmacokinetics Vancomycin I
- -
Patient Age: 63
Patient Sex: Male
Vancomycin Day #: 1
Indication: Skin And Soft Tissue
Requesting Provider: Dr. Quintero
Pertinent Antimicrobial Allergies:
No Known Allergies Allergy (Verified 05/18/24 17:23)
Height / Weight:
Height 6 ft 1 in
Actual Weight 81.1 kg
Pertinent Past Medical History: h/o AML s/p stem cell transplant in 2022
- Vital Signs / Lab Results
Temp Pulse Resp BP Pulse Ox
97.7 F 83 19 116/72 95
07/09/24 23:08 07/09/24 23:08 07/09/24 23:08 07/09/24 23:08 07/09/24 23:08
Lab Results - Hematology
07/07/24 07/08/24 07/09/24
22:00 06:25 06:51
WBC 11.8 H 10.0 19.5 H
Lab Results - Chemistry
07/07/24 07/08/24 07/08/24
22:00 06:25 07:46
BUN 11 Cancelled 9
Creatinine 0.6 L Cancelled 0.6 L
Estimated Creat Clear > 125 Cancelled > 125
Albumin 3.1 L
07/09/24 07/09/24
06:51 16:58
BUN 12 19
Creatinine 0.7 0.7
Estimated Creat Clear > 125 > 125
Albumin
07/07/24
22:00
Lactic Acid 0.9
Microbiology Results
07/08/24 16:55 Anaerobic Culture - Preliminary
Abscess Culture pending. Anaerobic cultures are examined after 3
days incubation. Additional information to follow.
07/08/24 16:55 Wound Culture - Preliminary
Abscess Staphylococcus aureus
Gram Stain - Preliminary
07/08/24 17:41 Tissue Culture - Preliminary
Abdomen Staph aureus MRSA
Gram Stain - Preliminary
07/08/24 00:15 MRSA Screen - Final
Nose No Methicillin Resistant Staphylococcus aureus isolated.
[2024-07-10] VITALS (7 sets, daily range): BP systolic 111–141; BP diastolic 69–81; BMI 24.2
--- NOTE | 2024-07-10 00:19 | PTCARENOTE ---
Spoke with Pharmacist Autumn and advised about max dose order for SCHEDULING CLERK is set to 2mg. Patient won't reach that max with the current parameters. Advised covering provider.
[2024-07-10] MEDS: D5/0.45%NACL 1000 IV ×3 (01:12→20:28)
[2024-07-10] MEDS: TORADOL 15 MG IV ×4 (02:06→20:12)
[2024-07-10] MEDS: OFIRMEV 100 IV ×4 (02:06→20:09)
[2024-07-10] MEDS: FLUSH (NSS) 3 FLUSH IV (02:08)
[2024-07-10] MEDS: ZOSYN 50 IV ×3 (05:32→20:08)
[2024-07-10] MEDS: FLUSH (NSS) 2 FLUSH IV ×4 (05:34→16:03)
[2024-07-10] MEDS: VANCOCIN 530 MG IV ×2 (06:01→16:41)
[2024-07-10 06:18] LABS: Hematocrit 31.4 % (39.0-52.0); Hemoglobin 10.3 g/dL (13.0-18.0); Mean Corp Hgb Conc. 32.8 g/dL (33.0-37.0); Mean Corpuscular Hgb 31.1 pg (27.0-31.0); Mean Corpuscular Volume 94.9 fL (80.0-94.0); Mean Platelet Volume 9.1 fL (7.4-10.4); Platelet Count 422 10^3/uL (130-400); Red Blood Cell Count 3.31 10^6/uL (4.70-6.10); Red Cell Dist. Width 16.5 % (11.5-14.5); White Blood Cell Count 20.5 10^3/uL (4.8-10.8)
[2024-07-10 06:24] LABS: Blood Urea Nitrogen 20 mg/dl (9-20); Calcium 8.2 mg/dl (8.4-10.2); Carbon Dioxide 27 mmol/L (22-30); Chloride 100 mmol/L (98-107); Estimated Creatinine Clearance > 125 ml/min; Glucose 107 mg/dl (70-99); Potassium 4.6 mmol/L (3.5-5.1); Sodium 134 mmol/L (135-145); eGFR > 60.00
[2024-07-10 08:06] LABS: % Basophils 0.2 % (0-2); % Immature Granulocytes 0.7 % (0-0.5); % Lymphocytes 13.7 % (20.5-51.1); % Monocytes 6.2 % (1.7-9.3); % Neutrophils 79.2 % (42.2-75.2); Absolute Basophils 0.1 10^3/uL (0-0.2); Absolute Immature Granulocytes 0.1 10^3/uL (0-0.05); Absolute Lymphocytes 2.8 10^3/uL (1.2-3.4); Absolute Monocytes 1.3 10^3/uL (0.1-0.6); Absolute Neutrophils 16.2 10^3/uL (1.4-6.5); Nucleated Red Blood Cells % 0.1 % (-)
--- NOTE | 2024-07-10 08:25 | PHA.VAN.FU ---
Vancomycin Assessment / Plan
- Assessment
Renal Function: Stable
WBC's are: Trending Up
In the past 24 hrs, patient has been: Afebrile
Concomitant Antimicrobials: zovirax, fluconazole,piperacillin/tazo
- Dosing Plan
Continue: vancomycin 1500 mg q12h - first dose 07/10 0600 after 2gm LD 07/09
- Monitoring Plan
No level(s) ordered at this time: conisder levels after Thursday verónica dose ( 4th maint)
- Follow Up
Pharmacy will continue to follow.
Vancomycin Follow UP
- -
Patient Age: 63
Patient Sex: Male
Vancomycin Day #: 2
Indication: Skin And Soft Tissue
Requesting Provider: Dr. Quintero
Pertinent Antimicrobial Allergies:
No Known Allergies Allergy (Verified 05/18/24 17:23)
Height / Weight:
Height 6 ft 1 in
Actual Weight 83.28 kg
Pertinent Past Medical History: h/o AML s/p stem cell transplant in 2022
- Vital Signs / Lab Results
Temp Pulse Resp BP Pulse Ox
97.9 F 74 16 122/69 92
07/10/24 07:05 07/10/24 07:05 07/10/24 07:05 07/10/24 07:05 07/10/24 07:05
Lab Results - Hematology
07/07/24 07/08/24 07/09/24
22:00 06:25 06:51
WBC 11.8 H 10.0 19.5 H
07/10/24
05:11
WBC 20.5 H
Lab Results - Chemistry
07/07/24 07/08/24 07/08/24
22:00 06:25 07:46
BUN 11 Cancelled 9
Creatinine 0.6 L Cancelled 0.6 L
Estimated Creat Clear > 125 Cancelled > 125
Albumin 3.1 L
07/09/24 07/09/24 07/10/24
06:51 16:58 05:11
BUN 12 19 20
Creatinine 0.7 0.7 0.7
Estimated Creat Clear > 125 > 125 > 125
Albumin
07/07/24
22:00
Lactic Acid 0.9
Microbiology Results
07/08/24 17:41 Tissue Culture - Preliminary
Abdomen Staph aureus MRSA
Gram Stain - Preliminary
07/08/24 16:55 Anaerobic Culture - Preliminary
Abscess Culture pending. Anaerobic cultures are examined after 3
days incubation. Additional information to follow.
07/08/24 16:55 Wound Culture - Preliminary
Abscess Staphylococcus aureus
Gram Stain - Preliminary
07/08/24 00:15 MRSA Screen - Final
Nose No Methicillin Resistant Staphylococcus aureus isolated.
--- NOTE | 2024-07-10 09:36 | W.PN.GS2 ---
Today's Communication / Plan
-
Continue NPO/NGT?IVF
HEAT TREAT INSPECTOR
Assessment / Plan
-
63M presenting with h/o prior splenectomy, IPOM+ VIHR and subsequent lap converted to open cholecystectomy for ACC c/b sb enterotomy requiring RTOR and repair of enterotomy. He subsequently developed an infection of his implanted mesh. He has been
followed for the past 2 months outpatient with abx under ID guidance and using a wound vac to promote healing but despite this has presented with ongoing infection and worsening pain
POD #1 Exploratory laparotomy, lysis of adhesions (120mins), small bowel resection (est 35cm), transverse colon resection (est 15cm), explantation of old mesh, bridging repair ventral hernia repair with phasix ST. VAC d/c'd in OR
AFVSS
Hyperkalemia resolved with IVF
Mild acute anemia secondary to expected intraop losses and hemodilution
Leukocytosis present with uptrend, cx sent from OR now with +MRSA.
Plan:
-Appreciate ID recs
-Continue HEAT TREAT INSPECTOR for pain management, Ofirmev/Toradol ATC
-NPO with NGT until bowel recovery, ice chips for comfort
-Continue IVF
-PPI for GI ppx
-Remove hawley for voiding trial today
-Encouraged activity, wear ABD binder at all times. PT following
-IS while awake
-VTE ppx with lovenox and SCD's
Subjective Data
-
Date of Service: July 10, 2024
Patient seen and examined at bedside with Dr. Gomes. A bit more comfortable today but still with pain with any movement. NGT is bothersome. Denies n/v. Not yet passing flatus.
Objective Data
-
Intake and Output
07/09/24 07/10/24 07/11/24
06:59 06:59 06:59
Intake Total 472 / 472 1660 / 1660
Output Total 680 / 680 1150 / 1150
Balance -208 / -208 510 / 510
Intake:
Oral fluids 240 / 240 60 / 60
IV fluids (Total) 202 / 202 1200 / 1200
normosol 100 / 100
nss 100 / 100
basketball referee dilaudid 2 / 2
IV piggybacks 300 / 300
Amount instilled into GI Tube ( 100 / 100
Total)
[place] Sump 100 / 100
Output:
Drain Output (Total) 150 / 150 75 / 75
Right Raymond-Portillo 150 / 150 75 / 75
Gastrointestinal tube output ( 75 / 75
Total)
[place] Sump 75 / 75
Urine, Hawley 500 / 500 1000 / 1000
Vital Signs
Temp Pulse Resp BP Pulse Ox
97.9 F 74 16 122/69 92
07/10/24 07:05 07/10/24 07:05 07/10/24 07:05 07/10/24 07:05 07/10/24 07:05
Lab Results
07/10/24 05:11
07/10/24 05:11
Calcium 8.2 mg/dl (8.4-10.2) L 07/10/24 05:11
Total Bilirubin 0.4 mg/dl (0.2-1.3) 07/07/24 22:00
AST 22 U/L (17-59) 07/07/24 22:00
ALT 18 U/L (0-50) 07/07/24 22:00
Alkaline Phosphatase 101 U/L (38-126) 07/07/24 22:00
Total Protein 5.4 g/dl (6.3-8.2) L 07/07/24 22:00
Albumin 3.1 g/dl (3.5-5.0) L 07/07/24 22:00
Physical Exam
-
Gen: NAD
Abd: soft, approp ttp, ND, Incision with intact dressing/abd binder
NGT with bilious outputs, Hawley with clear, yellow urine, MARY with SSF
Patient has a hawley catheter: Yes
[2024-07-10] MEDS: PROTONIX IV 40 MG IV (10:37)
[2024-07-10] MEDS: NSS (PRESERVATIVE FREE) 10 ML IV (10:38)
[2024-07-10] MEDS: ZOVIRAX 800 MG PO ×2 (10:40→20:08)
[2024-07-10] MEDS: DIFLUCAN 400 MG PO (10:40)
[2024-07-10] MEDS: DILAUDID PCA 30 IV (11:19)
--- NOTE | 2024-07-10 12:51 | W.PN.ID1 ---
Date of Service
Date of Service: July 10, 2024
Today's Communication
continue current broad spectrum therapy
Assessment / Plan
Infected abdominal mesh; for removal
Leukocytosis; improved
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
ALL s/p stem cells transplant (2022)
CVA
Depression
Hx Non-Hodgkin lymphoma s/p chemo, XRT (2004)
Recommendations:
Aerobic Tissue cultures - MRSA thus far
Anaerobic Tissue culture - pending, gram stain mixed skin alexys
Continue with Zosyn and Diflucan
- recheck QTc
Added vancomycin 07/09
s/p ex lap, removal of old mesh, colon resection, ventral hernia repair with phasix ST - bioresorbable
Monitor white count temperature curve.
Further recommendations as additional data is returned.
Chief Complaint
-: Other (mesh infection)
Subjective / Review of Systems
afebrile
bp stable
s/p ex lap, removal of old mesh, colon resection, ventral hernia repair with phasix ST - bioresorbable
Vital Signs / Physical Exam
Vital Signs
Vital Signs
Temp Pulse Resp BP Pulse Ox
97.5 F 70 18 141/81 94
07/10/24 11:05 07/10/24 11:05 07/10/24 11:05 07/10/24 11:05 07/10/24 11:05
Physical Exam
Constitutional: No Acute Distress and Chronically Ill
Cardiovascular: Regular Rate and S1/S2; Negative Murmur or Rub
Pulmonary: Clear and Symmetric; Negative Wheezes or Rales
Gastrointestinal: Soft, Non Tender, Non Distended and Normal Bowel Sounds
Skin: Warm and Dry; Negative Rash or Jaundice
Wound: Other (dressing clean, dry, some strikethrough)
Objective Data
Lab Data
Lab Results
07/10/24 05:11
07/10/24 05:11
PT 13.8 Sec (11.4-14.6) 07/08/24 07:46
INR 1.03 07/08/24 07:46
APTT 43.5 Sec (23.4-35.0) H 07/08/24 07:46
Estimated Creat Clear > 125 ml/min 07/10/24 05:11
Lactic Acid 0.9 mmol/L (0.7-2.0) 07/07/24 22:00
Total Bilirubin 0.4 mg/dl (0.2-1.3) 07/07/24 22:00
AST 22 U/L (17-59) 07/07/24 22:00
ALT 18 U/L (0-50) 07/07/24 22:00
Alkaline Phosphatase 101 U/L (38-126) 07/07/24 22:00
Most recent labs reviewed.
note improved thrombocytosis
Micro Results:
07/08/24 16:55 Anaerobic Culture - Preliminary
Abscess Culture pending. Anaerobic cultures are examined after 3
days incubation. Additional information to follow.
07/08/24 16:55 Wound Culture - Preliminary
Abscess Staph aureus MRSA
Gram Stain - Preliminary
07/08/24 17:41 Tissue Culture - Final
Abdomen Staph aureus MRSA
Gram Stain - Final
07/08/24 00:15 MRSA Screen - Final
Nose No Methicillin Resistant Staphylococcus aureus isolated.
Imaging:
05/18/2024-CT abdomen/pelvis: Abscess of the anterior mid abdomen deep to the midline incision and hernia mesh with a percutaneous drainage catheter in place, decreased in size compared to the CT abdomen/pelvis from 05/09/2024. Small abscess in the
gallbladder fossa, also decreased in size.
[2024-07-10] MEDS: LOVENOX 40 MG SC (17:24)
[2024-07-11] MEDS: ZOSYN 50 IV ×5 (01:10→23:10)
[2024-07-11] MEDS: TORADOL 15 MG IV ×4 (02:04→20:30)
[2024-07-11 03:19] VITALS: BP 123/66
[2024-07-11 05:19] VITALS: BMI 24.4
[2024-07-11] MEDS: VANCOCIN 530 MG IV (05:33)
[2024-07-11] MEDS: D5/0.45%NACL 1000 IV ×2 (06:13→23:40)
[2024-07-11 06:27] LABS: % Basophils 0.2 % (0-2); % Eosinophils 0.9 % (0-6); % Immature Granulocytes 0.5 % (0-0.5); % Monocytes 6.4 % (1.7-9.3); Absolute Eosinophils 0.2 10^3/uL (0-0.7); Absolute Immature Granulocytes 0.1 10^3/uL (0-0.05); Absolute Lymphocytes 3.8 10^3/uL (1.2-3.4); Absolute Monocytes 1.1 10^3/uL (0.1-0.6); Absolute Neutrophils 12.2 10^3/uL (1.4-6.5); Hematocrit 27.4 % (39.0-52.0); Hemoglobin 9.3 g/dL (13.0-18.0); Mean Corp Hgb Conc. 33.9 g/dL (33.0-37.0); Mean Corpuscular Hgb 31.7 pg (27.0-31.0); Mean Corpuscular Volume 93.5 fL (80.0-94.0); Mean Platelet Volume 9.2 fL (7.4-10.4); Nucleated Red Blood Cells % 0.3 % (-); Platelet Count 433 10^3/uL (130-400); Red Blood Cell Count 2.93 10^6/uL (4.70-6.10); Red Cell Dist. Width 16.4 % (11.5-14.5); White Blood Cell Count 17.4 10^3/uL (4.8-10.8)
[2024-07-11 06:44] LABS: Blood Urea Nitrogen 11 mg/dl (9-20); Calcium 7.8 mg/dl (8.4-10.2); Carbon Dioxide 27 mmol/L (22-30); Chloride 105 mmol/L (98-107); Estimated Creatinine Clearance > 125 ml/min; Glucose 81 mg/dl (70-99); Potassium 4.3 mmol/L (3.5-5.1); Sodium 138 mmol/L (135-145); eGFR > 60.00
[2024-07-11 07:05] VITALS: BP 114/79
--- NOTE | 2024-07-11 08:38 | W.PN.GS2 ---
Addendum entered and electronically signed by Lupillo Sebastian MD 07/11/24 12:25:
CDI query: acute blood loss anemia
Original Note:
Today's Communication / Plan
-
NGT out
Hawley out
abx per ID
TRACK MANAGER + toradol
xarelto restart
PT
Assessment / Plan
-
63M presenting with h/o prior splenectomy, IPOM+ VIHR and subsequent lap converted to open cholecystectomy for ACC c/b sb enterotomy requiring RTOR and repair of enterotomy. He subsequently developed an infection of his implanted mesh. He has been
followed for the past 2 months outpatient with abx under ID guidance and using a wound vac to promote healing but despite this has presented with ongoing infection and worsening pain
POD #3 Exploratory laparotomy, lysis of adhesions (120mins), small bowel resection (est 35cm), transverse colon resection (est 15cm), explantation of old mesh, bridging repair ventral hernia repair with phasix ST. VAC d/c'd in OR
AFVSS
Hyperkalemia resolved with IVF
Mild acute anemia secondary to expected intraop losses and hemodilution
Leukocytosis present with trending down, cx sent from OR now with +MRSA.
Plan:
-Appreciate ID recs
-Continue TRACK MANAGER for pain management, Ofirmev/Toradol ATC
-DC NGT, cont sips and chips
-Continue IVF
-PPI for GI ppx
-Hawley out DTV
-Encouraged activity, wear ABD binder at all times. PT following
-IS while awake
-restart xarelto
Subjective Data
-
Date of Service: July 11, 2024
AFVSS, pain well controlled with TRACK MANAGER/multi-modal, has not yet ambulated, denies n/v, no flatus yet
Objective Data
-
Intake and Output
07/10/24 07/11/2407/12/25
06:59 06:59 06:59
Intake Total 1660 / 1660 2990 / 2990
Output Total 1150 / 1150 3410 / 3410
Balance 510 / 510 -420 / -420
Intake:
Oral fluids 60 / 60 460 / 460
IV fluids (Total) 1200 / 1200 1700 / 1700
IV piggybacks 300 / 300 800 / 800
Amount instilled into GI Tube ( 100 / 100 30 / 30
Total)
[place] Sump 100 / 100 30 / 30
Output:
Drain Output (Total) 75 / 75 110 / 110
Right Raymond-Portillo 75 / 75 110 / 110
Gastrointestinal tube output ( 75 / 75 225 / 225
Total)
[place] Sump 75 / 75 225 / 225
Urine, Hawley 1000 / 1000 3075 / 3075
Vital Signs
Temp Pulse Resp BP Pulse Ox
97.7 F 65 18 114/79 93
07/11/24 07:05 07/11/24 07:05 07/11/24 07:05 07/11/24 07:05 07/11/24 07:05
Lab Results
07/11/24 05:40
07/11/24 05:40
Calcium 7.8 mg/dl (8.4-10.2) L 07/11/24 05:40
Total Bilirubin 0.4 mg/dl (0.2-1.3) 07/07/24 22:00
AST 22 U/L (17-59) 07/07/24 22:00
ALT 18 U/L (0-50) 07/07/24 22:00
Alkaline Phosphatase 101 U/L (38-126) 07/07/24 22:00
Total Protein 5.4 g/dl (6.3-8.2) L 07/07/24 22:00
Albumin 3.1 g/dl (3.5-5.0) L 07/07/24 22:00
Physical Exam
-
Gen: NAD
Abd: soft, incision cdi with sherita, drain ss
Patient has a hawley catheter: No
Patient has a central line: No
[2024-07-11] MEDS: ZOVIRAX 800 MG PO ×2 (08:47→20:29)
[2024-07-11] MEDS: NSS (PRESERVATIVE FREE) 10 ML IV (08:47)
[2024-07-11] MEDS: DIFLUCAN 400 MG PO (08:47)
[2024-07-11] MEDS: PROTONIX IV 40 MG IV (08:48)
[2024-07-11 09:08] LABS: Magnesium 2.3 mg/dl (1.6-2.3); Phosphorus 3.1 mg/dl (2.5-4.5)
[2024-07-11] MEDS: TYLENOL 1000 MG PO ×3 (10:14→23:10)
--- NOTE | 2024-07-11 10:40 | PN.CDI ---
CDI
- -
CDI:
Physician Documentation Request
Admit Date: 07/07/24 22:46
Dear Doctor Romulo,
Please review the following and provide your response in the progress notes.
Clinical Indicators:
- Patient admit due to infected Intra-Abdominal Mesh
- 07/08 post op EBL 50 ml
- 07/11 Gen surg note 'Mild acute anemia secondary to expected intraop losses and hemodilution'
Laboratory Tests
07/07/24 07/10/24 07/11/24
22:00 05:11 05:40
Hgb 12.5 L 10.3 L D 9.3 L
Please clarify the likely/suspected etiology of intraop losses:
Acute blood loss anemia
Acute anemia (please specify type)
Other
Use of terms such as suspected, likely, concern for, or probable (associated with a specific diagnosis that is being evaluated, monitored, or treated as if it exists) are acceptable and can be coded in the inpatient setting, when documented at the
time of discharge.
Thank you,
Louis Becker RN
CDI Specialist
Please use your independent medical judgment in providing your response.
--- NOTE | 2024-07-11 10:54 | CM ---
Patient seen at bedside.
NGT out
Blanc out
Patient was current with [facility] prior
PLAN: home, [facility]
[2024-07-11 11:03] VITALS: BP 124/73
[2024-07-11] MEDS: DILAUDID PCA 30 IV (14:15)
[2024-07-11 15:44] VITALS: BP 140/80
--- NOTE | 2024-07-11 16:56 | W.PN.ID1 ---
Date of Service
Date of Service: July 11, 2024
Today's Communication
Continue with Diflucan. Change vancomycin to daptomycin.
Assessment / Plan
Infected abdominal mesh; for removal
Leukocytosis; improved
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
ALL s/p stem cells transplant (2022)
CVA
Depression
Hx Non-Hodgkin lymphoma s/p chemo, XRT (2004)
Recommendations:
Aerobic Tissue cultures - MRSA
Anaerobic Tissue culture - pending, gram stain mixed skin alexys
Continue with Diflucan
- repeat QTc acceptable
Change vancomycin to daptomycin.
s/p ex lap, removal of old mesh, colon resection, ventral hernia repair with phasix ST - bioresorbable
Monitor white count temperature curve.
Further recommendations as additional data is returned.
Chief Complaint
-: Other (mesh infection)
Subjective / Review of Systems
Review of Systems: No Fever, No Chills, Abdominal Pain, No Nausea and No Vomiting
Vital Signs / Physical Exam
Vital Signs
Vital Signs
Temp Pulse Resp BP Pulse Ox
97.6 F 72 18 140/80 99
07/11/24 15:44 07/11/24 15:44 07/11/24 15:44 07/11/24 15:44 07/11/24 15:44
Physical Exam
Constitutional: No Acute Distress, Comfortable and Non-toxic
Eyes: Sclera Anicteric
Pulmonary: Non Labored
Gastrointestinal: Non Distended
Wound: Other (Abdominal wound dressed.)
Neurological: AO x 3
Psychological: Calm
Objective Data
Lab Data
Lab Results
07/11/24 05:40
07/11/24 05:40
PT 13.8 Sec (11.4-14.6) 07/08/24 07:46
INR 1.03 07/08/24 07:46
APTT 43.5 Sec (23.4-35.0) H 07/08/24 07:46
Estimated Creat Clear > 125 ml/min 07/11/24 05:40
Lactic Acid 0.9 mmol/L (0.7-2.0) 07/07/24 22:00
Total Bilirubin 0.4 mg/dl (0.2-1.3) 07/07/24 22:00
AST 22 U/L (17-59) 07/07/24 22:00
ALT 18 U/L (0-50) 07/07/24 22:00
Alkaline Phosphatase 101 U/L (38-126) 07/07/24 22:00
Most recent labs reviewed.
Micro Results:
07/08/24 16:55 Anaerobic Culture - Preliminary
Abscess Culture pending. Anaerobic cultures are examined after 3
days incubation. Additional information to follow.
07/08/24 16:55 Wound Culture - Preliminary
Abscess Staph aureus MRSA
Gram Stain - Preliminary
07/08/24 17:41 Tissue Culture - Final
Abdomen Staph aureus MRSA
Gram Stain - Final
07/08/24 00:15 MRSA Screen - Final
Nose No Methicillin Resistant Staphylococcus aureus isolated.
Imaging:
05/18/2024-CT abdomen/pelvis: Abscess of the anterior mid abdomen deep to the midline incision and hernia mesh with a percutaneous drainage catheter in place, decreased in size compared to the CT abdomen/pelvis from 05/09/2024. Small abscess in the
gallbladder fossa, also decreased in size.
[2024-07-11] MEDS: LOVENOX 40 MG SC (17:46)
[2024-07-11] MEDS: CUBICIN 16 MG IV (18:22)
[2024-07-11] MEDS: TYLENOL PO (18:38)
[2024-07-11 19:26] VITALS: BP 138/83
[2024-07-11 23:40] VITALS: BP 134/81
[2024-07-12] VITALS (7 sets, daily range): BP systolic 149–164; BP diastolic 86–94; BMI 24.0
[2024-07-12] MEDS: TORADOL 15 MG IV ×4 (02:54→23:10)
[2024-07-12] MEDS: ZOSYN 50 IV ×4 (05:22→23:54)
[2024-07-12] MEDS: TYLENOL 1000 MG PO ×4 (05:22→23:53)
[2024-07-12 07:07] LABS: % Basophils 0.4 % (0-2); % Eosinophils 3.2 % (0-6); % Immature Granulocytes 0.6 % (0-0.5); % Lymphocytes 22.6 % (20.5-51.1); % Monocytes 7.6 % (1.7-9.3); % Neutrophils 65.6 % (42.2-75.2); Absolute Basophils 0.1 10^3/uL (0-0.2); Absolute Eosinophils 0.4 10^3/uL (0-0.7); Absolute Immature Granulocytes 0.1 10^3/uL (0-0.05); Absolute Lymphocytes 2.9 10^3/uL (1.2-3.4); Absolute Neutrophils 8.3 10^3/uL (1.4-6.5); Hematocrit 29.8 % (39.0-52.0); Hemoglobin 9.9 g/dL (13.0-18.0); Mean Corp Hgb Conc. 33.2 g/dL (33.0-37.0); Mean Corpuscular Hgb 31.1 pg (27.0-31.0); Mean Corpuscular Volume 93.7 fL (80.0-94.0); Mean Platelet Volume 9.3 fL (7.4-10.4); Nucleated Red Blood Cells % 0.7 % (-); Platelet Count 505 10^3/uL (130-400); Red Blood Cell Count 3.18 10^6/uL (4.70-6.10); Red Cell Dist. Width 16.5 % (11.5-14.5); White Blood Cell Count 12.7 10^3/uL (4.8-10.8)
[2024-07-12] MEDS: ZOFRAN 4 MG IV (07:16)
--- NOTE | 2024-07-12 07:27 | PTCARENOTE ---
Pt complaining of 'not feeling right' this morning, states abd incision more painful and feeling queasy - having a difficult time verbalizing exact feeling. Incisional dressing CDI, VSS, NSR with PVC's on the monitor. Dr. Ac notified, order
for Zofran x 1 obtained and given. Report given to oncoming nurse Sintia.
--- NOTE | 2024-07-12 08:02 | W.PN.GS2 ---
Today's Communication / Plan
-
-Pain control: HAZMAT CDL DRIVER for pain management, Ofirmev/Toradol ATC
-Continue with clears
Assessment / Plan
-
63M presenting with h/o prior splenectomy, IPOM+ VIHR and subsequent lap converted to open cholecystectomy for ACC c/b SB enterotomy requiring RTOR and repair of enterotomy. He subsequently developed an infection of his implanted mesh. He has been
followed for the past 2 months outpatient with abx under ID guidance and using a wound vac to promote healing but despite this has presented with ongoing infection and worsening pain
POD#4 Exploratory laparotomy, lysis of adhesions (120mins), small bowel resection (est 35cm), transverse colon resection (est 15cm), explantation of old mesh, bridging repair ventral hernia repair with Phasix ST. VAC d/c'd in OR
AFVSS
Leukocytosis present with trending down, cx sent from OR now with +MRSA.
- Hyperkalemia resolved with IVF
- Acute anemia secondary to expected intraop blood losses and hemodilution, stable Hb
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
Plan:
-Pain control: HAZMAT CDL DRIVER for pain management, Ofirmev/Toradol ATC
-Continue with clears
-Appreciate ID recs
-mIVF with HAZMAT CDL DRIVER
-Hawley out
-Encouraged activity, wear ABD binder at all times. PT following
-IS while awake
-PPI for GI ppx
-Restarted Xarelto for DVT
Subjective Data
-
Date of Service: July 12, 2024
Reports abdominal pain. No significant relief with HAZMAT CDL DRIVER. Denies nausea or vomiting. Reports passing flatus, no BM. Ambulation yesterday. No fevers.
Objective Data
-
Intake and Output
07/11/24 07/12/24 07/13/24
06:59 06:59 06:59
Intake Total 2990 / 2990 2900 / 2900
Output Total 3410 / 3410 1240 / 1240
Balance -420 / -420 1660 / 1660
Intake:
Oral fluids 460 / 460 1200 / 1200
IV fluids (Total) 1700 / 1700 1600 / 1600
IV piggybacks 800 / 800 100 / 100
Amount instilled into GI Tube ( 30 / 30
Total)
[place] Sump 30 / 30
Output:
Drain Output (Total) 110 / 110 40 / 40
Right Raymond-Portillo 110 / 110 40 / 40
Gastrointestinal tube output ( 225 / 225
Total)
[place] Sump 225 / 225
Urine, Hawley 3075 / 3075
Urine, Voided 1200 / 1200
Other:
Number of approximated SMALL 1
amounts of urine
Number of approximated MODERATE 3
amounts of urine
Vital Signs
Temp Pulse Resp BP Pulse Ox
97.8 F 63 17 164/94 98
07/12/24 07:19 07/12/24 07:19 07/12/24 07:19 07/12/24 07:19 07/12/24 07:19
Lab Results
07/12/24 06:02
Calcium 7.8 mg/dl (8.4-10.2) L 07/11/24 05:40
Phosphorus 3.1 mg/dl (2.5-4.5) 07/11/24 05:40
Magnesium 2.3 mg/dl (1.6-2.3) 07/11/24 05:40
Total Bilirubin 0.4 mg/dl (0.2-1.3) 07/07/24 22:00
AST 22 U/L (17-59) 07/07/24 22:00
ALT 18 U/L (0-50) 07/07/24 22:00
Alkaline Phosphatase 101 U/L (38-126) 07/07/24 22:00
Total Protein 5.4 g/dl (6.3-8.2) L 07/07/24 22:00
Albumin 3.1 g/dl (3.5-5.0) L 07/07/24 22:00
Physical Exam
-
Gen: NAD
Abd: soft, tender to palpation diffusely, ND, non-peritoneal, midline c/d/i - no erythema, ecchymosis or drainage, MARY serosang
Patient has a hawley catheter: No
Patient has a central line: No
[2024-07-12 08:06] LABS: Blood Urea Nitrogen 6 mg/dl (9-20); Calcium 8.1 mg/dl (8.4-10.2); Carbon Dioxide 28 mmol/L (22-30); Chloride 101 mmol/L (98-107); Estimated Creatinine Clearance > 125 ml/min; Glucose 97 mg/dl (70-99); Potassium 3.9 mmol/L (3.5-5.1); Sodium 139 mmol/L (135-145); eGFR > 60.00
[2024-07-12] MEDS: DIFLUCAN 400 MG PO (08:26)
[2024-07-12] MEDS: PROTONIX IV 40 MG IV (08:26)
[2024-07-12] MEDS: ZOVIRAX 800 MG PO ×2 (08:26→20:18)
[2024-07-12] MEDS: NSS (PRESERVATIVE FREE) 10 ML IV (08:26)
[2024-07-12] MEDS: D5/0.45%NACL 1000 IV (08:31)
--- NOTE | 2024-07-12 10:59 | W.PN.ID1 ---
Date of Service
Date of Service: July 12, 2024
Today's Communication
Continue with Fluconazole, Daptomycin, and Zosyn for now.
Assessment / Plan
Infected abdominal mesh s/p total removal 07/08/24
Leukocytosis; improving
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
ALL s/p stem cells transplant (2022)
CVA
Depression
Hx Non-Hodgkin lymphoma s/p chemo, XRT (2004)
Recommendations:
s/p ex lap, removal of old mesh, colon resection, ventral hernia repair with phasix ST - bioresorbable
Aerobic Tissue cultures - MRSA
Anaerobic Tissue culture - pending
Continue with Fluconazole, Daptomycin, and Zosyn for now.
repeat QTc acceptable
Follow CK while on daptomycin.
Monitor white count
Chief Complaint
-: Other (mesh infection)
Subjective / Review of Systems
c/o post-op pain.
Vital Signs / Physical Exam
Vital Signs
Vital Signs
Temp Pulse Resp BP Pulse Ox
97.8 F 63 18 164/94 98
07/12/24 07:19 07/12/24 07:19 07/12/24 08:00 07/12/24 07:19 07/12/24 08:18
Physical Exam
Constitutional: No Acute Distress
Pulmonary: Clear
Gastrointestinal: Soft, Non Distended and Other (MARY drain: clear serous fluid)
Extremities: Negative Edema
Neurological: AO x 3
Objective Data
Lab Data
Lab Results
07/12/24 06:02
07/12/24 06:02
PT 13.8 Sec (11.4-14.6) 07/08/24 07:46
INR 1.03 07/08/24 07:46
APTT 43.5 Sec (23.4-35.0) H 07/08/24 07:46
Estimated Creat Clear > 125 ml/min 07/12/24 06:02
Lactic Acid 0.9 mmol/L (0.7-2.0) 07/07/24 22:00
Total Bilirubin 0.4 mg/dl (0.2-1.3) 07/07/24 22:00
AST 22 U/L (17-59) 07/07/24 22:00
ALT 18 U/L (0-50) 07/07/24 22:00
Alkaline Phosphatase 101 U/L (38-126) 07/07/24 22:00
Most recent labs reviewed.
Micro Results:
07/08/24 16:55 Anaerobic Culture - Preliminary
Abscess Culture pending. Anaerobic cultures are examined after 3
days incubation. Additional information to follow.
07/08/24 16:55 Wound Culture - Preliminary
Abscess Staph aureus MRSA
Gram Stain - Preliminary
07/08/24 17:41 Tissue Culture - Final
Abdomen Staph aureus MRSA
Gram Stain - Final
07/08/24 00:15 MRSA Screen - Final
Nose No Methicillin Resistant Staphylococcus aureus isolated.
Imaging:
05/18/2024-CT abdomen/pelvis: Abscess of the anterior mid abdomen deep to the midline incision and hernia mesh with a percutaneous drainage catheter in place, decreased in size compared to the CT abdomen/pelvis from 05/09/2024. Small abscess in the
gallbladder fossa, also decreased in size.
--- NOTE | 2024-07-12 11:00 | PTCARENOTE ---
Patient stated to this RN and rn night RN on change of shift rounds he 'doesn't feel right,' denies nausea, states abd pain is 9/10 and radiating to back. Midline incision dressing C/D/I, sherita intact, R MARY drain dressing intact, drain with
serosanguineous output. Patient on dilaudid OPERATION AGENT pump per MD order. This RN communicated with general surgery, surgery at bedside this AM, OPERATION AGENT pump settings adjusted per MD to demand bolus of 1 mg, lockout 20 minutes, max dose per hour 3mg; OPERATION AGENT pump
settings adjusted by this RN and confirmed with Emely DONIS. IVF infusing per order.
--- NOTE | 2024-07-12 12:09 | CM ---
Patient seen at bedside
On clear liq
Continues on VISUAL MERCHANDISING ASSOCIATE for pain control, IV antibiotics
Current with [facility]
Referral in [facility]
PLAN: Discharge when stable, home, with [facility]
--- NOTE | 2024-07-12 18:00 | PTCARENOTE ---
New dilaudid bag verified by this RN and Della nurse educator, pump settings verified, previous dilaudid bag remaining wasted and green slip sent to pharmacy. Patient NSR on tele monitor, cont POX on, patient 97-100% on RA. IVF and zosyn infusing
per order. Midline incision dressing C/D/I, R MARY drain with 15 ml serosanguineous output for shift.
[2024-07-12] MEDS: CUBICIN 16 MG IV (18:03)
[2024-07-12] MEDS: XARELTO 20 MG PO (18:03)
[2024-07-12] MEDS: DILAUDID PCA 30 IV (18:04)
[2024-07-13] VITALS (7 sets, daily range): BP systolic 133–149; BP diastolic 81–92; BMI 22.7
[2024-07-13] MEDS: TORADOL 15 MG IV ×3 (03:55→14:56)
[2024-07-13] MEDS: ZOSYN 50 IV ×3 (06:01→18:09)
[2024-07-13] MEDS: TYLENOL 1000 MG PO (06:02)
[2024-07-13] MEDS: D5/0.45%NACL 1000 IV (06:03)
[2024-07-13 06:47] LABS: Hematocrit 31.9 % (39.0-52.0); Hemoglobin 10.7 g/dL (13.0-18.0); Mean Corp Hgb Conc. 33.5 g/dL (33.0-37.0); Mean Corpuscular Volume 92.5 fL (80.0-94.0); Mean Platelet Volume 9.3 fL (7.4-10.4); Platelet Count 554 10^3/uL (130-400); Red Blood Cell Count 3.45 10^6/uL (4.70-6.10); Red Cell Dist. Width 16.2 % (11.5-14.5); White Blood Cell Count 12.3 10^3/uL (4.8-10.8)
[2024-07-13 06:52] LABS: Blood Urea Nitrogen 5 mg/dl (9-20); Calcium 8.8 mg/dl (8.4-10.2); Carbon Dioxide 29 mmol/L (22-30); Chloride 99 mmol/L (98-107); Creatine Phosphokinase 58 U/L (55-170); Estimated Creatinine Clearance > 125 ml/min; Glucose 86 mg/dl (70-99); Potassium 4.4 mmol/L (3.5-5.1); Sodium 137 mmol/L (135-145); eGFR > 60.00
--- NOTE | 2024-07-13 08:49 | W.PN.GS2 ---
Today's Communication / Plan
-
DC CALENDERING SUPERVISOR
Adv to LRD
Assessment / Plan
-
63M presenting with h/o prior splenectomy, IPOM+ VIHR and subsequent lap converted to open cholecystectomy for ACC c/b SB enterotomy requiring RTOR and repair of enterotomy. He subsequently developed an infection of his implanted mesh. He has been
followed for the past 2 months outpatient with abx under ID guidance and using a wound vac to promote healing but despite this has presented with ongoing infection and worsening pain
POD#5 Exploratory laparotomy, lysis of adhesions (120mins), small bowel resection (est 35cm), transverse colon resection (est 15cm), explantation of old mesh, bridging repair ventral hernia repair with Phasix ST. VAC d/c'd in OR
AFVSS
Leukocytosis present with trending down, cx sent from OR now with +MRSA.
- Hyperkalemia resolved with IVF
- Acute anemia secondary to expected intraop blood losses and hemodilution, stable Hb
Plan:
-Pain control: DC CALENDERING SUPERVISOR - ofirmev for today / toradol (day 5/5); add tramadol PRN for brealkthrough
-Adv to LRD
-Appreciate ID recs
-HLIV
-Encouraged activity, wear ABD binder at all times. PT following
-IS while awake
-PPI for GI ppx
-Cont Xarelto, SCDs
Subjective Data
-
Date of Service: July 13, 2024
AFVSS, ambulating, passing flatus and BM, pain controlled without pushing CALENDERING SUPERVISOR button overnight
Objective Data
-
Intake and Output
07/12/24 07/13/24 07/14/24
06:59 06:59 06:59
Intake Total 2900 / 2900 2160 / 2160
Output Total 1240 / 1240 1415 / 1415 20 / 20
Balance 1660 / 1660 745 / 745 -20 / -20
Intake:
Oral fluids 1200 / 1200 1000 / 1000
IV fluids (Total) 1600 / 1600 960 / 960
IV piggybacks 100 / 100 200 / 200
Output:
Drain Output (Total)
Right Raymond-Portillo
Urine, Voided 1200 / 1200 1400 / 1400
Other:
Number of approximated SMALL 1
amounts of urine
Number of approximated MODERATE 3 3
amounts of urine
Vital Signs
Temp Pulse Resp BP Pulse Ox
97.7 F 66 18 141/89 96
07/13/24 07:05 07/13/24 07:05 07/13/24 07:36 07/13/24 07:05 07/13/24 07:36
Lab Results
07/13/24 05:41
07/13/24 05:41
Calcium 8.8 mg/dl (8.4-10.2) 07/13/24 05:41
Phosphorus 3.1 mg/dl (2.5-4.5) 07/11/24 05:40
Magnesium 2.3 mg/dl (1.6-2.3) 07/11/24 05:40
Total Bilirubin 0.4 mg/dl (0.2-1.3) 07/07/24 22:00
AST 22 U/L (17-59) 07/07/24 22:00
ALT 18 U/L (0-50) 07/07/24 22:00
Alkaline Phosphatase 101 U/L (38-126) 07/07/24 22:00
Total Protein 5.4 g/dl (6.3-8.2) L 07/07/24 22:00
Albumin 3.1 g/dl (3.5-5.0) L 07/07/24 22:00
Physical Exam
-
Gen: NAD
Abd: soft, approp ttp, incision cdi with sherita, drain ss
Patient has a hawley catheter: No
Patient has a central line: No
[2024-07-13] MEDS: PROTONIX IV 40 MG IV (09:29)
[2024-07-13] MEDS: NSS (PRESERVATIVE FREE) 10 ML IV (09:29)
[2024-07-13] MEDS: ZOVIRAX 800 MG PO ×2 (09:29→19:40)
[2024-07-13] MEDS: DIFLUCAN 400 MG PO (09:29)
[2024-07-13] MEDS: MIRALAX 17 GRAMS PO (09:30)
[2024-07-13] MEDS: ULTRAM 50 MG PO (09:46)
[2024-07-13] MEDS: OFIRMEV 100 IV ×2 (12:02→17:19)
--- NOTE | 2024-07-13 13:15 | PTCARENOTE ---
order received by dr. june to d/c continuous pulse ox and iv fluids.
--- NOTE | 2024-07-13 13:48 | W.PN.ID1 ---
Date of Service
Date of Service: July 13, 2024
Today's Communication
Continue current antibiotics.
Assessment / Plan
Infected abdominal mesh s/p total removal 07/08/24
Leukocytosis; improving
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
ALL s/p stem cells transplant (2022)
CVA
Depression
Hx Non-Hodgkin lymphoma s/p chemo, XRT (2004)
Recommendations:
s/p ex lap, removal of old mesh, colon resection, ventral hernia repair with phasix ST - bioresorbable
Aerobic Tissue cultures - MRSA
Anaerobic Tissue culture - Prevotella
Continue with Fluconazole, Daptomycin, and Zosyn for now -> po abx's at time of discharge.
repeat QTc acceptable
CK normal
Monitor white count
Chief Complaint
-: Other (mesh infection)
Subjective / Review of Systems
Abd pain little better.
Vital Signs / Physical Exam
Vital Signs
Vital Signs
Temp Pulse Resp BP Pulse Ox
97.9 F 72 16 146/92 97
07/13/24 11:20 07/13/24 11:20 07/13/24 11:20 07/13/24 11:20 07/13/24 11:20
Physical Exam
Constitutional: No Acute Distress
Cardiovascular: Regular Rate and S1/S2
Pulmonary: Clear
Gastrointestinal: Soft, Non Distended, Normal Bowel Sounds, Decreased Bowel Sounds and Other (MARY drain serous fluid)
Neurological: AO x 3
Objective Data
Lab Data
Lab Results
07/13/24 05:41
07/13/24 05:41
PT 13.8 Sec (11.4-14.6) 07/08/24 07:46
INR 1.03 07/08/24 07:46
APTT 43.5 Sec (23.4-35.0) H 07/08/24 07:46
Estimated Creat Clear > 125 ml/min 07/13/24 05:41
Lactic Acid 0.9 mmol/L (0.7-2.0) 07/07/24 22:00
Total Bilirubin 0.4 mg/dl (0.2-1.3) 07/07/24 22:00
AST 22 U/L (17-59) 07/07/24 22:00
ALT 18 U/L (0-50) 07/07/24 22:00
Alkaline Phosphatase 101 U/L (38-126) 07/07/24 22:00
Most recent labs reviewed.
Micro Results:
07/08/24 16:55 Wound Culture - Final
Abscess Staph aureus MRSA
Gram Stain - Final
07/08/24 16:55 Anaerobic Culture - Final
Abscess Prevotella melaninogenica
07/08/24 17:41 Tissue Culture - Final
Abdomen Staph aureus MRSA
Gram Stain - Final
07/08/24 00:15 MRSA Screen - Final
Nose No Methicillin Resistant Staphylococcus aureus isolated.
Imaging:
05/18/2024-CT abdomen/pelvis: Abscess of the anterior mid abdomen deep to the midline incision and hernia mesh with a percutaneous drainage catheter in place, decreased in size compared to the CT abdomen/pelvis from 05/09/2024. Small abscess in the
gallbladder fossa, also decreased in size.
--- NOTE | 2024-07-13 16:46 | CM ---
Patient seen walking hallway
continue antibiotics
Current with [facility]
PLAN: Home, [facility]
[2024-07-13] MEDS: CUBICIN 16 MG IV (17:18)
[2024-07-13] MEDS: XARELTO 20 MG PO (17:19)
[2024-07-13] MEDS: ULTRAM 100 MG PO (17:43)
[2024-07-14] MEDS: ULTRAM 50 MG PO (00:18)
[2024-07-14] MEDS: OFIRMEV 100 IV ×2 (00:19→05:44)
[2024-07-14] MEDS: ZOSYN 50 IV ×2 (00:20→05:40)
[2024-07-14 03:55] VITALS: BP 139/89
[2024-07-14] MEDS: ULTRAM 100 MG PO (05:39)
[2024-07-14 05:56] VITALS: BMI 22.6
[2024-07-14 07:36] VITALS: BP 146/91
[2024-07-14] MEDS: DIFLUCAN 400 MG PO (08:53)
[2024-07-14] MEDS: ZOVIRAX 800 MG PO (08:53)
[2024-07-14] MEDS: MIRALAX 17 GRAMS PO (08:53)
[2024-07-14] MEDS: PROTONIX IV 40 MG IV (08:53)
[2024-07-14] MEDS: NSS (PRESERVATIVE FREE) 10 ML IV (08:53)
--- NOTE | 2024-07-14 08:59 | W.PN.GS2 ---
Today's Communication / Plan
-
DC
Assessment / Plan
-
63M presenting with h/o prior splenectomy, IPOM+ VIHR and subsequent lap converted to open cholecystectomy for ACC c/b SB enterotomy requiring RTOR and repair of enterotomy. He subsequently developed an infection of his implanted mesh. He has been
followed for the past 2 months outpatient with abx under ID guidance and using a wound vac to promote healing but despite this has presented with ongoing infection and worsening pain
POD#6 Exploratory laparotomy, lysis of adhesions (120mins), small bowel resection (est 35cm), transverse colon resection (est 15cm), explantation of old mesh, bridging repair ventral hernia repair with Phasix ST. VAC d/c'd in OR
AFVSS
Leukocytosis present with trending down, cx sent from OR now with +MRSA.
- Hyperkalemia resolved with IVF
- Acute anemia secondary to expected intraop blood losses and hemodilution, stable Hb
Plan:
-multimodal prn pain mgmt
-cont LRD
-Appreciate ID recs
-HLIV
-Encouraged activity, wear ABD binder at all times. PT following
-IS while awake
-PPI for GI ppx
-Cont Xarelto, SCDs
-DC home pending ID recs for further abx
Subjective Data
-
Date of Service: July 14, 2024
AFVSS, ambulating, pain control without narcs, jorge LRD
Objective Data
-
Intake and Output
07/13/24 07/14/24 07/15/24
06:59 06:59 06:59
Intake Total 2160 / 2160 880 / 880
Output Total 1415 / 1415 40 / 40
Balance 745 / 745 840 / 840
Intake:
Oral fluids 1000 / 1000 480 / 480
IV fluids (Total) 960 / 960
IV piggybacks 200 / 200 400 / 400
Output:
Drain Output (Total)
Right Raymond-Portillo
Urine, Voided 1400 / 1400
Other:
Number of approximated MODERATE 3
amounts of urine
Number of approximated LARGE 1
amounts of urine
Vital Signs
Temp Pulse Resp BP Pulse Ox
98.4 F 66 16 146/91 96
07/14/24 07:36 07/14/24 07:36 07/14/24 07:36 07/14/24 07:36 07/14/24 07:36
Lab Results
07/13/24 05:41
07/13/24 05:41
Calcium 8.8 mg/dl (8.4-10.2) 07/13/24 05:41
Phosphorus 3.1 mg/dl (2.5-4.5) 07/11/24 05:40
Magnesium 2.3 mg/dl (1.6-2.3) 07/11/24 05:40
Total Bilirubin 0.4 mg/dl (0.2-1.3) 07/07/24 22:00
AST 22 U/L (17-59) 07/07/24 22:00
ALT 18 U/L (0-50) 07/07/24 22:00
Alkaline Phosphatase 101 U/L (38-126) 07/07/24 22:00
Total Protein 5.4 g/dl (6.3-8.2) L 07/07/24 22:00
Albumin 3.1 g/dl (3.5-5.0) L 07/07/24 22:00
Physical Exam
-
Gen: NAD
Abd: soft, approp ttp, drain ss, incision cdi
Patient has a hawley catheter: No
Patient has a central line: No
--- NOTE | 2024-07-14 09:01 | W.DS.TRANS ---
Addendum entered and electronically signed by BRITTNEE Yates 07/15/24 08:27:
dictated #[id number]
Original Note:
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
-
Discharge Instructions:
Sleep Apnea Risk Intermediate
Discharge Diagnosis/Procedures Exploratory laparotomy, lysis of adhesions,
small bowel resection, transverse colon
resection, explantation of old mesh, bridging
repair ventral hernia repair with absorbable
mesh
Diet Low Residue
Activity No strenuous activity
Additional Activity Do not lift over 10 lbs for 6 weeks
Driving Restrictions Wait until comfortable twisting/off narcotics
Bathing Restrictions OK to Shower
Wound Care Avril will be removed at your follow up
appointment 2-3 weeks after surgery, cover old
drain site with gauze/tape or bandaid and change
daily. When dressing comes off clean and dry,
no need to cover. I recommend wearing an
abdominal binder for support, you may try
compression garments as well (they make shirts
for men designed with some compression at the
midsection, similar to spanx)
Instructions:
Stand-Alone Forms:
Changes to Home Medications: No
Discharge Medications:
DC Medications w/original date entered in [facility]
rivaroxaban 20 mg tablet (Xarelto) 20 mg PO DAILY Blood Clot Prevention/Tx 04/28/24
tetrahydrozoline 0.05 % eye drops (Visine) 1 drp BOTH EYES DAILYPRN PRN dry eyes 04/28/24
acetaminophen 500 mg tablet (Tylenol Extra Strength) 1,000 mg PO Q8HPRN PRN mild pain 05/10/24
polyethylene glycol 3350 17 gram oral powder packet (HealthyLax) 17 g PO DAILYPRN PRN constipation 05/10/24
oxycodone 5 mg tablet 5 - 10 mg (1 - 2 x 5 mg) PO Q4HPRN PRN moderate to severe pain #30 tabs 06/13/24
acyclovir 800 mg tablet 800 mg PO BID 07/07/24
fluconazole 200 mg tablet 200 mg PO DAILY 07/07/24
tramadol 50 mg tablet 50 - 100 mg (1 - 2 x 50 mg) PO Q6H PRN Pain #40 tabs 07/13/24
Home Medication Changes
Pending Results: No
--- NOTE | 2024-07-14 09:09 | W.PN.ID1 ---
Date of Service
Date of Service: July 14, 2024
Today's Communication
Can transition to:
-doxycycline 100mg po bid x 21 more days
-Augmentin (amox/clav) 875mg po bid x 21 more days.
-Fluconazole 200mg po qd x 21 more days.
Assessment / Plan
Infected abdominal mesh s/p total removal 07/08/24
Leukocytosis; improving
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
ALL s/p stem cells transplant (2022)
CVA
Depression
Hx Non-Hodgkin lymphoma s/p chemo, XRT (2004)
Recommendations:
s/p ex lap, removal of old mesh, colon resection, ventral hernia repair with phasix ST - bioresorbable
Aerobic Tissue cultures - MRSA
Anaerobic Tissue culture - Prevotella
Currently on Fluconazole, Daptomycin, and Zosyn
repeat QTc acceptable
CK normal
Can transition to:
-doxycycline 100mg po bid x 21 more days
-Augmentin (amox/clav) 875mg po bid x 21 more days.
-Fluconazole 200mg po qd x 21 more days.
Chief Complaint
-: Other (mesh infection)
Subjective / Review of Systems
Abd pain controlled. Feels well.
Vital Signs / Physical Exam
Vital Signs
Vital Signs
Temp Pulse Resp BP Pulse Ox
98.4 F 66 16 146/91 96
07/14/24 07:36 07/14/24 07:36 07/14/24 07:36 07/14/24 07:36 07/14/24 07:36
Physical Exam
Constitutional: No Acute Distress and Comfortable
Cardiovascular: Regular Rate
Pulmonary: Clear
Gastrointestinal: Soft, Non Tender, Non Distended and Normal Bowel Sounds
Extremities: Negative Edema
Neurological: AO x 3
Objective Data
Lab Data
Lab Results
07/13/24 05:41
07/13/24 05:41
PT 13.8 Sec (11.4-14.6) 07/08/24 07:46
INR 1.03 07/08/24 07:46
APTT 43.5 Sec (23.4-35.0) H 07/08/24 07:46
Estimated Creat Clear > 125 ml/min 07/13/24 05:41
Lactic Acid 0.9 mmol/L (0.7-2.0) 07/07/24 22:00
Total Bilirubin 0.4 mg/dl (0.2-1.3) 07/07/24 22:00
AST 22 U/L (17-59) 07/07/24 22:00
ALT 18 U/L (0-50) 07/07/24 22:00
Alkaline Phosphatase 101 U/L (38-126) 07/07/24 22:00
Most recent labs reviewed.
Micro Results:
07/08/24 16:55 Wound Culture - Final
Abscess Staph aureus MRSA
Gram Stain - Final
07/08/24 16:55 Anaerobic Culture - Final
Abscess Prevotella melaninogenica
07/08/24 17:41 Tissue Culture - Final
Abdomen Staph aureus MRSA
Gram Stain - Final
07/08/24 00:15 MRSA Screen - Final
Nose No Methicillin Resistant Staphylococcus aureus isolated.
Imaging:
05/18/2024-CT abdomen/pelvis: Abscess of the anterior mid abdomen deep to the midline incision and hernia mesh with a percutaneous drainage catheter in place, decreased in size compared to the CT abdomen/pelvis from 05/09/2024. Small abscess in the
gallbladder fossa, also decreased in size.
Care Review
Plan reviewed with: Physician (Dr. Sebastian)
--- NOTE | 2024-07-14 10:25 | VNURNOTE ---
[facility] liaison met with patient at beside. He confirms he is agreeable to resumption w/[facility]. DALILA referral accepted in [facility]. Patient has [facility] contact #.
--- NOTE | 2024-07-14 11:35 | CM ---
Patient for discharge home today.
Current with [facility]
PLAN: Home, [facility]
to transport
[2024-07-14 11:45] VITALS: BP 150/88
--- NOTE | 2024-07-15 13:14 | OR.RPT ---
Operative Report
Operative Report
Primary Surgeon: Romulo
Assisting Surgeon: Theo
Pre-op Diagnosis: Mesh infection
Post-op Diagnosis: Mesh infection, ventral incisional hernia
Procedure Performed: Exploratory laparotomy, lysis of adhesions (120mins), small bowel resection (est 35cm), transverse colon resection (est 15cm), explantation of old mesh, bridging repair ventral hernia repair with phasix ST
Anesthesia Type: GETA + TAP block
Specimen / Cultures: Mesh, peritoneal fluid
Estimated Blood Loss: 50cc
Complications: None immediate
Operative Findings: Centrally frozen abdomen, meshoma at midline involving small bowel and transverse colon; old mesh totally excised; serosal tear (expected during this procedure) to small bowel just proximal to anastomosis repaired with 3-0
vicryl lembert sutures; no pus; 15x[address] ph[address] bridging upper part of incision where fascia sacrificed for mesh excision, 10cm fascial defect bridged; skin edges freshened and stapled; 19fr allie drain to subcutaneous space; unable to palpate ng in
stomach due to dense adhesions in the area
Date of Surgery: 07/08/24
Indications: This 63M underwent multiple ventral hernia repairs with various types of mesh over many years. He developed acute calculous cholecystitis about 2 months ago and underwent lap converted to open cholecystectomy. Post op day one his drains
became bilious and imaging revealed a small bowel enterotomy. He then underwent exploratory laparotomy, repair of enterotomy and washout. He subsequently developed a mesh infection and had poor wound healing of his midline abdominal wound. He
returned to the hospital for intractable pain and the plan was for exploratory laparotomy, lysis of adhesions, mesh explantation and placement of resorbable mesh
Description of procedure: The patient was placed on the operating table in the supine position. General anesthesia was induced. A time-out was completed verifying correct patient, procedure, site, positioning, and special equipment prior to
beginning this procedure. An nasogastric tube was placed. The abdomen was prepped and draped in the usual sterile fashion. The wound vac was removed. A midline incision was made with cut cautery and carried down to the linea alba with
electrocautery. The linea alba was divided and the abdomen carefully entered. The central abdominal viscera was essentially frozen. Careful lysis of adhesions was carried out to liberate the bowel from scar and mesh. This process took about 2 hours
and resulted in expected colotomy and small bowel serosal injury. The colon was whip stitched closed and lysis continued until all viscera was freed from the abdominal wall and mesh. Remaining mesh was then excised, preserving as much abdominal wall
soft tissue as possible. Ultimately the injured segment of transverse colon was resected en block with the mesh/scar complex using MONA 80mm purple load stapler and anastomosed using the same stapler in side-side fashion. The crossing staple lines
were oversewn with 3-0 vicryl lembert sutures. The small bowel was tethered to the mesh scar complex as well and this area was also resected in similar fashion with similar anastomosis performed. The serosal injury to small bowel was repaired with
3-0 vicryl lembert sutures. The abdomen was irrigated thoroughly and hemostasis was assured. The left upper quadrant was severely scarred preventing direct palpation of the nasogastric tube in the stomach. The fascia was closed at the inferior
aspect of the incision, at the superior area a roughly 10cm fascial defect remained that could not be closed without undue tension. A 15cm x 20cm phasix ST mesh was used to bridge the defect and secured to fascial edge using interrupted
[id number] 0 PDS suture. A 19fr allie drain was laced into the subcutaneous space and brought out through the right lower quadrant and secured with 2-0 nylon suture. The skin was closed with sherita. An aquacel dressing was placed.
Dr. Venegas helped with exposure, dissection, bowel resection and closure.
The patient tolerated the procedure well and was taken to the postanesthesia care unit in stable condition.
== END 2024-07-14 11:57 | disposition home health service (06) | DRG 907 ==
LOC: 2 NORTH 22:46
PROVIDERS: Clinical Nurse Specialist Family Health; Internal Medicine; Internal Medicine Infectious Disease; Nurse Practitioner Family; Registered Nurse; ADMITTING PHYSICIAN Hospitalist; ATTENDING PHYSICIAN Surgery; EMERGENCY PHYSICIAN Emergency Medicine; FAMILY PHYSICIAN Family Medicine; OTHER PHYSICIAN Internal Medicine Infectious Disease
PROC: 0DTG0ZZ Resection of Left Large Intestine, Open Approach (ICD-10-PCS; 2024-07-08)
PROC: 0DNW0ZZ Release Peritoneum, Open Approach (ICD-10-PCS; 2024-07-08)
PROC: 0WUF0JZ Supplement Abdominal Wall with Synthetic Substitute, Open Approach (ICD-10-PCS; 2024-07-08)
DX: T85.79XA Infection and inflammatory reaction due to other internal prosthetic devices, implants and grafts, initial encounter (principal); K65.1 Peritoneal abscess; D62 Acute posthemorrhagic anemia; C85.9A Non-Hodgkin lymphoma, unspecified, in remission; K56.50 Intestinal adhesions [bands], unspecified as to partial versus complete obstruction; Z87.891 Personal history of nicotine dependence; Y83.2 Surgical operation with anastomosis, bypass or graft as the cause of abnormal reaction of the patient, or of later complication, without mention of misadventure at the time of the procedure; I48.0 Paroxysmal atrial fibrillation; K43.2 Incisional hernia without obstruction or gangrene; E87.5 Hyperkalemia; I10 Essential (primary) hypertension; Z79.01 Long term (current) use of anticoagulants
CPT/HCPCS: 88307; 80048; 80053; 82550; 83605; 83735; 84100; 85025; 85027; 85610; 85730; 87070; 87075; 87076; 87147; 87176; 87185; 87186; 87205; 93005; 96361; 96374; 97162; 99285; C1776; C1781; J0878

== ENCOUNTER 2024-12-15 08:18 | Emergency (ER) | payer OTHER, SELFPAY ==
[2024-12-15] VITALS (7 sets, daily range): BP systolic 108–138; BP diastolic 73–86; BMI 24.4
--- NOTE | 2024-12-15 09:03 | ED.GENMED ---
History of Present Illness
General
Chief Complaint: Chest Pain
Source: patient
Time Seen by Provider: 12/15/24 08:51
History of Present Illness
History of Present Illness:
Note:
CHIEF COMPLAINT(S)
Abdominal pain.
HISTORY OF PRESENT ILLNESS
The patient is a 64-year-old male with a past medical history significant for leukemia, lymphoma, multiple abdominal surgeries, and cholecystectomy who presents with abdominal pain. The pain began suddenly at 7:30 while he was sitting at work. The
pain was described as sharp and located across the lower chest and upper abdomen, without radiation to the back. There was no nausea, diaphoresis, or dyspnea initially, but he reports that the pain worsened on inspiration. He notes persistent
discomfort attributed to past surgeries. The patient denies dark stools or melena. He reported no change in symptoms despite taking rivaroxaban and expressed concerns about readings from his Apple Watch.
PAST SURGICAL HISTORY
Cholecystectomy with subsequent surgical complications requiring mesh removal since last year. Multiple abdominal surgeries.
CHRONIC MEDICAL CONDITIONS SIGNIFICANTLY AFFECTING CARE
Chronic conditions affecting care: Leukemia, lymphoma, and issues related to past abdominal surgeries.
MEDICATIONS
Rivaroxaban.
SOCIAL HISTORY
Consumes a couple of glasses of wine per night. Drinks two cups of coffee daily.
REVIEW OF SYSTEMS
- Gastrointestinal: Sharp abdominal pain across the lower chest and upper abdomen. No nausea, vomiting, or abnormal stools reported.
- Respiratory: Worsening pain on inspiration, cold with associated cough, slight fever reaching 99�F reported occasionally.
- Cardiovascular: No chest pain reported.
PHYSICAL EXAM
Nursing notes reviewed and vital signs reviewed. Tenderness observed in the abdomen, particularly in the areas affected by previous surgeries.
PLAN
1. Obtain blood work, including pancreatic enzyme analysis, to evaluate for potential pancreatitis or gastritis.
2. Perform a CT scan of the abdomen for further evaluation of tenderness and to rule out acute pathology.
DIFFERENTIAL DIAGNOSIS
The Differential Diagnosis includes, in no particular order and is not limited to:
1. Pancreatitis
2. Gastritis
3. Complications from previous abdominal surgeries
4. Peptic ulcer disease
6. Myocardial infarction
Past History
Past History
ED Past Medical History: Arrthythmia (AF), Cancer (nonhodgkins lymphoma), CVA, HTN, Hypercholesterolemia and Other (Neuropathy, Bowel obstruction, Ptosis right eye)
ED Past Surgical History: Cardiac (Ablation), Orthopedic (Right knee replacement) and Other (Splenectomy, Stomach repair, hernia repair, PFO closure, Cataracts, Bone marrow transplant)
Social History
Tobacco: Former smoker
Alcohol: Daily (1-2 glasses of wine)
Drug: None
Personal:
Living: with family
Phy Exam
Physical Exam
Physical Exam:
General: Well-appearing male no acute respiratory distress
HEENT normocephalic atraumatic
Heart: Regular rate and rhythm
Lungs: Clear no wheeze
Abdomen diffusely tender but more tender in the upper abdomen
Scores
Heart Score for Chest Pain Patients
STEMI patient?: No
History: Slightly or Non-Suspicious
ECG: Normal
Age: >45 - <65 years
Risk Factors: No Risk Factors
Troponin: </= Normal Limit
Heart Score for Chest Pain Patients: 1
Heart Score Risk: 2.5% MACE over next 6 weeks
Course
Orders/Labs/Results
Orders:
Orders
12/15/24 08:23
EKG [Electrocardiogram (*1)] Urgent
Reason for Study: Chest Pain
EKG- Treatment ONCE
12/15/24 09:00
CT Abd/pelvis W Iv Cont Urgent
Comment:
Reason For Exam: abdominal pain
12/15/24 09:12
Complete Blood Count/With Diff Urgent
Comprehensive Metabolic Panel Urgent
Lipase Urgent
Troponin I Urgent
12/15/24 12:57
HYDROmorphone [Dilaudid] 0.5 mg IV NOW STA
Abnormal Lab Results
12/15/24
09:12
RBC 4.68 L 10^6/uL
(4.70-6.10)
RDW 15.5 H %
(11.5-14.5)
Plt Count 409 H 10^3/uL
(130-400)
Abs Immat Gran (auto) 0.1 H 10^3/uL
(0-0.05)
Absolute Monos (auto) 1.3 H 10^3/uL
(0.1-0.6)
Immature Gran % 0.6 H %
(0-0.5)
Monocytes % 15.0 H %
(1.7-9.3)
Glucose 143 H mg/dl
(70-99)
AST 126 H U/L
(17-59)
ALT 102 H U/L
(0-50)
Alkaline Phosphatase 186 H U/L
(38-126)
12/15/24 09:12
12/15/24 09:12
Vital Signs
Initial and Last Documented VS:
Initial Vital Signs
Temp Pulse Resp BP Pulse Ox
98.2 F 100 20 115/82 95
12/15/24 08:40 12/15/24 08:40 12/15/24 08:40 12/15/24 08:40 12/15/24 08:40
Last Documented Vital Signs
Temp Pulse Resp BP Pulse Ox
98.2 F 82 20 132/85 98
12/15/24 08:40 12/15/24 12:45 12/15/24 12:45 12/15/24 12:00 12/15/24 12:45
*Pulse Oximetry
SaO2: 95
Oxygen Mode of Delivery: Room air
*Critical Care Note
Total Time (30-74mins, 75-104mins- exclusive of procedures): Not Applicable
Update Note
Update Note:
Workup here unremarkable for CAT scan findings. There is slight elevation of transaminases which may be consistent with his alcohol use. Patient does not have a gallbladder. Symptoms and exam most suspicious for gastritis. Recommended PPI and GI
follow-up. Stable for discharge.
ED Attending Note
-
Portions of this chart may have been created with voice recognition software.� Occasional wrong word or��sound alike� substitutions may have occurred due to the inherent limitations of voice recognition software.
Discharge Plan
Departure
Patient Disposition: Home (Routine Discharge)
Date of Disposition: 12/15/24
Time of Disposition: 12:59
Patient with high blood pressure during this ER visit?: No
Discharge Problem:
Abdominal pain
Instructions: Gastritis
Prescriptions:
New
omeprazole 40 mg capsule,delayed release(DR/EC)
40 mg PO DAILY Qty: 30 0RF
No Action
tetrahydrozoline [Visine] 0.05 % Drops
1 drp BOTH EYES DAILYPRN PRN (Reason: dry eyes)
Xarelto 20 mg Tablet
20 mg PO DAILY
polyethylene glycol 3350 [HealthyLax] 17 gram powder in packet
17 g PO DAILYPRN PRN (Reason: constipation)
acetaminophen [Tylenol Extra Strength] 500 mg tablet
1,000 mg PO Q8HPRN PRN (Reason: mild pain)
acyclovir 800 mg Tablet
800 mg PO BID
fluconazole 200 mg tablet
200 mg PO DAILY
tramadol 50 mg tablet
50 - 100 mg PO Q6H PRN (Reason: Pain) Qty: 40 0RF
doxycycline hyclate 100 mg capsule
100 mg PO BID 21 Days Qty: 42 0RF
amoxicillin-pot clavulanate 875-125 mg tablet
1 tab PO BID 21 Days Qty: 42 0RF
fluconazole 200 mg tablet
200 mg PO DAILY 21 Days Qty: 21 0RF
tramadol 50 mg tablet
50 - 100 mg PO Q6H PRN (Reason: Pain) Qty: 45 0RF
tramadol 50 mg tablet
50 - 100 mg PO Q6H PRN (Reason: pain) Qty: 60 0RF
Referrals:
Mega Escudero DO [Family Provider, Family Practice]
Arlene Baez MD [Active, Gastroenterology]
Activity Restrictions/Additional Instructions:
Avoid or limit alcohol and caffeine. Use omeprazole as directed. Return if worse otherwise follow-up with GI
Interventions
Interventions:
*Risk Screen - Suicide Last Done: 12/15/24 08:40
*Neglect/Abuse Screening Last Done: 12/15/24 09:15
*ED- Fall Risk Assessment Last Done: 12/15/24 09:15
ED- Cardiac Assessment Last Done: 12/15/24 09:15
Discharge Date and Time
Print Language: GERMAN
[2024-12-15 09:20] LABS: % Basophils 0.8 % (0-2); % Eosinophils 5.4 % (0-6); % Immature Granulocytes 0.6 % (0-0.5); % Lymphocytes 23.1 % (20.5-51.1); % Neutrophils 55.1 % (42.2-75.2); Absolute Basophils 0.1 10^3/uL (0-0.2); Absolute Eosinophils 0.5 10^3/uL (0-0.7); Absolute Immature Granulocytes 0.1 10^3/uL (0-0.05); Absolute Monocytes 1.3 10^3/uL (0.1-0.6); Absolute Neutrophils 4.8 10^3/uL (1.4-6.5); Hematocrit 42.2 % (39.0-52.0); Hemoglobin 14.4 g/dL (13.0-18.0); Mean Corp Hgb Conc. 34.1 g/dL (33.0-37.0); Mean Corpuscular Hgb 30.8 pg (27.0-31.0); Mean Corpuscular Volume 90.2 fL (80.0-94.0); Nucleated Red Blood Cells % 0.8 % (-); Platelet Count 409 10^3/uL (130-400); Red Blood Cell Count 4.68 10^6/uL (4.70-6.10); Red Cell Dist. Width 15.5 % (11.5-14.5); White Blood Cell Count 8.8 10^3/uL (4.8-10.8)
[2024-12-15 09:49] LABS: Troponin I < 0.012 ng/ml
[2024-12-15 10:08] LABS: ALT (SGPT) 102 U/L (0-50); AST (SGOT) 126 U/L (17-59); Albumin 4.2 g/dl (3.5-5.0); Alkaline Phosphatase 186 U/L (38-126); Blood Urea Nitrogen 11 mg/dl (9-20); Calcium 9.2 mg/dl (8.4-10.2); Carbon Dioxide 26 mmol/L (22-30); Chloride 105 mmol/L (98-107); Estimated Creatinine Clearance 124 ml/min; Glucose 143 mg/dl (70-99); Lipase 66 U/L (23-300); Potassium 4.2 mmol/L (3.5-5.1); Sodium 139 mmol/L (135-145); Total Bilirubin 0.8 mg/dl (0.2-1.3); Total Protein 6.6 g/dl (6.3-8.2); eGFR > 60.00
[2024-12-15] MEDS: DILAUDID 0.5 MG IV (13:05)
== END 2024-12-15 13:13 | disposition home or self-care (01) ==
LOC: EMR 08:18
PROVIDERS: Physician Assistant; EMERGENCY PHYSICIAN Emergency Medicine; FAMILY PHYSICIAN Family Medicine
DX: R07.89 Other chest pain (principal); E78.00 Pure hypercholesterolemia, unspecified; I10 Essential (primary) hypertension; Z85.72 Personal history of non-Hodgkin lymphomas; Z86.73 Personal history of transient ischemic attack (TIA), and cerebral infarction without residual deficits; Z87.891 Personal history of nicotine dependence; Z90.49 Acquired absence of other specified parts of digestive tract; Z94.81 Bone marrow transplant status; Z96.651 Presence of right artificial knee joint
CPT/HCPCS: 99284; 96374; 74177; 80053; 83690; 84484; 85025; 93005; Q9967

== ENCOUNTER 2024-12-16 21:21 | Inpatient (IN) | payer OTHER, SELFPAY ==
[2024-12-16] VITALS (8 sets, daily range): BP systolic 121–150; BP diastolic 78–102; BMI 24.8; BMI 24.6
[2024-12-16 16:14] LABS: % Basophils 0.4 % (0-2); % Eosinophils 3.5 % (0-6); % Immature Granulocytes 0.4 % (0-0.5); % Lymphocytes 18.5 % (20.5-51.1); % Monocytes 7.9 % (1.7-9.3); % Neutrophils 69.3 % (42.2-75.2); Absolute Eosinophils 0.4 10^3/uL (0-0.7); Absolute Monocytes 0.8 10^3/uL (0.1-0.6); Absolute Neutrophils 7.4 10^3/uL (1.4-6.5); Hematocrit 44.3 % (39.0-52.0); Mean Corp Hgb Conc. 33.9 g/dL (33.0-37.0); Mean Corpuscular Hgb 30.7 pg (27.0-31.0); Mean Corpuscular Volume 90.6 fL (80.0-94.0); Mean Platelet Volume 9.3 fL (7.4-10.4); Nucleated Red Blood Cells % 0.2 % (-); Platelet Count 400 10^3/uL (130-400); Red Blood Cell Count 4.89 10^6/uL (4.70-6.10); Red Cell Dist. Width 15.9 % (11.5-14.5); White Blood Cell Count 10.6 10^3/uL (4.8-10.8)
[2024-12-16 16:25] LABS: Lactic Acid 0.9 mmol/L (0.7-2.0)
[2024-12-16 16:36] LABS: Albumin 4.8 g/dl (3.5-5.0); Alkaline Phosphatase 408 U/L (38-126); Blood Urea Nitrogen 14 mg/dl (9-20); Calcium 9.3 mg/dl (8.4-10.2); Carbon Dioxide 29 mmol/L (22-30); Chloride 102 mmol/L (98-107); Glucose 118 mg/dl (70-99); Sodium 140 mmol/L (135-145); Total Bilirubin 5.2 mg/dl (0.2-1.3); Total Protein 7.4 g/dl (6.3-8.2); eGFR > 60.00
[2024-12-16 16:39] LABS: Troponin I < 0.012 ng/ml
[2024-12-16 16:56] LABS: ALT (SGPT) 1201 U/L (0-50); AST (SGOT) 1188 U/L (17-59); Amylase 1454 U/L (30-110)
--- NOTE | 2024-12-16 17:08 | ED.GENMED ---
History of Present Illness
<Opal Rodgers FEATHER MAKER - Last Filed: 12/16/24 22:17>
General
Chief Complaint: Abdominal Pain
Source: patient
Exam Limitations: none
Time Seen by Provider: 12/16/24 17:04
Nursing documentation reviewed up to this point in time: agreed with
History of Present Illness
History of Present Illness:
64 yo male w h/o leukemia, lymphoma, multiple abdominal surgeries, and cholecystectomy 03/2024 (mesh placed, multiple herniations of mesh, finally mesh removed, lysis adhesions, ventral hernia repair 07/03/24, presents for significant pain 04/07
across upper abdomen and down right side abdomen.
Here yesterday with similar symptoms and basically neg workup.
Had one day significant pain one month ago.
Yesterday had same thing and DC's after neg w/u. Last night pain returned, slept from 3-6 a.m., went to work this am feeling a little better, by mid day pain very bad again
Hurts to take deep breath. Temp 100.0 last night no fever today. Denies n/v/d/c
Past History
<Opal Rodgers FEATHER MAKER - Last Filed: 12/16/24 22:17>
Past History
ED Past Medical History: Arrthythmia (AF), Cancer (nonhodgkins lymphoma), CVA, HTN, Hypercholesterolemia and Other (Neuropathy, Bowel obstruction, Ptosis right eye)
ED Past Surgical History: Cardiac (Ablation), Orthopedic (Right knee replacement) and Other (Splenectomy, Stomach repair, hernia repair, PFO closure, Cataracts, Bone marrow transplant)
Social History
Tobacco: Former smoker
Alcohol: Daily (1-2 glasses of wine)
Drug: None
Personal:
Living: with family
Review of Systems
<Opal Rodgers, FEATHER MAKER - Last Filed: 12/16/24 22:17>
Review of Systems
Allergies reviewed?: Yes
All Other Systems: ROS reviewed and negative except as documented in HPI and ROS
Constitutional: Denies fever
Respiratory: Denies trouble breathing
Cardiac: Denies chest pain
ABD/GI: Reports abdominal pain and other (no change in color of stools); Denies nausea, vomiting or diarrhea
: Denies dysuria
Musculoskeletal: Reports no symptoms
Skin: Reports no symptoms
Neurological: Reports no symptoms
Phy Exam
<Opal Rodgers, FEATHER MAKER - Last Filed: 12/16/24 22:17>
Physical Exam
Physical Exam:
GENERAL: No acute distress. A&Ox3.
CONSTITUTIONAL: Afebrile.
EYES: clear, conjunctivae normal, high Dr. Smith
ENMT: moist mucus membranes, Pharynx nl
RESPIRATORY: Regular respirations, nonlabored, lungs clear.
CARDIOVASCULAR: Regular rate and rhythm, no murmurs, no rubs.
GI: Soft, tender to palpate across upper abdomen, hypoactive BS
MUSCULOSKELETAL: Moves with ease. Well perfused.
SKIN: Warm, dry, pink. No jaundice
PSYCH: Normal mood and affect. Well kept, interactive and appropriate
NEUROLOGIC: Awake, alert and oriented. No focal neurological deficits
Sepsis
<Opal Rodgers, FEATHER MAKER - Last Filed: 12/16/24 22:17>
Sepsis Screening
Sepsis Assessment: Sepsis Ruled Out
Sepsis Screen
Sepsis Screen: Sepsis Ruled Out
Date: 12/16/24
Time: 22:17
Course
<Opal V. , FEATHER MAKER - Last Filed: 12/16/24 22:17>
Orders/Labs/Results
Orders:
Orders
12/16/24 Dinner
NPO
Allow oral meds: Yes
Allow clear liquids: Sips of Clears
12/16/24 15:44
Electrocardiogram (*1) Urgent
Reason for Study: Abdominal Pain
EKG- Treatment ONCE
12/16/24 16:06
Acetaminophen Urgent
Comment: ADD ON
Alcohol Urgent
Amylase Urgent
Complete Blood Count/With Diff Urgent
Comprehensive Metabolic Panel Urgent
Lactic Acid Urgent
Lipase Urgent
Comment: ADD ON
Triglycerides Urgent
Comment: ADD ON
Troponin I Urgent
Blood Culture Urgent
NNEKA Source: Blood/Venous
Specimen Description:
12/16/24 17:01
Add On- LAB Urgent
Comments:: blood in the lab
Tests Added?: lipase
12/16/24 17:06
US Abdomen Limited Urgent
Comment: CT 12/15 , CHOLECYSTECTOMY
Reason For Exam: abd pain sig elevated liver enzymes
12/16/24 17:13
0.9% Sodium Chloride 1000 ml [Nss] 1,000 ml IV BOLUS
HYDROmorphone [Dilaudid] 1 mg IV NOW STA
12/16/24 17:15
Ondansetron Injectable [Zofran] 4 mg IV NOW STA
12/16/24 19:12
0.9% Sodium Chloride 1000 ml [Nss] 1,000 ml IV BOLUS
12/16/24 20:15
Consult Gastroenterology [GASTROINTESTINAL CONSULT] Urgent
Consulting Provider: Markus Mello
Was physician already notified: Yes
Reason for consult: bile duct obstruction.
12/16/24 20:46
Add On- LAB Stat
Tests Added?: alcohol level
Add On- LAB Stat
Tests Added?: triglyceride level
Add On- LAB Stat
Tests Added?: tylenol level
12/16/24 20:47
Admit/Transfer Patient As Directed
Co-Sign Provider:
Level of Care: Inpatient admission
Assign to:: Medical/Surgical
Physician / Group: Talisha
Diagnosis: Acute pancreatitis
Reason for Hospitalization: pancreatitis, hepatitis
Expected length of stay greater than two midnights?: Yes
ELOS- Estimated Length of Stay in days: 2
I certify the patient meets the requirements for IP care: Yes
PRN Pain Medication Management As Directed
May give lesser potent ordered pain med per pt: Yes
preference::
Protocol:: Medication orders for pain may be administered in a
manner that supports deferring to patient preference
when the pt is:
- Requesting an ordered lesser potent pain medication.
Least to most potent pain medications are defined
as: acetaminophen < NSAID < tramadol < opioids
(morphine, oxycodone, hydromorphone).
- Requesting a lesser dose of the same medication IF
ORDERED.
- Requesting a less intrusive route of administration
if both routes are prescribed by the provider (PO <
IV).
12/16/24 20:48
Code Status As Directed
Resuscitation Status: Full Code
12/16/24 21:22
Bisacodyl [Dulcolax] 10 mg RECTAL [id number] PRN
Docusate W/Senna [Senokot-S] 1 tablet PO BIDPRN PRN
HYDROmorphone [Dilaudid] 0.5 mg IV Q4HPRN PRN
Lactated Ringers [Lr] 1,000 ml IV 150 mls/hr
Mag Hydrox/Al Hydrox/Simeth [Maalox] 30 ml PO Q6HPRN PRN
Ondansetron Injectable [Zofran] 4 mg IV Q6HPRN PRN
Oxycodone [Roxicodone] 5 mg PO Q4HPRN PRN
Polyethylene Glycol Powder [Miralax] 17 grams PO DAILYPRN PRN
12/16/24 21:22
MR Mrcp Without Routine
Comment:
Reason For Exam: eval biliary obstruction, liver/panc mass
Recent pill cam endoscopy?: No
Activity As Directed
Activity Level: With Assistance
Pneumatic Compression Sleeves As Directed
Type: Knee high
Vital Signs As Directed
Frequency: Per unit guidelines
Pulse Ox/spot Check [RESP] Routine
Quantity: 1
DX Deep Vein Thrombosis Video Routine
12/16/24 22:00
Flush (0.9% Sodium Chloride) [Flush (Nss)] See Dose Instructions IV PER PROTOCOL
12/17/24 06:00
Basic Metabolic Panel IN AM
Complete Blood Count/No Diff IN AM
LFT [Tdbau-Ivqc-Hhihcbt] IN AM
Lipase IN AM
Magnesium IN AM
12/17/24 08:00
Acyclovir [Zovirax] 800 mg PO DAILY
Gabapentin [Neurontin] 400 mg PO DAILY
Losartan [Cozaar] 100 mg PO DAILY
Rivaroxaban [Xarelto] 20 mg PO DAILY
Abnormal Lab Results
12/16/24
16:06
RDW 15.9 H %
(11.5-14.5)
Absolute Neuts (auto) 7.4 H 10^3/uL
(1.4-6.5)
Absolute Monos (auto) 0.8 H 10^3/uL
(0.1-0.6)
Lymphocytes % 18.5 L %
(20.5-51.1)
Glucose 118 H mg/dl
(70-99)
Total Bilirubin 5.2 H D mg/dl
(0.2-1.3)
AST 1188 H* U/L
(17-59)
ALT 1201 H* U/L
(0-50)
Alkaline Phosphatase 408 H U/L
(38-126)
Amylase 1454 H* U/L
(30-110)
Lipase > 4000 H* U/L
(23-300)
Acetaminophen < 10 L ug/ml
(10-30)
12/16/24 16:06
12/16/24 16:06
Vital Signs
Initial and Last Documented VS:
Initial Vital Signs
Temp Pulse Resp BP Pulse Ox
97.6 F 92 18 150/101 98
12/16/24 15:46 12/16/24 15:46 12/16/24 15:46 12/16/24 15:46 12/16/24 15:46
Last Documented Vital Signs
Temp Pulse Resp BP Pulse Ox
99.0 F 90 16 143/97 94
12/16/24 21:29 12/16/24 21:29 12/16/24 21:29 12/16/24 21:29 12/16/24 21:29
Shuttle Driver consulted with Physician
Shuttle Driver consulted with physician?: Yes
Name of Physician Consulted: Daisy
<Roger Alfaro, DO - Last Filed: 12/16/24 19:41>
Orders/Labs/Results
Orders:
Orders
12/16/24 Dinner
NPO
Allow oral meds: Yes
Allow clear liquids: Sips of Clears
12/16/24 15:44
Electrocardiogram (*1) Urgent
Reason for Study: Abdominal Pain
EKG- Treatment ONCE
12/16/24 16:06
Acetaminophen Urgent
Comment: ADD ON
Alcohol Urgent
Amylase Urgent
Complete Blood Count/With Diff Urgent
Comprehensive Metabolic Panel Urgent
Lactic Acid Urgent
Lipase Urgent
Comment: ADD ON
Triglycerides Urgent
Comment: ADD ON
Troponin I Urgent
Blood Culture Urgent
NNEKA Source: Blood/Venous
Specimen Description:
12/16/24 17:01
Add On- LAB Urgent
Comments:: blood in the lab
Tests Added?: lipase
12/16/24 17:06
US Abdomen Limited Urgent
Comment: CT 12/15 , CHOLECYSTECTOMY
Reason For Exam: abd pain sig elevated liver enzymes
12/16/24 17:13
0.9% Sodium Chloride 1000 ml [Nss] 1,000 ml IV BOLUS
HYDROmorphone [Dilaudid] 1 mg IV NOW STA
12/16/24 17:15
Ondansetron Injectable [Zofran] 4 mg IV NOW STA
12/16/24 19:12
0.9% Sodium Chloride 1000 ml [Nss] 1,000 ml IV BOLUS
12/16/24 20:15
Consult Gastroenterology [GASTROINTESTINAL CONSULT] Urgent
Consulting Provider: Markus Mello
Was physician already notified: Yes
Reason for consult: bile duct obstruction.
12/16/24 20:46
Add On- LAB Stat
Tests Added?: alcohol level
Add On- LAB Stat
Tests Added?: triglyceride level
Add On- LAB Stat
Tests Added?: tylenol level
12/16/24 20:47
Admit/Transfer Patient As Directed
Co-Sign Provider:
Level of Care: Inpatient admission
Assign to:: Medical/Surgical
Physician / Group: Talisha
Diagnosis: Acute pancreatitis
Reason for Hospitalization: pancreatitis, hepatitis
Expected length of stay greater than two midnights?: Yes
ELOS- Estimated Length of Stay in days: 2
I certify the patient meets the requirements for IP care: Yes
PRN Pain Medication Management As Directed
May give lesser potent ordered pain med per pt: Yes
preference::
Protocol:: Medication orders for pain may be administered in a
manner that supports deferring to patient preference
when the pt is:
- Requesting an ordered lesser potent pain medication.
Least to most potent pain medications are defined
as: acetaminophen < NSAID < tramadol < opioids
(morphine, oxycodone, hydromorphone).
- Requesting a lesser dose of the same medication IF
ORDERED.
- Requesting a less intrusive route of administration
if both routes are prescribed by the provider (PO <
IV).
12/16/24 20:48
Code Status As Directed
Resuscitation Status: Full Code
12/16/24 21:22
Bisacodyl [Dulcolax] 10 mg RECTAL [id number] PRN
Docusate W/Senna [Senokot-S] 1 tablet PO BIDPRN PRN
HYDROmorphone [Dilaudid] 0.5 mg IV Q4HPRN PRN
Lactated Ringers [Lr] 1,000 ml IV 150 mls/hr
Mag Hydrox/Al Hydrox/Simeth [Maalox] 30 ml PO Q6HPRN PRN
Ondansetron Injectable [Zofran] 4 mg IV Q6HPRN PRN
Oxycodone [Roxicodone] 5 mg PO Q4HPRN PRN
Polyethylene Glycol Powder [Miralax] 17 grams PO DAILYPRN PRN
12/16/24 21:22
MR Mrcp Without Routine
Comment:
Reason For Exam: eval biliary obstruction, liver/panc mass
Recent pill cam endoscopy?: No
Activity As Directed
Activity Level: With Assistance
Pneumatic Compression Sleeves As Directed
Type: Knee high
Vital Signs As Directed
Frequency: Per unit guidelines
Pulse Ox/spot Check [RESP] Routine
Quantity: 1
DX Deep Vein Thrombosis Video Routine
12/16/24 22:00
Flush (0.9% Sodium Chloride) [Flush (Nss)] See Dose Instructions IV PER PROTOCOL
12/17/24 06:00
Basic Metabolic Panel IN AM
Complete Blood Count/No Diff IN AM
LFT [Iwymg-Sehj-Mvjsigz] IN AM
Lipase IN AM
Magnesium IN AM
12/17/24 08:00
Acyclovir [Zovirax] 800 mg PO DAILY
Gabapentin [Neurontin] 400 mg PO DAILY
Losartan [Cozaar] 100 mg PO DAILY
Rivaroxaban [Xarelto] 20 mg PO DAILY
Abnormal Lab Results
12/16/24
16:06
RDW 15.9 H %
(11.5-14.5)
Absolute Neuts (auto) 7.4 H 10^3/uL
(1.4-6.5)
Absolute Monos (auto) 0.8 H 10^3/uL
(0.1-0.6)
Lymphocytes % 18.5 L %
(20.5-51.1)
Glucose 118 H mg/dl
(70-99)
Total Bilirubin 5.2 H D mg/dl
(0.2-1.3)
AST 1188 H* U/L
(17-59)
ALT 1201 H* U/L
(0-50)
Alkaline Phosphatase 408 H U/L
(38-126)
Amylase 1454 H* U/L
(30-110)
Lipase > 4000 H* U/L
(23-300)
Acetaminophen < 10 L ug/ml
(10-30)
12/16/24 16:06
12/16/24 16:06
Vital Signs
Initial and Last Documented VS:
Initial Vital Signs
Temp Pulse Resp BP Pulse Ox
97.6 F 92 18 150/101 98
12/16/24 15:46 12/16/24 15:46 12/16/24 15:46 12/16/24 15:46 12/16/24 15:46
Last Documented Vital Signs
Temp Pulse Resp BP Pulse Ox
99.0 F 90 16 143/97 94
12/16/24 21:29 12/16/24 21:29 12/16/24 21:29 12/16/24 21:29 12/16/24 21:29
<Opal Rodgers, FEATHER MAKER - Last Filed: 12/16/24 22:17>
MDM/Problems Addressed
Differential Diagnosis Includes:
Choledocholithiasis, Pancreatitis
MDM/Problems Addressed:
64 yo male w h/o leukemia, lymphoma, multiple abdominal surgeries, and cholecystectomy 03/2024 (mesh placed, multiple herniations of mesh, finally mesh removed, lysis adhesions, ventral hernia repair 07/03/24, presents for significant pain 04/07
across upper abdomen and down right side abdomen.
Here yesterday with similar symptoms and basically neg workup.
Had one day significant pain one month ago.
Yesterday had same thing and DC's after neg w/u. Last night pain returned, slept from 3-6 a.m., went to work this am feeling a little better, by mid day pain very bad again
Hurts to take deep breath. Temp 100.0 last night no fever today. Denies n/v/d/c
No infectious symptoms.
CBC with no clinically significant abnormality
CMP: Significant elevation of all liver enzymes
Lipase >4000
<Opal Rodgers, FEATHER MAKER - Last Filed: 12/16/24 22:17>
*Pulse Oximetry
SaO2: 97
Oxygen Mode of Delivery: Room air
*Critical Care Note
Total Time (30-74mins, 75-104mins- exclusive of procedures): Not Applicable
ED Attending Note
<Opal Rodgers, FEATHER MAKER - Last Filed: 12/16/24 22:17>
-
Portions of this chart may have been created with voice recognition software.� Occasional wrong word or��sound alike� substitutions may have occurred due to the inherent limitations of voice recognition software.
<Roger Alfaro DO - Last Filed: 12/16/24 19:41>
ED Attending Note
I performed the substantive portion of visit, reviewed & personally made and approve the management plan that is documented in note by myself or [place].: Yes
Discharge Plan
Departure
Patient Disposition: Admit
Date of Disposition: 12/16/24
Time of Disposition: 20:12
Admit to: Med/Surg
Presentation/result/management discussed w/ accepting MD/DO: Hospitalist
Condition: Serious
Discharge Problem:
Bile duct obstruction
Interventions
Interventions:
*Risk Screen - Suicide Last Done: 12/16/24 17:46
*General Assessment Last Done: 12/16/24 15:46
*Neglect/Abuse Screening Last Done: 12/16/24 17:46
*ED- Fall Risk Assessment Last Done: 12/16/24 17:46
*ED COVID-19 Vaccine History Last Done: 12/16/24 15:46
*Nursing Disposition Last Done: 12/16/24 21:25
RX-Czzclx-Bboibnhluc Assessment Last Done: 12/16/24 19:55
Discharge Date and Time
Discharge Date/Time: 12/16/24 21:30
--- NOTE | 2024-12-16 17:34 | PHANOTE ---
Addendum entered by Daniel Venegas 12/16/24 18:10:
12/16/2024, spouse was not able to find the bottle of Ponatinib at home; pt. and spouse unsure of strength; [facility] records from 12/16/2024 only mention the drug by name with no clear dose specified; called [facility] and they do not have
a record of this med. being filled.
Original Note:
12/16/2024, pt. is taking Ponatinib but does not know the strength. Significant other will bring the bottle to the hospital to confirm dose and frequency. Will update in med. list when she brings it in.
[2024-12-16] MEDS: NSS 1000 IV ×2 (17:41→19:46)
[2024-12-16] MEDS: DILAUDID 1 MG IV (17:41)
[2024-12-16] MEDS: ZOFRAN 4 MG IV (17:41)
[2024-12-16 17:49] LABS: Lipase > 4000 U/L (23-300)
--- NOTE | 2024-12-16 20:22 | HPS.HSE ---
Family Physician
-
Family Physician: Mega Escudero
Chief Complaint
-
Abdominal pain
History of Present Illness
This is a 64-year-old who has past medical history of AML, atrial fibrillation on anticoagulation, hypertension, history of prior intra-abdominal abscesses, acquired splenectomy who presents to the emergency department with ongoing abdominal pain.
Patient reports acute onset of epigastric pain that was radiating across the left to right upper quadrant that started 1 day ago. He denies any nausea or vomiting. He denies any diarrhea. He denies any fevers or chills. He was seen in the
emergency department yesterday and was was told he had gastritis. On returning home the pain persist. He reported that his urine was dark yellow. He again continues to denies any nausea or vomiting or diarrhea. Patient denies any prior episodes
of pancreatitis. He states he drinks 2 glasses of wine at night and denies any heavy drinking. He reports that his last drink was Thursday evening. Denies any prior history of alcohol withdrawal. Denies any diagnosis of cirrhosis or liver
disease in the past. Patient is status post cholecystectomy denies any prior history of choledocholithiasis. Patient reported that he did take 2 g of Tylenol in total over the last 2 days. He denies any regular Tylenol use.
During the emergency department, patient was afebrile, blood pressure was 133/80 with a pulse of 85 and was satting 90% on room air.
CBC was unremarkable. Electrolytes was all within normal range. BUN/creatinine was normal. He had marked elevation in AST to 1183, AST 2 1200. Lipase was markedly elevated to greater than 4000, alk phos also elevated to over 400
Abdominal ultrasound shows: 1. SEVERE DIFFUSE HEPATIC STEATOSIS.
2. MILD HEPATIC CIRRHOSIS.
3. Mild intrahepatic and extrahepatic biliary dilatation.
4. Previous cholecystectomy.
Medical History
Past Medical History
Past Medical History: Reports Other
Additional Past Medical History:
Hypertension
Paroxysmal Atrial Fibrillation
Non-Hodgkin Lymphoma - (In Remission)
ALL s/p Stem Cell Transplant
CVA
Past Surgical History: Reports Other
Additional Past Surgical History:
04/29 - Lap Holli converted to open
04/30 - Ex Lap with Small Bowel Enterotomy Repair
05/10 - IR Drain Placement mid-abdomen
05/20 - I&D midline incision
Splenectomy
Right TKA
Stem Cell Transplant
PVI Ablation
Incisional Hernia Repair with mesh (2006)
Hernia Revision (2021)
PFO Closure
Social History
Tobacco: Former Smoker (Quit in 1994.)
Alcohol: Daily (2-3 glasses a wine a day)
Drug: None
Personal:
Living: With Family
Employment: Employed
Family History
Family History: Not pertinent
Allergies / Home Medications
Allergies reflects when Allergies were last updated in [facility].
Home Medications with original date entered in [facility]
Allergy/Medication List:
Allergies
Allergy/AdvReac Type Severity Reaction Status Date / Time
No Known Allergies Allergy Verified 12/15/24 08:40
Home Medications
rivaroxaban 20 mg tablet (Xarelto) 20 mg PO DAILY Blood Clot Prevention/Tx 04/28/24
acetaminophen 500 mg tablet (Tylenol Extra Strength) 1,000 mg PO DAILYPRN PRN mild pain 05/10/24
acyclovir 800 mg tablet 800 mg PO DAILY 12/16/24
gabapentin 400 mg capsule 400 mg PO DAILY 12/16/24
hydrochlorothiazide 12.5 mg tablet 12.5 mg PO DAILY 12/16/24
losartan 100 mg tablet 100 mg PO DAILY 12/16/24
ponatinib 1 tab PO DAILY 12/16/24
Review of Systems
-
History Source: Patient
Constitutional: Reports No Symptoms
EENT: Reports No Symptoms
Respiratory: Reports No Symptoms
Cardiac: Reports No Symptoms
Abdomen/GI: Reports Abdominal Pain
: Reports No Symptoms
Musculoskeletal: Reports No Symptoms
Skin: Reports No Symptoms
Neurological: Reports No Symptoms
Endocrine: Reports No Symptoms
Hematologic/Lymphatic: Reports No Symptoms
Psych: Reports No Symptoms
Physical Exam
Vital Signs
Vital Signs
Temp Pulse Resp BP Pulse Ox
98.2 F 85 14 133/82 93
12/16/24 17:46 12/16/24 20:00 12/16/24 20:00 12/16/24 20:00 12/16/24 20:00
Physical Exam
General: Other (63y M in mild distress due to pain.)
HEENT: Moist mucous membranes and PERRLA
Respiratory: Clear; No Wheezes, Rales or Rhonchi
Cardiac: S1/S2 and Regular Rhythm; No Murmur
GI: Other (Midline incision with wound vac in place. Minimal sanguinous drainage via vac tubing. Surrounding erythema across anterior abdomen / patchy / well-demarcated. RLQ drain in place to MARY suction.)
Musculoskeletal: No Clubbing, No Cyanosis and No Edema
Neuro: AO x 3
Laboratory Results
-
12/16/24 16:06
12/16/24 16:06
Laboratory Results
Lactic Acid 0.9 mmol/L (0.7-2.0) 12/16/24 16:06
Total Bilirubin 5.2 mg/dl (0.2-1.3) H D 12/16/24 16:06
AST 1188 U/L (17-59) H* 12/16/24 16:06
ALT 1201 U/L (0-50) H* 12/16/24 16:06
Alkaline Phosphatase 408 U/L (38-126) H 12/16/24 16:06
Troponin I < 0.012 ng/ml 12/16/24 16:06
Lipase > 4000 U/L (23-300) H* 12/16/24 16:06
Data Reviewed
-
Ultrasound: Report Reviewed by me
Lab Data: Labs Reviewed by me
Old Records: Reviewed
Impression/Plan
-
IMPRESSION:
This is a 64-year-old with past medical history of proximal atrial fibrillation, history of non-Hodgkin's lymphoma currently in treatment in remission, prior intra-abdominal surgery presents to the emergency department with 1 day history of
abdominal pain and was found to have pancreatitis with elevated LFTs. He is a daily alcohol user with last drink 2 days ago. Ultrasound of the abdomen revealed significant hepatic steatosis, mild hepatic cirrhosis, mild intrahepatic and
extrahepatic biliary dilation. No choledocholithiasis noted. Status post cholecystectomy.
PLAN:
Acute pancreatitis - Patient w/ pancreatitis and abnormal LFT elevation without other evidence of biliary or pancreatic duct obstruction on u/s. H/O ETOH noted which may have resulted in both acute hepatitis and pancreatitis.
- admit to med/surg
- check etoh, tylenol level
- check lipid panel
- discriminant function is +, if +etoh, will start steroids
- mri abd/mrcp
- npo for now
- pain control, iv fluids and antiemetics
AFIB - rate
- continue Xarelto
ALL
- hold ponatinib, associated w/ hepatotoxicity
DVT PPX- on Xarelto
Code status - full code
[2024-12-16 21:19] LABS: Acetaminophen < 10 ug/ml (10-30); Alcohol None Detected; Triglycerides 140 mg/dl (10-149)
[2024-12-16] MEDS: LR 1000 IV (22:06)
[2024-12-16] MEDS: DILAUDID 0.5 MG IV (22:27)
[2024-12-17] MEDS: LR 1000 IV (04:27)
[2024-12-17 06:02] LABS: Glucose - Point of Care 63 mg/dl (70-99)
[2024-12-17] MEDS: DEXTROSE 50% SYRINGE 12.5 GRAMS IV (06:15)
[2024-12-17 06:36] LABS: Glucose - Point of Care 141 mg/dl (70-99)
--- NOTE | 2024-12-17 06:49 | W.PN.UPDATE ---
Update Note
Progress Note Update
Bs is 65 this am. asymptomatic. Patient is NPO.
Discussed with the admitting physician, will change IFV to D5/LR, accu check q6hrs and dextrose PRN per hypoglycemia protocol.
[2024-12-17 07:00] VITALS: BP 129/88
[2024-12-17] MEDS: D5LR 1000 IV ×2 (07:52→18:37)
[2024-12-17] MEDS: NEURONTIN 400 MG PO (07:55)
[2024-12-17] MEDS: COZAAR 100 MG PO (07:56)
[2024-12-17] MEDS: XARELTO 20 MG PO (07:56)
[2024-12-17] MEDS: ZOVIRAX 800 MG PO (07:56)
[2024-12-17 08:18] LABS: Glucose - Point of Care 100 mg/dl (70-99)
--- NOTE | 2024-12-17 08:36 | CON.GI ---
Addendum entered and electronically signed by Markus Mello MD 12/17/24 13:11:
I saw and examined the patient.
The SPANISH INTERPRETER/TRANSLATOR's note was reviewed and I agree with the note.
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
on ponatinib, CVA, paroxysmal A-fib on Xarelto, PFO closure 2008, hypertension, depression, lap candice converted to open with ex lap and small bowel enterotomy repair who presents to the emergency room with acute onset of upper abdominal pain that
started on evening. The patient states that this pain is constant, nonradiating, with the inability to eat. Associated with nausea. He came to the emergency room initially on 12/15/2024. He was told he had gastritis and was discharged
home. Review of those labs show a total bilirubin 0.8, AST of 126, ALT of 102 and alk phos of 186. Because of persistence of symptoms and he developed bilirubinuria he proceeded to come back to the emergency room. In between he did take Tylenol
no more than 2 g in 24 hours. At that point he had significantly elevated LFTs as well as amylase and lipase. We are asked to evaluate for obstructive jaundice. Currently WBC 8.5, hemoglobin 12.8, hematocrit 37.8, platelets 347, current CMP
pending from today. Yesterday sodium 140, potassium 4.0, BUN 14, creatinine 0.7, glucose 118, total bilirubin 5.2 (direct not performed), AST 1188, ALT 1201, alk phos 408, amylase 1454, lipase greater than 4000. Patient was given Dilaudid for pain
control last night. He continues on D5 LR at 150 cc an hour. Alcohol not detected, acetaminophen less than 10. CT abdomen pelvis with IV contrast shows no significant acute abnormality identified in abdomen pelvis. Small hiatal hernia. Hepatic
steatosis. Normal appendix. Ultrasound of the abdomen shows severe diffuse hepatic steatosis. Mild hepatic cirrhosis. Mild intra and extrahepatic biliary dilatation. Previous cholecystectomy.
--Abdominal pain/elevated LFT/elevated lipase-concern for gallstone pancreatitis
--afib on xarelto - last dose 12/17
- hx of complicated cholecystectomy 04/2024
-History of non-Hodgkin's lymphoma/AML status post bone marrow transplant (2022) on ponatinib
MRI/MRCP 12/17
IMPRESSION:
Mild biliary ductal dilatation. Relatively abrupt termination of fluid signal intensity in the distal common bile duct with the suggestion of a subtle meniscus margin. This could be related to sphincter of Oddi dysfunction. It would be difficult to
exclude the possibility of a distal duct calculus. No other intraluminal filling defects are identified.
Fatty infiltration of liver.
Mild right upper quadrant edema. Predominantly adjacent to the first and second segments of the duodenum. Nonspecific. Possibly inflammatory, such as mild duodenitis.
plan
MRI reported- Fatty liver. Pancreas unremarkable
MRI results discussed with patient. Distal CBD stone versus stricture versus SOD. Clinically no evidence of cholangitis. I discussed benefits and risk involved with ERCP. Patient verbalized understanding and is agreeable for the procedure. Will
schedule for ERCP on Thursday after Xarelto washout.
Clear liquid diet
Continue IVF
Trend LFT
outpatient GI follow up for fatty liver / CRC screening
will follow
Original Note:
Consultation
-
Date/Time Consultation Requested: 12/16/242014
Date/Time Consultation Performed: 12/17/24 0820
Requesting Provider: BRITTNEE Kingsley
Performing Provider: Dr. Mello/BRITTNEE Rock
Reason for Consultation: Bile duct obstruction
Medical History
Chief Complaint / HPI
Chief Complaint: abd pain
History of Present Illness:
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
on ponatinib, CVA, paroxysmal A-fib on Xarelto, PFO closure 2008, hypertension, depression, lap candice converted to open with ex lap and small bowel enterotomy repair who presents to the emergency room with acute onset of upper abdominal pain that
started on evening. The patient states that this pain is constant, nonradiating, with the inability to eat. Associated with nausea. He came to the emergency room initially on 12/15/2024. He was told he had gastritis and was discharged
home. Review of those labs show a total bilirubin 0.8, AST of 126, ALT of 102 and alk phos of 186. Because of persistence of symptoms and he developed bilirubinuria he proceeded to come back to the emergency room. In between he did take Tylenol
no more than 2 g in 24 hours. At that point he had significantly elevated LFTs as well as amylase and lipase. We are asked to evaluate for obstructive jaundice. The patient tells me that he was mildly febrile at home with a fever between 99 and
100. He states that his pain was severe up until approximately 10 PM last night with improvement of pain. He states he is only tender to palpation at this point. He had mild nausea without any vomiting. Bilirubinuria. No bowel movement since
morning which was brown. He does not smoke. He drinks 2 glasses of wine every evening. He denies any heavier alcohol use. He denies any new medications. He has never had pain similar to this in the past. He does have tattoos, denies
any history of IV drug abuse. No history of hepatitis, jaundice or prior known liver disease. He is on Xarelto and was given this this morning. Currently WBC 8.5, hemoglobin 12.8, hematocrit 37.8, platelets 347, current CMP pending from today.
Yesterday sodium 140, potassium 4.0, BUN 14, creatinine 0.7, glucose 118, total bilirubin 5.2 (direct not performed), AST 1188, ALT 1201, alk phos 408, amylase 1454, lipase greater than 4000. Patient was given Dilaudid for pain control last night.
He continues on D5 LR at 150 cc an hour. Alcohol not detected, acetaminophen less than 10. CT abdomen pelvis with IV contrast shows no significant acute abnormality identified in abdomen pelvis. Small hiatal hernia. Hepatic steatosis. Normal
appendix. Ultrasound of the abdomen shows severe diffuse hepatic steatosis. Mild hepatic cirrhosis. Mild intra and extrahepatic biliary dilatation. Previous cholecystectomy.
Past Medical History
Past Medical History: Other (Splenectomy, non-Hodgkin's lymphoma/AML, CVA, paroxysmal A-fib, hypertension, depression,)
Past Surgical History: Other (Splenectomy, ex lap incisional hernia repair repair of mesh with revision, PFO closure, lap candice converted to open with ex lap and small bowel enterotomy, bone marrow transplant, right TKA,)
Social History
Tobacco: Non-Smoker
Alcohol: Daily (2 glasses wine daily)
Drug: None
Personal:
Living: With Family
Employment: Employed
Family History
Family History: Other (No family history gastrointestinal malignancy or IBD)
Allergies / Home Medications
Allergy/AdvReac Type Severity Reaction Status Date / Time
No Known Allergies Allergy Verified 12/15/24 08:40
�Medication �Instructions �Recorded
rivaroxaban 20 mg tablet (Xarelto) 20 mg PO DAILY Blood Clot 04/28/24
Prevention/Tx
acetaminophen 500 mg tablet 1,000 mg PO DAILYPRN PRN mild pain 05/10/24
(Tylenol Extra Strength)
acyclovir 800 mg tablet 800 mg PO DAILY 12/16/24
gabapentin 400 mg capsule 400 mg PO DAILY 12/16/24
hydrochlorothiazide 12.5 mg tablet 12.5 mg PO DAILY 12/16/24
losartan 100 mg tablet 100 mg PO DAILY 12/16/24
ponatinib 1 tab PO DAILY 12/16/24
Review of Systems
-
All other systems: A 12 pt ROS was Negative except as stated above in HPI
Vital Signs
Temp Pulse Resp BP Pulse Ox
98.3 F 69 20 129/88 96
12/17/24 07:00 12/17/24 07:00 12/17/24 07:00 12/17/24 07:56 12/17/24 07:00
Physical Exam
Exam
General: No Apparent Distress
HEENT: Anicteric
Respiratory: Clear
Cardiac: Regular Rhythm
GI: Soft, Non Distended, Normal Bowel Sounds, Tender (Upper abdominal tenderness) and Other (Healed abdominal incisions scars)
Musculoskeletal: No Edema
Skin: Warm and Dry
Psych: Calm
Results
WBC 10.6 10^3/uL (4.8-10.8) 12/16/24 16:06
Hgb 15.0 g/dL (13.0-18.0) 12/16/24 16:06
Hct 44.3 % (39.0-52.0) 12/16/24 16:06
MCV 90.6 fL (80.0-94.0) 12/16/24 16:06
Plt Count 400 10^3/uL (130-400) 12/16/24 16:06
Absolute Neuts (auto) 7.4 10^3/uL (1.4-6.5) H 12/16/24 16:06
Sodium 140 mmol/L (135-145) 12/16/24 16:06
Potassium 4.0 mmol/L (3.5-5.1) 12/16/24 16:06
Chloride 102 mmol/L (98-107) 12/16/24 16:06
Carbon Dioxide 29 mmol/L (22-30) 12/16/24 16:06
BUN 14 mg/dl (9-20) 12/16/24 16:06
Creatinine 0.7 mg/dL (0.7-1.3) 12/16/24 16:06
Calcium 9.3 mg/dl (8.4-10.2) 12/16/24 16:06
Total Bilirubin 5.2 mg/dl (0.2-1.3) H D 12/16/24 16:06
AST 1188 U/L (17-59) H* 12/16/24 16:06
ALT 1201 U/L (0-50) H* 12/16/24 16:06
Alkaline Phosphatase 408 U/L (38-126) H 12/16/24 16:06
Amylase 1454 U/L (30-110) H* 12/16/24 16:06
Lipase > 4000 U/L (23-300) H* 12/16/24 16:06
Diagnostic Image Results:
CT abdomen and pelvis with IV contrast:
IMPRESSION:
1. No significant acute abnormality identified in the abdomen or pelvis, as described above.
2. Small hiatal hernia.
3. Hepatic steatosis.
4. Normal appendix.
Ultrasound abdomen:
IMPRESSION:
1. SEVERE DIFFUSE HEPATIC STEATOSIS.
2. MILD HEPATIC CIRRHOSIS.
3. Mild intrahepatic and extrahepatic biliary dilatation.
4. Previous cholecystectomy.
Prior GI Procedures:
EGD: Never
Colonoscopy: 10/31/2013 (Dr. Hurley):Impression: - The entire examined colon is normal.
Recommendation: - Repeat colonoscopy in 10 years for screening purposes.
Assessment / Plan
-
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
on ponatinib, CVA, paroxysmal A-fib on Xarelto, PFO closure 2008, hypertension, depression, lap candice converted to open with ex lap and small bowel enterotomy repair who presents to the emergency room with acute onset of upper abdominal pain that
started on evening. The patient states that this pain is constant, nonradiating, with the inability to eat. Associated with nausea. He came to the emergency room initially on 12/15/2024. He was told he had gastritis and was discharged
home. Review of those labs show a total bilirubin 0.8, AST of 126, ALT of 102 and alk phos of 186. Because of persistence of symptoms and he developed bilirubinuria he proceeded to come back to the emergency room. In between he did take Tylenol
no more than 2 g in 24 hours. At that point he had significantly elevated LFTs as well as amylase and lipase. We are asked to evaluate for obstructive jaundice. Currently WBC 8.5, hemoglobin 12.8, hematocrit 37.8, platelets 347, current CMP
pending from today. Yesterday sodium 140, potassium 4.0, BUN 14, creatinine 0.7, glucose 118, total bilirubin 5.2 (direct not performed), AST 1188, ALT 1201, alk phos 408, amylase 1454, lipase greater than 4000. Patient was given Dilaudid for pain
control last night. He continues on D5 LR at 150 cc an hour. Alcohol not detected, acetaminophen less than 10. CT abdomen pelvis with IV contrast shows no significant acute abnormality identified in abdomen pelvis. Small hiatal hernia. Hepatic
steatosis. Normal appendix. Ultrasound of the abdomen shows severe diffuse hepatic steatosis. Mild hepatic cirrhosis. Mild intra and extrahepatic biliary dilatation. Previous cholecystectomy.
Impression:
Elevated LFTs in an obstructive pattern
Intra and extrahepatic bile duct dilatation on ultrasound
Elevated amylase and lipase consistent with pancreatitis
Imaging with either severe hepatic steatosis versus cirrhosis
A-fib on Xarelto
History of non-Hodgkin's lymphoma/AML status post bone marrow transplant (2022) on ponatinib
Plan:
- N.p.o. except for p.o. meds
- Continue D5 LR at 150 cc an hour (patient with hypoglycemia this morning).
- Check repeat CMP this morning
- Will change order to MRI of abdomen with and without with MRCP given question of cirrhosis versus hepatic steatosis on imaging. Discussed with MRI patient will be going down this morning at 9 AM.
- Based on results of imaging will likely need to hold Xarelto for possible ERCP on Thursday.
- Incentive spirometer, discussed with patient
-CBC, CMP, direct bilirubin, PT/INR, CRP in a.m.
-Will need outpatient follow-up for liver steatosis versus cirrhosis. Discussed with patient.
-Patient also due for repeat colonoscopy for screening purposes.
-Discussed with internal medicine attending.
- Would avoid alcohol going forward.
- Further recommendations to be forthcoming
-
-
Thank you for consultation and allowing me to participate in the patient's care. Please call the compensation associate GI physician during the after hours with any questions or concerns.
[2024-12-17 08:40] LABS: Hematocrit 37.8 % (39.0-52.0); Hemoglobin 12.8 g/dL (13.0-18.0); Mean Corp Hgb Conc. 33.9 g/dL (33.0-37.0); Mean Corpuscular Hgb 30.7 pg (27.0-31.0); Mean Corpuscular Volume 90.6 fL (80.0-94.0); Mean Platelet Volume 9.7 fL (7.4-10.4); Platelet Count 347 10^3/uL (130-400); Red Blood Cell Count 4.17 10^6/uL (4.70-6.10); Red Cell Dist. Width 15.9 % (11.5-14.5); White Blood Cell Count 8.5 10^3/uL (4.8-10.8)
[2024-12-17 09:01] LABS: AST (SGOT) 678 U/L (17-59); Albumin 3.6 g/dl (3.5-5.0); Alkaline Phosphatase 367 U/L (38-126); Blood Urea Nitrogen 11 mg/dl (9-20); Calcium 8.3 mg/dl (8.4-10.2); Carbon Dioxide 27 mmol/L (22-30); Chloride 105 mmol/L (98-107); Direct Bilirubin 3.8 mg/dl (0.0-0.4); Estimated Creatinine Clearance > 125 ml/min; Glucose 105 mg/dl (70-99); Magnesium 2.6 mg/dl (1.6-2.3); Potassium 3.8 mmol/L (3.5-5.1); Sodium 138 mmol/L (135-145); Total Protein 5.8 g/dl (6.3-8.2); eGFR > 60.00
--- NOTE | 2024-12-17 09:50 | W.PN.HOSP.TC ---
Addendum entered and electronically signed by Jose F Wagoner MD 12/17/24 12:58:
MRI cannot rule out CBD filling defect - Xarelto held. possible ERCP Thursday
Original Note:
Today's Communication/Plan
-
see outlined plan
Assessment / Plan
Assessment / Plan
Assessment:
Elevated LFTS
acute pancreatitis - unclear etiology, suspect biliary
- await MRI/MRCP
- continue IVF (LR)
- follow labs
- pain control, anti-emetics
- GI consulted
Parox A. Fib
- on Xarelto - may need to hold pending MRI results
Essential HTN
- continue ARB
- hold HCTZ
non-Hodgkin's lymphoma/AML status post bone marrow transplant (2022) on ponatinib
- hold ponatinib, associated w/ hepatotoxicity
- on prophylactic acyclovir
DVT ppx: Xarelto (but may switch to SCDs pending MRI)
Code: Full
Anticipated Discharge: > 48 hours
Subjective/Interval History
-
Date of Service: December 17, 2024
denies any new complaints at present
Objective Data
-
Labs:
Laboratory Results
12/17/24
07:16
WBC 8.5
Hgb 12.8 L
Hct 37.8 L
Plt Count 347
Sodium 138
Potassium 3.8
Chloride 105
Carbon Dioxide 27
BUN 11
Creatinine 0.5 L
Glucose 105 H
Calcium 8.3 L
Total Bilirubin 5.0 H
AST 678 H*
ALT Pending
Alkaline Phosphatase 367 H
Vital Signs:
Vital Signs
Temp Pulse Resp BP Pulse Ox
98.3 F 69 20 129/88 96
12/17/24 07:00 12/17/24 07:00 12/17/24 07:00 12/17/24 07:56 12/17/24 07:00
I&O
12/16/24 12/17/24 12/18/24
06:59 06:59 06:59
Intake Total 1000 / 1000
Balance 1000 / 1000
Physical Exam
-
General: No Apparent Distress
HEENT: Normocephalic and Atraumatic
Respiratory: Negative Wheezes
Cardiac: Regular Rhythm and S1/S2
GI: Soft
Genito-urinary: No Costovertebral Tender
Neuro: AO x 3
Psych: Calm
Data Reviewed
-
Total Time Spent with Patient (in minutes): 42
Labs: Labs Reviewed by me
[2024-12-17 10:01] LABS: ALT (SGPT) 907 U/L (0-50); Lipase 2459 U/L (23-300)
[2024-12-17 11:19] LABS: Glucose - Point of Care 83 mg/dl (70-99)
[2024-12-17 12:03] LABS: Glucose - Point of Care 87 mg/dl (70-99)
--- NOTE | 2024-12-17 14:07 | CM ---
Patient seen at bedside on . Patient stated that he would like to review POA/advance directive information and that he lives with his , daughter and son in law. Patient home is a 2 story home. Patient PCP is Dr. Escudero and he uses the [facility]
in [place]. Patient provided information about advance directives and patient plan is for discharge home with VN if needed. Patient currently NPO. CM will continue to follow for discharge planning needs.
Plan; home with no needs vs home with VN.
[2024-12-17 15:00] VITALS: BP 132/74
[2024-12-17 16:49] LABS: Glucose - Point of Care 106 mg/dl (70-99)
[2024-12-17] MEDS: DILAUDID 0.5 MG IV (18:43)
[2024-12-17] MEDS: FLUSH (NSS) 2 FLUSH IV (18:44)
[2024-12-17 21:26] LABS: Glucose - Point of Care 98 mg/dl (70-99)
[2024-12-17 23:20] VITALS: BP 146/91
[2024-12-18] MEDS: D5LR 1000 IV ×4 (00:38→20:30)
[2024-12-18] MEDS: DILAUDID 0.5 MG IV ×4 (00:42→21:43)
[2024-12-18 04:03] LABS: Glucose - Point of Care 119 mg/dl (70-99)
[2024-12-18 07:22] LABS: Glucose - Point of Care 108 mg/dl (70-99)
[2024-12-18 07:23] LABS: % Basophils 0.9 % (0-2); % Eosinophils 6.5 % (0-6); % Immature Granulocytes 0.5 % (0-0.5); % Monocytes 11.8 % (1.7-9.3); % Neutrophils 52.3 % (42.2-75.2); Absolute Basophils 0.1 10^3/uL (0-0.2); Absolute Eosinophils 0.5 10^3/uL (0-0.7); Absolute Lymphocytes 2.3 10^3/uL (1.2-3.4); Absolute Neutrophils 4.3 10^3/uL (1.4-6.5); Hematocrit 38.4 % (39.0-52.0); Mean Corp Hgb Conc. 33.9 g/dL (33.0-37.0); Mean Corpuscular Hgb 30.7 pg (27.0-31.0); Mean Corpuscular Volume 90.8 fL (80.0-94.0); Nucleated Red Blood Cells % 0.4 % (-); Platelet Count 373 10^3/uL (130-400); Red Blood Cell Count 4.23 10^6/uL (4.70-6.10); Red Cell Dist. Width 16.2 % (11.5-14.5); White Blood Cell Count 8.1 10^3/uL (4.8-10.8)
[2024-12-18 07:27] LABS: INR 0.96; PT 13.1 Sec (11.4-14.6)
[2024-12-18 07:31] VITALS: BP 138/79
[2024-12-18] MEDS: NEURONTIN 400 MG PO (07:49)
[2024-12-18] MEDS: ZOVIRAX 800 MG PO (07:49)
[2024-12-18] MEDS: COZAAR 100 MG PO (07:49)
[2024-12-18 07:50] LABS: Amylase 110 U/L (30-110); Direct Bilirubin 3.9 mg/dl (0.0-0.4); Lipase 1084 U/L (23-300)
[2024-12-18 10:13] LABS: AST (SGOT) 538 U/L (17-59); Albumin 3.7 g/dl (3.5-5.0); Alkaline Phosphatase 443 U/L (38-126); Total Protein 5.9 g/dl (6.3-8.2)
[2024-12-18 10:26] LABS: ALT (SGPT) 826 U/L (0-50)
[2024-12-18 11:18] LABS: Glucose - Point of Care 91 mg/dl (70-99)
--- NOTE | 2024-12-18 11:35 | W.PN.HOSP.TC ---
Today's Communication/Plan
-
trend LFT's
hold Xarelto pending ERCP, resume when cleared by GI
continue IVF
Assessment / Plan
Assessment / Plan
Assessment:
s/p cholecystectomy 04/29/24
Elevated LFTS
better
AST 1188-->678-->538
ALT 1201-->907-->826
Bili 5.2-->5.0-->5.0
Lipase >4000-->2459-->1084
acute pancreatitis - unclear etiology, suspect biliary
- MRI/MRCP: Mild biliary ductal dilatation. Relatively abrupt termination of fluid signal intensity in the distal common bile duct with the suggestion of a subtle meniscus margin. This could be related to sphincter of Oddi dysfunction. It would be
difficult to exclude the possibility of a distal duct calculus. No other intraluminal filling defects are identified.
Fatty infiltration of liver.
Mild right upper quadrant edema. Predominantly adjacent to the first and second segments of the duodenum. Nonspecific. Possibly inflammatory, such as mild duodenitis.
- continue IVF (LR)
- follow labs
- pain control, anti-emetics
- GI consulted. Potential ERCP 12/19
Parox A. Fib
- on Xarelto - on hold pending ERCP
Essential HTN
- continue ARB
- hold HCTZ
non-Hodgkin's lymphoma/AML status post bone marrow transplant (2022) on ponatinib
- hold ponatinib, associated w/ hepatotoxicity
- on prophylactic acyclovir
DVT ppx: Xarelto on wash out (but may switch to SCDs once wash out completed), last dose 12/17 at 07:56
Code: Full
Anticipated Discharge: 24 - 48 hours
Subjective/Interval History
-
Date of Service: December 18, 2024
Is feeling much better today, asking about planned ERCP
Objective Data
-
Labs:
Laboratory Results
12/18/24
06:30
WBC 8.1
Hgb 13.0
Hct 38.4 L
Plt Count 373
PT 13.1
INR 0.96
Total Bilirubin 5.0 H
AST 538 H*
ALT 826 H*
Alkaline Phosphatase 443 H
Vital Signs:
Vital Signs
Temp Pulse Resp BP Pulse Ox
98.3 F 63 17 138/79 97
12/18/24 07:31 12/18/24 07:49 12/18/24 07:31 12/18/24 07:49 12/18/24 07:31
I&O
12/17/24 12/18/24 12/19/24
06:59 06:59 06:59
Intake Total 1000 / 1000 840 / 840
Balance 1000 / 1000 840 / 840
Review of Systems
-
History Source: Patient and Coordinated Provider
Constitutional: Reports No Symptoms; Denies Fever
EENT: Reports No Symptoms Reported
Respiratory: Reports No Symptoms
Cardiac: Reports No Symptoms
Abdomen/GI: Reports Abdominal Pain (markedly lessened)
Genitourinary: Reports No Symptoms
Musculoskeletal: Reports No Symptoms
Skin: Reports No Symptoms
Neuro: Reports No Symptoms
Physical Exam
-
General: Well Developed, Well Nourished and No Apparent Distress
HEENT: Normocephalic, Atraumatic and Moist Mucous Membranes
Respiratory: Clear to Auscultation; Negative Wheezes, Rales or Rhonchi
Cardiac: Regular Rhythm and S1/S2
GI: Soft, Normal Bowel Sounds and Tender
Genito-urinary: No Costovertebral Tender
Musculoskeletal: No Clubbing, No Cyanosis and No Edema
--- NOTE | 2024-12-18 11:42 | W.PN.GI.CBS2 ---
Today's Communication / Plan
-
NPO after MN
ERCP tomorrow
Assessment / Plan
-
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
on ponatinib, CVA, paroxysmal A-fib on Xarelto, PFO closure 2008, hypertension, depression, lap candice converted to open with ex lap and small bowel enterotomy repair who presents to the emergency room with acute onset of upper abdominal pain that
started on evening. The patient states that this pain is constant, nonradiating, with the inability to eat. Associated with nausea. He came to the emergency room initially on 12/15/2024. He was told he had gastritis and was discharged
home. Review of those labs show a total bilirubin 0.8, AST of 126, ALT of 102 and alk phos of 186. Because of persistence of symptoms and he developed bilirubinuria he proceeded to come back to the emergency room. In between he did take Tylenol
no more than 2 g in 24 hours. At that point he had significantly elevated LFTs as well as amylase and lipase. We are asked to evaluate for obstructive jaundice. Currently WBC 8.5, hemoglobin 12.8, hematocrit 37.8, platelets 347, current CMP
pending from today. Yesterday sodium 140, potassium 4.0, BUN 14, creatinine 0.7, glucose 118, total bilirubin 5.2 (direct not performed), AST 1188, ALT 1201, alk phos 408, amylase 1454, lipase greater than 4000. Patient was given Dilaudid for pain
control last night. He continues on D5 LR at 150 cc an hour. Alcohol not detected, acetaminophen less than 10. CT abdomen pelvis with IV contrast shows no significant acute abnormality identified in abdomen pelvis. Small hiatal hernia. Hepatic
steatosis. Normal appendix. Ultrasound of the abdomen shows severe diffuse hepatic steatosis. Mild hepatic cirrhosis. Mild intra and extrahepatic biliary dilatation. Previous cholecystectomy.
--Abdominal pain/elevated LFT/elevated lipase-concern for gallstone pancreatitis. MRI reported- Fatty liver ( previous US fatty liver / ? mild cirrhosis ) . Pancreas unremarkable.
--afib on xarelto - last dose 12/17
- hx of complicated cholecystectomy 04/2024
-History of non-Hodgkin's lymphoma/AML status post bone marrow transplant (2022) on ponatinib
MRI/MRCP 12/17
IMPRESSION:
Mild biliary ductal dilatation. Relatively abrupt termination of fluid signal intensity in the distal common bile duct with the suggestion of a subtle meniscus margin. This could be related to sphincter of Oddi dysfunction. It would be difficult to
exclude the possibility of a distal duct calculus. No other intraluminal filling defects are identified.
Fatty infiltration of liver.
Mild right upper quadrant edema. Predominantly adjacent to the first and second segments of the duodenum. Nonspecific. Possibly inflammatory, such as mild duodenitis.
plan
clinically doing well . WBC normal. no fever . no abdominal pain . AST/ALT trending down . Bili stable
MRI results discussed with patient. Distal CBD stone versus stricture versus SOD. Clinically no evidence of cholangitis. I discussed benefits and risk involved with ERCP. Patient verbalized understanding and is agreeable for the procedure. Will
schedule for ERCP on Tuesday 12/19 after Xarelto washout.
continue Clear liquid diet
Continue IVF
Trend LFT
outpatient GI follow up for fatty liver / CRC screening
Total Time Spent with Patient (in minutes): 35
Subjective
Subjective
Date of Service: December 18, 2024
Doing well. Tolerating clear liquids. Denies any abdominal pain
Objective
Data Reviewed
Laboratory Data:
Laboratory Results
12/18/24 06:30
12/17/24 07:16
Laboratory Results
PT 13.1 Sec (11.4-14.6) 12/18/24 06:30
INR 0.96 12/18/24 06:30
Magnesium 2.6 mg/dl (1.6-2.3) H 12/17/24 07:16
Total Bilirubin 5.0 mg/dl (0.2-1.3) H 12/18/24 06:30
AST 538 U/L (17-59) H* 12/18/24 06:30
ALT 826 U/L (0-50) H* 12/18/24 06:30
Alkaline Phosphatase 443 U/L (38-126) H 12/18/24 06:30
Amylase 110 U/L (30-110) 12/18/24 06:30
Lipase 1084 U/L (23-300) H* 12/18/24 06:30
Vital Signs and I&O:
Vital Signs
Temp Pulse Resp BP Pulse Ox
98.3 F 63 17 138/79 97
12/18/24 07:31 12/18/24 07:49 12/18/24 07:31 12/18/24 07:49 12/18/24 07:31
I&O
12/17/24 12/18/24 12/19/24
06:59 06:59 06:59
Intake Total 1000 / 1000 840 / 840
Balance 1000 / 1000 840 / 840
Physical Exam
Physical Exam
GI: Soft, Non Distended and Non Tender
[2024-12-18 15:36] VITALS: BP 146/87
[2024-12-18 17:10] LABS: Glucose - Point of Care 104 mg/dl (70-99)
[2024-12-18] MEDS: ROXICODONE 5 MG PO (20:06)
[2024-12-18 21:41] LABS: Glucose - Point of Care 90 mg/dl (70-99)
[2024-12-18 23:00] VITALS: BP 151/93
[2024-12-19] VITALS (7 sets, daily range): BP systolic 132–152; BP diastolic 70–96
[2024-12-19] MEDS: D5LR 1000 IV (03:21)
[2024-12-19 06:46] LABS: % Eosinophils 6.3 % (0-6); % Immature Granulocytes 0.6 % (0-0.5); % Lymphocytes 23.7 % (20.5-51.1); % Monocytes 13.6 % (1.7-9.3); % Neutrophils 54.8 % (42.2-75.2); Absolute Basophils 0.1 10^3/uL (0-0.2); Absolute Eosinophils 0.6 10^3/uL (0-0.7); Absolute Immature Granulocytes 0.1 10^3/uL (0-0.05); Absolute Lymphocytes 2.3 10^3/uL (1.2-3.4); Absolute Monocytes 1.3 10^3/uL (0.1-0.6); Absolute Neutrophils 5.3 10^3/uL (1.4-6.5); Hematocrit 37.7 % (39.0-52.0); Hemoglobin 12.9 g/dL (13.0-18.0); Mean Corp Hgb Conc. 34.2 g/dL (33.0-37.0); Mean Corpuscular Hgb 30.4 pg (27.0-31.0); Mean Corpuscular Volume 88.9 fL (80.0-94.0); Mean Platelet Volume 9.6 fL (7.4-10.4); Nucleated Red Blood Cells % 0.3 % (-); Platelet Count 396 10^3/uL (130-400); Red Blood Cell Count 4.24 10^6/uL (4.70-6.10); Red Cell Dist. Width 16.3 % (11.5-14.5); White Blood Cell Count 9.6 10^3/uL (4.8-10.8)
[2024-12-19 07:09] LABS: ALT (SGPT) 719 U/L (0-50); AST (SGOT) 408 U/L (17-59); Albumin 3.6 g/dl (3.5-5.0); Alkaline Phosphatase 491 U/L (38-126); Blood Urea Nitrogen 4 mg/dl (9-20); Carbon Dioxide 25 mmol/L (22-30); Chloride 108 mmol/L (98-107); Estimated Creatinine Clearance > 125 ml/min; Glucose 113 mg/dl (70-99); Lipase 393 U/L (23-300); Potassium 4.1 mmol/L (3.5-5.1); Sodium 138 mmol/L (135-145); Total Protein 5.8 g/dl (6.3-8.2); eGFR > 60.00
[2024-12-19] MEDS: COZAAR 100 MG PO (07:51)
[2024-12-19] MEDS: ZOVIRAX 800 MG PO (07:51)
[2024-12-19] MEDS: NEURONTIN 400 MG PO (07:52)
--- NOTE | 2024-12-19 12:10 | CM ---
Patient seen at bedside
ERCP today
PLAN: home with no needs vs home with VN.
--- NOTE | 2024-12-19 13:04 | W.PN.HOSP.TC ---
Today's Communication/Plan
-
advance diet to low fat
recheck labs
stop IVF
SCD
Assessment / Plan
Assessment / Plan
Assessment:
s/p cholecystectomy 04/29/24
Elevated LFTS
better
AST 1188-->678-->538-->408
ALT 1201-->907-->826-->719
Bili 5.2-->5.0-->5.0-->5.0
Lipase >4000-->2459-->1084-->393
acute pancreatitis - unclear etiology, suspect biliary
- MRI/MRCP: Mild biliary ductal dilatation. Relatively abrupt termination of fluid signal intensity in the distal common bile duct with the suggestion of a subtle meniscus margin. This could be related to sphincter of Oddi dysfunction. It would be
difficult to exclude the possibility of a distal duct calculus. No other intraluminal filling defects are identified.
Fatty infiltration of liver.
Mild right upper quadrant edema. Predominantly adjacent to the first and second segments of the duodenum. Nonspecific. Possibly inflammatory, such as mild duodenitis.
- stop IVF (LR)
Pt now on full liquid diet, to go to low fat diet, reviewed with GI
- follow labs
- pain control, anti-emetics
- GI consulted. ERCP: - The common bile duct was moderately dilated.
- A biliary sphincterotomy was performed.
- The biliary tree was swept and small amount of
sludge was found. No stone was noted
Parox A. Fib
- on Xarelto - on hold for ERCP, GI wants to hold for 48 more hours
Essential HTN
- continue ARB
- hold HCTZ
BP 145/79
non-Hodgkin's lymphoma/AML status post bone marrow transplant (2022) on ponatinib
- hold ponatinib, associated w/ hepatotoxicity
- on prophylactic acyclovir
DVT ppx: Xarelto on wash out (but may switch to SCDs once wash out completed), last dose 12/17 at 07:56
Code: Full
Anticipated Discharge: 24 - 48 hours
Subjective/Interval History
-
Date of Service: December 19, 2024
Awake, alert, abd pain has lessened
Objective Data
-
Labs:
Laboratory Results
12/19/24
06:24
WBC 9.6
Hgb 12.9 L
Hct 37.7 L
Plt Count 396
Sodium 138
Potassium 4.1
Chloride 108 H
Carbon Dioxide 25
BUN 4 L
Creatinine 0.6 L
Glucose 113 H
Calcium 9.0
Total Bilirubin 5.0 H
AST 408 H
ALT 719 H*
Alkaline Phosphatase 491 H
Vital Signs:
Vital Signs
Temp Pulse Resp BP Pulse Ox
98.4 F 62 16 145/79 96
12/19/24 11:45 12/19/24 11:45 12/19/24 11:45 12/19/24 11:45 12/19/24 11:45
I&O
12/18/24 12/19/24 12/20/24
06:59 06:59 06:59
Intake Total 840 / 840 2460 / 2460 580 / 580
Balance 840 / 840 2460 / 2460 580 / 580
Review of Systems
-
History Source: Patient and Coordinated Provider
Constitutional: Reports No Symptoms; Denies Fever
EENT: Reports No Symptoms Reported
Respiratory: Reports No Symptoms
Cardiac: Reports No Symptoms
Abdomen/GI: Reports Abdominal Pain (markedly lessened)
Genitourinary: Reports No Symptoms
Musculoskeletal: Reports No Symptoms
Skin: Reports No Symptoms
Neuro: Reports No Symptoms
Physical Exam
-
General: Well Developed, Well Nourished and No Apparent Distress
HEENT: Normocephalic, Atraumatic and Moist Mucous Membranes
Respiratory: Clear to Auscultation; Negative Wheezes, Rales or Rhonchi
Cardiac: Regular Rhythm and S1/S2
GI: Soft, Normal Bowel Sounds and Tender
Genito-urinary: No Costovertebral Tender
Musculoskeletal: No Clubbing, No Cyanosis and No Edema
[2024-12-19] MEDS: D5LR IV ×2 (13:38)
[2024-12-19] MEDS: ROXICODONE 5 MG PO (15:03)
[2024-12-19 17:28] LABS: Glucose - Point of Care 105 mg/dl (70-99)
[2024-12-19 23:05] LABS: Glucose - Point of Care 116 mg/dl (70-99)
[2024-12-20 07:00] VITALS: BP 143/93
[2024-12-20 07:31] LABS: % Basophils 0.5 % (0-2); % Eosinophils 0.7 % (0-6); % Immature Granulocytes 0.7 % (0-0.5); % Lymphocytes 29.9 % (20.5-51.1); % Monocytes 9.7 % (1.7-9.3); % Neutrophils 58.5 % (42.2-75.2); Absolute Basophils 0.1 10^3/uL (0-0.2); Absolute Eosinophils 0.1 10^3/uL (0-0.7); Absolute Immature Granulocytes 0.1 10^3/uL (0-0.05); Absolute Lymphocytes 3.8 10^3/uL (1.2-3.4); Absolute Monocytes 1.2 10^3/uL (0.1-0.6); Absolute Neutrophils 7.5 10^3/uL (1.4-6.5); Hemoglobin 14.4 g/dL (13.0-18.0); Mean Corp Hgb Conc. 34.3 g/dL (33.0-37.0); Mean Corpuscular Volume 90.3 fL (80.0-94.0); Mean Platelet Volume 10.5 fL (7.4-10.4); Nucleated Red Blood Cells % 0.2 % (-); Platelet Count 463 10^3/uL (130-400); Red Blood Cell Count 4.65 10^6/uL (4.70-6.10); White Blood Cell Count 12.8 10^3/uL (4.8-10.8)
[2024-12-20] MEDS: NEURONTIN 400 MG PO (08:24)
[2024-12-20] MEDS: ZOVIRAX 800 MG PO (08:24)
[2024-12-20] MEDS: COZAAR 100 MG PO (08:24)
[2024-12-20 08:35] LABS: ALT (SGPT) 969 U/L (0-50); AST (SGOT) 575 U/L (17-59); Albumin 4.4 g/dl (3.5-5.0); Alkaline Phosphatase 545 U/L (38-126); Blood Urea Nitrogen 10 mg/dl (9-20); Calcium 10.1 mg/dl (8.4-10.2); Carbon Dioxide 26 mmol/L (22-30); Chloride 109 mmol/L (98-107); Estimated Creatinine Clearance 124 ml/min; Glucose 88 mg/dl (70-99); Lipase 541 U/L (23-300); Potassium 4.7 mmol/L (3.5-5.1); Sodium 144 mmol/L (135-145); Total Bilirubin 5.8 mg/dl (0.2-1.3); eGFR > 60.00
--- NOTE | 2024-12-20 09:26 | W.PN.GI.CBS2 ---
Addendum entered and electronically signed by Amy Contreras Do, MD 12/20/24 10:33:
I saw and examined the patient.
The [employer] WORKER's note was reviewed and I agree with the note.
Comment: Rodo feels well. Denies abd pain. Ate 100% of low fat breakfast this AM. Desires for home today. Vitals stable. Exam NTTP diffuse tattoos. No issues post ERCP with sludge and sphincterotomy
Impression:
- Suspect cause of rise in LFTs to be passed gallstones and possible acetaminophen use (used frequenly 3 days prior to admission)
- Will check acetaminophen level. Other consideration is autoimmune. Sent SABINA
- Lab slip given for repeat LFTs in 1wk time along with IGG4, AMA, all viral hepatitis serologies, IGG4
- Also instructed pt to contact Dr Rodriguez his oncologist at [facility] to see if ponatinib should be held (Liver tox indicates 58% of time can cause rise in LFTs up to 5x ULN)
Ok from GI perspective for hosp d/c today. Case d/w surgery
OP FU appt with GI arranged 01/17 and labs slip given to in 1 wk. Return precautions given. All questions answered.
GI will sign off please call for ?
Addendum entered and electronically signed by BRITTNEE Ny 12/20/24 10:18:
Patient follow-up appointment with Dr. Mello 01/17/2025 at 7:30 AM
Original Note:
Today's Communication / Plan
-
as perplan
Assessment / Plan
-
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
on ponatinib, CVA, paroxysmal A-fib on Xarelto, PFO closure 2008, hypertension, depression, lap candice converted to open with ex lap and small bowel enterotomy repair who presents to the emergency room with acute onset of upper abdominal pain that
started on evening. The patient states that this pain is constant, nonradiating, with the inability to eat. Associated with nausea. He came to the emergency room initially on 12/15/2024. He was told he had gastritis and was discharged
home. Review of those labs show a total bilirubin 0.8, AST of 126, ALT of 102 and alk phos of 186. Because of persistence of symptoms and he developed bilirubinuria he proceeded to come back to the emergency room. In between he did take Tylenol
no more than 2 g in 24 hours. At that point he had significantly elevated LFTs as well as amylase and lipase. We are asked to evaluate for obstructive jaundice. Currently WBC 8.5, hemoglobin 12.8, hematocrit 37.8, platelets 347, current CMP
pending from today. Yesterday sodium 140, potassium 4.0, BUN 14, creatinine 0.7, glucose 118, total bilirubin 5.2 (direct not performed), AST 1188, ALT 1201, alk phos 408, amylase 1454, lipase greater than 4000. Patient was given Dilaudid for pain
control last night. He continues on D5 LR at 150 cc an hour. Alcohol not detected, acetaminophen less than 10. CT abdomen pelvis with IV contrast shows no significant acute abnormality identified in abdomen pelvis. Small hiatal hernia. Hepatic
steatosis. Normal appendix. Ultrasound of the abdomen shows severe diffuse hepatic steatosis. Mild hepatic cirrhosis. Mild intra and extrahepatic biliary dilatation. Previous cholecystectomy. Patient with WBC of 12.8 this morning, afebrile.
Hemoglobin 14.4, hematocrit 42.0, platelets 463 (asplenic), sodium 144, potassium 4.7, BUN 10, creatinine 0.7, glucose 88. Total bilirubin 5.8 (up from 5.0) direct bilirubin pending. AST 575 (up from 408), ALT 969 (up from 719), alk phos 554 (up
from 491). Lipase 541 (up from 393). Acute hepatitis panel pending. Reviewed patient hx again at length. ETOH is truly 2-3 (6 oz) glasses of wine daily vs 1-2 mixed drinks on weekend. No illicit drugs, no new meds, no supplements.
--Abdominal pain/elevated LFT/elevated lipase-concern for gallstone pancreatitis. MRI reported- Fatty liver ( previous US fatty liver / ? mild cirrhosis ) . Pancreas unremarkable.
--afib on xarelto - last dose 12/17
- hx of complicated cholecystectomy 04/2024
-History of non-Hodgkin's lymphoma/AML status post bone marrow transplant (2022) on ponatinib
MRI/MRCP 12/17
IMPRESSION:
Mild biliary ductal dilatation. Relatively abrupt termination of fluid signal intensity in the distal common bile duct with the suggestion of a subtle meniscus margin. This could be related to sphincter of Oddi dysfunction. It would be difficult to
exclude the possibility of a distal duct calculus. No other intraluminal filling defects are identified.
Fatty infiltration of liver.
Mild right upper quadrant edema. Predominantly adjacent to the first and second segments of the duodenum. Nonspecific. Possibly inflammatory, such as mild duodenitis.
ERCP 12/19/24 ([facility])
- The common bile duct was moderately dilated.
- A biliary sphincterotomy was performed.
- The biliary tree was swept and small amount of
sludge was found. No stone was noted
Plan:
-Hold Xarelto for another 24 hrs
-Continue low-fat diet
-Patient to talk to his primary Oncologist ([facility]) Dr. Rodriguez to consider holding ponatinib.
-Avoid Tylenol.
-Check acute hepatitis panel, alpha-1 antitrypsin, SABINA, IgG4 subclasses, anti-LK M antibody, AMA, ASMA, iron, TIBC, ferritin, ceruloplasmin, Tylenol level now
-Check LFTs to be performed as outpatient in 1 week (Lab slip given to patient)
-Due for repeat colonoscopy (last performed 10/31/2013)
-Outpatient GI follow up with Dr. Mello, sent message to our office to facilitate.
Subjective
Subjective
Date of Service: December 20, 2024
Patient without any complaints. Tolerating low fat diet. No abdominal pain. Ambulating hallways. Status post ERCP yesterday that showed common bile duct was moderately dilated. Biliary sphincterotomy performed. Biliary tree was swept with small
amount of sludge found. No stone was noted. Patient needs to hold Xarelto for at least another 24 hours (48 hours post ERCP). Patient with WBC of 12.8 this morning, afebrile. Hemoglobin 14.4, hematocrit 42.0, platelets 463 (asplenic), sodium
144, potassium 4.7, BUN 10, creatinine 0.7, glucose 88. Total bilirubin 5.8 (up from 5.0) direct bilirubin pending. AST 575 (up from 408), ALT 969 (up from 719), alk phos 554 (up from 491). Lipase 541 (up from 393). Acute hepatitis panel pending.
Reviewed patient hx again at length. ETOH is truly 2-3 (6 oz) glasses of wine daily vs 1-2 mixed drinks on weekend. No illicit drugs, no new meds, no supplements.
Objective
Data Reviewed
Laboratory Data:
Laboratory Results
12/20/24 06:49
12/20/24 06:49
Laboratory Results
PT 13.1 Sec (11.4-14.6) 12/18/24 06:30
INR 0.96 12/18/24 06:30
Magnesium 2.6 mg/dl (1.6-2.3) H 12/17/24 07:16
Total Bilirubin 5.8 mg/dl (0.2-1.3) H 12/20/24 06:49
AST 575 U/L (17-59) H* 12/20/24 06:49
ALT 969 U/L (0-50) H* 12/20/24 06:49
Alkaline Phosphatase 545 U/L (38-126) H 12/20/24 06:49
Amylase 110 U/L (30-110) 12/18/24 06:30
Lipase 541 U/L (23-300) H 12/20/24 06:49
Vital Signs and I&O:
Vital Signs
Temp Pulse Resp BP Pulse Ox
97.6 F 65 19 143/93 99
12/20/24 07:00 12/20/24 08:24 12/20/24 07:00 12/20/24 08:24 12/20/24 07:00
I&O
12/19/24 12/20/24 12/21/24
06:59 06:59 06:59
Intake Total 2460 / 2460 1060 / 1060
Balance 2460 / 2460 1060 / 1060
Physical Exam
Physical Exam
HEENT: Other (slightly icteric)
Cardiology: Normal Sinus Rhythm
Pulmonary: Clear
GI: Soft, Non Distended, Tender (mild chronic epigastric tenderness) and Normal Bowel Sounds
Extremities: No Edema
Neuro: Non Focal
[2024-12-20 09:28] LABS: Direct Bilirubin 4.2 mg/dl (0.0-0.4)
--- NOTE | 2024-12-20 10:08 | W.PN.UPDATE ---
Update Note
Progress Note Update
Pt seen and evaluated at bedside. Feels well, ate well last night and this morning, jorge reg diet. Denies n/v. Ambulating, voiding. Abd exam baseline. New leukocytosis noted, likely reactive post-procedure. LFTs trending up, suspect lab lag given how
clinically well he looks. Images reviewed, no issues with biliary tree, ERCP with sludge noted. Rec DC home today with outpt lab f/u next week to monitor LFTs and ensure return to baseline.
[2024-12-20 10:15] LABS: Acetaminophen < 10 ug/ml (10-30)
[2024-12-20 10:27] LABS: Total Iron Binding Capacity 346 ug/dl (261-462)
--- NOTE | 2024-12-20 13:08 | CM ---
Patient chart reviewed
ERCP completed yesterday
tentative dc today
PLAN: Home, no needs
family to transport
[2024-12-20 13:39] LABS: Hepatitis B Surface Antigen Negative (Negative)
[2024-12-20 13:44] LABS: Hepatitis A IgM Antibody Negative (Negative)
[2024-12-20 13:57] LABS: Hepatitis B Core Ab, Total Negative (Negative); Hepatitis B Surface Antibody Positive; Hepatitis C Antibody Negative (Negative)
--- NOTE | 2024-12-20 14:10 | W.PN.HOSP.TC ---
Today's Communication/Plan
-
dc to home
Assessment / Plan
Assessment / Plan
s/p cholecystectomy 04/29/24
Elevated LFTS
underwent ERCP today 12/20
AST 1188-->678-->538-->408-->575
ALT 1201-->907-->826-->719-->969
Bili 5.2-->5.0-->5.0-->5.0-->5.8
Lipase >4000-->2459-->1084-->393-->541
acute pancreatitis - unclear etiology, suspect biliary
- MRI/MRCP: Mild biliary ductal dilatation. Relatively abrupt termination of fluid signal intensity in the distal common bile duct with the suggestion of a subtle meniscus margin. This could be related to sphincter of Oddi dysfunction. It would be
difficult to exclude the possibility of a distal duct calculus. No other intraluminal filling defects are identified.
Fatty infiltration of liver.
Mild right upper quadrant edema. Predominantly adjacent to the first and second segments of the duodenum. Nonspecific. Possibly inflammatory, such as mild duodenitis.
- stop IVF (LR)
Pt was on full liquid diet, tolerated low fat diet, reviewed with GI
- will need outpt labs
- pain control, anti-emetics
- GI consulted. ERCP: - The common bile duct was moderately dilated.
- A biliary sphincterotomy was performed.
- The biliary tree was swept and small amount of
sludge was found. No stone was noted
Parox A. Fib
Essential HTN
- continue ARB
- hold HCTZ
BP 145/79
non-Hodgkin's lymphoma/AML status post bone marrow transplant (2022) on ponatinib
- hold ponatinib, associated w/ hepatotoxicity
- on prophylactic acyclovir
DVT ppx: Xarelto was on wash out , last dose 12/17 at 07:56, cleared by GI to resume
Code: Full
dc to home, reviewed with JEWELS Arguello
More than 30 minutes spent in discharge including
Final examination of the patient
Summarizing hospital stay
Instructions for continuing care to all relevant caregivers
Preparation of discharge records, prescriptions, and referral forms
Total time spent (in minutes): 45
Anticipated Discharge: Today
Subjective/Interval History
-
Date of Service: December 20, 2024
Pt feels well, has been cleared to be dc by GI and Surg and he is anxiously awaiting dc
Objective Data
-
Labs:
Laboratory Results
12/20/24
06:49
WBC 12.8 H
Hgb 14.4
Hct 42.0
Plt Count 463 H
Sodium 144
Potassium 4.7
Chloride 109 H
Carbon Dioxide 26
BUN 10
Creatinine 0.7
Glucose 88
Calcium 10.1
Total Bilirubin 5.8 H
AST 575 H*
ALT 969 H*
Alkaline Phosphatase 545 H
Vital Signs:
Vital Signs
Temp Pulse Resp BP Pulse Ox
97.6 F 65 19 143/93 99
12/20/24 07:00 12/20/24 08:24 12/20/24 07:00 12/20/24 08:24 12/20/24 07:00
I&O
12/19/24 12/20/24 12/21/24
06:59 06:59 06:59
Intake Total 2460 / 2460 1060 / 1060
Balance 2460 / 2460 1060 / 1060
Review of Systems
-
History Source: Patient and Coordinated Provider
Constitutional: Reports No Symptoms; Denies Fever
EENT: Reports No Symptoms Reported
Respiratory: Reports No Symptoms
Cardiac: Reports No Symptoms
Abdomen/GI: Reports Abdominal Pain (markedly lessened, at chronic level)
Genitourinary: Reports No Symptoms
Musculoskeletal: Reports No Symptoms
Skin: Reports No Symptoms
Neuro: Reports No Symptoms
Physical Exam
-
General: Well Developed, Well Nourished and No Apparent Distress
HEENT: Normocephalic, Atraumatic and Moist Mucous Membranes
Respiratory: Clear to Auscultation; Negative Wheezes, Rales or Rhonchi
Cardiac: Regular Rhythm and S1/S2
GI: Soft and Normal Bowel Sounds; Negative Tender (essentially resolved)
Genito-urinary: No Costovertebral Tender
Musculoskeletal: No Clubbing, No Cyanosis and No Edema
[2024-12-20 14:39] VITALS: BP 140/95
--- NOTE | 2024-12-20 16:30 | W.DS.TRANS ---
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
-
Discharge Instructions:
Sleep Apnea Risk Intermediate
Discharge Diagnosis/Procedures Abdominal Pain with elevated LFT's
Diet Low Fat
Additional Diets Absolutely no alcohol until cleared by physician
Activity No restrictions,Other activity
Additional Activity Pt may return to work 12/21, but is to avoid
lifting anything over 40 lbs
Driving Restrictions As prior to admission
Bathing Restrictions None
Blood Work CBC, CMP, IGG4,SABINA, Hepatitis A,B,C titers to be
done in 1 week, 12/27, copy to Dr. Mello
Instructions:
Stand-Alone Forms:
Changes to Home Medications: No
Discharge Medications:
DC Medications w/original date entered in [facility]
rivaroxaban 20 mg tablet (Xarelto) 20 mg PO DAILY Blood Clot Prevention/Tx 04/28/24
acetaminophen 500 mg tablet (Tylenol Extra Strength) 1,000 mg PO DAILYPRN PRN mild pain 05/10/24
acyclovir 800 mg tablet 800 mg PO DAILY Infection 12/16/24
gabapentin 400 mg capsule 400 mg PO DAILY Pain 12/16/24
hydrochlorothiazide 12.5 mg tablet 12.5 mg PO DAILY Blood Pressure 12/16/24
losartan 100 mg tablet 100 mg PO DAILY Blood Pressure 12/16/24
ponatinib 1 tab PO DAILY Cancer 12/16/24
Home Medication Changes
Pending Results: No
[2024-12-21 21:41] LABS: IgG Subclass 4 6 mg/dL (1-123)
[2024-12-22 04:08] LABS: Alpha-1-Antitrypsin 197 mg/dL (90-200)
[2024-12-22 07:41] LABS: Mitochondrial M2 Ab, IgG 3.6 Units (0.0-24.9)
== END 2024-12-20 14:55 | disposition home or self-care (01) | DRG 444 ==
LOC: 3 WEST ACU 21:21
PROVIDERS: Nurse Practitioner; Radiology Diagnostic Radiology; Student in an Organized Health Care Education/Training Program; ADMITTING PHYSICIAN Internal Medicine; ATTENDING PHYSICIAN Internal Medicine; CONSULT PHYSICIAN Internal Medicine Gastroenterology; EMERGENCY PHYSICIAN Emergency Medicine; FAMILY PHYSICIAN Family Medicine
PROC: 0F798ZZ Dilation of Common Bile Duct, Via Natural or Artificial Opening Endoscopic (ICD-10-PCS; 2024-12-19)
PROC: BF101ZZ Fluoroscopy of Bile Ducts using Low Osmolar Contrast (ICD-10-PCS; 2024-12-19)
DX: K83.1 Obstruction of bile duct (principal); K85.10 Biliary acute pancreatitis without necrosis or infection; C92.00 Acute myeloblastic leukemia, not having achieved remission; Z94.81 Bone marrow transplant status; C92.01 Acute myeloblastic leukemia, in remission; K66.0 Peritoneal adhesions (postprocedural) (postinfection); I48.0 Paroxysmal atrial fibrillation; E78.00 Pure hypercholesterolemia, unspecified; I10 Essential (primary) hypertension; H02.401 Unspecified ptosis of right eyelid; K76.0 Fatty (change of) liver, not elsewhere classified; K74.60 Unspecified cirrhosis of liver; F32.A Depression, unspecified; K44.9 Diaphragmatic hernia without obstruction or gangrene; K29.80 Duodenitis without bleeding; G62.9 Polyneuropathy, unspecified; Z96.651 Presence of right artificial knee joint; Z90.49 Acquired absence of other specified parts of digestive tract; Z86.73 Personal history of transient ischemic attack (TIA), and cerebral infarction without residual deficits; Z87.891 Personal history of nicotine dependence; Z87.74 Personal history of (corrected) congenital malformations of heart and circulatory system; Z90.81 Acquired absence of spleen; Z79.01 Long term (current) use of anticoagulants
CPT/HCPCS: 74183; 74330; 76000; 76705; 80053; 80076; 80143; 82077; 82103; 82150; 82248; 82728; 82787; 82962; 83516; 83550; 83605; 83690; 83735; 84478; 84484; 85025; 85027; 85610; 86038; 86140; 86376; 86381; 86704; 86706; 86709; 86803; 87040; 87340; 93005; 96361; 96374; 96375; 99285; A9575; C1769

== ENCOUNTER → 2024-12-26 08:29 | Outpatient (REF) | payer OTHER, SELFPAY ==
[2024-12-26 09:53] LABS: ALT (SGPT) 137 U/L (0-50); AST (SGOT) 35 U/L (17-59); Alkaline Phosphatase 225 U/L (38-126); Direct Bilirubin 0.9 mg/dl (0.0-0.4); Total Bilirubin 1.4 mg/dl (0.2-1.3); Total Protein 6.2 g/dl (6.3-8.2)
== END ==
LOC: REG 08:29
PROVIDERS: ATTENDING PHYSICIAN Internal Medicine Gastroenterology; FAMILY PHYSICIAN Family Medicine
DX: R74.8 Abnormal levels of other serum enzymes (principal)
CPT/HCPCS: 36415; 80076

== ENCOUNTER 2025-03-21 08:00 | Emergency (ER) | payer OTHER, SELFPAY ==
[2025-03-21 08:01] VITALS: BP 137/98
[2025-03-21 08:16] VITALS: BMI 25.8
--- NOTE | 2025-03-21 09:06 | ED.GENMED ---
ED Provider Triage
<Daniel Wasserman MD, Resident - Last Filed: 03/21/25 12:20>
-
Patient seen by provider in Triage?: Seen in Triage
History of Present Illness
<Daniel Wasserman MD, Resident - Last Filed: 03/21/25 12:20>
General
Chief Complaint: Visual Problem
Source: patient
Exam Limitations: none
Time Seen by Provider: 03/21/25 08:28
History of Present Illness
History of Present Illness:
64 year old male who is complaining of visual changes. He states that he feels the room moving ' from side to side' for a duration of 1 minute associated with diaphoresis. Since then no further episodes and has completely resolved prior to arrival.
Prior to visual symptoms, there was 2 episodes over the weekend with HR in the 180- 190s range recorded on patients phone, he is on xarelto. No headache, loss of vision, no weakness, no slurring of speech, no facial droop, no confusion, gait
dysfunction, chest pain, syncope. No recent trauma to eye, no recent history of migraines, had full breakfast before work this morning.Has history of HTN and HLD. Former smoker, quit 10 years ago, no alochol/ drug use.
Past History
<Daniel Wasserman MD, Resident - Last Filed: 03/21/25 12:20>
Past History
ED Past Medical History: Arrthythmia (AF), Cancer (nonhodgkins lymphoma), CVA, HTN, Hypercholesterolemia and Other (Neuropathy, Bowel obstruction, Ptosis right eye)
ED Past Surgical History: Cardiac (Ablation), Orthopedic (Right knee replacement) and Other (Splenectomy, Stomach repair, hernia repair, PFO closure, Cataracts, Bone marrow transplant)
Social History
Tobacco: Former smoker
Alcohol: Daily (1-2 glasses of wine)
Drug: None
Personal:
Living: with family
Review of Systems
<Daniel Wasserman MD, Resident - Last Filed: 03/21/25 12:20>
Review of Systems
Allergies reviewed?: Yes
All Other Systems: ROS reviewed and negative except as documented in HPI and ROS
Cardiac: Reports diaphoresis; Denies chest pain, palpitations or syncope
ABD/GI: Denies abdominal pain, nausea or vomiting
: Reports no symptoms
Musculoskeletal: Reports no symptoms
Neurological: Reports no symptoms
Psychiatric: Reports no symptoms
Phy Exam
<Daniel Wasserman MD, Resident - Last Filed: 03/21/25 12:20>
General Physical Exam
General Presentation: well appearing and no apparent distress
Eye Exam
Eye Exam: other (ptosis of the right eye post chemotherapy exposure)
Cardiovascular Exam
Cardiovascular Exam: regular rate/rhythm, no edema, no JVD and no murmur
Pulmonary Exam
Pulmonary Exam: lungs clear and no respiratory distress
Gastrointestinal Exam
Gastrointestinal Exam: normal bowel sounds, non tender, soft and non distended
Neurological Exam
Neurological Exam: alert, oriented x3, no motor deficits, normal reflexs, no sensory deficits and speech normal
Musculoskeletal Exam
Musculoskeletal Exam: full ROM
Course
<Daniel Wasserman MD, Resident - Last Filed: 03/21/25 12:20>
Orders/Labs/Results
Orders:
Orders
03/21/25 09:05
EKG [Electrocardiogram (*1)] Urgent
Reason for Study: Atrial Fibrillation
CT Head W/o Iv Contrast Urgent
Comment:
Reason For Exam: transient vision changes
EKG- Treatment ONCE
03/21/25 09:06
Visual Acuity- Treatment ONCE
03/21/25 10:44
Complete Blood Count/With Diff Urgent
Comprehensive Metabolic Panel Urgent
Lipid Profile [Cardiovascular Evaluation] Urgent
Abnormal Lab Results
03/21/25
10:44
RDW 16.7 H %
(11.5-14.5)
Plt Count 404 H 10^3/uL
(130-400)
Absolute Monos (auto) 1.1 H 10^3/uL
(0.1-0.6)
Neutrophils % 35.9 L %
(42.2-75.2)
Monocytes % 16.4 H %
(1.7-9.3)
Eosinophils % 8.6 H %
(0-6)
Glucose 101 H mg/dl
(70-99)
Triglycerides 196 H mg/dl
(10-149)
Total Cholesterol 240 H mg/dl
(50-199)
VLDL Cholesterol, Calc 39 H mg/dl
(0-30)
03/21/25 10:44
03/21/25 10:44
Vital Signs
Initial and Last Documented VS:
Initial Vital Signs
Temp Pulse Resp BP Pulse Ox
98.4 F 87 18 137/98 98
03/21/25 08:01 03/21/25 08:01 03/21/25 08:01 03/21/25 08:01 03/21/25 08:01
Last Documented Vital Signs
Temp Pulse Resp BP Pulse Ox
98.4 F 79 12 120/99 96
03/21/25 08:01 03/21/25 11:15 03/21/25 11:15 03/21/25 11:00 03/21/25 11:15
<Tammie Blanc MD - Last Filed: 03/21/25 10:26>
Orders/Labs/Results
Orders:
Orders
03/21/25 09:05
EKG [Electrocardiogram (*1)] Urgent
Reason for Study: Atrial Fibrillation
CT Head W/o Iv Contrast Urgent
Comment:
Reason For Exam: transient vision changes
EKG- Treatment ONCE
03/21/25 09:06
Visual Acuity- Treatment ONCE
03/21/25 10:44
Complete Blood Count/With Diff Urgent
Comprehensive Metabolic Panel Urgent
Lipid Profile [Cardiovascular Evaluation] Urgent
Abnormal Lab Results
03/21/25
10:44
RDW 16.7 H %
(11.5-14.5)
Plt Count 404 H 10^3/uL
(130-400)
Absolute Monos (auto) 1.1 H 10^3/uL
(0.1-0.6)
Neutrophils % 35.9 L %
(42.2-75.2)
Monocytes % 16.4 H %
(1.7-9.3)
Eosinophils % 8.6 H %
(0-6)
Glucose 101 H mg/dl
(70-99)
Triglycerides 196 H mg/dl
(10-149)
Total Cholesterol 240 H mg/dl
(50-199)
VLDL Cholesterol, Calc 39 H mg/dl
(0-30)
03/21/25 10:44
03/21/25 10:44
Vital Signs
Initial and Last Documented VS:
Initial Vital Signs
Temp Pulse Resp BP Pulse Ox
98.4 F 87 18 137/98 98
03/21/25 08:01 03/21/25 08:01 03/21/25 08:01 03/21/25 08:01 03/21/25 08:01
Last Documented Vital Signs
Temp Pulse Resp BP Pulse Ox
98.4 F 79 12 120/99 96
03/21/25 08:01 03/21/25 11:15 03/21/25 11:15 03/21/25 11:00 03/21/25 11:15
<Daniel Wasserman MD, Resident - Last Filed: 03/21/25 12:20>
MDM/Problems Addressed
Differential Diagnosis Includes:
TIA secondary to AFIB, Vertigo, refractive errors
MDM/Problems Addressed:
64 year old male who presents with brief visual changes associated with diaphoresis that have resolved prior to arrival. Also had episode of Afib w/ HR in 180- 190's over the weekend. Physical examination is benign. Ordered visual acuity test, CT
head w/o IV contrast to r/o intracranial hemmorhage,and EKG to screen for AFIB.
<Daniel Wasserman MD, Resident - Last Filed: 03/21/25 12:20>
*Pulse Oximetry
SaO2: 96
Oxygen Mode of Delivery: Room air
Patient hypoxic: no
*Critical Care Note
Total Time (30-74mins, 75-104mins- exclusive of procedures): Not Applicable
<Daniel Wasserman MD, Resident - Last Filed: 03/21/25 12:20>
Update Note
Update Note:
- Head CT shows no acute intracranial abnormality
- EKG shows normal sinus rhythm
- Visual acuity test suggests bilateral refractive error, tried to call opthalmologist, patient will book appointment
ED Attending Note
<Daniel Wasserman MD, Resident - Last Filed: 03/21/25 12:20>
-
Portions of this chart may have been created with voice recognition software.� Occasional wrong word or��sound alike� substitutions may have occurred due to the inherent limitations of voice recognition software.
<Tammie Blanc MD - Last Filed: 03/21/25 10:26>
ED Attending Note
Patient seen and examined by attending physician: Yes
I performed a history and physical exam of patient and discussed management with resident, I reviewed resident's note and agree with documented findings and plan of care.: Yes
ED Attending Note:
64-year-old male was feeling usual self while at work today and then started to feel like object started to shift [id number] in his visual field for approximately a minute and then fully resolved. He denies feeling dizzy or off balance at this
time. He was seated during the entire event. He denies double vision or loss of blackening out of vision, or blurry vision. He states that things were still very clear, but just seem to be moving [id number] abruptly. He denies associated
numbness, tingling, headache, neck pain, dizziness, chest pain, shortness of breath, abdominal pain, or other complaints. On exam, patient is awake alert pleasant making jokes. Baseline right sided ptosis noted, no resting nystagmus. EOMI, visual
[place] intact, no nystagmus noted. [id number] normal, motor 5 out of 5, sensory intact. Funduscopic exam limited but unremarkable. Unclear specific etiology for patient's symptoms, may be consistent with nystagmus/vertigo although not present
now. Highly doubt acute retinal event. Of note this was not associated with pain. Will do workup here and eventually make attempts to discuss with patient's associate financial planner.
Discharge Plan
Departure
Patient Disposition: Home (Routine Discharge)
Date of Disposition: 03/21/25
Time of Disposition: 11:43
Patient with high blood pressure during this ER visit?: No
Condition: Fair
Discharge Problem:
Changes in vision
Prescriptions:
No Action
Xarelto 20 mg Tablet
20 mg PO DAILY
acetaminophen [Tylenol Extra Strength] 500 mg tablet
1,000 mg PO DAILYPRN PRN (Reason: mild pain)
losartan 100 mg Tablet
100 mg PO DAILY
acyclovir 800 mg Tablet
400 mg PO DAILY
Patient Comments:
12/16/2024, prescribed BID but pt. only takes 1 tablet daily.
Referrals:
Renu Christine MD [Non-Admitting Privileges, Ophthalmology] - Follow up in 1 week
Mega Escudero DO [Family Provider, Family Practice] - Follow up in 5-7 days
Activity Restrictions/Additional Instructions:
PLEASE RETURN TO ER IF YOU EXPERIENCE ANY LOSS OF VISION, WEAKNESS, NUMBNESS, SLURRED SPEECH, CONFUSION, CHEST PAIN, OR SHORTNESS OF BREATH. PLEASE SCHEDULE REFRIGERATION SPECIALIST APPOINTMENT IN 1 WEEK. PLEASE SEE PRIMARY CARE DOCTOR IN 1 WEEK.
Interventions
Interventions:
*Risk Screen - Suicide Last Done: 03/21/25 08:01
*General Assessment Last Done: 03/21/25 08:01
*Neglect/Abuse Screening Last Done: 03/21/25 08:01
*ED- Fall Risk Assessment Last Done: 03/21/25 08:17
*ED COVID-19 Vaccine History Last Done: 03/21/25 08:17
ED- Neurological Assessment Last Done: 03/21/25 08:22
ED-EENT Assessment Last Done: 03/21/25 08:22
Discharge Date and Time
Print Language: GAMBIAN
[2025-03-21 09:07] VITALS: BP 131/86
[2025-03-21 10:00] VITALS: BP 129/101
[2025-03-21 10:54] LABS: Hematocrit 44.1 % (39.0-52.0); Hemoglobin 14.6 g/dL (13.0-18.0); Mean Corp Hgb Conc. 33.1 g/dL (33.0-37.0); Mean Corpuscular Volume 91.3 fL (80.0-94.0); Nucleated Red Blood Cells % 0 % (-); Platelet Count 404 10^3/uL (130-400); Red Cell Dist. Width 16.7 % (11.5-14.5)
[2025-03-21 11:00] VITALS: BP 120/99
[2025-03-21 11:11] LABS: ALT (SGPT) 46 U/L (0-50); AST (SGOT) 41 U/L (17-59); Albumin 4.2 g/dl (3.5-5.0); Alkaline Phosphatase 80 U/L (38-126); Blood Urea Nitrogen 13 mg/dl (9-20); Calcium 9.7 mg/dl (8.4-10.2); Carbon Dioxide 27 mmol/L (22-30); Chloride 105 mmol/L (98-107); Estimated Creatinine Clearance 124 ml/min; Glucose 101 mg/dl (70-99); HDL Cholesterol 60 mg/dl; LDL Cholesterol, Calculated 141 mg/dl; Potassium 4.6 mmol/L (3.5-5.1); Sodium 136 mmol/L (135-145); Total Protein 6.5 g/dl (6.3-8.2); Very Low Density Lipoprotein 39 mg/dl (0-30); eGFR > 60.00
== END 2025-03-21 12:36 | disposition home or self-care (01) ==
LOC: EMR 08:00
PROVIDERS: EMERGENCY PHYSICIAN Emergency Medicine; FAMILY PHYSICIAN Family Medicine
DX: H53.8 Other visual disturbances (principal); R61 Generalized hyperhidrosis; I10 Essential (primary) hypertension; E78.00 Pure hypercholesterolemia, unspecified; Z85.72 Personal history of non-Hodgkin lymphomas; I48.91 Unspecified atrial fibrillation; Z86.73 Personal history of transient ischemic attack (TIA), and cerebral infarction without residual deficits; Z79.01 Long term (current) use of anticoagulants; Z87.891 Personal history of nicotine dependence
CPT/HCPCS: 99284; 70450; 80053; 80061; 85025; 93005